=== PATIENT | female | born 1950 | race Caucasian/White ===

== ENCOUNTER 2017-04-19 15:56 | Emergency (ER) | payer MEDICARE, MEDICAID ==
[~2017-04-19] VITALS: Ht 160 cm; Wt 90.7 kg
[~2017-04-19 15:56] MED LIST: ASPIRIN EC325 M1 PO; ATORVASTATIN CA10 M1 PO; BUPROPION HCL75 MG PO; CITRACAL + D 251 TAB PO; CLINDAMYCIN300 MG PO; FUROSEMIDE 20MG20 MG PO; GABAPENTIN300 MG PO; HYDROCODONE-APA1 TA2 PO; HYDROXYZINE HCL25 M1 PO; LEVOFLOXACIN 5500 MG PO; LIPITOR40 MG PO; LISINOPRIL 5MG T5 MG NG; LISINOPRIL/HCTZ1 TA3 PO; LORTAB 7.5/3251 TAB PO; METOPROLOL SUCC25 M2 PO; METOPROLOL25 MG PO; PERCOCET 5/3251 EACH PO; PRILOSEC20 MG PO; TOPIRAMATE 25MG25 MG PO; VITAMIN B121000 MC2 SL; ZANTAC 150150 MG PO; ZOFRAN ODT4 MG PO; ZYRTEC ALLERGY10 MG PO
--- NOTE | 2017-04-19 16:25 | [facility] Report ---
History of Present Issue Date/Time Seen by Provider 04/19/17 9805 Visit Reason Pt arrived:Walked Presenting Problem:PATIENT STATES HER EARS ARE HURTING, SHE HAS HAD A WHEEZY COUGH FOR 2 DAYS AND NOW BODY ACHES. Location if Accident: Onset of symptoms date/time:/ or onset unknown for:MEDICAL HX UNKNOWN Have you (or family members/close friends) recently traveled outside the [place]? N If Yes, where/when: Have you had exposure to infectious disease within the past month? TB? Other? Specify: c/o cough and chest congestion. Started w/ bilateral ear pain x 2 days ago. Cough started yesterday and is worse at night or with deep breaths. Initially reported wheezing but once wheezing demonstrated, thinks more just congestion and not wheezing she is noticing when lays down at night. + tobacco abuse. Won't say how much. "none in the last 2-3 days and I am not a smoker because I can live without it". Denies SOA or difficulty breathing but later reports harder to breath if "really active". Son and his girlfriend have similiar symptoms. Source patient Exam Limitations no limitations ALLERGIES Coded Allergies: No Known Allergies (06/28/16) Home Medications Active Scripts HYDROCODONE/ACETAMINOPHEN (Hydrocodon-Acetaminoph 7.5-325) 1 TAB PO TID PRN pain #90 TAB Prov: 07/04/16 HYDROXYZINE HCL (Hydroxyzine HCl) 25 MG PO Q8HP PRN ITCHING #21 CAP Ref 1 Prov: 11/22/15 Ranitidine Hcl (Zantac) 150 MG PO BID #30 TAB Prov: 11/22/15 Reported Medications Aspirin (Aspirin Ec) 325 MG PO DAILY #15 Metoprolol Succinate 25 MG PO BID #30 Atorvastatin Calcium 10 MG PO QHS #30 Bupropion Hcl (Bupropion 75MG) 75 MG PO DAILY Atorvastatin Calcium (Atorvastatin) 40 MG PO DAILY Gabapentin (Gabapentin 300MG) 300 MG PO TID Lisinopril & Hctz (Lisinopril-Hctz 10-12.5 MG Tab) (Unknown Dose) PO DAILY History Medical History General CAD? No Angina: No [place]: No Hypertension? Yes Hyperlipidemia? Yes CHF? No DVT? No PE? No COPD? No Asthma? No Anemia? No GERD? No Gastric ulcers? No GI Bleed? No Hernia? No Thyroid Problems? No Hypothyroidism? No CVA? No Seizures? No Diabetes? Yes Insulin Dependent: No Insulin Pump: No Home FSBS? No Renal Insuffiency? No UTI? No Stones? No BPH? No GB Disease: Yes Nephritic Syndrome? No Asplenia? No Hepatitis? No Sickle Cell Disease? No Arthritis? No Migraines? No Cataracts? No Glaucoma? No MRSA? No HIV? No TB? No Anxiety? Yes Depression? No Cancer? No More? Yes Additional hx: "LEAKY" HEART VALVE HERNIA Immunization HX DT/Tetanus > 10 YRS Flu NEVER Pneumonia NEVER Surgical Hx Previous Surgery?Y HYSTERECTOMY GALLBLADDER TONSILS TOE X2 Family History Family HX Diabetes Yes CAD Yes Hypertension Yes Hyperlipidemia Yes Cancer Yes TB No Social History Smoking Hx Smoker: Former Smoker Tobacco: No Packs/day < 1 Pack Alcohol Alcohol: No Review of Systems All Other Systems Reviewed and Negative Constitutional denies chills, denies fever Eyes denies drainage ENT throat pain (at night, mild). denies: ear discharge, nose discharge, nose congestion. Respiratory see HPI Cardiovascular denies chest pain Gastrointestinal denies no symptoms reported Musculoskeletal denies other (aches) Skin denies rash Psychiatric/Neurological denies headache Physical Exam Vital Signs Vital Signs Date Time Temp Pulse Resp B/P Pulse O2 O2 Flow FiO2 Ox Delivery Rate 04/19 1713 98.1 70 20 117/81 98 04/19 1607 98.1 70 20 117/81 98 General Appearance normal appearance, no apparent distress Eye Exam - bilateral eye normal exam Ear, Nose, Throat normal ENT inspection Neck non-tender, supple Respiratory Status Yes: trachea midline, chest symmetrical, non tender chest, non productive cough (worse with deep breaths). No: respiratory distress, use of accessory muscles, pain on inspiration, pain on expiration, productive cough. Lung Sounds anterior: lungs clear. posterior: lungs clear. bilateral: lungs clear. Cardiovascular regular rate/rhythm, no peripheral edema, no murmur Neurologic alert, oriented x 3 Mental status normal mood/affect Skin normal color, warm/dry Lymphatic bilateral anterior cervical lymphnodes swollen, nontender, <1cm, mobile Medical Decision Making LABS/Meds/Orders Pt receiving controlled substance in ED? No Results/Orders Laboratory Tests 04/19/17 1624: Influenza Type A Ag NOT DETECTED, Influenza Type B Ag NOT DETECTED Orders Procedure Date/time Status [facility] FLU A,B 04/19 1624 Complete XRAY/CT/US XRAY/CT/US XRAY chest XR interpretation by reviewed by me Xray Results no infiltrates, NAD Departure Departure Time of Disposition 1704 Disposition DC Home or Self Care(routine) Clinical Impression Primary Impression: Acute bronchitis Qualifiers: Bronchitis organism: unspecified organism Qualified Code: J20.9 - Acute bronchitis, unspecified Secondary Impressions: Tobacco abuse Condition STABLE Referrals [facility],Deangelo Ward (Family) Follow up IMMEDIATELY for new or worsening symptoms OR no noticeable improvement over the next 48-72 hours. 911 for difficulty breathing. Patient Instructions DI for Acute Bronchitis, How to Quit Tobacco Products Additional Instructions * start antibiotic today. Be sure to complete entire prescription even if feeling better. * Monitor Temp. Tylenol every 4 hours as needed and/or ibuprofen every 6 hours as needed (as long as your primary care doctor has told you that it is ok to take both) for fever/aches/pain. ER if fever no less than 101 despite tylenol and ibuprofen * humidifier/vaporizer/hot steamy shower * Inhaler every 4-6 hours as needed like we discussed. If unsure how to use it, ask pharmacist to demonstrate how. Should help open airways and improve cough, wheezing, shortness of breath. * Mucinex during the day for your cough and cough suppressant only at night. Be sure to drink lots of water. Insurance may not cover a prescription of mucinex. Might be cheaper to get 400mg tablets and take 2 tablets morning, midday and evening all with lots of water. * Promethazine DM not currently available * Tessalon Perles will not cause drowsiness but use at bedtime to help stop cough so that you can get some rest * Start steroid today. Helps with inflammation therefore, cough and wheezing. Follow directions on package. Rvwd side effects. Pt reports they have taken them before. Follow up IMMEDIATELY for new or worsening symptoms OR no noticeable improvement over the next 48-72 hours. 911 for difficulty breathing. Discharge Counseling Counseled pt/family regarding diagnosis, test results, medications/RX, home care, follow up needs Prescriptions Current Visit Scripts ALBUTEROL (Proventil Hfa Inhaler) 1-2 PUFF IH Q4-6H PRN PRN SOA, wheezing #1 CAN Azithromycin (Zithromycin (Z-SARATH) 250MG Tab) 250 MG PO DAILY #6 TAB TAKE TWO (2) TABLETS ON DAY 1, THEN ONE (1) TABLET DAY #2 THRU #5 Methylprednisolone (Medrol Dose Sarath) 4 MG PO UD #1 SARATH TAKE DIRECTED ON PACKAGING Benzonatate 200 MG PO QHSP PRN cough #10 SGL at 2003
--- OUTSIDE RECORDS SUMMARY | 2017-04-19 16:27 | External Medical Summary Rpt ---
Author Author , Organization [employer] Address Unknown Phone Unavailable Care Team Providers Care Lang Path Therapist Name Role Phone [facility], [facility] Unavailable Unavailable [facility], [facility] Unavailable Unavailable [employer] Unavailable Unavailable INC, [employer] ALF[facility]IS MOH, ALFARIS Unavailable Unavailable MOH ALF[facility]IS MOH, ALFARIS Unavailable Unavailable MOH [facility], Unavailable Unavailable [facility] Pedro DUKE, Unavailable Unavailable Pedro DUKE MD, PSC, Unavailable Unavailable JACKLYN FUENTES MD, PSC ARMS DON, ARMS DON Unavailable Unavailable ARMS DON, ARMS DON Unavailable Unavailable RICH VAUGHAN, Unavailable Unavailable ,PSC, RICH VAUGHAN MD,PSC JORDAN BRO, JORDAN Unavailable Unavailable BRO DELATORRE ALL, DELATORRE ALL Unavailable Unavailable [facility] Unavailable Unavailable DEPARTMENT, [facility] DEPARTMENT [facility] Unavailable Unavailable HOSPITAL, [facility] FONSECA DARRYN, FONSECA DARRYN Unavailable Unavailable [facility], Unavailable Unavailable [facility] PAM HAILE Unavailable Unavailable PAM KUMAR Unavailable Unavailable JACKIE STAPLES, Unavailable Unavailable JACKIE OROZCO YUSEF CHILO, YUSEF Unavailable Unavailable CHILO YUSEF CHILO, YUSEF Unavailable Unavailable CHILO NELSON JAM, NELSON JAM Unavailable Unavailable BUX ANJ, BUX ANJ Unavailable Unavailable [facility] Unavailable Unavailable [facility], [facility] Unavailable Unavailable [facility], [facility]available Unavailable [facility], [facility] CARRICATO, CARRICATO Unavailable Unavailable [facility], Unavailable Unavailable [facility] COSBY TEJ, COSBY TEJ Unavailable Unavailable COSBY, ALON A, Unavailable Unavailable COSBY, ALON A MARIPOSA NIKKI, Unavailable Unavailable MARIPOSA NIKKI ORQUIDEA II THO, ORQUIDEA II Unavailable Unavailable THO DAUKAS GARCIA, DAUKAS Unavailable Unavailable GARCIA DUFF KATIE, DUFF KATIE Unavailable Unavailable VILA, G T, VILA, G Unavailable Unavailable T FALLUJI KALYN, FALLUJI Unavailable Unavailable KALYN FRYMAN EUG, FRYMAN Unavailable Unavailable EUG CARLOS MENG, CARLOS Unavailable Unavailable [facility] Unavailable Unavailable [facility], [facility] MIRA RHO, MIRA Unavailable Unavailable RHO MIRA, NEEL G, Unavailable Unavailable MIRA, NEEL G [facility] Unavailable Unavailable INC, [facility] Unavailable Unavailable [facility], [facility] KIRILL, GALLARDO Unavailable Unavailable KIRILL GALLARDO, CONRAD S, Unavailable Unavailable GALLARDO, CONRAD S [facility], Unavailable Unavailable [facility] PULLIAM BERNY, PULLIAM BERNY Unavailable Unavailable PULLIAM BERNY, PULLIAM BERNY Unavailable Unavailable RAIN, RAIN Unavailable Unavailable KENNEDY-PETEY RACIEL, Unavailable Unavailable KENNEDY-PETEY RACIEL KENNEDY-PETEY RACIEL, Unavailable Unavailable KENNEDY-PETEY RACIEL KENNEDY-PETEY, Unavailable Unavailable VINH, KENNEDY-PETEY, VINH [facility] Unavailable GROUP PS, [facility] Unavailable [facility], [facility], Unavailable Unavailable [facility] Unavailable Unavailable MEDICAL SPEC, [facility] KOSTELIC MAXIMO, Unavailable Unavailable KOSTELIC MAXIMO [facility] Unavailable Unavailable [facility], [facility] Un[facility] Un[facility], [facility] Unavailable Unavailable HOLDINGS, [facility] Unavailable Unavailable HOLDINGS, [facility], Unavailable Unavailable [facility] SHANI CRI, SHANI CRI Unavailable Unavailable [facility], Unavailable Unavailable [facility] CARL[facility], R[facility]O JOSE CARLOS Unavailable Unavailable [facility] Unavailable [facility], Unavailable Unavailable [facility] SALDIVAR KIRILL, SALDIVAR Unavailable Unavailable KIRILL [facility], Unavailable Unavailable [facility], Unavailable Unavailable [facility] Unavailable Unavailable SERVICES, [facility] Unavailable Unavailable ASSOCI, [facility], Unavailable Unavailable [facility] Unavailable Unavailable CO HOS, [facility] MARYBETH MILLIGAN, MARYBETH Unavailable Unavailable SRINI NADBINA VID, NADBINA VID Unavailable Unavailable [facility], Unavailable Unavailable [facility] Unavailable [facility] Unavailable [facility]available [facility] TEJ COSBY MD Unavailable Unavailable CONSULTING SERV, TEJ CSOBY MD CONSULTING SERV TEJ COSBY MD Unavailable Unavailable CONSULTING SRVTEJ MD CONSULTING SRV [facility], Unavailable Unavailable PLL[facility], [facility] Unavailable Unavailable LAB, [facility] Unavailable Unavailable LAB, [facility] LAB JR. KINJAL, DO OSC, Unavailable Unavailable JR. KINJAL, DO OSC [facility] Unavailable Unavailable [facility]OCIATES PS, [facility], Unavailable Unavailable [facility] Unavailable Unavailable [facility], Unavailable Unavailable [facility], Unavailable Unavailable [facility], Unavailable Unavailable [facility] Unavailable Unavailable INCORPORAT, [facility] FLORIAN TOD, FLORIAN TOD Unavailable Unavailable RIBEN[facility], Unavailable Unavailable [id number], Unavailable Unavailable [id number], [facility]available Unavailable [id number] Unavailable Unavailable SCHOOL, [facility] SADEK MOH, SADEK MOH Unavailable Unavailable SCALF KIRILL, SCALF KIRILL Unavailable Unavailable RACHEL MAT, Unavailable Unavailable RACHEL MAT KRZYSZTOF AURORA, KRZYSZTOF [facility]A Unavailable Unavailable SOKAN BAB, SOKAN BAB Unavailable Unavailable [facility], Unavailable Unavailable [facility] Unavailable Unavailable DIAL BRUSHER ST, [facility] DIAL BRUSHER [facility] Unavailable Unavailable PHYSICIANS, [facility] GOINS, DON R, Unavailable Unavailable GOINS, DON R HAMPTON KER, HAMPTON KER Unavailable Unavailable HAMPTON KER, HAMPTON KER Unavailable Unavailable SWINEY PAT, SWINEY Unavailable Unavailable PAT ASHLEY III J, ASHLEY Unavailable Unavailable III J UNICK CHR, UNICK CHR Unavailable Unavailable VORKPOR DAMI, VORKPOR Unavailable Unavailable DAMI VORKPOR DAMI, VORKPOR Unavailable Unavailable DAMI [facility] # Unavailable Unavailable [id number], [facility] # [id number] [facility] # Unavailable Unavailable [id number], [facility] # [id number] TAMELA ARTHUR EDW, Unavailable Unavailable TAMELA ARTHUR EDW TAMELA ARTHUR, DAPHNE Unavailable Unavailable J, TAMELA ARTHUR, DAPHNE J MILDRED GUEVARA, MILDRED GUEVARA Unavailable Unavailable BRODERICK LEVY, Unavailable Unavailable BRODERICK LEVY Purpose Continuity of Care Document - 10-20-2007 through 2016 Problems Code Diagnosis DOS Provider Status [id number] SPONDYLOSIS 11-17-2016 [facility] W/O RADIOLOGY MYELOPATH/R ADICULOPATH Y CERV RGN [id number] SPONDYLOSIS 11-17-2016 [facility] W/O RADIOLOGY MYELOPATH/R ADICULOPATH Y LUMB RGN [id number] SPONDYLOSIS 11-17-2016 [facility] W/O RADIOLOGY MYELOPATH/R ADICULPATHY LS RGN [id number] OTHER 11-17-2016 [facility] CERVICAL RADIOLOGY DISC DEGENERATIO N AT C5-C6 LEVEL M791 MYALGIA 11-17-2016 RICH VAUGHAN MD,PSC M549 DORSALGIA 08-29-2016 [facility] R635 ABNORMAL 08-29-2016 [facility]IN [facility] Z23 ENCOUNTER 08-29-2016 [facility] IMMUNIZATIO GROUP N E785 HYPERLIPIDE 07-05-2016 [facility] UNSPECIFIED GROUP I10 ESSENTIAL 07-05-2016 [facility] PRIMARY [facility] HYPERTENSIO GROUP N I2510 ASHD NANWALEK 07-05-2016 [facility] CORONARY [facility]YS[facility] ARTERY W/O GROUP ANGINA PECTORIS M5030 OTH 07-04-2016 [facility] CERVICAL [facility] DISC INC DEGENERATIO N UNS CERV REGION M5116 INTERVERTEB 07-04-2016 [facility] RAL DISC [facility] D/O INC W/RADICULOP ATHY LUMB RGN M5032 OT CERV 06-28-2016 [place] DISC MEDICAL DEGENERATIO IMAGING ASS N MID-CERVICA L REGION M542 CERVICALGIA 06-28-2016 [facility] R079 CHEST PAIN 06-28-2016 [place] U[facility]PECIFIED [facility]ING ASS R1084 GENERALIZED 06-28-2016 [place] ABDOMINAL MEDICAL PAIN IMAGING ASS F907HBF UNSPECIFIED 06-28-2016 [place] INJURY OF MEDICAL NECK IMAGING ASS INITIAL ENCOUNTER Z0100 ENCOUNTER 2016 [facility] EXAM EYES & GRE VISION W/O ABNORMAL FIND M4802 SPINAL 05-02-2016 JACKLYN FUENTES, STENOSIS , PSC CERVICAL REGION E663 OVERWEIGHT 04-20-2016 [facility] C44340 COMPLEX 04-07-2016 [facility] PAIN GROUP SYNDROME I UNS LOWER LIMB R9431 ABNORMAL 04-07-2016 [facility] ELECTROCARD [facility]ANS IOGRAM GROUP T46373 ENCOUNTER 04-05-2016 TEJ COSBY FOR MD PREPROCEDUR CONSULTING AL SRV CARIOVASCUL AR EXAM G8918 OTHER ACUTE 03-29-2016 PROGRESS[facility] PODIATRY POSTPROCEDU RAL PAIN M2022 HALLUX 03-29-2016 PROGRESS[facility] RIGIDUS PODIATRY LEFT FOOT M2032 HALLUX 03-29-2016 PRO[facility] VARUS PODIATRY ACQUIRED LEFT FOOT Z471 AFTERCARE 03-29-2016 [place] FOLLOWING MEDICAL JOINT IMAGING ASS REPLACEMENT SURGERY Z8739 PERSONAL HX 03-29-2016 [facility] OT DZ [facility]OS[facility] MUSCULOSKEL INC SYS&CONNECT V TISS W15473 PRESENCE OF 03-29-2016 [place] OTHER MEDICAL ORTHOPEDIC IMAGING ASS JOINT IMPLANTS Z9889 OTHER 03-29-2016 [facility] SPECIFIED [facility] POSTPROCEDU INC [facility] STATES J69904 OTHER LONG 02-29-2016 [facility] TERM [facility] CURRENT INC DRUG THERAPY Z1231 ENCOUNTER 02-22-2016 [place] SCREENING MEDICAL MAMMO MALIG IMAGING ASS NEOPLASM BREAST Z4789 ENCOUNTER 02-15-2016 [place] FOR OTHER MEDICAL ORTHOPEDIC IMAGING ASS AFTERCARE M545 LOW BACK 02-14-2016 [facility] PAIN [facility] INC Z0000 ENCOUNTER 02-03-2016 [facility] GEN ADULT [facility] MED EXAM INC W/O ABNORMAL FIND B5764UL ALLERGY 01-19-2016 [facility] UNSPEC[facility]IED PHYSICIANS INITIAL GROUP ENCOUNTER M4696 UNS 01-15-2016 [place] INFLAMMATOR MEDICAL Y IMAGING ASS SPONDYLOPAT HY LUMBAR REGION M5136 OTH 01-15-2016 [place] INTERVERTEB MEDICAL RAL DISC IMAGING ASS DEGEN LUMBAR REGION M479 SPONDYLOSIS 01-04-2016 [facility] UNSPECIFIED INC M5090 CERVICAL 01-04-2016 [facility] DISC [facility] DISORDER INC UNS UNS CERVICAL REGION M5010 CERVICAL 12-11-2015 JACKLYN BUX, DISC D/O , PSC W/RADICULOP ATHY UNS CERV RGN M2012 HALLUX 12-07-2015 [facility] VALGUS [facility] ACQUIRED INC LEFT FOOT T54662 ANKYLOSIS 12-07-2015 [facility] LEFT FOOT [facility] INC I209 ANGINA 11-27-2015 [facility] PECTORIS LAR UNSPECIFIED CONSULTANTS O R9439 ABNORMAL 11-27-2015 [facility] RESULT OTH LAR CARDIOVASCU CONSULTANTS LR FUNCTION O STUDY B000 ECZEMA 11-22-2015 [facility] E119 TYPE 2 11-22-2015 [facility] DIABETES [facility] MELLITUS INC WITHOUT COMPLICATIO NS L259 UNSPECIFIED 11-22-2015 [facility] CONTACT [facility] DERMATITIS INC UNSPECIFIED CAUSE I208 OTHER FORMS 11-11-2015 [facility] OF ANGINA LAR PECTORIS CONSULTANTS O I340 NONRHEUMATI 11-11-2015 [facility] INSUFFICIEN CY I517 CARDIOMEGAL 11-11-2015 [facility] SERV [facility] I739 PERIPHERAL 11-11-2015 [place] VASCULAR MEDICAL DISEASE IMAGING ASS UNSPECIFIED S37866 ENCOUNTER 11-06-2015 [facility] FOR OTHER MEM HOS[facility] PREPROCEDUR INC AL EXAMINATION S16557 PAIN IN 11-03-2015 YUESF CHILO LEFT FOOT K66366 PAIN IN 11-03-2015 YUSEF CHILO LEFT TOES R011 CARDIAC 11-02-2015 [facility] UNSPECIFIED GROUP M7732 CALCANEAL 10-20-2015 [place] SPUR LEFT MEDICAL FOOT IMAGING ASS R102 PELVIC AND 09-07-2015 [facility] PERINEAL [facility]YSICIANS PAIN GROUP R1030 LOWER 09-07-2015 [facility] ABDOMINAL PHYSICIANS PAIN GROUP UNSPECIFIED R1031 RIGHT LOWER 09-07-2015 [facility] QUADRANT PHYSICIANS PAIN GROUP R591 GENERALIZED 09-07-2015 [facility] ENLARGED PHYSICIANS LYMPH NODES GROUP K5730 DIVERTICULO 08-12-2015 [place] SIS LG MEDICAL INTEST W/O IMAGING ASS PERF/ABSC W/O BLEED K5900 CONSTIPATIO 08-12-2015 [place] N MEDICAL UNSPECIFIED IMAGING ASS R197 DIARRHEA 08-12-2015 [place] UNSPECIFIED MEDICAL IMAGING ASS 65861 URINARY 07-09-2015 [facility] FREQUENCY [facility] INC 5990 URINARY 06-30-2015 [facility] TRACT [facility] INFECTION INC SITE NOT SPECIFIED 6259 UNSPEC 06-30-2015 [place] SYMPTOM MEDICAL ASSOC IMAGING ASS W/FEMALE GENITAL ORGANS 7831 ABNORMAL 06-30-2015 [facility] WEIGHT GAIN [facility] INC 38351 UNSPECIFIED 06-30-2015 [place] URINARY MEDICAL INCONTINENC IMAGING ASS E 32341 UNSPECIFIED 06-25-2015 [facility] WOO REFLEX SYMPATHETIC DYSTROPHY 80879 UNSPECIFIED 06-25-2015 [facility] WOO ENTHESOPATH Y OF ANKLE AND TARSUS 96033 EXOSTOSIS 06-25-2015 YUSEFKATHI WOO OF UNSPECIFIED SITE 7351 HALLUX 06-25-2015 [facility] WOO VARUS V571 OTHER 06-16-2015 [facility] THERAPY INC 4739 UNSPECIFIED 06-03-2015 [facility] 4019 UNSPECIFIED 05-20-2015 [facility] ESSENTIAL LAR HYPERTENSIO CONSULTANTS N O 4139 OTHER AND 05-20-2015 [facility] UNSPECIFIED PHYSICIANS ANGINA GROUP PECTORIS 13859 SHORTNESS 05-20-2015 [facility] OF [place] O 82860 CHEST PAIN 05-20-2015 [facility] UNSPECIFIED LAR CONSULTANTS O 7220 DISPLCMT 05-12-2015 [place] CERV MEDICAL INTERVERT IMAGING ASS DISC WITHOUT MYELOPATHY 7224 DEGENERATIO 05-12-2015 [place] N OF MEDICAL CERVICAL IMAGING ASS INTERVERTEB RAL DISC 7231 CERVICALGIA 05-12-2015 [place] 7820 DISTURBANCE 05-12-2015 [place] OF SKIN MEDICAL SENSATION IMAGING ASS 3559 MONONEURITI 05-01-2015 [facility] S OF PHYSICIANS UNSPECIFIED GROUP SITE 7852 UNDIAGNOSED 05-01-2015 [facility] CARDIAC PHYSICIANS MURMURS GROUP 82087 OBESITY, 04-15-2015 [place] [facility]PECIFIED [facility] 4292 UNSPECIFIED 04-15-2015 [facility] [facility] CARDIOVASCU LAR DISEASE 7295 PAIN IN 04-15-2015 [place] SOFT [facility] TISSUES OF LIMB 87329 DISORDER OF 04-15-2015 [place] BONE AND [facility] CARTILAGE UNSPECIFIED 08613 CLOSED 04-15-2015 [place] FRACTURE OF [facility] METATARSAL BONE 74341 CONTUSION 04-15-2015 [place] OF FOOT [facility] 2720 PURE 03-08-2015 [facility] 9597 INJURY 03-08-2015 [facility] [place] OTHER&UNSPE RADIOLOGY CIFIED KNEE LEG ANKLE&FOOT E8888 OTHER FALL 03-08-2015 [facility] V5869 LONG-TERM 03-08-2015 [place] (CURRENT) [facility] USE OF HOSPITAL OTHER MEDICATIONS 2724 OTHER AND 02-16-2015 [facility]PITAL HYPERLIPIDE LUIS 48266 OTHER 02-16-2015 [facility] MALAISE AND [facility] FATIGUE HOSPITAL 7821 RASH AND 02-16-2015 [facility] OTHER [facility] NONSPECIFIC HOSPITAL SKIN ERUPTION V4589 OTHER 02-16-2015 [facility] POSTSURGICA [facility] OTHER 2810 PERNICIOUS 02-13-2015 PAM FUENTES ANEMIA 6929 CONTACT 02-13-2015 PAM FUENTES DERMATITIS& OTHER ECZEMA DUE UNSPEC CAUSE 45265 OSTEOARTHRO 01-21-2015 [facility] [place] SIS UNSPEC RADIOLOGY WHETHER GEN/LOC ANK&FOOT 11195 PAIN IN 01-21-2015 [facility] JOINT, [facility] ANKLE AND HOSPITAL FOOT 4549 ASYMPTOMATI 12-22-2014 PAM Santos VARICOSE VEINS 58865 UNS [facility] 11-28-2014 [facility] ANESTHESIA ORTHOPEDIC GROUP PS DEVC IMPLANT&[place] [address] OTH COMPS 11-28-2014 [place] DUE OT [facility] INTRL ORTHOPED DEVICE IMPL&GFT V1582 PERS HX 11-28-2014 [facility] TO[facility] USE [facility]AC[facility] BY [facility] V454 ARTHRODESIS 11-28-2014 [facility] V5399 FITTING AND 11-28-2014 [facility], ADJUSTMENT Aqua[employer]ling OTHER DEVICE V5401 ENCOUNTER 11-28-2014 [facility] REMOVAL OF [facility] INTERNAL HOSPITAL FIXATION DEVICE V5866 LONG-TERM 11-28-2014 [facility] USE OF [facility] V7283 OTHER 11-25-2014 [facility] [place] SPECIFIED RADIOLOGY PRE-OPERATI VE EXAMINATION 4599 UNSPECIFIED 11-24-2014 PAM FUENTES CIRCULATORY SYSTEM DISORDER V692 PROBLEMS 10-17-2014 [facility] RELATED TO LISSA [facility]-RISK [facility]INGS SEXUAL BEHAVIOR 79392 ACUTE 10-14-2014 [facility] DUE OT ASSOCIATES INFECTIOUS PS ORGANISMS 7905 OTHER 10-06-2014 [facility] NONSPECIFIC [facility] ABNORMAL HOSPITAL SERUM ENZYME LEVELS 7812 ABNORMALITY 08-12-2014 [facility] GAIT 6827 CELLULITIS 07-18-2014 [facility] AND [facility] EXCEPT TOES 89612 NON-HEALING 07-16-2014 [facility] WOUND NEC 8260 CLOSED 07-15-2014 [facility] FRACTURE OF ONE OR MORE PHALANGES OF FOOT 37813 DISRUPTION 07-15-2014 HERACLIO ARRIETA OF EXTERNAL OPERATION SURGICAL WOUND 7352 HALLUX 07-09-2014 [facility] V5409 OTH 07-09-2014 [facility] [place] [facility] RADIOLOGY INVOLVING INTERNAL FIXATION DEVICE V5419 AFTERCARE 06-16-2014 [facility] TRAUMATIC FRACTURE OTHER BONE V6700 FOLLOW-UP 05-28-2014 [facility] [place] EXAMINATION RADIOLOGY FOLLOWING UNSPEC SURGERY 8920 OPEN WOUND 05-26-2014 S[facility] FT NO TOE HEALTHCARE ALONE CENTERS WITHOUT MENTION COMP 92639 NAUSEA 05-02-2014 [facility] 4011 ESSENTIAL 05-01-2014 TEJ COSBY HYPERTАННА CA N, BENIGN CONSULTING SRV 79184 CORONARY 05-01-2014 TEJ CURRIE MD OSIS NANWALEK CONSULTING CORONARY SRV ARTERY 2725 LIPOPROTEIN 04-30-2014 [facility] S V7284 UNSPECIFIED 04-30-2014 [facility] [place] [facility] PRE-OPERATI VE EXAMINATION 06790 SWELLING OF 04-23-2014 [facility] [place] LIMB RADIOLOGY 4439 UNSPECIFIED 04-04-2014 TEJ COSBY PERIPHERAL VASCULAR CONSULTING DISEASE SRV 4479 UNSPECIFIED 04-02-2014 [facility] DISORDERS PRIMARY OF ARTERIES CARE CENTER AND ARTERIOLES 40289 STIFFNESS 04-02-2014 [facility] OF JOINT PRIMARY NEC ANKLE CARE CENTER AND FOOT 46090 UNSPECIFIED 03-07-2014 [facility] CELLULITIS AND ABSCESS OF TOE 8261 OPEN 03-07-2014 [facility] FRACTURE OF COMMUNITY ONE OR HOSPITAL MORE PHALANGES OF FOOT 6821 CELLULITIS 02-21-2014 [place] AND ABSCESS [facility] 98682 DIAB W/O 02-17-2014 [facility] COMP TYPE [facility]OS[facility] II/UNS NOT INC STATED UNCNTRL 7962 ELEVATED BP 02-17-2014 [facility] READING [facility] WITHOUT DX INC HYPERTENSIO N 30337 ESOPHAGEAL 02-16-2014 [facility] REFLUX [facility] [place] E8859 FALL FROM 02-05-2014 VORESTEVAN DAMI OTHER SLIPPING TRIPPING OR STUMBLING 87442 OSTEOARTHRO 01-03-2014 [facility]ITY WHETHER HOSPITAL GEN/LOC LOWER LEG 16122 PAIN IN 01-03-2014 [facility] [place] JOINT, RADIOLOGY LOWER LEG 7919 OTHER 01-03-2014 [facility] NONSPECIFIC COMMUNITY [facility] H[facility]PITAL EXAMINATION OF URINE 8930 OPEN WOUND 12-27-2013 [facility] KER TOE WITHOUT MENTION COMPLICATIO N 76114 UNSPECIFIED 12-23-2013 [facility] S 21939 OSTEOARTHRO 11-28-2013 [facility] [place] S UNSPEC RADIOLOGY WHETHER GEN/LOC SHLDR REGION 76909 PAIN IN 11-28-2013 [facility] REGION V7612 OTHER 11-28-2013 [facility] [place] SCREENING RADIOLOGY MAMMOGRAM V8534 BODY MASS 08-06-2013 [facility] 34.0-34.9 ADULT V016 CONTACT 07-23-2013 [facility] WITH OR DIAGNOSTICS EXPOSURE TO VENEREAL DISEASES 67867 PAINFUL 06-30-2013 [facility] 67553 OTHER 06-30-2013 [facility] INJURY OF EMERGENCY CHEST WALL SERVICES 4610 ACUTE 05-21-2013 [facility] MAXILLARY PRIMARY SINUSITIS CARE CENTER 4619 ACUTE 05-21-2013 [facility] SINUSITIS, DAUGHTERS UNSPECIFIED MEDICAL SPEC 7840 HEADACHE 05-21-2013 [facility] PRIMARY CARE CENTER 9220 CONTUSION 01-18-2013 [facility] OF BREAST EMERGENCY SERVICES 34404 CONTUSION 01-18-2013 [facility] UPPER EMERGENCY ARM SERVICES E8881 FALL 01-18-2013 [facility] RESULTING EMERGENCY IN STRIKING SERVICES AGAINST OTHER OBJECT 4240 MITRAL 09-19-2012 [facility] INC, VALVE DIAL BRUSHER DISORDERS [facility] HOS 19575 PRECORDIAL 09-19-2012 [facility], PAIN DIAL BRUSHER [facility] HOS 7242 LUMBAGO 06-21-2012 [facility] 8404 ROTATOR 06-07-2012 [facility] [place] [address] PAIN IN 04-07-2012 [facility] COMMUNTIY PELVIC HOSPITA REGION AND THIGH 6160 CERVICITIS 04-06-2012 PAM GINA AND ENDOCERVICI TIS 6250 DYSPAREUNIA 03-01-2012 [facility] [place] [address]09 REFLUX 01-10-2012 PATHOLOGY & ESOPHAGITIS CYTOLOGY LAB 39620 ACUTE 01-10-2012 [place] [facility] GASTRITIS SERV WITHOUT FOUNDATIO MENTION OF HEMORRHAGE 70194 OTHER SPEC 01-10-2012 PATHOLOGY & GASTRITIS CYTOLOGY WITHOUT LAB MENTION HEMORRHAGE 5533 DIAPHRAGMAT 01-10-2012 [place] [facility] SRIKANTH W/O SERV MENTION FOUNDATIO OBSTRUCTION /GANGREN 7871 HEARTBURN 01-10-2012 [place] [facility] F[facility] 34377 DYSPHAGIA 01-10-2012 [place] [facility] UNSPECIFIED SERV FOUNDATIO 0340 STREPTOCOCC 12-30-2011 [facility] PS 2777 DYSMETABOLI 11-29-2011 [facility], C SYNDROME DIAL BRUSHER X [facility] HOS 83421 UNSPECIFIED 11-29-2011 [facility], DIAL BRUSHER ARTHROPATHY [facility] SITE HOS UNSPECIFIED 4730 CHRONIC 11-04-2011 [facility] PS 9063 LATE EFFECT 09-23-2011 [facility] OF HOSPITAL CONTUSION 9599 INJURY 09-23-2011 [place] OTHER AND RADIOLOGY UNSPECIFIED ASSOCIAT UNSPECIFIED SITE 4779 ALLERGIC 07-21-2011 [facility] UNSPECIFIED PS 2722 MIXED 07-14-2011 [place] HYPERLIPIDE [facility] 3278 OTHER 07-14-2011 [place] ORGANIC [facility] SLEEP HOSPITAL DISORDERS 16952 COR 07-14-2011 [place] ATHEROSLERO [facility] UNSPEC HOSPITAL TYPE VESSEL NAN[place]/ALYSA T 7851 PALPITATION 06-02-2011 TEJ Ghosh [place]V 66540 OTHER CHEST 05-27-2011 [facility] 28681 05-04-2011 [facility] PS 2662 OTHER 04-22-2011 [facility] DEFICIENCIE [facility] S PS 6822 CELLULITIS 03-24-2011 [facility] AND ABSCESS EMERGENCY OF TRUNK SERVICES 6829 CELLULITIS 03-16-2011 [facility] OF ASSOCIATES UNSPECIFIED PS SITE 02519 OTHER 02-08-2011 [place] CHRONIC [facility] PAIN HOSPITAL 4279 UNSPECIFIED 02-08-2011 [place] CARDIAC [facility] D[facility] 4556 UNSPEC 02-08-2011 [place] HEMORRHOIDS [facility] WITHOUT HOSPITAL [place]AT[place] N [address]88 UNSPECIFIED 02-08-2011 [facility] RAC[facility]EL CONSTIPATIO N 5693 HEMORRHAGE 02-08-2011 [place] OF [facility] ANESTHESIA AND ANUS GROUP PSC V1272 PERSONAL 02-08-2011 [place] HISTORY OF ANESTHESIA COLONIC GROUP PSC POLYPS 7247 DISORDERS 01-21-2011 [place] [address] OTHER 01-21-2011 [facility] [place] DISORDER OF RADIOLOGY COCCYX 7336 TIETZES 11-20-2010 [facility] DISEASE [facility] 1119 UNSPECIFIED 11-07-2010 [facility] DERMATOM[facility]OSPITAL SIS 76898 RESTLESS 11-07-2010 [place] LEGS [facility] SYNDROME [facility]OSPITAL 1105 DERMATOPHYT 10-22-2010 [facility] OS[facility] PS 7265 ENTHESOPATH 09-15-2010 [facility] PS [id number] SCREENING 06-29-2010 [place] EXAM[facility] VENEREAL DISEASE [id number] DYSURIA 05-03-2010 [facility] [id number] CONTACT [place] 05-03-2010 [place] EXPOSURE TO [facility] OTHER HOSPITAL VIRAL DISEASES 8461 SPRAIN AND 01-29-2010 [facility] PS 3829 UNSPECIFIED 09-01-2009 [facility] PSC [id number] UNSPECIFIED 09-01-2009 [facility] PSC [id number] INSOMNIA 07-30-2009 [facility]PECIFIED [facility] PSC [id number] ROUTINE 07-28-2009 PATHOLOGY & GYNECOLOGIC CYTOLOGY AL LAB EXAMINATION 2721 PURE 06-12-2009 [facility]CER [facility] PSC [id number] UNSPECIFIED 11-24-2008 [facility] DISORDER [facility] 8471 THORACIC 11-24-2008 [facility] PSC [phone] PNEUMONIA, 10-13-2008 [facility] ORGANISM [facility] U[facility]PECIFIED [facility] PSC [id number] OTHER 10-12-2008 [place] ACQUIRED RADIOLOGY ABSENCE OF ASSOCIATES ORGAN PSC [id number] IMPACTED 08-19-2008 [facility] PSC [id number] DIARRHEA 07-17-2008 [facility] PSC [id number] INTERNAL 07-08-2008 [place] HEMORRHOIDS [facility] WITHOUT HOSPITAL MENTION COMP V160 FM HX 07-08-2008 [place] MALIGNANT [facility] NEOPLASM HOSPITAL GASTROINTES TINAL TRACT [id number] SPECIAL 07-08-2008 [place] SCREENING AN[facility]IA FOR [facility] PSC MALIGNANT NEOPLASMS COLON 76436 DISPLCMT 03-17-2008 [place] LUMBAR [facility] INTERVERT HOSPITAL DISC W/O MYELOPATHY 25300 OTHER&UNSPE 02-18-2008 [facility] [place] CIFIED DISC RADIOLOGY DISORDER OF LUMBAR REGION 19868 LUMP OR 12-27-2007 [place] MASS IN [facility] V703 OT GENERAL 11-06-2007 [facility] ACCT PURPOSES [id number] HYPERVENTIL 10-23-2007 [facility] GO[facility] Allergies, Adverse Reactions, Alerts Clinical Alert Notifications Alert Diabetes: no A1C in the last 6 months Diabetes: no lipid panel in the last 365 days Diabetes: no urine protein screening in the last 365 days Medications Na ND Rx Da Fi Fi Am Da Di Ph RX Ph St me C No te ll ll ou ys ag ar # ys at rm s nt no ma ic us Or Da si cy ia de te s n re d GA 60 06 01 30 10 00 RI Ac BA 50 -1 -0 .0 00 TE ti PE 50 3- 9- 00 00 ve NT 11 20 20 71 AI IN 40 16 17 14 D 1 68 PH 40 AR 0 M MG #3 91 CA 4 PS UL E LI 68 06 01 30 30 00 RI Ac SI 18 -0 -0 .0 00 TE ti NO 00 9- 9- 00 00 ve ME 51 20 20 71 AI IL 90 16 17 31 D -H [address] AR Z M 20 #3 -1 91 2. 4 5 MG TA B HY 00 06 01 60 [address] 40 -1 -0 .0 00 TE ti OC 60 8- 9- 00 00 ve OD 12 20 20 70 AI ON 40 16 17 92 D -A 1 13 PH CE AR TA M HI #3 NO 91 PH 4 7. 5- 32 5 AT 60 06 01 30 30 00 RI Ac OR 50 -2 -0 .0 00 TE ti VA 52 1- 9- [address] 57 20 20 70 AI AT 80 16 17 76 D IN 9 11 PH AR 10 M #3 MG 91 4 TA BL ET ME 62 06 01 30 30 00 RI Ac TO 03 -2 -0 .0 00 TE ti ME 70 2- 9- 00 00 ve OL 83 20 20 71 AI OL 00 16 17 52 D 1 23 PH SAMUEL AR CC M #3 ER 91 4 25 MG TA B TR 00 10 10 5 30 30 WA 70 BR Ac IL 07 -1 -1 .0 L- 97 OD ti IP 49 7- 7- 00 MA 73 SK ve IX 18 20 20 RT 3 Y [address] 0 PH NN AR ET 13 MA H 5 CY M MG # CA 10 PS 04 UL 93 E MO 60 10 10 0 30 30 WA 22 BR Ac RP 95 -1 -1 .0 L- 19 OD ti HI 10 7- 7- 00 MA 99 SK ve NE 65 20 20 RT 8 Y 37 11 11 KE SAMUEL 0 PH NN LF AR ET MA H ER CY M # 30 10 MG 04 93 TA BL ET AZ 00 10 10 0 3. 3 WA 70 BR Ac IT 78 -0 -0 00 L- 96 OD ti HR 11 6- 6- 0 MA 46 SK ve OM 94 20 20 RT 5 Y YC 13 11 11 KE IN 3 PH NN AR ET 50 MA H 0 CY M MG # TA 10 BL 04 ET 93 ZO 16 10 10 0 1. 1 WA 44 KE Ac LP 71 -0 -0 00 L- 90 RN ti ID 40 4- 4- 0 MA 40 ve EM 62 20 20 RT 4 CA 20 11 11 RO TA 1 PH LI RT AR NE RA MA M TE CY # 10 10 MG 04 93 TA BL ET ME 62 08 09 5 30 30 WA 70 CO Ac TO 03 -1 -2 .0 L- 90 MB ti ME 70 8- 6- 00 MA 14 S ve OL 83 20 20 RT 7 PA OL 00 11 11 ME 1 PH LA SAMUEL AR A CC MA CY ER # 25 10 04 MG 93 TA B LO 54 08 09 2 30 30 WA 70 CO Ac VA 45 -1 -2 .0 L- [address] 80 8- 6- 00 MA 14 S ve AT 93 20 20 RT 6 PA IN 61 11 11 ME 0 PH LA 40 AR A MA MG CY # TA BL 10 ET 04 93 MO 60 09 09 0 30 30 WA 22 BR Ac RP 95 -1 -1 .0 L- 19 OD ti HI 10 6- 6- 00 MA 84 SK ve NE 65 20 20 RT 4 Y 37 11 11 KE SAMUEL 0 PH NN LF AR ET MA H ER CY M # 30 10 MG 04 93 TA BL ET ME 62 08 08 5 30 30 WA 70 CO Ac TO 03 -1 -1 .0 L- 90 MB ti ME 70 8- 8- 00 MA 14 S ve OL 83 20 20 RT 7 PA OL 00 11 11 ME 1 PH LA SAMUEL AR A CC MA CY ER # 25 10 04 MG 93 TA B LO 54 08 08 2 30 30 WA 70 CO Ac VA 45 -1 -1 .0 L- [address] 80 8- 8- 00 MA 14 S ve AT 93 20 20 RT 6 PA IN 61 11 11 ME 0 PH LA 40 AR A MA MG CY # TA BL 10 ET 04 93 CR 00 08 08 5 30 30 WA 70 BR Ac ES 31 -1 -1 .0 L- 89 OD ti TO 00 0- 0- 00 MA 09 SK ve R 75 20 20 RT 2 Y 10 19 11 11 KE 0 PH NN MG AR ET MA H TA CY M BL # ET 10 04 93 MO 60 08 08 0 30 30 WA 22 BR Ac RP 95 -1 -1 .0 L- 19 OD ti HI 10 0- 0- 00 MA 66 SK ve NE 65 20 20 RT 8 Y 27 11 11 KE SAMUEL 0 PH NN LF AR ET MA H ER CY M # 15 10 MG 04 93 TA BL ET 00 07 07 0 21 7 WA 70 BR Ac 59 -2 -2 .0 L- 86 OD ti 13 0- 0- 00 MA 56 SK ve 97 20 20 RT 1 Y 05 11 11 KE 0 PH NN AR ET MA H CY M # 10 04 93 MO 60 07 07 0 30 30 WA 22 BR Ac RP 95 -0 -0 .0 L- 19 OD ti HI 10 8- 8- 00 MA 51 SK ve NE 65 20 20 RT 1 Y 37 11 11 KE SAMUEL 0 PH NN LF AR ET MA H ER CY M # 30 10 MG 04 93 TA BL ET TR 00 08 07 5 30 30 WA 70 BR Ac IL 07 -2 -0 .0 L- 46 OD ti IP 49 6- 3- 00 MA 26 SK ve IX 18 20 20 RT 8 Y [address] 0 PH NN AR ET 13 MA H 5 CY M MG # CA 10 PS 04 UL 93 E SI 54 08 07 5 30 30 WA 70 BR Ac MV 45 -2 -0 .0 L- 46 OD ti 80 6- 3- 00 MA 26 SK ve TA 93 20 20 RT 7 Y TI 21 10 11 KE N 0 PH NN 40 AR ET MA H MG CY M # TA BL 10 ET 04 93 MO 60 06 06 0 30 30 WA 22 BR Ac RP 95 -0 -0 .0 L- 19 OD ti HI 10 9- 9- 00 MA 38 SK ve NE 65 20 20 RT 1 Y 37 11 11 KE SAMUEL 0 PH NN LF AR ET MA H ER CY M # 30 10 MG 04 93 TA BL ET CE 68 06 06 0 30 10 WA 70 BR Ac PH 18 -0 -0 .0 L- 80 OD ti AL 00 1- 1- 00 MA 65 SK ve EX 12 20 20 RT 2 Y IN 20 11 11 KE 1 PH NN 50 AR ET 0 MA H MG CY M # CA PS 10 UL 04 E 93 SAMUEL 53 06 06 0 20 10 WA 70 BR Ac LF 74 -0 -0 .0 L- 80 OD ti AM 60 1- 1- 00 MA 65 SK ve ET 27 20 20 RT 1 Y HO 20 11 11 KE XA 5 PH NN ZO AR ET LE MA H -T CY M MP # DS 10 04 TA 93 BL ET AZ 00 05 05 0 3. 3 WA 70 BR Ac IT 78 -0 -1 00 L- 78 OD ti HR 11 9- 0- 0 MA 10 SK ve OM 94 20 20 RT 3 Y YC 13 11 11 KE IN 3 PH NN AR ET 50 MA H 0 CY M MG # TA 10 BL 04 ET 93 MO 60 05 05 0 30 30 WA 22 BR Ac RP 95 -0 -0 .0 L- 19 OD ti HI 10 9- 9- 00 MA 24 SK ve NE 65 20 20 RT 6 Y 37 11 11 KE SAMUEL 0 PH NN LF AR ET MA H ER CY M # 30 10 MG 04 93 TA BL ET PO 51 04 04 5 52 30 WA 70 JE Ac LY 99 -2 -2 7. L- 76 NN ti ET 10 6- 9- 00 MA 60 IN ve HY 45 20 20 0 RT 8 GS LE 75 11 11 -C NE 7 PH ON AR KL GL MA IN YC CY OL # KA RE 33 10 N 50 04 93 PO WD 52 04 04 0 1. 10 WA 70 JE Ac 26 -1 -1 00 L- 75 NN ti 80 9- 9- 0 MA 35 IN ve 52 20 20 RT 6 GS 30 11 11 -C 2 PH ON AR KL MA IN CY # KA RE 10 N 04 93 MO 60 04 04 0 30 30 WA 22 BR Ac RP 95 -0 -0 .0 L- 19 OD ti HI 10 8- 8- 00 MA 10 SK ve NE 65 20 20 RT 6 Y 37 11 11 KE SAMUEL 0 PH NN LF AR ET MA H ER CY M # 30 10 MG 04 93 TA BL ET TR 00 08 04 5 30 30 WA 70 BR Ac IL 07 -2 -0 .0 L- 46 OD ti IP 49 6- 6- 00 MA 26 SK ve IX 18 20 20 RT 8 Y [address] 0 PH NN AR ET 13 MA H 5 CY M MG # CA 10 PS 04 UL 93 E SI 54 08 04 5 30 30 WA 70 BR Ac MV 45 -2 -0 .0 L- 46 OD ti 80 6- 6- 00 MA 26 SK ve TA 93 20 20 RT 7 Y TI 21 10 11 KE N 0 PH NN 40 AR ET MA H MG CY M # TA BL 10 ET 04 93 MO 60 03 03 0 30 30 WA 22 BR Ac RP 95 -0 -0 .0 L- 18 OD ti HI 10 8- 8- 00 MA 97 SK ve NE 65 20 20 RT 7 Y 37 11 11 KE SAMUEL 0 PH NN LF AR ET MA H ER CY M # 30 10 MG 04 93 TA BL ET MO 60 02 02 0 30 30 WA 22 BR Ac RP 95 -0 -0 .0 L- 18 OD ti HI 10 7- 7- 00 MA 83 SK ve NE 65 20 20 RT 0 Y 37 11 11 KE SAMUEL 0 PH NN LF AR ET MA H ER CY M # 30 10 MG 04 93 TA BL ET MO 60 01 01 0 30 30 WA 22 BR Ac RP 95 -0 -0 .0 L- 18 OD ti HI 10 7- 7- 00 MA 70 SK ve NE 65 20 20 RT 4 Y 37 11 11 KE SAMUEL 0 PH NN LF AR ET MA H ER CY M # 30 10 MG 04 93 TA BL ET TR 00 08 12 5 30 30 WA 70 BR Ac IL 07 -2 -2 .0 L- 46 OD ti IP 49 6- 9- 00 MA 26 SK ve IX 18 20 20 RT 8 Y [address] 0 PH NN AR ET 13 MA H 5 CY M MG # CA 10 PS 04 UL 93 E SI 00 08 12 5 30 30 WA 70 BR Ac MV 09 -2 -2 .0 L- 46 OD ti 37 6- 9- 00 MA 26 SK ve TA 15 20 20 RT 7 Y TI 59 10 10 KE N 8 PH NN 40 AR ET MA H MG CY M # TA BL 10 ET 04 93 MO 60 12 12 0 30 30 WA 22 BR Ac RP 95 -0 -0 .0 L- 18 OD ti HI 10 8- 8- 00 MA 59 SK ve NE 65 20 20 RT 0 Y 37 10 10 KE SAMUEL 0 PH NN LF AR ET MA H ER CY M # 30 10 MG 04 93 TA BL ET IB 68 12 12 0 60 20 WA 70 BR Ac UP 64 -0 -0 .0 L- 57 OD ti RO 50 1- 4- 00 MA 54 SK ve FE 22 20 20 RT 0 Y N 25 10 10 KE 80 4 PH NN 0 AR ET MG MA H CY M TA # BL ET 10 04 93 MO 60 11 11 0 30 30 WA 22 BR Ac RP 95 -0 -1 .0 L- 18 OD ti HI 10 8- 1- 00 MA 47 SK ve NE 65 20 20 RT 9 Y 37 10 10 KE SAMUEL 0 PH NN LF AR ET MA H ER CY M # 30 10 MG 04 93 TA BL ET TR 00 08 10 5 30 30 WA 70 BR Ac IL 07 -2 -2 .0 L- 46 OD ti IP 49 6- 8- 00 MA 26 SK ve IX 18 20 20 RT 8 Y [address] 0 PH NN AR ET 13 MA H 5 CY M MG # CA 10 PS 04 UL 93 E SI 00 08 10 5 30 30 WA 70 BR Ac MV 09 -2 -2 .0 L- 46 OD ti 37 6- 8- 00 MA 26 SK ve TA 15 20 20 RT 7 Y TI 59 10 10 KE N 8 PH NN 40 AR ET MA H MG CY M # TA BL 10 ET 04 93 SAMUEL 53 10 10 0 10 5 WA 70 BR Ac LF 74 -1 -1 .0 L- 50 OD ti AM 60 4- 4- 00 MA 89 SK ve ET 27 20 20 RT 5 Y HO 20 10 10 KE XA 5 PH NN ZO AR ET LE MA H -T CY M MP # DS 10 04 TA 93 BL ET MO 60 10 10 0 30 30 WA 22 BR Ac RP 95 -1 -1 .0 L- 18 OD ti HI 10 0- 0- 00 MA 38 SK ve NE 65 20 20 RT 2 Y 37 10 10 KE SAMUEL 0 PH NN LF AR ET MA H ER CY M # 30 10 MG 04 93 TA BL ET CI 00 09 09 0 10 5 WA 70 BR Ac ME 37 -1 -1 .0 L- 47 OD ti OF 87 3- 8- 00 MA 81 SK ve LO 09 20 20 RT 7 Y XA 80 10 10 KE CI 1 PH NN N AR ET HC MA H L CY M 50 # 0 MG 10 04 TA 93 B MO 60 09 09 0 30 30 WA 22 BR Ac RP 95 -0 -1 .0 L- 18 OD ti HI 10 8- 2- 00 MA 28 SK ve NE 65 20 20 RT 4 Y 37 10 10 KE SAMUEL 0 PH NN LF AR ET MA H ER CY M # 30 10 MG 04 93 TA BL ET TR 00 08 09 5 30 30 WA 70 BR Ac IL 07 -2 -0 .0 L- 46 OD ti IP 49 6- 6- 00 MA 26 SK ve IX 18 20 20 RT 8 Y [address] 0 PH NN AR ET 13 MA H 5 CY M MG # CA 10 PS 04 UL 93 E SI 00 08 09 5 30 30 WA 70 BR Ac MV 09 -2 -0 .0 L- 46 OD ti 37 6- 6- 00 MA 26 SK ve TA 15 20 20 RT 7 Y TI 59 10 10 KE N 8 PH NN 40 AR ET MA H MG CY M # TA BL 10 ET 04 93 MO 60 08 08 0 30 30 WA 22 BR Ac RP 95 -1 -1 .0 L- 18 OD ti HI 10 2- 2- 00 MA 15 SK ve NE 65 20 20 RT 8 Y 37 10 10 KE SAMUEL 0 PH NN LF AR ET MA H ER CY M # 30 10 MG 04 93 TA BL ET ZY 00 08 08 5 30 30 WA 70 BR Ac ME 00 -1 -1 .0 L- 43 OD ti EX 24 2- 2- 00 MA 37 SK ve A 11 20 20 RT 0 Y 5 53 10 10 KE MG 0 PH NN AR ET TA MA H BL CY M ET # 10 04 93 SI 00 03 07 6 30 30 WA 70 BR Ac MV 09 -0 -2 .0 L- 36 OD ti 37 6- 7- 00 MA 94 SK ve TA 15 20 20 RT 5 Y TI 59 10 10 KE N 8 PH NN 40 AR ET MA H MG CY M # TA BL 10 ET 04 93 TR 00 03 07 1 30 30 WA 70 BR Ac IL 07 -0 -2 .0 L- 36 OD ti IP 49 6- 7- 00 MA 94 SK ve IX 18 20 20 RT 4 Y [address] 0 PH NN AR ET 13 MA H 5 CY M MG # CA 10 PS 04 UL 93 E AZ 00 07 07 0 3. 3 WA 70 BR Ac IT 78 -1 -1 00 L- 40 OD ti HR 11 4- 4- 0 MA 31 SK ve OM 94 20 20 RT 0 Y YC 13 10 10 KE IN 3 PH NN AR ET 50 MA H 0 CY M MG # TA 10 BL 04 ET 93 MO 60 07 07 0 30 30 WA 22 BR Ac RP 95 -1 -1 .0 L- 18 OD ti HI 10 4- 4- 00 MA 05 SK ve NE 65 20 20 RT 3 Y 37 10 10 KE SAMUEL 0 PH NN LF AR ET MA H ER CY M # 30 10 MG 04 93 TA BL ET SI 00 03 06 6 30 30 WA 70 BR Ac MV 09 -0 -1 .0 L- 36 OD ti 37 6- 4- 00 MA 94 SK ve TA 15 20 20 RT 5 Y TI 59 10 10 KE N 8 PH NN 40 AR ET MA H MG CY M # TA BL 10 ET 04 93 TR 00 03 06 1 30 30 WA 70 BR Ac IL 07 -0 -1 .0 L- 36 OD ti IP 49 6- 4- 00 MA 94 SK ve IX 18 20 20 RT 4 Y [address] 0 PH NN AR ET 13 MA H 5 CY M MG # CA 10 PS 04 UL 93 E MO 60 06 06 0 30 30 WA 22 BR Ac RP 95 -1 -1 .0 L- 17 OD ti HI 10 4- 4- 00 MA 94 SK ve NE 65 20 20 RT 2 Y 37 10 10 KE SAMUEL 0 PH NN LF AR ET MA H ER CY M # 30 10 MG 04 93 TA BL ET BU 67 05 05 5 30 30 WA 70 BR Ac ME 76 -1 -1 .0 L- 33 OD ti OP 70 4- 4- 00 MA 59 SK ve IO 14 20 20 RT 7 Y N 13 10 10 KE HC 0 PH NN L AR ET XL MA H CY M 15 # 0 MG 10 04 TA 93 BL ET CI 00 05 05 0 10 5 WA 70 BR Ac ME 37 -1 -1 .0 L- 33 OD ti OF 87 4- 4- 00 MA 59 SK ve LO 09 20 20 RT 6 Y XA 80 10 10 KE CI 1 PH NN N AR ET HC MA H L CY M 50 # 0 MG 10 04 TA 93 B MO 60 05 05 0 30 30 WA 22 BR Ac RP 95 -1 -1 .0 L- 17 OD ti HI 10 4- 4- 00 MA 84 SK ve NE 65 20 20 RT 3 Y 37 10 10 KE SAMUEL 0 PH NN LF AR ET MA H ER CY M # 30 10 MG 04 93 TA BL ET MO 60 04 04 0 30 30 WA 22 BR Ac RP 95 -1 -1 .0 L- 17 OD ti HI 10 6- 8- 00 MA 78 SK ve NE 65 20 20 RT 3 Y 37 10 10 KE SAMUEL 0 PH NN LF AR ET MA H ER CY M # 30 10 MG 05 91 TA BL ET MO 60 03 03 0 30 30 WA 22 BR Ac RP 95 -1 -1 .0 L- 17 OD ti HI 10 9- 9- 00 MA 64 SK ve NE 65 20 20 RT 2 Y 37 10 10 KE SAMUEL 0 PH NN LF AR ET MA H ER CY M # 30 10 MG 04 93 TA BL ET SI 68 03 03 7 30 30 SO 33 BR Ac MV 38 -0 -0 .0 PE 71 OD ti 20 6- 6- 00 RS 27 SK ve TA 06 20 20 Y TI 80 10 10 FA KE N 5 HI NN 40 LY ET H MG DR M UG TA BL ET TR 00 03 03 2 30 30 SO 33 BR Ac IL 07 -0 -0 .0 PE 71 OD ti IP 49 6- 6- 00 RS 28 SK ve IX 18 20 20 Y [address] 0 HI NN LY ET [address] M MG UG CA PS UL E 00 01 01 00 30 30 RI 38 BR Ac 59 -2 -2 .0 TE 93 OD ti 13 2- 8- 00 24 SK ve 51 20 20 AI Y 20 10 10 D KE 1 PH NN AR ET M H #3 M 91 4 00 07 01 00 30 30 RI 81 BR Ac 09 -1 -2 .0 TE 66 OD ti 37 5- 8- 00 76 SK ve 15 20 20 AI Y 55 09 10 D KE 6 PH NN AR ET M H #3 M 93 8 FL 00 01 01 00 1. 1 RI 38 BR Ac UC 17 -2 -2 00 TE 93 OD ti ON 25 2- 8- 0 23 SK ve AZ 41 20 20 AI Y OL 21 10 10 D KE E 1 PH NN 15 AR ET 0 M H MG #3 M 91 TA 4 BL ET TR 00 11 01 00 30 30 RI 81 BR Ac IL 07 -1 -2 .0 TE 66 OD ti IP 49 6- 8- 00 78 SK ve IX 18 20 20 AI Y [address] 0 PH NN AR ET 13 M H 5 #3 M MG 93 8 CA PS UL E MO 60 12 12 00 30 30 SO 33 BR Ac RP 95 -1 -3 .0 PE 10 OD ti HI 10 7- 1- 00 RS 38 SK ve NE 65 20 20 Y 37 09 09 FA KE SAMUEL 0 HI NN LF LY ET H ER DR M UG 30 MG TA BL ET TR 00 11 12 00 30 30 SO 32 BR Ac IL 07 -1 -0 .0 PE 83 OD ti IP 49 6- 3- 00 RS 12 SK ve IX 18 20 20 Y [address] 0 HI NN LY ET [address] M MG UG CA PS UL E SI 55 07 12 03 30 30 SO 31 BR Ac MV 11 -1 -0 .0 PE 79 OD ti 10 5- 3- 00 RS 31 SK ve TA 20 20 20 Y TI 00 09 09 FA KE N 5 HI NN 40 LY ET H MG DR M UG TA BL ET AM 00 11 12 00 30 10 SO 32 BR Ac OX 78 -1 -0 .0 PE 84 OD ti IC 12 7- 3- 00 RS 15 SK ve IL 61 20 20 Y LI 30 09 09 FA KE N 5 HI NN 50 LY ET [address] M UG CA PS UL E MO 60 11 12 00 30 30 SO 32 BR Ac RP 95 -1 -0 .0 PE 84 OD ti HI 10 7- 3- 00 RS 14 SK ve NE 65 20 20 Y 37 09 09 FA KE SAMUEL 0 HI NN LF LY ET H ER DR M UG 30 MG TA BL ET TR 50 10 11 00 30 30 SO 32 BR Ac AZ 11 -1 -0 .0 PE 55 OD ti OD 10 9- 5- 00 RS 56 SK ve ON 43 20 20 Y E 30 09 09 FA KE 50 3 HI NN LY ET MG H DR M TA UG BL ET DU 50 10 11 00 10 30 RI 37 BR Ac RA 45 -2 -0 .0 TE 99 OD ti GE 80 7- 5- 00 10 SK ve SI 09 20 20 AI Y C 20 09 09 D KE 50 5 PH NN AR ET MC M H G/ #3 M HR 91 4 PA TC H MO 60 09 10 00 30 30 SO 32 BR Ac RP 95 -2 -0 .0 PE 37 OD ti HI 10 8- 8- 00 RS 62 SK ve NE 65 20 20 Y 37 09 09 FA KE SAMUEL 0 HI NN LF LY ET H ER DR M UG 30 MG TA BL ET SI 55 07 10 02 30 30 SO 31 BR Ac MV 11 -1 -0 .0 PE 79 OD ti 10 5- 8- 00 RS 31 SK ve TA 20 20 20 Y TI 00 09 09 FA KE N 5 HI NN 40 LY ET H MG DR M UG TA BL ET TR 00 08 09 00 30 30 RI 37 BR Ac IL 07 -2 -2 .0 TE 31 OD ti IP 49 8- 4- 00 74 SK ve IX 18 20 20 AI Y [address] 0 PH NN AR ET 13 M H 5 #3 M MG 91 4 CA PS UL E CI 60 09 09 00 15 30 RI 37 BR Ac TA 50 -1 -2 .0 TE 57 OD ti LO 52 8- 4- 00 24 SK ve ME 52 20 20 AI Y AM 00 09 09 D KE 1 PH NN HB AR ET R M H 40 #3 M 91 MG 4 TA BL ET MO 60 08 09 00 30 30 RI 37 BR Ac RP 95 -2 -1 .0 TE 31 OD ti HI 10 8- 0- 00 73 SK ve NE 65 20 20 AI Y 37 09 09 D KE SAMUEL 0 PH NN LF AR ET M H ER #3 M 91 30 4 MG TA BL ET HY 59 12 09 02 30 30 SO [address] 74 -1 -1 .0 PE 09 OD ti OC 60 2- 0- 00 RS 98 SK ve HL 38 20 20 Y OR 20 08 09 FA KE OT 6 HI NN HI LY ET AZ H ID DR Kylah Jordan UG 12 .5 MG CP SI 55 07 09 01 30 30 SO 31 BR Ac MV 11 -1 -1 .0 PE 79 OD ti 10 5- 0- 00 RS 31 SK ve TA 20 20 20 Y TI 00 09 09 FA KE N 5 HI NN 40 LY ET H MG Kylah UG TA BL ET MO 60 07 08 00 30 30 RI 36 BR Ac RP 95 -2 -1 .0 TE 98 OD ti HI 10 3- 3- 00 58 SK ve NE 65 20 20 AI Y 37 09 09 D KE SAMUEL 0 PH NN LF AR ET M H ER #3 M 91 30 4 MG TA BL ET SI 55 07 07 00 30 30 SO 31 BR Ac MV 11 -1 -3 .0 PE 79 OD ti 10 5- 0- 00 RS 31 SK ve TA 20 20 20 Y TI 00 09 09 FA KE N 5 HI NN 40 LY ET H MG DR Kylah UG TA BL ET HY 59 12 07 01 30 30 SO [address] 74 -1 -3 .0 PE 09 OD ti OC 60 2- 0- 00 RS 98 SK ve HL 38 20 20 Y OR 20 08 09 FA KE OT 6 HI NN HI LY ET AZ H ID DR Kylah Jordan UG 12 .5 MG CP MO 60 06 07 00 30 30 RI 36 BR Ac RP 95 -2 -0 .0 TE 72 OD ti HI 10 6- 2- 00 56 SK ve NE 65 20 20 AI Y 37 09 09 D KE SAMUEL 0 PH NN LF AR ET M H ER #3 M 91 30 4 MG TA BL ET MO 60 05 06 00 30 30 RI 36 BR Ac RP 95 -2 -0 .0 TE 43 OD ti HI 10 6- 4- 00 48 SK ve NE 65 20 20 AI Y 37 09 09 D KE SAMUEL 0 PH NN LF AR ET M H ER #3 M 91 30 4 MG TA BL ET SI 55 11 06 04 30 30 SO 30 BR Ac MV 11 -0 -0 .0 PE 00 OD ti 10 4- 4- 00 RS 88 SK ve TA 20 20 20 Y TI 00 08 09 FA KE N 5 HI NN 40 LY ET H MG [address] M UG TA BL ET MO 60 04 05 00 30 30 RI 36 BR Ac RP 95 -2 -0 .0 TE 12 OD ti HI 10 7- 7- 00 45 SK ve NE 65 20 20 AI Y 37 09 09 D KE SAMUEL 0 PH NN LF AR ET M H ER #3 M 91 30 4 MG TA BL ET MO 60 03 04 00 30 30 RI 35 BR Ac RP 95 -2 -0 .0 TE 80 OD ti HI 10 7- 9- 00 85 SK ve NE 65 20 20 AI Y 37 09 09 D KE SAMUEL 0 PH NN LF AR ET M H ER #3 M 91 30 4 MG TA BL ET AM 00 03 04 00 30 30 RI 35 BR Ac LO 37 -2 -0 .0 TE 80 OD ti DI 85 7- 9- 00 78 SK ve PI 20 20 20 AI Y NE 97 09 09 D KE 7 PH NN BE AR ET SY M H LA #3 M TE 91 5 4 MG TA B SI 55 11 04 03 30 30 SO 30 BR Ac MV 11 -0 -0 .0 PE 00 OD ti 10 4- 9- 00 RS 88 SK ve TA 20 20 20 Y TI 00 08 09 FA KE N 5 HI NN 40 LY ET H MG [address] M UG TA BL ET TR 60 03 03 00 30 30 RI 35 BR Ac IA 50 -1 -2 .0 TE 65 OD ti MT 52 3- 6- 00 22 SK ve ER 65 20 20 AI Y EN 60 09 09 D KE E- 1 PH NN HC AR ET TZ M H #3 M 37 91 .5 4 -2 5 MG TB CI 60 03 03 00 15 30 RI 35 BR Ac TA 50 -1 -2 .0 TE 65 OD ti LO 52 3- 6- 00 23 SK ve ME 52 20 20 AI Y AM 00 09 09 D KE 1 PH NN HB AR ET R M H 40 #3 M 91 MG 4 TA BL ET MO 60 02 03 00 30 30 RI 35 BR Ac RP 95 -2 -1 .0 TE 48 OD ti HI 10 2- 2- 00 33 SK ve NE 65 20 20 AI Y 37 09 09 D KE SAMUEL 0 PH NN LF AR ET M H ER #3 M 91 30 4 MG TA BL ET CY 00 02 02 00 20 20 RI 35 BR Ac CL 37 -0 -2 .0 TE 28 OD ti OB 80 9- 6- 00 91 SK ve EN 75 20 20 AI Y ZA 11 09 09 D KE ME 0 PH NN IN AR ET E M H 10 #3 M 91 MG 4 TA BL ET SI 55 11 02 02 30 30 SO 30 BR Ac MV 11 -0 -2 .0 PE 00 OD ti 10 4- 6- 00 RS 88 SK ve TA 20 20 20 Y TI 00 08 09 FA KE N 5 HI NN 40 LY ET H MG [address] M UG TA BL ET AM 68 03 02 01 30 30 SO 30 BR Ac LO 18 -2 -2 .0 PE 00 OD ti DI 00 7- 6- 00 RS 89 SK ve PI 75 20 20 Y NE 10 08 09 FA KE 3 HI NN BE LY ET SY H LA DR M TE UG 5 MG TA B MO 60 02 02 00 30 30 RI 35 BR Ac RP 95 -0 -1 .0 TE 21 OD ti HI 10 2- 2- 00 87 SK ve NE 65 20 20 AI Y 37 09 09 D KE SAMUEL 0 PH NN LF AR ET M H ER #3 M 91 30 4 MG TA BL ET SI 55 11 01 01 30 30 SO 30 BR Ac MV 11 -0 -3 .0 PE 00 OD ti 10 4- 0- 00 RS 88 SK ve TA 20 20 20 Y TI 00 08 09 FA KE N 5 HI NN 40 LY ET H MG [address] M UG TA BL ET MO 00 01 01 00 30 30 RI 34 BR Ac RP 40 -0 -1 .0 TE 93 OD ti HI 68 2- 5- 00 54 SK ve NE 33 20 20 AI Y 06 09 09 D KE SAMUEL 2 PH NN LF AR ET M H ER #3 M 91 30 4 MG TA BL ET AV 00 12 01 00 7. 7 RI 34 BR Ac EL 08 -2 -1 00 TE 87 OD ti OX 51 9- 5- 0 74 SK ve 73 20 20 AI Y 40 30 08 09 D KE 0 1 PH NN MG AR ET M H TA #3 M BL 91 ET 4 59 12 01 00 8. 30 RI 34 BR Ac 31 -2 -1 50 TE 87 OD ti 00 9- 5- 0 75 SK ve 57 20 20 AI Y 92 08 09 D KE 0 PH NN AR ET M H #3 M 91 4 RE 16 12 01 00 30 7 RI 34 BR Ac SP 47 -2 -1 .0 TE 87 OD ti AI 70 9- 5- 00 76 SK ve RE 30 20 20 AI Y -3 60 08 09 D KE 0 1 PH NN CA AR ET PS M H UL #3 M E 91 4 SI 55 12 12 00 30 30 SO 30 BR Ac MV 11 -0 -1 .0 PE 00 OD ti 10 3- 8- 00 RS 88 SK ve TA 20 20 20 Y TI 00 08 08 FA KE N 5 HI NN 40 LY ET H MG [address] M UG TA BL ET AM 68 12 12 00 30 30 SO 30 BR Ac LO 18 -0 -1 .0 PE 00 OD ti DI 00 3- 8- 00 RS 89 SK ve PI 75 20 20 Y NE 10 08 08 FA KE 3 HI NN BE LY ET SY H LA DR M TE UG 5 MG TA B HY 59 12 12 00 30 30 SO [address] 74 -1 -1 .0 PE 09 OD ti OC 60 2- 8- 00 RS 98 SK ve HL 38 20 20 Y OR 20 08 08 FA KE OT 6 HI NN HI LY ET AZ H ID DR M E UG 12 .5 MG CP 58 12 12 00 30 30 RI 76 BR Ac 17 -0 -1 .0 TE 11 OD ti 70 5- 8- 00 42 SK ve 32 20 20 AI Y 00 08 08 D KE 4 PH NN AR ET M H #3 M 93 8 58 11 11 00 30 30 RI 34 BR Ac 17 -0 -2 .0 TE 31 OD ti 70 4- 0- 00 79 SK ve 32 20 20 AI Y 00 08 08 D KE 4 PH NN AR ET M H #3 M 91 4 00 11 11 00 30 30 RI 34 BR Ac 09 -0 -2 .0 TE 31 OD ti 37 4- 0- 00 81 SK ve 15 20 20 AI Y 55 08 08 D KE 6 PH NN AR ET M H #3 M 91 4 AM 00 11 11 00 30 10 RI 34 BR Ac OX 09 -0 -2 .0 TE 31 OD ti IC 33 4- 0- 00 80 SK ve IL 10 20 20 AI Y LI 90 08 08 D KE N 5 PH NN 50 AR ET 0 M H MG #3 M 91 CA 4 PS UL E 58 10 10 00 30 30 RI 34 BR Ac 17 -0 -0 .0 TE 00 OD ti 70 2- 9- 00 29 SK ve 32 20 20 AI Y 00 08 08 D KE 4 PH NN AR ET M H #3 M 91 4 CI 60 09 10 00 15 30 RI 34 BR Ac TA 50 -2 -0 .0 TE 00 OD ti LO 52 2- 9- 00 28 SK ve ME 52 20 20 AI Y AM 00 08 08 D KE 1 PH NN HB AR ET R M H 40 #3 M 91 MG 4 TA BL ET 52 09 09 00 1. 1 SO 29 No Ac 26 -1 -2 00 PE 36 t ti 80 8- 6- 0 RS 93 Av ve 52 20 20 ai 10 08 08 FA la 1 HI bl LY e DR UG 58 09 09 00 30 30 RI 33 BR Ac 17 -0 -1 .0 TE 73 OD ti 70 4- 1- 00 04 SK ve 32 20 20 AI Y 00 08 08 D KE 4 PH NN AR ET M H #3 M 91 4 TR 50 09 09 00 30 30 RI 33 BR Ac AZ 11 -0 -1 .0 TE 73 OD ti OD 10 4- 1- 00 03 SK ve ON 43 20 20 AI Y E 30 08 08 D KE 50 1 PH NN AR ET MG M H #3 M TA 91 BL 4 ET 58 07 08 00 30 30 RI 33 BR Ac 17 -3 -1 .0 TE 41 OD ti 70 1- 4- 00 30 SK ve 32 20 20 AI Y 00 08 08 D KE 4 PH NN AR ET M H #3 M 91 4 AM 00 03 08 03 30 30 RI 32 BR Ac LO 37 -2 -1 .0 TE 22 OD ti DI 85 7- 4- 00 66 SK ve PI 20 20 20 AI Y NE 97 08 08 D KE 7 PH NN BE AR ET SY M H LA #3 M TE 91 5 4 MG TA B CL 00 08 08 00 20 20 RI 33 BR Ac ON 09 -0 -1 .0 TE 41 OD ti AZ 30 1- 4- 00 11 SK ve EP 83 20 20 AI Y AM 20 08 08 D KE 1 PH NN 0. AR ET 5 M H MG #3 M 91 TA 4 BL ET MO 60 06 07 00 30 30 RI 33 BR Ac RP 95 -2 -1 .0 TE 12 OD ti HI 10 8- 7- 00 35 SK ve NE 65 20 20 AI Y 37 08 08 D KE SAMUEL 0 PH NN LF AR ET M H ER #3 M 91 30 4 MG TA BL ET AM 00 03 07 02 30 30 RI 32 BR Ac LO 37 -2 -0 .0 TE 22 OD ti DI 85 7- 3- 00 66 SK ve PI 20 20 20 AI Y NE 97 08 08 D KE 7 PH NN BE AR ET SY M H LA #3 M TE 91 5 4 MG TA B CI 65 06 07 00 15 30 RI 33 BR Ac TA 86 -2 -0 .0 TE 09 OD ti LO 20 5- 3- 00 24 SK ve ME 00 20 20 AI Y AM 70 08 08 D KE 1 PH NN HB AR ET R M H 40 #3 M 91 MG 4 TA BL ET ME 00 06 07 00 21 6 RI 33 BR Ac ED 05 -1 -0 .0 TE 01 OD ti NI 40 7- 3- 00 80 SK ve SO 01 20 20 AI Y NE 72 08 08 D KE 5 PH NN 10 AR ET M H MG #3 M 91 TA 4 BL ET LO 00 06 07 00 30 30 RI 33 BR Ac RA 78 -1 -0 .0 TE 01 OD ti TA 15 7- 3- 00 78 SK ve DI 07 20 20 AI Y NE 70 08 08 D KE 1 PH NN 10 AR ET M H MG #3 M 91 TA 4 BL ET 58 05 06 00 30 30 RI 32 BR Ac 17 -2 -0 .0 TE 84 OD ti 70 8- 5- 00 69 SK ve 32 20 20 AI Y 00 08 08 D KE 4 PH NN AR ET M H #3 M 91 4 CL 00 04 05 00 30 30 RI 32 No Ac ON 09 -3 -0 .0 TE 58 t ti AZ 30 0- 8- 00 09 Av ve EP 83 20 20 AI ai AM 20 08 08 D la 1 PH bl 0. AR e 5 M MG #3 91 TA 4 BL ET TR 00 05 05 00 90 30 RI 32 No Ac AM 09 -0 -0 .0 TE 59 t ti AD 30 2- 8- 00 74 Av ve OL 05 20 20 AI ai 80 08 08 D la HC 1 PH bl L AR e 50 M #3 MG 91 4 TA BL ET AM 00 03 05 01 30 30 RI 32 No Ac LO 37 -2 -0 .0 TE 22 t ti DI 85 7- 8- 00 66 Av ve PI 20 20 20 AI ai NE 97 08 08 D la 7 PH bl BE AR e SY M LA #3 TE 91 5 4 MG TA B FU 00 11 05 02 30 30 RI 31 No Ac RO 37 -2 -0 .0 TE 11 t ti SE 80 6- 8- 00 70 Av ve HI 21 20 20 AI ai DE 61 07 08 D la 0 PH bl 40 AR e M MG #3 91 TA 4 BL ET CL 00 01 04 02 60 15 RI 31 No Ac ON 09 -0 -2 .0 TE 38 t ti AZ 30 8- 4- 00 05 Av ve EP 83 20 20 AI ai AM 20 08 08 D la 1 PH bl 0. AR e 5 M MG #3 91 TA 4 BL ET CL 00 01 04 01 60 15 RI 31 No Ac ON 09 -0 -1 .0 TE 38 t ti AZ 30 8- 7- 00 05 Av ve EP 83 20 20 AI ai AM 20 08 08 D la 1 PH bl 0. AR e 5 M MG #3 91 TA 4 BL ET 00 03 04 00 90 30 RI 32 No Ac 60 -2 -1 .0 TE 23 t ti 35 7- 0- 00 59 Av ve 46 20 20 AI ai 82 08 08 D la 8 PH bl AR e M #3 91 4 TR 00 04 04 00 90 30 RI 32 No Ac AM 09 -0 -1 .0 TE 29 t ti AD 30 2- 0- 00 25 Av ve OL 05 20 20 AI ai 80 08 08 D la HC 1 PH bl L AR e 50 M #3 MG 91 4 TA BL ET AM 00 03 04 00 30 30 RI 32 No Ac LO 37 -2 -1 .0 TE 22 t ti DI 85 7- 0- 00 66 Av ve PI 20 20 20 AI ai NE 97 08 08 D la 7 PH bl BE AR e SY M LA #3 TE 91 5 4 MG TA B ME 60 03 04 00 30 30 RI 32 No Ac LO 50 -0 -0 .0 TE 01 t ti XI 52 6- 7- 00 15 Av ve CA 55 20 20 AI ai M 40 08 08 D la 15 1 PH bl AR e MG M #3 TA 91 BL 4 ET TR 00 11 03 02 30 30 RI 30 No Ac IC 07 -0 -2 .0 TE 77 t ti OR 46 2- 6- 00 84 Av ve 12 20 20 AI ai 14 39 07 08 D la 5 0 PH bl MG AR e M TA #3 BL 91 ET 4 SI 65 11 03 02 30 30 RI 30 No Ac MV 86 -0 -2 .0 TE 77 t ti 20 2- 6- 00 82 Av ve TA 05 20 20 AI ai TI 33 07 08 D la N 0 PH bl 40 AR e M MG #3 91 TA 4 BL ET CL 00 01 03 00 60 15 RI 31 No Ac ON 09 0 -2 .0 TE 38 t ti AZ 30 8- 4- 00 05 Av ve EP 83 20 20 AI ai AM 20 08 08 D la 1 PH bl 0. AR e 5 M MG #3 91 TA 4 BL ET Procedures Procedure DOS Code Location Performer Comment RADEX 83353 [facility] SP[facility] 7 RADIOLOGY LUMBOSACR AL MINIMUM 4 VIEWS RADEX 54917 [facility] SP[facility] 7 RADIOLOGY CERVICAL 4 OR 5 VIEWS ECG 76947 [facility] ROUTINE 6 PHYSICIAN MAT ECG S GROUP W/LEAST 12 LDS I&R ONLY ECG 06796 [facility] ROUTINE 6 [facility] ECG INC INC W/LEAST 12 LDS TRCG ONLY W/O I&R HOSPITAL G0463 [facility] OUTPATIEN 6 [facility] T CLIN INC INC VISIT ASSESS & MGMT PT RADIOLOGI 78746 [place] [facility] C EXAM 6 MEDICAL NIKKI CHEST 2 IMAGING VIEWS ASS FRONTAL&L ATERAL RADEX 43683 [facility] SPINE 6 MEDICAL NIKKI CERVICAL IMAGING [address] [place] [address] [place] [address] [place] [facility] ALL CERVICAL 6 MEDICAL SPINE W/[place] [address] [place] [facility] ALL ABDOMEN & 6 MEDICAL PELVIS IMAGING W/CONTRAS ASS T MATERIAL OPHTH 17999 [facility] 6 GRE GRE XM&EVAL COMPRE NEW PT 1/> VST DRUG TST G0477 [facility] PRESUMP;C 6 [facility] PBL BEING INC INC READ DC OPT OBV ONLY DRUG TEST G0481 [facility] DEFINITV [address] [address] [address] ID INC INC METH P DAY 8-14 DRUG CL ECG 92224 [facility] ROUTINE 6 PHYSICIAN MAT ECG S GROUP W/LEAST 12 LDS I&R ONLY ECG 54888 [facility] ROUTINE 6 [facility] ECG INC INC W/LEAST 12 LDS TRCG ONLY W/O I&R ECG 33746 [place] [facility] ROUTINE 6 [facility] W/LEAST 12 LDS TRCG ONLY W/O I&R BASIC 26593 [place] [facility] METABOLIC 6 [facility] CALCIUM TOTAL LIPID 75260 [place] [facility] [address] [place] [address] COLLECTIO 90336 [place] [facility] N VENOUS 6 [facility] VENIPUNCT URE HEPATIC 10858 [facility] FUNCTION 6 [facility] ECG 03795 [facility] TE[facility] ROUTINE 6 MD ECG CONSULTIN W/LEAST G SRV 12 LDS I&R ONLY RADIOLOGI 18340 [place] DEL[facility] ALL C 6 MEDICAL EXAMINATI IMAGING ON FOOT 2 ASS VIEWS RADEX 32126 [facility] FOOT 6 [facility] COMPLETE INC INC MINIMUM 3 VIEWS ECG 92239 [facility] ROUTINE 6 PHYSICIAN MAT ECG S GROUP W/LEAST 12 LDS I&R ONLY ECG 81852 [facility] ROUTINE 6 [facility] ECG INC INC W/LEAST 12 LDS TRCG ONLY W/O I&R DRUG TEST G0481 [facility] DEFINITV [address] [address] [address] ID INC INC METH P DAY 8-14 DRUG CL DRUG TST G0477 [facility] PRESUMP;C 6 [facility] PBL BEING INC INC READ DC OPT OBV ONLY SCREENING G0202 [place] [facility] 6 MEDICAL NIKKI MAMMOGRAP IMAGING HY RAHPAEL ASS INCL CAD WHEN PERFORMD DRUG TST G0477 [facility] PRESUMP;C 6 [facility] PBL BEING INC INC READ DC OPT OBV ONLY COMPUTER- 73327 [place] AIDED 6 MEDICAL NIKKI DETECTION IMAGING ASS SCREENING MAMMOGRAP HY E-STIM G0283 [facility] LU 1/> AREAS 6 [facility] OTH THAN INC INC WND CARE PART TX PLAN THERAPEUT 83858 [facility] IC PX 1/> 6 [facility] AREAS INC INC EACH 15 MIN EXERCISES APPLICATI 87779 [facility] ON 6 [facility] MODALITY INC INC 1/> AREAS HOT/COLD PACKS RADIOLOGI 38568 [place] DELATORRE ALL C 6 MEDICAL EXAMINATI IMAGING ON FOOT 2 ASS VIEWS RADEX 84687 [facility] FOOT 6 [facility] COMPLETE INC INC MINIMUM 3 VIEWS E-STIM G0283 [facility] TABITHA 1/> AREAS 6 [facility] OTH THAN INC INC WND CARE PART TX PLAN APPLICATI 71667 [facility] ON 6 [facility] MODALITY INC INC 1/> AREAS HOT/COLD PACKS THERAPEUT 86798 [facility] IC PX 1/> 6 [facility] AREAS INC INC EACH 15 MIN EXERCISES APPLICATI 15228 [facility] ON 6 [facility] MODALITY INC INC 1/> AREAS H[place] [address] [facility] THYROXINE 6 [facility] TOTAL INC INC THERAPEUT 79713 [facility] IC PX 1/> 6 [facility] AREAS INC INC EACH 15 MIN EXERCISES COLLECTIO 12697 [facility] N VENOUS 6 [facility] BLOOD INC INC VENIPUNCT URE COMPREHEN 09735 [facility] SIVE 6 [facility] METABOLIC INC INC PANEL E-STIM G0283 [facility] LU 1/> AREAS 6 [facility] OTH THAN [place] [address] [facility] THYROID 6 [facility] STIMULATI INC INC NG HORMONE TSH HEMOGLOBI 11338 [facility] N 6 [facility] GLYCOSYLA INC INC JEREMY A1C BLOOD 20052 [facility] COUNT 6 [facility] COMPLETE INC INC AUTO&AUTO DIFRNTL WBC E-STIM G0283 [facility] LU 1/> AREAS 6 [facility] OTH THAN INC INC WND CARE PART TX PLAN THERAPEUT 63748 [facility] IC PX 1/> 6 [facility] AREAS INC INC EACH 15 MIN EXERCISES APPL 57900 [facility] MODALITY 6 [facility] 1/> AREAS INC INC VASOPNEUM ATIC DEVICES MANUAL 20486 [facility] THERAPY 6 [facility] TQS 1/> INC INC REGIONS EACH 15 MINUTES APPLICATI 27155 [facility] ON 6 [facility] MODALITY INC INC 1/> AREAS HOT/COLD PACKS APPL 65172 [facility] MODALITY 6 [facility] 1/> AREAS INC INC VASOPNEUM ATIC DEVICES MANUAL 81245 [facility] THERAPY 6 [facility] TQS 1/> INC INC REGIONS EACH 15 MINUTES THERAPEUT 83486 [facility] IC PX 1/> 6 [facility] AREAS INC INC EACH 15 MIN EXERCISES PHYSICAL 66333 [facility] THERAPY 6 [facility] EVALUATIO INC INC N THERAPEUT 99539 [facility] IC 6 PHYSICIAN MENG PROPHYLAC S GROUP TIC/DX INJECTION SUBQ/IM MRI 38662 [facility] MONGE SPINAL 6 MEDICAL NIKKI CANAL IMAGING LUMBAR ASS W/O CONTRAST MATERIAL 3D 74745 [facility]OLLAM[facility] RENDERING 6 MEDICAL NIKKI W/INTERP IMAGING & ASS POSTPROCE SS SUPERVISI ON MANUAL 80107 [facility] THERAPY 6 [facility] TQS 1/> INC INC REGIONS EACH 15 MINUTES THERAPEUT 91484 [facility] IC PX 1/> 6 [facility] AREAS INC INC EACH 15 MIN EXERCISES THERAPEUT 31361 [facility] IC PX 1/> 6 [facility] AREAS INC INC EACH 15 MIN EXERCISES MANUAL 69151 [facility] THERAPY 6 [facility] TQS 1/> INC INC REGIONS EACH 15 MINUTES MANUAL 94018 [facility] THERAPY 6 [facility] TQS 1/> INC INC REGIONS EACH 15 MINUTES THERAPEUT 30804 [facility] LU IC PX 1/> 6 [facility] AREAS INC INC EACH 15 MIN EXERCISES PHYSICAL 26867 [facility] THERAPY 6 [facility] EVALUATIO INC INC N RADEX 64057 [facility] FOOT 6 [facility] COMPLETE INC INC MINIMUM 3 VIEWS RADIOLOGI 69622 [place] DEL[place] ALL C 6 MEDICAL EXAMINATI IMAGING ON FOOT 2 ASS VIEWS FLUOROSCO 25051 [facility] PY SPX UP 6 [facility] TO 1 INC INC HOUR PHYS/QHP TIME CONNECTIV C1762 [facility] PACHECOON E TISSUE 6 [facility] HUMAN INC INC RADIOLOGI 13112 [facility] C 6 [facility] EXAMINATI INC INC ON FOOT 2 VIEWS INJECTION J2405 [facility] LU 6 [facility] ONDANSETR INC INC ON HCL PER 1 MG CORRJ 39911 [facility] HALLUX 6 [facility] VALGUS INC INC W/WO SESMDC RESCJ JT W/IMPLT ANES OPEN 15052 [facility] PROC 6 ANESTH BONES OF THE LOWER BLUE LEG/ANKLE /FOOT NOS DRUG TST G0477 [facility]AYUNIOR LU PRESUMP;C 6 [facility] PBL BEING INC INC READ DC [place] DOP 16250 CARDIOVAS RACHEL SELVIN&/OR 6 CULAR MAT PRESS CONSULTAN C/AYLA TS O RSRV MENDEL 1ST VSL CATH PLMT 54956 CARDIOVAS RACHEL L HRT & 6 CULAR MAT ARTS CONSULTAN W/NJX & TS O ANGIO IMG S&I ECG 78246 [facility] ROUTINE 6 [facility] ECG INC INC W/LEAST 12 LDS TRCG ONLY W/O I&R MYOCARDIA 34558 CARDIOVAS RACHEL L SPECT 6 CULAR MAT MULTIPLE CONSULTAN STUDIES TS O NON-INVAS 96446 [place] DEL[place] ALL CHRISTI 6 MEDICAL PHYSIOLOG IMAGING IC STUDY ASS EXTREMITY 3 LEVLS ECHO 74074 [facility]LYNN [facility] 6 MEDICAL 2D SERV W/WOM-MOD FOUNDATIO E COMPL N SPEC&COLR D HEMOGLOBI 71292 [facility] N 6 [facility] GLYCOSYLA INC INC JEREMY A1C BLOOD 11566 [facility] COUNT 6 [facility] COMPLETE INC INC AUTO&AUTO DIFRNTL WBC COMPREHEN 19250 [facility] SIVE 6 [facility] METABOLIC INC INC PANEL COLLECTIO 29446 [facility] N VENOUS 6 [facility] BLOOD INC INC VENIPUNCT URE ECG 01547 [facility] ROUTINE 6 [facility] ECG INC INC W/LEAST 12 LDS TRCG ONLY W/O I&R RADIOLOGI 69551 [place] DEL[place] ALL C 6 MEDICAL EXAMINATI IMAGING ON FOOT 2 ASS VIEWS RADEX 22309 [facility] FOOT 6 [facility] COMPLETE INC [place] [address] [place] [address] [place] DELATORRE ALL ABDOMEN & 5 MEDICAL PELVIS IMAGING W/CONTRAS ASS T MATERIAL E-STIM G0283 [facility] LU 1/> AREAS 5 [facility] OTH THAN INC INC WND CARE PART TX PLAN LOCM Q9967 [facility] 300-399 5 [facility] MG/ML INC INC IODINE CONCENTRA TION PER ML APPLICATI 93087 [facility] ON 5 [facility] MODALITY INC INC 1/> AREAS HOT/COLD PACKS APPL 01307 [facility] MODALITY 5 [facility] 1/> AREAS INC INC ULTRASOUN D EA 15 MIN COLLECTIO 18866 [facility] N VENOUS 5 [facility] BLOOD INC INC VENIPUNCT URE COMPREHEN 94752 [facility] SIVE 5 [facility] METABOLIC INC INC PANEL BLOOD 07424 [facility] COUNT 5 [facility] COMPLETE INC INC AUTO&[place] [address] [facility] AMYLASE 5 [place] [address] [facility] LIPASE 5 [facility] INC INC E-STIM G0283 [facility] LU 1/> AREAS 5 [facility] OTH THAN INC INC WND CARE PART TX PLAN APPL 22682 [facility] MODALITY 5 [facility] 1/> AREAS INC INC ULTRASOUN D EA 15 MIN APPLICATI 50611 [facility] ON 5 [facility] MODALITY INC INC 1/> AREAS HOT/COLD PACKS THERAPEUT 43362 [facility] LU IC PX 1/> 5 [facility] AREAS INC INC EACH 15 MIN EXERCISES PHYSICAL 37044 [facility] THERAPY 5 [facility] EVALUATIO INC INC N CULTURE 55272 [facility] BCT 5 [facility] ISOL&PRSM INC INC PTV ID ISOLATE EA URINE CULTURE 85951 [facility] BACTERIAL 5 [facility] INC INC QUANTTATI VE COLONY COUNT URINE SUSCEPTIB 10186 [facility] LTY STDY 5 [facility] ANTIMICRB INC INC IAL MICRO/[place] [address] [facility] TRANSVAGI 5 [facility] [place] [address] [facility] THYROID 5 [facility] STIMULATI [place] [address] [facility] FREE 5 [facility] THYROXINE INC INC COLLECTIO 22531 TABITHAYUNIOR PACHECOON N VENOUS 5 [facility] BLOOD INC INC VENIPUNCT URE CULTURE 51396 [facility]A BACTERIAL 5 [facility] INC INC QUANTTATI VE COLONY COUNT URINE E-STIM G0283 [facility] TABITHA 1/> AREAS 5 [facility] OTH THAN INC INC WND CARE PART TX PLAN MANUAL 58737 [facility] THERAPY 5 [facility] TQS 1/> INC INC REGIONS EACH 15 MINUTES CULTURE 29479 [facility] BCT 5 [facility] ISOL&PRSM INC INC PTV ID ISOLATE EA URINE CULTURE 82930 [facility] BACTERIAL 5 [facility] INC INC QUANTTATI VE COLONY COUNT URINE SUSCEPTIB 78393 [facility] LTY STDY 5 [facility] ANTIMICRB INC INC IAL MICRO/AGA R DILUTJ MANUAL 69320 [facility] THERAPY 5 [facility] TQS 1/> INC INC REGIONS EACH 15 MINUTES MANUAL 46807 [facility] THERAPY 5 [facility] TQS 1/> INC INC REGIONS EACH 15 MINUTES MANUAL 04402 [facility] THERAPY 5 [facility] TQS 1/> INC INC REGIONS EACH 15 MINUTES INJECTION J2785 [facility] LU 5 [facility] REGADENOS INC INC ON 0.1 MG MYOCARDIA 23821 TAB[facility]AYUNIOR LU L SPECT 5 [facility] MULTIPLE INC INC STUDIES CV STRS 13184 [facility]AYUNIOR LU TST 5 [facility] XERS&/OR INC INC RX CONT ECG TRCG ONLY CV STRS 63753 [facility] TST 5 PHYSICIAN KALYN XERS&/OR S GROUP RX CONT ECG W/O I&R TECHNETIU A9500 [facility] M TC-99M 5 [facility] HOSP SESTAMIBI INC INC DX PER STUDY DOSE PHYSICAL 04502 [facility] THERAPY 5 [facility]OSP EVALUATIO INC INC N RADEX 86621 [place] DEL[place] ALL FOOT 5 MEDICAL COMPLETE IMAGING MINIMUM 3 ASS VIEWS 3D 40619 [place] DEL[place] ALL RENDERING 5 MEDICAL W/INTERP IMAGING & ASS POSTPROCE [place] SUPERVISI [place] MRI 56955 [place] [facility] ALL SPINAL 5 MEDICAL CANAL IMAGING CERVICAL ASS W/O CONTRAST MATRL RADEX 90949 [facility] FOOT [address] [place] [address] MINIMUM 3 VIEWS RADEX 13652 [facility] [place] MILDRED MAT FOOT 5 RADIOLOGY COMPLETE MINIMUM 3 VIEWS RADEX 89238 [facility] FOOT [address] [place] [address] MINIMUM 3 [place] [address] [facility] THYROID [address] [place] [address] NG HORMONE TSH BLOOD 77900 [place] MICHEAL COUNT [address] [place] [address] AUTO&AUTO DIFRNTL WBC BASIC 83821 [facility] MICHEAL METABOLIC [address] [place] [address] CALCIUM TOTAL LIPID 65070 [facility] PANEL [address] [place] [address] HEPATIC 79572 [place] [facility] FUNCTION 5 [facility] ANTINUCLE 31910 [facility] AR 5 [facility] ANTIBODIE [facility] S RACHEL COLLECTIO 82923 [facility] N VENOUS 5 [facility] VENIPUNCT URE INJECTION J3420 PAM OROZCO VIT B-12 5 GINA GINA CYANOCOBA KACEY TO 1000 MCG THERAPEUT 44974 PAM OROZCO IC 5 GINA GINA PROPHYLAC TIC/DX INJECTION SUBQ/IM RADEX 10124 [place] [facility] FOOT 5 [facility] MINIMUM 3 VIEWS RADEX 76956 [facility] [place] SCALF KIRILL FOOT 5 RADIOLOGY COMPLETE MINIMUM 3 VIEWS THERAPEUT 88778 PAM SCHRADER IC 5 GINA E MAR PROPHYLAC TIC/DX INJECTION SUBQ/IM INJECTION J3420 PAM SALTERKY VIT B-12 5 GINA GINA CYANOCOBA KACEY TO 1000 MCG REMOVAL/B 34512 [place] ARMS DON IVALVING 5 [facility] FULL ARM/FULL LEG CAST INJECTION J2405 [facility] [address]AL[address] [facility] ON HCL PER 1 MG INJECTION J2250 [place] [address]ERRY[address] HCL PER 1 MG RINGERS J7120 [facility] LACTATE [address] [place] [address] HOSPITAL UP TO 1000 CC RADIOLOGI [address] [facility] CS ON FOOT 2 VIEWS REMOVAL 81122 [place] ARMS DON IMPLANT 5 [facility] DEEP INJECTION J1100 [facility] MICHEAL[address] DEXAMETHO [facility] HOSPITAL SONE SODIUM PHOSPHATE 1 [place] [address] [facility]G 5 [facility] PATHOLOGY GROSS EXAMINATI ON ONLY INJECTION J2001 [place] MARYIM [address] [place] [address] LIDOCAINE [facility] HCL INTRAVENO US INFUS 10 MG INJECTION J2704 [facility] PROPOFOL [address] [place] [address] 10 MG HOSPITAL HOSPITAL INJECTION J3010 [place] RIBENBOIM FENTANYL 5 [facility] 0.1 MG ANES OPEN 89836 [place] DAUKAAugie PROC 5 ANESTHESI GARCIA BONES A GROUP LOWER PS LEG/ANKLE /FOOT NOS ARTHRT 19183 [place] W/EXPL 5 [facility] DRG/RMVL HOSPITAL HOSPITAL LOOSE/FB IPHAL JT PARTICAL 32291 [place] ARMS DON EXCISION 5 [facility], [employer] BONE PHALANX TOE RADIOLOGI 62186 [facility] [place] MIRA C EXAM 5 RADIOLOGY RHO CHEST 2 VIEWS FRONTAL&L ATERAL THERAPEUT 88617 PAM OROZCO IC 5 GINA GINA PROPHYLAC TIC/DX INJECTION SUBQ/IM INJECTION J3420 PAM SALTREKY VIT B-12 5 GINA GINA CYANOCOBA KACEY TO 1000 MCG RADEX 95273 [facility] [place] FOOT 5 RADIOLOGY RHO COMPLETE MINIMUM 3 VIEWS INJECTION J3420 PAM SALTERKY VIT B-12 5 GINA GINA CYANOCOBA KACEY TO 1000 MCG THERAPEUT 09066 PAM OROZCO IC 5 GINA GINA PROPHYLAC TIC/DX INJECTION SUBQ/IM IADNA 06062 [facility] CHLAMYDIA 5 [facility] [employer] TRACHOMAT IS AMPLIFIED PROBE TQ IADNA 41000 [facility] NEISSERIA 5 LISSA [facility] [employer] GONORRHOE AE AMPLIFIED PROBE TQ HEPATITIS [address] HAAB HEPATITIS 86630 [facility] SURF 4 [facility] HBSAB HEPATITIS 07128 [facility] 4 [facility] HBCAB TOTAL INJECTION J3420 PRIMARY PRIMARY VIT B-12 4 HEALTH HEALTH ASSOCIATE ASSOCIATE CYANOCOBA S PS S PS KACEY TO 1000 MCG LIPID [address] HEPATIC [address]31 [facility] 4 [facility] COLLECTIO 23639 [place] [facility] N VENOUS 4 [facility] VENIPUNCT URE THERAPEUT 02247 PRIMARY PAM IC 4 HEALTH GINA PROPHYLAC ASSOCIATE TIC/DX S PS INJECTION SUBQ/IM ACUTE 46997 [place] [facility] HEPATITIS 4 [facility] COMPREHEN 84753 [place] [facility] SIVE 4 [employer] [facility] PANEL COLLECTIO 97240 [place] [facility] N VENOUS 4 [facility] [place] [address] [place] [facility] MAGNESIUM [address] [place] [address] CYANOCOBA 07760 [place] [facility] KACEY [address] [place] [address] B-12 CANE INCL E0100 [facility] CANES 4 ALL MATERIAL ADJUSTBLE /FIX W/TIP RADEX 58494 [facility] [place] FOOT 4 RADIOLOGY RHO COMPLETE MINIMUM 3 VIEWS BLOOD 60362 [place] [facility] COUNT [address] [place] [address] AUTO&AUTO DIFRNTL WBC C-REACTIV 47371 [place] [facility] E PROTEIN [address] [place] [address] PHYS G0179 ARMS DON ARMS DON RE-CERT 4 MCR-COVR [facility] SRVC RE-CERT PRD SEDIMENTA 57883 [place] [facility] TION RATE 4 [facility] NON-AUTOM ATED COLLECTIO 78736 [place] [facility] N VENOUS 4 [facility] VENIPUNCT URE THERAPEUT 63545 [facility] AM[facility] IC PX 1/> 4 [facility] EACH 15 MIN EXERCISES THERAPEUT 09709 [place] [facility] IC 4 [facility] PROPHYLAC [facility] TIC/DX INJECTION SUBQ/IM INJECTION J1885 [place] [facility] [address] [place] [address] KETOROLAC [facility] TROMETHAM INE PER 15 MG CUL BACT 85721 [place] [facility] XCPT 4 [facility] BLOOD/STO OL AEROBIC ISOL CUL BACT 72061 [facility] AEROBIC 4 [facility] METHS DEFINITIV E EA ISOL STANDARD K0001 [facility] WHEELCHAI 4 R ELEVATING K0195 [facility] LEGREST 4 PAIR RADEX 42480 [facility] [place] FOOT 4 RADIOLOGY RHO COMPLETE MINIMUM 3 VIEWS SUSCEPTIB 44921 [facility] LTY STDY 4 [facility] IAL MICRO/AGA R DILUTJ RADEX 79990 [facility] [place] FOOT 4 RADIOLOGY RHO COMPLETE MINIMUM 3 VIEWS THERAPEUT 93267 [facility] AMEDISYS IC PX 1/> 4 [facility] EACH 15 MIN EXERCISES THERAPEUT 17283 [facility] AMEDISYS IC PX 1/> 4 [facility] EACH 15 MIN EXERCISES THERAPEUT 23638 [facility] AMEDISYS IC PX 1/> 4 [facility] EACH 15 MIN EXERCISES THERAPEUT 66910 [facility] AMEDISYS IC PX 1/> 4 [facility] EACH 15 MIN EXERCISES THERAPEUT 97768 [facility] AMEDISYS IC PX 1/> 4 [facility] EACH 15 MIN EXERCISES THERAPEUT 73351 [facility] AMEDISYS IC PX 1/> 4 [facility] EACH 15 MIN EXERCISES THERAPEUT 36700 [facility] AMEDISYS IC PX 1/> 4 [facility] EACH 15 MIN EXERCISES THERAPEUT 54891 [facility] AMEDISYS IC PX 1/> 4 [facility] EACH 15 MIN EXERCISES ELEVATING K0195 [facility] LEGREST 4 PAIR STANDARD K0001 [facility] WHEELCHAI 4 R THERAPEUT 53812 [facility] UNICK CHR IC PX 1/> 4 HOME AREAS HEALTH EACH 15 MIN EXERCISES THERAPEUT 01620 [facility] AMEDISYS IC PX 1/> 4 [facility] EACH 15 MIN EXERCISES THERAPEUT 53832 [facility] AMEDISYS IC PX 1/> 4 [facility] EACH 15 MIN EXERCISES COLLECTIO 97669 [facility] N VENOUS 4 [facility] VENIPUNCT URE BLOOD 93306 [facility] COUNT 4 [facility] AUTO&AUTO DIFRNTL WBC SEDIMENTA 73463 [facility] TION [facility]ATE 4 [facility] NON-AUTOM ATED C-REACTIV 47032 [facility] E PROTEIN 4 [facility] RADEX 72628 [facility] [place] J[place] FOOT 4 RADIOLOGY COMPLETE MINIMUM 3 VIEWS THERAPEUT 65817 [facility] AMEDISYS IC PX 1/> 4 [facility] EACH 15 MIN EXERCISES THERAPEUT 34143 [facility] AM[facility]ISYS IC PX 1/> [facility] 15 MIN EXERCISES THERAPEUT 93645 [facility] AMEDISYS IC PX 1/> 4 [facility] 15 MIN EXERCISES RADEX 13005 [facility] [place] SCALF K[place] FOOT 4 RADIOLOGY COMPLETE MINIMUM 3 VIEWS STERILE A4217 SANDI SANDI WATER/SVETA 4 [facility] INE 500 E CENTERS E CENTERS ML GAUZE A6222 SANDI SANDI IMPREG 4 [facility] NOT H2O E CENTERS E CENTERS NL SALINE/HY DROGEL 16 SQ/< SELF-ADHE A6454 SANDI SANDI RENT 4 [facility] BANDGE E CENTERS E CENTERS WDTH >/= 3 & < 5 IN PER YD GAUZE A6402 SANDI SANDI NON-IMPRE 4 [facility] G STERL E CENTERS E CENTERS 16 SQ/< W/O ADHES BORDR CONFORMIN A6446 SANDI SANDI G BANDGE 4 [facility] NON-ELAST E CENTERS E CENTERS KNITTED/W OVEN STERL REMOVAL/B 51575 ARMS DON ARMS DON IVALVING 4 FULL ARM/FULL LEG CAST ARTHRODES 46327 ARMS DON ARMS DON IS GREAT 4 TOE METATARSO PHALANGEA L JOINT ANES OPEN 18433 CHINO SIMON PROC 4 ANESTHESI BONES A GROUP LOWER PS LEG/ANKLE /FOOT NOS COMPREHEN [address] SIVE 4 [facility] METABOLIC MED [facility] MED CTR PANEL DIAL BRUSHER ST DIAL [facility]USHER ST URNLS DIP [address] 4 [facility] STICK/TAB MED CTR MED CTR LET RGNT DIAL BRUSHER ST DIAL BRUSHER ST AUTO W/O MICROSCOP Y COLLECTIO [address] N VENOUS 4 [facility] BLOOD MED CTR MED CTR VENIPUNCT DIAL [place] [address] BLOOD/URI 4 [facility] C ACID MED CTR MED CTR DIAL BRUSHER ST DIAL [facility]USHER ST C-REACTIV [address] E PROTEIN 4 [facility] MED CTR MED CTR DIAL BRUSHER ST DIAL [facility]HER ST BLOOD [address] COUNT 4 [facility] COMPLETE MED CTR MED CTR AUTOMATED DIAL BRUSHER ST DIAL BRUSHER ST RADEX [address]757 ST LAMOT-WAS FOOT 4 DANUTA IK LID COMPLETE MINIMUM 3 PHYSICIAN VIEWS S ECG 91522 TEJ COSBY COSBY TEJ ROUTINE 4 MD ECG CONSULTIN W/LEAST G SRV 12 LDS I&R ONLY PROTHROMB 30029 MICHEALYUNIOR MARION IN TIME 4 [facility] RADIOLOGI 42241 [facility] [place] SCALF [place] C EXAM 4 RADIOLOGY CHEST 2 VIEWS FRONTAL&L ATERAL THROMBOPL 81320 [facility] MICHE[place]ON ASTIN 4 [facility] PARTIAL [facility]ASMA/WH OLE BLOOD COLLECTIO 90715 MICHE[facility]ON MICHEALON N VENOUS 4 [facility] VENIPUNCT URE WALKER E0135 [facility] F[facility] 4 ADJUSTABL E OR FIXED HEIGHT COMPREHEN 42505 [facility] SCHULTZ SIVE 4 [facility] PANEL ECG 04555 [facility] ROUTINE 4 [facility] W/LEAST 12 LDS TRCG ONLY W/O I&R MRI ANY 74704 [facility] JT LOWER 4 [facility] W/O CONTRAST MATRL MRI LOWER 74802 [facility] [place] JACINTOTELIC EXTREM 4 RADIOLOGY MAXIMO OTH/SHAYNEN JT W/O CONTR MATRL BLOOD 35960 [facility] COUNT 4 [facility] AUTOMATED SEDIMENTA 94652 [facility] [place] TION RATE 4 [facility] NON-AUTOM ATED C-REACTIV 55315 [facility] [place] E PROTEIN 4 [facility] COLLECTIO 11188 [facility] N VENOUS 4 [facility] VENIPUNCT URE BLOOD 17837 [facility] COUNT 4 [facility] MCRSCP W/MNL DIFRNTL WBC COUNT NON-INVAS 67975 [facility] [place] [address] [facility] IC STD EXTREMITY ART 2 LEVEL DUP-SCAN 12642 [facility] LXTR 4 [facility] BPGS COMPL BI STUDY RADEX 45409 [facility] FOOT 4 [facility] MINIMUM 3 VIEWS HGB 33881 RAYO RUEDA GLYCOSYLA 4 [facility] CLEARED FDA HOME USE RADEX TOE 94922 [facility] [facility] [address] [facility] COLLECTIO [address] [facility] N VENOUS 4 [facility] VENIPUNCT URE SURGICAL L3260 [facility] BOOT/SHOE 4 EACH BLOOD 23272 [facility] COUNT 4 [facility] AUTO&AUTO DIFRNTL WBC C-REACTIV 56689 [facility] [place] E PROTEIN 4 [facility] SEDIMENTA 00146 MARION MCALLISTERURBON TION RATE 4 [facility] NON-AUTOM ATED SEDIMENTA 77973 [facility] [place] TION RATE 4 [facility] NON-AUTOM ATED C-REACTIV 44087 [facility] E PROTEIN 4 [facility] BLOOD 02693 MAR[facility] BREATHITT COUNT 4 [facility] AMBULANCE AUTO&AUTO DIFRNTL WBC WALKING L4360 ADVANCED ADVANCED BOOT 4 TECHNOLOG TECHNOLOG PNEUMATC IES INC IES INC &/ VACUUM PREFAB CUSTM FIT ORTHOTIC 01987 [place] [facility] DON MGMT&EZE 4 250ok [place] UXTR LXTR&/TRN K EA 15 COLLECTIO 54863 [facility] N VENOUS [address] [place] [address] VENIPUNCT URE THER 23210 TABITHA LU PROPH/DX 4 [facility] NJX IV INC INC PUSH SINGLE/1S T SBST/DRUG COMPREHEN 38742 [facility] [address] [place] [address] [facility] BLOOD/URI [address] [place] [address] BLOOD 84012 [facility] COUNT [address] [place] [address] HOSPITAL AUTO&AUTO DIFRNTL WBC RADEX 19882 [facility] FOOT [address] [place] [address] MINIMUM 3 VIEWS RADEX 06986 [facility] FOOT [address] [place] [address] COMPLETE MINIMUM 3 VIEWS ECG 41021 [facility] ROUTINE 4 [facility] III J ECG MEDICAL W/LEAST G 12 LDS I&R ONLY URNLS DIP 18220 [facility] [address] [place] [address]/[facility] HOSPITAL LET REAGENT AUTO MICROSCOP Y CULTURE 85819 [facility] BACTERIAL [address] [place] [address] QUANTTATI VE COLONY COUNT URINE THROMBOPL 31563 [facility] ASTIN [address] [place] [address] PARTIAL PLASMA/WH OLE BLOOD COLLECTIO 45760 [facility] N VENOUS [address] [place] [address] VENIPUNCT URE RADIOLOGI 07899 [facility] C [address] [place] [address] ON KNEE 3 VIEWS COMPREHEN 93229 [facility] SIVE 4 [employer] PANEL ECG 56688 [facility] ROUTINE 4 [facility] W/LEAST 12 LDS TRCG ONLY W/O I&R BLOOD 40608 [facility] [place] COUNT 4 [facility] AUTOMATED PROTHROMB 57695 [facility] IN TIME 4 [facility] RADEX 76893 [facility] FOOT 4 [facility] COMPLETE RADIOLOGY MINIMUM 3 ASSOCIAT VIEWS SIMPLE 18390 [facility] K[facility] KER REPAIR 4 SCALP/NEC K/AX/TAVARES T/TRUNK 2.5CM/< DXA BONE 68140 [facility] [place] SCALF [place] DENSITY 4 RADIOLOGY STUDY 1/> SITES AXIAL SKEL COMPUTER- 73621 [facility] [place] AIDED 4 [facility] SCREENING MAMMOGRAP HY SCREENING G[address] HY RAPHAEL INCL CAD WHEN PERFORMD RADEX 34694 [facility] SHOULDER 4 [facility] MINIMUM 2 VIEWS RADIOLOGI 44233 [facility] C 4 [facility] ON KNEE 3 [place] [address] LAB TERESA LAB TERESA THYROXINE 4 [facility]OTAL [facility]INGS COMPREHEN 08805 LAB TERESA LAB TERESA SIVE 4 [facility] METABOLIC [facility] HOLDINGS PANEL LIPID 29116 LAB TERESA LAB TERESA PANEL 4 [facility]INGS HOLDINGS BLOOD 21091 LAB TERESA LAB TERESA COUNT 4 L[facility]SA [place]ISSA [place] [address] LAB TERESA LAB TERESA THYROID 4 [facility]SA LISSA STIMULATI [place] [address] LAB TERESA LAB TERESA INSULIN 4 LISSA [place] [address] LAB TERESA LAB TERESA INSULIN 4 LISSA LISSA FREE [facility]INGS HOLDINGS THYROID 63036 LAB TERESA LAB TERESA HORM 4 LISSA LISSA UPTK/THYR HOLDINGS HOLDINGS OID HORMONE BINDING RATIO HEMOGLOBI 77237 LAB TERESA LAB TERESA N 4 LISSA LISSA GLYCOSYLA HOLDINGS HOLDINGS JEREMY A1C CULTURE 06509 LAB TERESA LAB TERESA BACTERIAL 4 [place]SA [place] [facility]INGS HOLDINGS QUANTTATI VE COLONY COUNT URINE BASIC 24820 [facility] METABOLIC 3 DIAGNOSTI DIAGNOSTI [place] [address] [facility] THYROID 3 DIAGNOSTI DIAGNOSTI STIMULATI CS CS NG HORMONE TSH BLOOD 72907 [facility] COUNT 3 DIAGNOSTI DIAGNOSTI COMPLETE CS CS AUTO&AUTO DIFRNTL WBC BLOOD 94635 [facility] [place] COUNT 3 [place]STI [place] COMPLETE CS MIDDLE AUTO&AUTO SCHOOL DIFRNTL WBC SYPHILIS 00443 [facility] TEST 3 DIAGNOSTI DIAGNOSTI NON-TREPO CS CS NEMAL ANTIBODY QUAL ANTIBODY 20848 [facility] CHLAMYDIA 3 DIAGNOSTI DIAGNOSTI CS CS ANTIBODY 69607 [facility] HERPES 3 DIAGNOSTI DIAGNOSTI SMPLX CS CS TYPE 1 INCORPORA T SUSCEPTIB 87456 [facility] LTY STDY 3 DIAGNOSTI DIAGNOSTI ANTIMICRB CS CS IAL MICRO/AGA R DILUTJ CULTURE 85706 [facility] BACTERIAL 3 DIAGNOSTI DIAGNOSTI CS CS QUANTTATI VE COLONY COUNT URINE CULTURE 30334 [facility] BCT 3 DIAGNOSTI DIAGNOSTI ISOL&PRSM CS CS PTV ID ISOLATE EA URINE CUL BACT 14135 [facility] AEROBIC 3 DIAGNOSTI DIAGNOSTI ADDL CS CS METHS DEFINITIV E EA ISOL ANTIBODY 72246 [facility] HERPES 3 DIAGNOSTI DIAGNOSTI SMPLX CS CS TYPE 2 INCORPORA T ANTIBODY 69007 [facility] CHLAMYDIA 3 DIAGNOSTI DIAGNOSTI IGM CS CS RADEX 24421 [facility] [place] MIRA RIBS 3 RADIOLOGY RHO BILATERAL 3 VIEWS RADIOLOGI 48113 [facility] [place] MIR[place] C EXAM 3 RADIOLOGY RHO CHEST 2 VIEWS FRONTAL&L ATERAL RADEX 79285 RASHARD CADE JOSE CARLOS SINUSES 3 [facility] SPEC MINIMUM 3 VIEWS BLOOD 28620 [facility] COUNT 3 DIAGNOSTI DIAGNOSTI COMPLETE CS CS AUTO&[place] [address] [facility] THYROID 3 DIAGNOSTI DIAGNOSTI STIMULATI CS CS NG HORMONE TSH LIPID 11551 [facility] PANEL 3 DIAGNOSTI DIAGNOSTI CS CS COMPREHEN 20714 [facility] SIVE 3 DIAGNOSTI DIAGNOSTI METABOLIC CS CS PANEL COMPREHEN 02162 [employer], [facility], SIVE 2 DIAL BRUSHER DIAL BRUSHER METABOLIC RAE RAE PANEL CO HOS CO HOS LIPID 44189 [employer], [facility], PANEL 2 DIAL BRUSHER DIAL BRUSHER RAE RAE CO HOS CO HOS BLOOD 12431 [employer], [employer], COUNT 2 DIAL BRUSHER DIAL BRUSHER COMPLETE RAE RAE AUTO&AUTO CO HOS CO HOS DIFRNTL WBC RADEX 38324 [facility] SHOULDER [address] [place] [address] MINIMUM 2 VIEWS SCREENING G0202 [address] HY RAPHAEL INCL CAD WHEN PERFORMD COMPUTER- [address] SCREENING MAMMOGRAP HY RADEX TOE 73142 [facility] MINIMUM 2 N N 2 VIEWS COMM[facility]TIY COMM[facility]Y HOSPITA HOSPITA ECG 18007 TEJ COSBY TEJ COSBY ROUTINE 2 MD CA ECG CONSULTIN CONSULTIN W/LEAST G SERV G SERV 12 LDS I&R ONLY SPECIAL 12739 PATHOLOGY SALDIVAR STAIN 2 & KIRILL GROUP 1 CYTOLOGY MICROORGA LAB NISMS I&R SPCL STN 52978 PATHOLOGY SALDIVAR 2 I&R 2 & KIRILL EXCPT CYTOLOGY MICROORG/ LAB ENZYME/[place] [address] PATHOLOGY SALDIVAR SURG 2 & KIRILL PATHOLOGY CYTOLOGY LAB GROSS&M[place] ROSCOP[place] EX[place] EGD 75245 [place] KENN[place]Y- TRANSORAL 2 MEDICAL PETEY BIOPSY SERV RACIEL SINGLE/MU FOUNDATIO LTIPLE SEDIMENTA 14785 [employer], [employer], TION RATE 2 DIAL BRUSHER DIAL BRUSHER RBC RAE RAE NON-AUTOM CO HOS CO HOS ATED CYANOCOBA 91293 [employer], [employer], KACEY 2 DIAL BRUSHER DIAL BRUSHER VITAMIN RAE RAE B-12 CO HOS CO HOS HEPATIC 29624 [employer], [employer], FUNCTION 2 DIAL BRUSHER DIAL BRUSHER PANEL RAE MCBRIDE CO HOS CO HOS ANTINUCLE 92080 [employer], [employer], AR 2 DIAL BRUSHER DIAL BRUSHER ANTIBODIE RAE Ghosh RACHEL CO HOS CO HOS LIPID 11136 [employer], [employer], PANEL 2 DIAL BRUSHER DIAL BRUSHER RAE MCBRIDE CO HOS CO HOS BASIC 16383 [employer], [employer], METABOLIC 2 DIAL BRUSHER DIAL BRUSHER PANEL RAE MCBRIDE CALCIUM CO HOS CO HOS TOTAL RADEX 31753 RAE MCBRDIE FOOT 1 CO CO [facility] MINIMUM 3 VIEWS BLOOD 07560 [facility] COUNT 1 [facility] AUTO&[place] [address] [facility] THYROID 1 [facility] NG HORMONE TSH COLLECTIO 22801 [facility] N VENOUS 1 [facility] VENIPUNCT URE THERAPEUT 22558 PRIMARY PAM IC 1 [facility] PROPHYLAC ASSOCIATE TIC/DX S PS INJECTION SUBQ/IM INJECTION J3420 PRIMARY PAM VIT B-12 1 HEALTH [facility]INA ASSOCIATE CYANOCOBA S PS KACEY TO 1000 MCG COLLECTIO 55305 [facility] N VENOUS 1 [facility] VENIPUNCT URE LIPID 90623 [facility] PANEL 1 [facility] COMPREHEN 56096 [facility] SIVE 1 [facility]OSPITAL PANEL ECG 63719 TEJ COSBY COSBY TEJ ROUTINE 1 MD ECG CONSULTIN W/LEAST G SRV 12 LDS W/I&R THERAPEUT 13814 PRIMARY PAM IC 1 [facility] PROPHYLAC ASSOCIATE TIC/DX S PS INJECTION SUBQ/IM INJECTION J3420 PRIMARY PAM VIT B-12 1 [facility] ASSOCIATE CYANOCOBA S PS KACEY TO [address] [facility] L HRT & 1 [facility] CHAVE[facility] CARDIOLOG W/NJX & Y CLINIC ANGIO IMG S&I ECG 19504 TEJ COSBY COSBY TEJ ROUTINE 1 MD ECG CONSULTIN W/LEAST G SRV 12 LDS W/I&R TECHNETIU A9500 [facility] M TC-99M [address] [facility]PITAL DX PER STUDY DOSE CV STRS 04464 [facility] TST 1 [facility] XERS&/OR HOSPITAL HOSPITAL RX CONT ECG TRCG ONLY CV STRS 98635 TEJ COSBY COSBY TEJ TST 1 MD XERS&/OR CONSULTIN RX CONT G SRV ECG W/O I&R MYOCARDIA 39856 MIC[facility]ALON MICHEALON L SPECT 1 [facility] STUDIES CV STRS 85161 TEJ COSBY COSBY TEJ TST 1 XERS&/OR CONSULTIN RX CONT G SRV ECG I&R ONLY RADIOLOGI 86768 [facility] C 1 [facility] HOSP[facility] ON CHEST SINGLE VIEW FRONTAL URNLS DIP 38303 [facility] [place] 1 [facility] STICK/TAB HOSPITAL HOSPITAL LET REAGENT AUTO MICROSCOP Y ECG 52387 [facility]O [facility]AB ROUTINE 1 EMERGENCY ECG SERVICES W/LEAST 12 LDS I&R ONLY CULTURE 94504 [facility] BACTERIAL 1 [facility] QUANTTATI VE COLONY COUNT URINE COMPREHEN 70126 MICHEALYUNIOR MARION SIVE 1 [facility] PANEL COLLECTIO 78156 [facility] N VENOUS 1 [facility]OSPITAL VENIPUNCT URE ECG 03734 [facility] [place] ROUTINE 1 [facility]OSPITAL W/LEAST 12 LDS TRCG ONLY W/O I&R CREATINE 40876 [facility] [place] KINASE MB 1 [facility] ONLY BLOOD 77887 [facility] [place] COUNT 1 [facility] AUTO&[place] [address] [facility] TROPONIN 1 [facility] CHRISTI CREATINE 53068 [facility] [place] KINASE 1 [facility] XTRNL ECG 35313 TEJ COSBY COSBY TEJ 1 CONTINUOU CONSULTIN S RHYTHM G SRV W/I&R UP TO 48 HRS INJECTION J3420 PRIMARY PAM VIT B-12 1 [facility] ASSOCIATE CYANOCOBA S PS KACEY TO 1000 MCG THERAPEUT 75499 PRIMARY PAM IC 1 [facility] PROPHYLAC ASSOCIATE TIC/DX S PS INJECTION SUBQ/IM XTRNL ECG 51946 TEJ COSBY COSBY TEJ & 48 HR 1 MD RECORDING CONSULTIN G SRV ECHO 40467 TEJ COSBY COSBY TEJ TTHRC R-T 1 2D CONSULTIN W/WOM-MOD G SRV E COMPL SPEC&COLR D ECG 55090 TEJ COSBY COSBY TEJ ROUTINE 1 MD ECG CONSULTIN W/LEAST G SRV 12 LDS W/I&R THERAPEUT 55425 PRIMARY PAM IC 1 [facility] PROPHYLAC ASSOCIATE TIC/DX S PS INJECTION SUBQ/IM INJECTION J3420 PRIMARY PAM VIT B-12 1 [facility]ALTH [facility]INA ASSOCIATE CYANOCOBA S PS KACEY TO 1000 MCG INJECTION J3420 PRIMARY PAM VIT B-12 1 [facility]INA ASSOCIATE CYANOCOBA S PS KACEY TO 1000 MCG THERAPEUT 44037 PRIMARY PAM IC 1 [facility] PROPHYLAC ASSOCIATE TIC/DX S PS INJECTION SUBQ/[place] [address] PRIMARY PAM RETROPERI 1 [facility] TONEAL ASSOCIATE REAL TIME S PS W/IMAGE LIMITED INJECTION J3420 PRIMARY PAM VIT B-12 1 [facility] ASSOCIATE CYANOCOBA S PS KACEY TO 1000 MCG THERAPEUT 06338 PRIMARY PAM IC 1 HEALTH GIAN PROPHYLAC ASSOCIATE TIC/DX S PS INJECTION SUBQ/IM DXA BONE 66321 [facility] DENSITY 1 [facility] STUDY 1/> HOSPITAL HOSPITAL SITES AXIAL SKEL INJECTION J3420 PRIMARY PAM VIT B-12 1 [facility]ALTH [facility]INA ASSOCIATE CYANOCOBA S PS KACEY TO 1000 MCG THERAPEUT 26987 PRIMARY PAM IC 1 [facility] PROPHYLAC ASSOCIATE TIC/DX S PS INJECTION SUBQ/IM ECG 77743 TEJ COSBY COSBY TEJ ROUTINE 1 MD ECG CONSULTIN W/LEAST G SRV 12 LDS I&R ONLY ANES 11479 [place] ZIEMBROSK LOWER 1 ANESTHESI I JR EDW INTESTINE A GROUP PSC ENDOSCOPY DISTAL DUODENUM ECG 89136 [facility] ROUTINE 1 [facility]OSP[facility] W/LEAST 12 LDS TRCG ONLY W/O I&R COLONOSCO 46020 MARCIA- MARCIA- PY FLX DX 1 PETEY PETEY W/COLLJ RACIEL RACIEL SPEC WHEN PFRMD RADEX 94443 [facility] & 1 [facility] MINIMUM 2 VIEWS INJECTION J3420 PRIMARY PAM VIT B-12 1 [facility]ALTH [facility]INA ASSOCIATE CYANOCOBA S PS KACEY TO 1000 MCG THERAPEUT 50271 PRIMARY PAM IC 1 [facility] PROPHYLAC ASSOCIATE TIC/DX S PS INJECTION SUBQ/IM THERAPEUT 14101 PRIMARY PAM IC 1 [facility] PROPHYLAC ASSOCIATE TIC/DX S PS INJECTION SUBQ/IM INJECTION J3420 PRIMARY PAM VIT B-12 1 HEALTH GINA ASSOCIATE CYANOCOBA S PS KACEY TO 1000 MCG ECG 24696 ST[facility], ROUTINE 1 EMERGENCY JR., DO ECG SERVICES OSC W/LEAST 12 LDS I&R ONLY RADIOLOGI 02993 [facility] C 1 [facility] ON CHEST SINGLE VIEW FRONTAL ECG 59039 [facility] ROUTINE 1 [facility] HOSPITAL W/LEAST 12 LDS TRCG ONLY W/O I&R BASIC 20348 [facility] MICHEALYUNIOR METABOLIC 1 [facility] CALCIUM TOTAL COLLECTIO 84361 [facility] N VENOUS 1 [facility] VENIPUNCT URE CREATINE 22004 [facility] KINASE 1 [facility] [place] [address] [facility] TROPONIN [address] [facility] CHRISTI BLOOD 30368 [facility] COUNT 1 [facility] AUTO&AUTO DIFRNTL WBC MYOGLOBIN 75142 [facility] SCHULTZ 1 [facility] CREATINE 10120 [facility] KINASE MB 1 [facility] ONLY THERAPEUT 58674 PRIMARY PAM IC 1 [facility] PROPHYLAC ASSOCIATE TIC/DX S PS INJECTION SUBQ/IM INJECTION J3420 PRIMARY PAM VIT B-12 1 [facility]ALTH GINA ASSOCIATE CYANOCOBA S PS KACEY TO 1000 MCG INJECTION J3420 PRIMARY PAM VIT B-12 0 [facility]ALTH GINA ASSOCIATE CYANOCOBA S PS KACEY TO 1000 MCG THERAPEUT 60924 PRIMARY PAM IC 0 [facility] PROPHYLAC ASSOCIATE TIC/DX S PS INJECTION SUBQ/IM COLLECTIO 73650 [facility] N VENOUS 0 [facility] VENIPUNCT URE POTASSIUM 19161 [facility] SERUM 0 [facility] OLE BLOOD FIBRIN 00711 [facility] DGRADJ 0 [facility] D-DIMER QUAL/SEMI CHERELLE THERAPEUT 66667 PRIMARY PRIMARY IC 0 HEALTH HEALTH PROPHYLAC ASSOCIATE ASSOCIATE TIC/DX S PS S PS INJECTION SUBQ/IM THERAPEUT 60410 PRIMARY PAM IC 0 [facility] PROPHYLAC ASSOCIATE TIC/DX S PS INJECTION SUBQ/IM INJECTION J3420 PRIMARY PAM VIT B-12 0 [facility]INA ASSOCIATE CYANOCOBA S PS KACEY TO 1000 MCG SCREENING G0202 [facility] 0 [facility] HY RAPHAEL INCL CAD WHEN PERFORMD COMPUTER- 75839 [facility] AIDED 0 [facility] HOSPITAL SCREENING MAMMOGRAP HY INJECTION J3420 PRIMARY PRIMARY VIT B-12 0 HEALTH HEALTH ASSOCIATE ASSOCIATE CYANOCOBA S PS S PS KACEY TO 1000 MCG THERAPEUT 86485 PRIMARY PAM IC 0 [facility] PROPHYLAC ASSOCIATE TIC/DX S PS INJECTION SUBQ/IM IADNA 40585 [facility] CHLAMYDIA 0 [facility] TRACHOMAT IS AMPLIFIED PROBE TQ IADNA 40359 [facility] NEISSERIA 0 [facility] GONORRHOE AE AMPLIFIED PROBE TQ CULTURE 41552 [facility] BACTERIAL 0 [facility] QUANTTATI VE COLONY COUNT URINE URNLS DIP 07699 [facility] STICK/TAB HOSPITAL HOSPITAL LET REAGENT AUTO MICROSCOP Y URNLS DIP 59987 PRIMARY PAM 0 [facility] STICK/TAB ASSOCIATE LET RGNT S PS NON-AUTO W/O MICRSCP THERAPEUT 88066 PRIMARY PAM IC 0 [facility] PROPHYLAC ASSOCIATE TIC/DX S PS INJECTION SUBQ/IM INJECTION J3420 PRIMARY PAM VIT B-12 0 [facility]INA ASSOCIATE CYANOCOBA S PS KACEY TO 1000 MCG INJECTION J3420 PRIMARY PAM VIT B-12 0 [facility]ALTH GINA ASSOCIATE CYANOCOBA S PS KACEY TO 1000 MCG THERAPEUT 56643 PRIMARY PAM IC 0 [facility] PROPHYLAC ASSOCIATE TIC/DX S PS INJECTION SUBQ/IM IADNA 72576 [facility] CHLAMYDIA 0 [facility] TRACHOMAT IS AMPLIFIED PROBE TQ COLLECTIO 47487 [facility] N VENOUS 0 [facility] VENIPUNCT URE IADNA 25543 [facility] NEISSERIA 0 [facility] GONORRHOE AE AMPLIFIED PROBE TQ INJECTION J3420 PRIMARY PAM, VIT B-12 0 HEALTH JACKIE Montero ASSOCIATE CYANOCOBA S PSC KACEY TO 1000 MCG THERAPEUT 25970 PRIMARY PAM, IC 0 HEALTH JACKIE Montero PROPHYLAC ASSOCIATE TIC/DX S PSC INJECTION SUBQ/IM THERAPEUT 60496 PRIMARY PAM, IC 0 HEALTH JACKIE Montero PROPHYLAC ASSOCIATE TIC/DX S PSC INJECTION SUBQ/IM URNLS DIP 35677 PRIMARY PAM, 0 HEALTH JACKIE Montero STICK/TAB ASSOCIATE LET RGNT S PSC NON-AUTO W/O MICRSCP INJECTION J3420 PRIMARY PAM, VIT B-12 0 HEALTH JACKIE Montero ASSOCIATE CYANOCOBA S PSC KACEY TO 1000 MCG INJECTION J3420 PRIMARY PRIMARY VIT B-12 0 HEALTH HEALTH ASSOCIATE ASSOCIATE CYANOCOBA S PS S PS KACEY TO 1000 MCG THERAPEUT 95416 PRIMARY PRIMARY IC 0 [facility] PROPHYLAC ASSOCIATE ASSOCIATE TIC/DX S PS S PS INJECTION SUBQ/IM ARTHROCEN 95347 PRIMARY PAM TESIS 0 [facility] GINA ASPIR&/IN ASSOCIATE J MAJOR S PS JT/BURSA W/O US BASIC 13064 [facility] METABOLIC 0 CO CO [facility] CALCIUM TOTAL LIPID 43418 [facility] PANEL 0 CO CO [facility] HEPATIC 98579 [facility] FUNCTION 0 CO CO [facility] COLLECTIO 94137 [facility] N VENOUS 0 CO MD BLOOD [facility] VENIPUNCT URE INJECTION J3420 PRIMARY PAM, VIT B-12 0 [facility] JACKIE Montero ASSOCIATE CYANOCOBA S PSC KACEY TO 1000 MCG THERAPEUT 74657 PRIMARY PAM, IC 0 [facility] JACKIE Montero PROPHYLAC ASSOCIATE TIC/DX S PSC INJECTION SUBQ/IM THERAPEUT 35657 PRIMARY PAM, IC 0 [facility] JACKIE Montero PROPHYLAC ASSOCIATE TIC/DX S PSC INJECTION SUBQ/IM URNLS DIP 88655 PRIMARY PAM, 0 [facility] JACKIE Montero STICK/TAB ASSOCIATE LET RGNT S PSC NON-AUTO W/O MICRSCP INJECTION J3420 PRIMARY PAM, VIT B-12 0 [facility] JACKIE Montero ASSOCIATE CYANOCOBA S PSC KACEY TO 1000 MCG RADEX HIP 54978 [facility] 0 [facility] L COMPLETE MINIMUM 2 VIEWS INJECTION J3420 PRIMARY PAM, VIT B-12 9 [facility] JACKIE Montero ASSOCIATE CYANOCOBA S PSC KACEY TO 1000 MCG THERAPEUT 39966 PRIMARY PAM, IC 9 [facility] JACKIE Montero PROPHYLAC ASSOCIATE TIC/DX S PSC INJECTION SUBQ/IM THERAPEUT 00364 PRIMARY PAM, IC 9 [facility] JACKIE Montero PROPHYLAC ASSOCIATE TIC/DX S PSC INJECTION SUBQ/IM INJECTION J3420 PRIMARY PAM, VIT B-12 9 [facility] JACKIE Montero ASSOCIATE CYANOCOBA S PSC KACEY TO 1000 MCG INJECTION J3420 PRIMARY PAM, VIT B-12 9 [facility] JACKIE Montero ASSOCIATE CYANOCOBA S PSC KACEY TO 1000 MCG THERAPEUT 18522 PRIMARY PAM IC 9 [facility] JACKIE Montero PROPHYLAC ASSOCIATE TIC/DX S PSC INJECTION SUBQ/IM CYTP C/V 69026 PATHOLOGY PATHOLOGY AUTO THIN 9 & & LYR CYTOLOGY CYTOLOGY PREPJ SCR [place] [address] [facility] FOLIC 9 [facility] [place] [address] [facility] THYROID 9 [facility] [place] [address] [facility] FERRITIN 9 [facility] BLOOD 59496 [facility] COUNT [address] [place] [address] AUTO&AUTO DIFRNTL WBC CYANOCOBA 40680 [facility] KACEY 9 [facility] B-12 COLLECTIO 04769 [facility] N VENOUS 9 [facility] VENIPUNCT URE RADIOLOGI 32592 [facility] C [address] [place] [address] ON KNEE 3 VIEWS URNLS DIP 71188 PRIMARY PAM 9 [facility] JACKIE Montero STICK/TAB ASSOCIATE LET RGNT S PSC NON-AUTO W/O MICRSCP RADIOLOGI 84239 [facility] Danielle WETZEL EXAM 9 RADIOLOGY BRODERICK Marixa KNEE COMPLETE 4/MORE VIEWS LIPID 37621 [facility] PANEL [address] [place] [address] BASIC 91603 [facility] METABOLIC [address] [place] [address] CALCIUM TOTAL COLLECTIO 90688 [facility] N VENOUS 9 [facility] VENIPUNCT URE HEPATIC 17038 [facility] FUNCTION 9 [facility] BASIC 44951 [facility] METABOLIC 9 [facility] CALCIUM TOTAL COLLECTIO 79878 [facility] N VENOUS 9 [facility] VENIPUNCT URE SCREENING 89041 [facility] KAYLYNN MEYERS, 9 RADIOLOGY NEEL G MAMMOGRAP HY BILATERAL COMPUTER- 62769 [place] [facility] AIDED 9 [facility] SCREENING MAMMOGRAP HY BASIC 67270 [facility] METABOLIC 9 [facility] CALCIUM TOTAL LIPID 48874 [facility] HEPATIC 11013 [facility] FUNCTION 9 [facility] COLLECTIO 76238 [facility] N VENOUS 9 [facility] VENIPUNCT URE RADEX ABD 08207 DEEPMARTY GALLARDO, COMPL 8 [facility]RAD S AQT ABD RADIOLOGY W/S/E/D VIEWS 1 ASSOCIATE VIEW S PSC REMOVAL 11065 PRIMARY PAM, [address] JACKIE Kylah SHAYE ASSOCIATE INSTRUMEN S PSC TATION UNILAT BLOOD 61234 [facility] 8 [facility] AUTO&[place] [address] [facility] THYROID 8 [facility] NG [place] TSH RADEX 28647 [facility] ABDOMEN 1 8 [facility] ANTEROPOS TERIOR VIEW RADEX 04622 CN[facility] KAYLYNN SRIKANTH, ABDOMEN 8 RADIOLOGY J COMPL W/DCBTS&/ ERC VIEWS COLLECTIO 98882 [facility] V[facility] 8 [facility] VENIPUNCT URE HEPATIC 40671 [facility] FUNCTION 8 [facility] LIPID 87718 [facility] BASIC 94441 [facility] METABOLIC 8 [facility] CALCIUM TOTAL COLONOSCO 01391 ZHANG HERNANDEZ FLX DX 8 PETEY ANGELO, W/COLLPedro JUSTICE SPEC WHEN PFRMD ECG 16605 [facility] ROUTINE 8 [facility] W/LEAST 12 LDS TRCG ONLY W/O I&R ANES 51047 [place] KELIN LOWER 8 ANESTHESI I JR, INTESTINE A GROUP EDWARD J PSC ENDOSCOPY DISTAL DUODENUM ECG 67332 CARDIOLOG COSBY, ROUTINE 8 Y ALON A ECG ASSOCIATE W/LEAST S OF 12 LDS [place] I&R ONLY THERAPEUT 50117 [facility] IC PX 1/> [address] [facility] EACH 15 MIN EXERCISES PHYSICAL 95148 [facility] THERAPY 8 [facility] N [place] LUMBAR 50876 [facility] SPINE [address] [place] [address] W/O [facility] CONTRAST MATERIAL COMPUTER- 20831 [facility] AIDED 8 [facility] SCREENING MAMMOGRAP HY SCREENING [address] MAMMOGRAP [facility] HY BILATERAL HEMOGLOBI 16453 [facility] CB N 8 RAE [id number] [facility] BILIRUBIN 52443 [facility] 8 [facility] 84258 [facility] 8 [facility] PANEL LIPID 32816 [facility] PANEL 8 [facility] ECG 71566 GOINS GOINS, ROUTINE 8 DON R DON R ECG W/LEAST 12 LDS W/I&R ECG 44370 CARDIOLOG COSBY, ROUTINE 8 Y ALON A ECG ASSOCIATE W/LEAST S OF 12 LDS [place] I&R ONLY RADIOLOGI 95544 CNTRL Bradley MARCOS 8 RADIOLOGY T EXAMINATI ON CHEST SINGLE VIEW FRONTAL Encounters Encounter Start End Date Code Location Performer Type Date OFFICE 70711 RICH RODRIGEZ OUTPATIEN 7 7 Servando VAUGHAN MD,[facility] MINUTES OFFICE 02987 [facility] 6 PHYSICIAN T VISIT S GROUP 15 MINUTES OFFICE 79841 [facility] 6 6 PHYSICIAN MAT T VISIT S GROUP 25 MINUTES [facility] T OFFICE 18539 JACKLYN LAN OUTPATIEN 6 6 MD GINA, T VISIT PSC 25 MINUTES OFFICE 55188 [facility] 6 6 [facility] T VISIT INC 10 MINUTES OFFICE 81610 [facility] 6 6 PHYSICIAN MENG T VISIT 5 S GROUP MINUTES OFFICE 27048 [facility] 6 6 PHYSICIAN MAT T VISIT S GROUP 25 MINUTES [facility] [place] [facility] 6 6 [facility] T OFFICE 16404 PROGRESSI PROGRESSI OUTPATIEN 6 6 VE VE T VISIT PODIATRY PODIATRY 15 MINUTES [facility] T OFFICE 81120 [facility] 6 6 PHYSICIAN MAT T VISIT S GROUP 25 MINUTES OFFICE 53063 [facility] 6 6 [facility] T [facility] 10 MINUTES [facility] T OFFICE 16914 JACKLYN LAN OUTPATIEN 6 6 MD GINA, T VISIT PSC 15 MINUTES [facility] T OFFICE 68349 [facility] 6 6 PHYSICIAN MENG T VISIT S GROUP 10 MINUTES [facility] - [facility] T OFFICE 12028 [facility] OUTPATIEN 6 6 PHYSICIAN MENG T VISIT S GROUP 10 MINUTES [facility] 6 [facility] T OFFICE 84560 [facility] OUTPATIEN 6 6 PHYSICIAN MENG T VISIT S GROUP 15 MINUTES [facility] 6 6 [facility] 6 6 [facility] INC T OFFICE 35100 JACKLYN LAN OUTPATIEN 6 6 MD GINA, T VISIT [facility] 25 MINUTES [facility] 6 6 [facility] T OFFICE 89227 [facility] 6 6 [facility] T VISIT [facility] 10 MINUTES [facility] 6 6 [facility] 6 6 [facility] 6 6 [facility] T OFFICE 57606 JACKLYN BROOKS OUTPATIEN 6 6 MD GINA, T VISIT [facility] 10 MINUTES [facility] 6 [facility] T OFFICE 90017 [facility]IN OUTPATIEN 6 6 [facility] T VISIT HOSPITAL 15 MINUTES [facility] 6 6 [facility] T EMERGENCY 18781 [facility] 6 6 [facility] DEPARTMEN INC T VISIT LIMITED/M INOR PROB EMERGENCY 86928 MIKE CELIS [facility] 6 6 PHYSICIAN DEPARTMEN S, [facility] T VISIT MODERATE SEVERITY [facility] - [facility] T OFFICE 25079 YUSEF YUSEF OUTPATIEN 6 6 CHIL[facility] CHILO T VISIT 15 MINUTES OFFICE 28495 [facility] 6 6 PHYSICIAN MENG T VISIT S GROUP 15 MINUTES [facility]IEN INC T OFFICE 05867 YUSEF YUSEF OUTPATIEN 6 6 CHIL[facility] CHILO T VISIT 15 MINUTES OFFICE 18634 [facility] 5 5 [facility] T VISIT INC 10 MINUTES OFFICE 26814 JACKLYN WILSON OUTPATIEN 5 5 MD GINA, T VISIT PSC 15 MINUTES [facility] 5 [facility]IEN INC T OFFICE 78899 YUSEF HOLBROOK OUTPATIEN 5 5 CHILO CHILO T VISIT 15 MINUTES OFFICE 09155 [facility] 5 5 PHYSICIAN T VISIT S GROUP 10 MINUTES [facility] 5 [facility] - 5 5 [facility] T OFFICE 07072 [facility] TOD OUTPATI[facility] 5 5 PHYSICIAN T NEW 45 S GROUP MINUTES [facility] - 5 5 [facility] OUTPATIEN INC T OFFICE 43750 JACKLYN LAN OUTPATIEN 5 5 MD GINA, T NEW 45 PSC MINUTES [facility] 5 5 [facility] OUT[facility]EN [facility] - 5 5 [facility] OUTPATIEN [facility] T OFFICE 06018 YUSEF YUSEF OUTPAT[facility]EN 5 5 [facility] T VISIT 15 MINUTES [facility] 5 5 [facility] OUTPATIEN [facility] - 5 5 [facility] OUTPATIEN [facility] T OFFICE 53824 [facility] 5 5 [facility] 15 MINUTES [facility] 5 5 [facility] OUTPATIEN [facility] T OFFICE 63902 YUSEF YUSEF OUTPATIEN 5 5 [facility]IL[facility]IL[facility] T VISIT 15 MINUTES [facility] - 5 5 [facility] OUTPATIEN [facility] - 5 5 [facility] OUTPATIEN [facility] T OFFICE 83298 YUSEF YUSEF OUTPATIEN 5 5 [facility]ILO CHILO T [facility] 30 OFFICE 73018 [facility] OUTPATIEN 5 5 PHYSICIAN MENG T VISIT S GROUP 15 MINUTES OFFICE 66885 [place] [facility] OUTPATIEN 5 5 [facility] T VISIT 25 MINUTES [facility] [place] [facility] 5 5 [facility] T OFFICE 32735 [place] [facility] DON OUTPATIEN 5 5 [facility] T VISIT 25 MINUTES EMERGENCY 35976 [place] 5 5 [facility] T VISIT MODERATE SEVERITY EMERGENCY 77068 ALFARIS ALFARIS 5 5 [facility] T VISIT HIGH/URGE NT SEVERITY [facility] [place] - 5 5 [facility] T OFFICE 30208 PAM PAM OUTPATIEN 5 5 GINA GINA T VISIT 15 MINUTES OFFICE 38326 CHINO HARRELL OUTPATIEN 5 5 [facility] ROLNADA T VISIT 15 MINUTES [facility] [place] [facility] 5 5 [facility] T OFFICE 24685 PAM PAM OUTPATIEN 5 5 GINA GINA T VISIT 25 MINUTES [facility] [place] [facility] 5 5 [facility] [place] - 5 5 [facility] T OFFICE 48309 PAM PAM OUTPATIEN 5 5 GINA GINA T VISIT 15 MINUTES EMERGENCY 12616 SOKAN BAB SOKAN BAB 5 5 DEPARTMEN T VISIT MODERATE SEVERITY [facility] [place] - 5 5 [facility] T OFFICE 11967 PAM PAM OUTPATIEN 5 5 GINA GINA T VISIT 15 MINUTES [facility] [place] - 5 5 [facility] T OFFICE 60546 PAM PAM OUTPATIEN 5 5 GINA GINA T VISIT 15 MINUTES OFFICE 58072 PR[facility]AM OUTPATIEN 4 4 [facility] T VISIT ASSOCIATE 15 S PS MINUTES OFFICE 32737 PR[facility] PAM OUTPATIEN 4 4 [facility] T VISIT ASSOCIATE 25 S PS MINUTES [facility] [place] - 4 4 [facility] [place] - 4 4 [facility] [place] [facility] 4 4 [facility] [place] [facility] 4 4 [facility], 4 4 HOME INPATIENT HEALTH [facility] [place] - 4 4 [facility] T EMERGENCY 02221 [place] 4 4 [facility] T VISIT MODERATE SEVERITY EMERGENCY 23452 HERACLIO ARRIETA 4 4 [facility] VISIT HIGH/URGE NT SEVERITY [facility] [place] - 4 4 [facility] T HOME 97687 [facility] VISIT EST 4 4 HOME PT HEALTH MOD-HI SEVERITY 40 MINUTES HOME 47379 [facility] VISIT EST 4 4 HOME PT HEALTH MOD-HI SEVERITY 40 MINUTES HOME 37414 [facility] VISIT EST 4 4 HOME PT HEALTH MOD-HI SEVERITY 40 MINUTES HOME [facility], 4 4 HOME INPATIENT HEALTH HOME 49198 [facility] VISIT EST 4 4 HOME PT HEALTH MOD-HI SEVERITY 40 MINUTES [facility] [place] - 4 4 [facility] [place] - 4 4 [facility] HOME 69367 [facility] VISIT EST 4 4 HOME PT HEALTH MOD-HI SEVERITY 40 MINUTES HOME [facility], 4 4 HOME INPATIENT HEALTH OFFICE 34920 [facility] 4 4 DANUTA IK LID T [facility] 30 MINUTES [facility] 4 4 [facility] [place] [facility] 4 4 [facility] [place] [facility] 4 4 [facility] [place] - 4 4 [facility] [place] - 4 4 [facility] T OFFICE 02717 ARMS DON ARMS DON OUTPATIEN 4 4 T VISIT 25 MINUTES OFFICE 79116 RAYO RUEDA OUTPATIEN 4 4 PRIMARY JAM T VISIT CARE 15 CENTER MINUTES [facility] [place] - 4 4 [facility] T OFFICE 40844 ARMS DON ARMS DON OUTPATIEN 4 4 T VISIT 25 MINUTES OFFICE 42618 [place] AR[place] DON CONSULTAT 4 4 250ok ION NEW/ESTAB PATIENT 60 MIN [facility] [place] - 4 4 [facility] H[facility] [address] [facility] T EMERGENCY 41125 NIKKI JORDAN 4 4 [facility] T VISIT HIGH/URGE NT SEVERITY EMERGENCY 48907 [place] 4 4 [facility] T VISIT HIGH/URGE NT SEVERITY [facility] [place] - 4 4 [facility] T EMERGENCY 26641 VORHILARYOR VORHILARYOR 4 4 [facility] T VISIT HIGH/URGE NT SEVERITY [facility] [place] - 4 4 [facility] T EMERGENCY 33583 [place] KER [place] KER 4 4 [facility] T VISIT HIGH/URGE NT SEVERITY [facility] [place] - 4 4 [facility] [place] - 4 4 [facility] T EMERGENCY 55201 [facility] II DEPT 3 3 EMERGENCY THO VISIT SERVICES HIGH SEVERITY& THREAT FUNCJ OFFICE 48006 RAYO RUEDA OUTPATIEN 3 3 PRIMARY JAM T VISIT CARE 25 CENTER MINUTES OFFICE 17750 RAYO RUEDA OUTPATIEN 3 3 PRIMARY JAM T NEW 30 CARE MINUTES CENTER EMERGENCY 51490 STARR WEAVER 3 3 EMERGENCY PAT DEPARTMEN SERVICES T VISIT HIGH/URGE NT SEVERITY HOSPITAL [facility], - 2 2 DIAL BRUSHER OUTPATIEN RAE T CO HOS OFFICE 44757 PRIMARY PAM OUTPATIEN 2 2 HEALTH [facility] T VISIT ASSOCIATE 15 S PS MINUTES [facility] [place] [facility] 2 2 [facility] T OFFICE 49000 PRIMARY PAM OUTPATIEN 2 2 [facility] T VISIT ASSOCIATE 25 S PS MINUTES HOSPITAL [facility] T OFFICE 42449 PRIMARY PAM OUTPATIEN 2 2 HEALTH [facility] T VISIT ASSOCIATE 15 S PS MINUTES [facility] - 2 2 N OUTPATIEN COMMUNTIY T HOSPITA EMERGENCY 86121 [facility] 2 2 N DEPARTMEN COMMUNTIY T VISIT HOSPITA MODERATE SEVERITY OFFICE 89323 PAM PAM OUTPATIEN 2 2 GINA GINA T VISIT 25 MINUTES OFFICE 01413 PR[facility]AM OUTPATIEN 2 2 [facility] T VISIT ASSOCIATE 25 S PS MINUTES OFFICE 74433 PRIMARY PAM OUTPATIEN 2 2 [facility] T VISIT ASSOCIATE 15 S PS MINUTES OFFICE 27074 PRIMARY PAM OUTPATIEN 2 2 [facility] T VISIT ASSOCIATE 15 S PS MINUTES OFFICE 89433 [place] [facility]- OUTPATIEN 2 2 MEDICAL PETEY T NEW 30 SERV RACIEL MINUTES [facility] MHC INC, - 2 2 DIAL BRUSHER OUTPATIEN RAE T CO HOS OFFICE 61186 PRIMARY PAM OUTPATIEN 2 2 HEALTH [facility] T VISIT ASSOCIATE 15 S PS MINUTES OFFICE 76143 PRIMARY PAM OUTPATIEN 2 2 [facility] T VISIT ASSOCIATE 15 S PS MINUTES EMERGENCY [address] [facility] T VISIT LOW/MODER [facility] RAE - [address] [facility] [place] - 1 1 [facility] T OFFICE 46610 PRIMARY PAM OUTPATIEN 1 1 [facility] T VISIT ASSOCIATE 15 S PS MINUTES OFFICE 08204 PR[facility]AM OUTPATIEN 1 1 [facility] T VISIT ASSOCIATE 15 S PS MINUTES [facility] T OFFICE 35020 TEJ COSBY COSBY TEJ OUTPATIEN 1 1 MD T VISIT CONSULTIN 15 G SRV MINUTES OFFICE 54797 [facility] OUTPATIEN 1 1 [facility] T VISIT ASSOCIATE 15 S PS MINUTES OFFICE 39988 TEJ COSBY COSBY TEJ OUTPATIEN 1 1 MD T VISIT CONSULTIN 15 G SRV MINUTES [facility] T EMERGENCY 33871 [facility] 1 [facility] HIGH SEVERITY& THREAT [facility] T OFFICE 30291 PRIMARY PAM OUTPATIEN 1 1 [facility] T VISIT ASSOCIATE 25 S PS MINUTES OFFICE 49872 TEJ COSBY COSBY TEJ OUTPATIEN 1 1 T NEW 45 CONSULTIN MINUTES G SRV OFFICE 09333 [facility] OUTPATIEN 1 1 [facility] T VISIT ASSOCIATE 15 S PS MINUTES OFFICE 73341 [facility] OUTPATIEN 1 1 [facility] T VISIT ASSOCIATE 15 S PS MINUTES OFFICE 77396 PR[facility]AM OUTPATIEN 1 1 [facility] T VISIT 5 ASSOCIATE MINUTES S PS OFFICE 93305 PRIMARY PAM OUTPATIEN 1 1 [facility] T VISIT ASSOCIATE 15 S PS MINUTES [facility] [place] - 1 1 [facility] T EMERGENCY 76209 [place], 1 1 EMERGENCY JR., DO [facility] SERVICES OSC T VISIT MODERATE SEVERITY EMERGENCY 21850 [place] 1 1 [facility] T VISIT LOW/MODER SEVERITY OFFICE 88761 PR[facility] PAM OUTPATIEN 1 1 [facility] T VISIT ASSOCIATE 15 S PS MINUTES [facility] 1 [facility] T OFFICE 54078 PRIMARY PAM OUTPATIEN 1 1 [facility] T VISIT ASSOCIATE 25 S PS MINUTES [facility] 1 1 [facility] T OFFICE 39087 PRIMARY PAM OUTPATIEN 1 1 [facility] T VISIT ASSOCIATE 15 S PS MINUTES OFFICE 72221 PRIMARY PAM OUTPATIEN 1 1 [facility] T VISIT ASSOCIATE 15 S PS MINUTES OFFICE 43395 PRIMARY PAM OUTPATIEN 1 1 [facility] T VISIT ASSOCIATE 15 S PS MINUTES EMERGENCY 81719 [facility] [place], DEPT 1 1 EMERGENCY JR., DO VISIT SERVICES OSC HIGH SEVERITY& THREAT FUNCJ EMERGENCY 52413 [place] 1 1 [facility] T VISIT HIGH/URGE NT SEVERITY [facility] [place] - 1 1 [facility] [place] - 1 1 [facility] T EMERGENCY 47647 [place] 1 1 [facility] T VISIT MODERATE SEVERITY OFFICE 97951 PRIMARY PAM OUTPATIEN 1 1 [facility] T VISIT ASSOCIATE 15 S PS MINUTES OFFICE 69557 PRIMARY PAM OUTPATIEN 0 0 [facility] T VISIT ASSOCIATE 15 S PS MINUTES [facility] [place] - 0 0 [facility] T OFFICE 49363 PRIMARY PAM OUTPATIEN 0 0 [facility] T VISIT ASSOCIATE 15 S PS MINUTES OFFICE 66226 PRIMARY PAM OUTPATIEN 0 0 [facility] T VISIT ASSOCIATE 15 S PS MINUTES [facility] [place] - 0 0 [facility] T OFFICE 54364 PRIMARY PAM OUTPATI[facility] 0 0 [facility] T VISIT ASSOCIATE 15 S PS MINUTES [facility] [place] [facility] 0 0 [facility] [place] - 0 0 [facility] T OFFICE 57236 PRIMARY PAM OUTPATIEN 0 0 [facility] T VISIT ASSOCIATE 15 S PS MINUTES OFFICE 43484 PRIMARY PAM OUTPATIEN 0 0 [facility] T VISIT ASSOCIATE 15 S PS MINUTES OFFICE 62556 PRIMARY PAM OUTPATIEN 0 0 [facility] T VISIT ASSOCIATE 15 S PS MINUTES [facility] [place] [facility] 0 0 [facility] T OFFICE 98267 PRIMARY PAM, OUTPATIEN 0 0 HEALTH JACKIE M T VISIT ASSOCIATE 25 S PSC MINUTES OFFICE 72981 PRIMARY PAM, OUTPATIEN 0 0 HEALTH JACKIE M T VISIT ASSOCIATE 25 S PSC MINUTES OFFICE 18493 PR[facility] PAM, OUTPATIEN 0 0 HEALTH JACKIE M T VISIT ASSOCIATE 25 S PSC MINUTES OFFICE 89036 PR[facility]AM OUTPATIEN 0 0 [facility] T VISIT ASSOCIATE 25 S PS MINUTES HOSPITAL RAE - 0 0 [facility] T OFFICE 15675 PRIMARY PAM, OUTPATIEN 0 0 [facility] JACKIE M T VISIT ASSOCIATE 15 S PSC MINUTES [facility] [place] - 0 0 [facility] T OFFICE 30547 PRIMARY PAM, OUTPATIEN 0 0 [facility] JACKIE M T VISIT ASSOCIATE 25 S PSC MINUTES OFFICE 65122 PR[facility] PAM, OUTPATIEN 9 9 [facility] JACKIE M T VISIT ASSOCIATE 15 S PSC MINUTES OFFICE 45839 PR[facility] PAM, OUTPATIEN 9 9 [facility] JACKIE M T VISIT ASSOCIATE 25 S PSC MINUTES OFFICE 15427 PRIMARY PAM, OUTPATIEN 9 9 [facility] JACKIE M T VISIT ASSOCIATE 25 S PSC MINUTES OFFICE 86044 PRIMARY PAM, OUTPATIEN 9 9 [facility] JACKIE M T VISIT ASSOCIATE 15 S PSC MINUTES HOS[facility]ITAL [facility] 9 [facility] T OFFICE 83205 PRIMARY PAM, OUTPATIEN 9 9 [facility] JACKIE M T VISIT ASSOCIATE 15 S PSC MINUTES [facility] 9 [facility] T OFFICE 26262 PRIMARY PAM, OUTPATIEN 9 9 [facility] JACKIE M T VISIT ASSOCIATE 25 S PSC MINUTES [facility] 9 9 [facility] T OFFICE 98367 PRIMARY PAM, OUTPATIEN 9 9 [facility] JACKIE M T VISIT ASSOCIATE 15 S PSC MINUTES OFFICE 43089 PRIMARY PAM, OUTPATIEN 9 9 [facility] T VISIT ASSOCIATE 15 S PSC MINUTES [facility] T OFFICE 88958 PRIMARY PAM, OUTPATIEN 8 8 [facility] JACKIE M T VISIT ASSOCIATE 25 S PSC MINUTES OFFICE 79870 PRIMARY PAM OUTPATIEN 8 8 [facility] JACKIE M T VISIT ASSOCIATE 15 S PSC MINUTES [facility] 8 [facility] T OFFICE 40605 PRIMARY PAM OUTPATIEN 8 8 [facility] T VISIT ASSOCIATE 25 S PSC MINUTES [facility] T OFFICE 68316 PRIMARY PAM [facility]PATIEN 8 8 [facility] T [facility]ISIT ASSOCIATE 15 S PSC MINUTES [facility] 8 [facility] 8 [facility] T OFFICE 04920 PAM PAM OUTPATIEN [address] [facility] JACKIE M T VISIT 15 MINUTES [facility] T OFFICE 66375 [facility] [address] [facility] T VISIT CENTRAL 15 BANK ACCT DEPARTMEN MINUTES T OFFICE 78517 [facility] DON R DON R T VISIT 15 MINUTES
--- OUTSIDE RECORDS SUMMARY | 2017-04-19 16:27 | External Medical Summary Rpt ---
Author Author , Organization [employer] Address Unknown Phone Unavailable Care Team Providers Care Nut Packer Name Role Phone [facility], [facility] Unavailable Unavailable [facility], [facility] Unavailable Unavailable [employer] Unavailable Unavailable INC, [employer] ALFARIS MOH, ALFARIS Unavailable Unavailable MOH ALFARIS MOH, ALFARIS Unavailable Unavailable MOH [facility], Unavailable Unavailable [facility] Pedro DUKE, Unavailable Unavailable Pedro DUKE MD, PSC, Unavailable Unavailable JACKLYN FUENTES MD, PSC ARMS DON, ARMS DON Unavailable Unavailable ARMS DON, ARMS DON Unavailable Unavailable RICH VAUGHAN, Unavailable Unavailable ,PSC, RICH VAUGHAN MD,PSC JORDAN BRO, JORDAN Unavailable Unavailable BRO DELATORRE ALL, DELATORRE ALL Unavailable Unavailable [facility] Unavailable Unavailable DEPARTMENT, [facility] DEPARTMENT [facility] Unavailable Unavailable HOSPITAL, [facility]ITAL FONSECA DARRYN, FONSECA DARRYN Unavailable Unavailable [facility], Unavailable Unavailable [facility] PAM HAILE Unavailable Unavailable PAM KUMAR Unavailable Unavailable JACKIE STAPLES, Unavailable Unavailable JACKIE OROZCO YUSEF CHILO, YUSEF Unavailable Unavailable CHILO YUSEF CHILO, YUSEF Unavailable Unavailable CHILO NELSON JAM, NELSON JAM Unavailable Unavailable BUX ANJ, BUX ANJ Unavailable Unavailable [facility] Unavailable Unavailable [facility], [facility] Unavailable Unavailable [facility], [facility] Unavailable Unavailable [facility], [facility] CARRICATO, CARRICATO Unavailable Unavailable [facility], Unavailable Unavailable [facility] COSBY TEJ, COSBY TEJ Unavailable Unavailable COSBY, ALON A, Unavailable Unavailable COSBY, ALON A MARIPOSA NIKKI, Unavailable Unavailable MARIPOSA NIKKI ORQUIDEA II THO, ORQUIDEA II Unavailable Unavailable THO DAUKAS GRACIA, DAUKAS Unavailable Unavailable GARCIA DUFF KATIE, DUFF KATIE Unavailable Unavailable VILA, G T, VILA, G Unavailable Unavailable T FALLUJI KALYN, FALLUJI Unavailable Unavailable KALYN FRYMAN EUG, FRYMAN Unavailable Unavailable EUG CARLOS MENG, CARLOS Unavailable Unavailable MENG [facility] Unavailable Unavailable [facility], [facility] MIRA RHO, MIRA Unavailable Unavailable RHO MIRA, NEEL G, Unavailable Unavailable MIRA, NEEL G [facility] Unavailable Unavailable INC, [facility] Unavailable Unavailable [facility], [facility] GALLARDO KIRILL, GALLARDO Unavailable Unavailable KIRILL GALLARDO, CONRAD S, Unavailable Unavailable GALLARDO, CONRAD S [facility], Unavailable Unavailable [facility] PULLIAM BERNY, PULLIAM BERNY Unavailable Unavailable PULLIAM BERNY, PULLIAM BERNY Unavailable Unavailable RAIN, RAIN Unavailable Unavailable KENNEDY-PETEY RACIEL, Unavailable Unavailable KENNED[facility]PETE[facility] RACIEL KENNED[facility] RACIEL, Unavailable Unavailable [facility] RACIEL [facility]ENN[facility], Unavailable Unavailable VINH, KENNEDY-PETEY, VINH [facility] Unavailable Unavailable GROUP PS, [facility] Unavailable Unavailable [facility], [facility], Unavailable Unavailable [facility] Unavailable Unavailable MED[facility] [...] [facility] [place] [facility], Unavailable Unavailable [facility] SHANI CRI, SHANI CRI Unavailable Unavailable [facility], Unavailable Unavailable [facility] CARL[facility], RAYO JOSE CARLOS Unavailable Unavailable [facility] Un[facility] Unavailable [facility], [facility], Unavailable Unavailable [facility] SALDIVAR KIRILL, SALDIVAR Unavailable Unavailable KIRILL [facility], Unavailable Unavailable [facility], Unavailable Unavailable [facility] Unavailable Unavailable SERVICES, [facility] Unavailable Unavailable [facility]OCI, [facility], Unavailable Unavailable [facility], FASTENER SEWING 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 [facility]AE Unavailable Unavailable [facility], [facility], FASTENER SEWING 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 [facility] MARYBETH MILLIGAN, MARYBETH Unavailable Unavailable SRINI NADBINA VID, NADBINA VID Unavailable Unavailable [facility], Unavailable Unavailable [facility] Unavailable [facility] Unavailable [facility] TEJ COSBY MD Unavailable Unavailable CONSULTING SERV, TEJ COSBY MD CONSULTING SERV TEJ COSBY MD Unavailable [...] #[id number], Unavailable Unavailable [id number] Unavailable Unavailable [facility], [facility] SADEK MOH, SADEK MOH Unavailable Unavailable SCALF KIRILL, SCALF KIRILL Unavailable Unavailable RACHEL MAT, Unavailable Unavailable RACHEL MAT [facility], [facility] Unavailable Unavailable SOKAN BAB, SOKAN BAB Unavailable Unavailable [facility], [facility]available Unavailable [facility] Unavailable Unavailable FASTENER SEWING 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 ST, [facility] FASTENER SEWING 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 [facility] Unavailable Unavailable [facility]YSICIANS, [facility] GOINS, DON R, Unavailable Unavailable GOINS, DON R HAMPTON KER, HAMPTON KER Unavailable Unavailable HAMPTON KER, HAMPTON KER Unavailable Unavailable SWINEY PAT, SWINEY Unavailable Unavailable PAT ASHLEY III J, ASHLEY Unavailable Unavailable III J UNICK CHR, UNICK CHR Unavailable Unavailable VORKPOR DAMI, VORKPOR Unavailable Unavailable DAMI VORKPOR DAMI, VORKPOR Unavailable Unavailable DAMI [facility] # Unavailable Unavailable [id number], [facility] # [id number] [facility] # Unavailable Unavailable [id number], [facility] # [id number] TAMELA ARTHUR EDW, Unavailable Unavailable TAMELA ARTHUR EDW TAMELA ARTHUR, DAPHNE Unavailable Unavailable J, TAMELA ARTHUR, DAPHNE J MILDRED GUEVARA, MILDRED GUEVARA Unavailable Unavailable BRODERICK LEVY, Unavailable Unavailable BRODERICK LEVY Purpose Continuity of Care Document - 10-20-2007 through 2016 Problems Code Diagnosis DOS Provider Status [id number] SPONDYLOSIS 11-17-2016 [facility] W/O RADIOLOGY MYELOPATH/R ADICULOPATH Y CERV RGN [id number] SPONDYLOSIS 11-17-2016 [facility] W/O RADIOLOGY MYELOPATH/R ADICULOPATH Y LUMB RGN R16515 SPONDYLOSIS 11-17-2016 [facility] W/O RADIOLOGY MYELOPATH/R ADICULPATHY LS RGN [id number] OTHER 11-17-2016 [facility] CERVICAL RADIOLOGY DISC DEGENERATIO N AT C5-C6 LEVEL M791 MYALGIA 11-17-2016 RICH VAUGHAN MD,PSC M549 DORSALGIA 08-29-2016 [facility] UNSPECIFIED PHYSICIANS GROUP R635 ABNORMAL 08-29-2016 [facility] WEIGHT GAIN PHYSICIANS GROUP Z23 ENCOUNTER 08-29-2016 [facility] FOR PHYSICIANS IMMUNIZATIO GROUP N E785 HYPERLIPIDE 07-05-2016 [facility] LUIS PHYSICIANS UNSPECIFIED GROUP I10 ESSENTIAL 07-05-2016 [facility] PRIMARY PHYSICIANS HYPERTENSIO GROUP N I2510 ASHD NUIQSUT 07-05-2016 [facility] CORONARY PHYSICIANS ARTERY W/O GROUP ANGINA PECTORIS M5030 OTH 07-04-2016 [facility] CERVICAL [facility] DISC INC DEGENERATIO N UNS CERV REGION M5116 INTERVERTEB 07-04-2016 [facility] RAL DISC [facility] D/O INC W/RADICULOP ATHY LUMB RGN M5032 OT CERV 06-28-2016 [facility] DISC MEDICAL DEGENERATIO IMAGING ASS N MID-CERVICA L REGION M542 CERVICALGIA 06-28-2016 [facility] R079 CHEST PAIN 06-28-2016 [place] UNSPECIFIED [facility]ICAL IM[facility]ING ASS R1084 GENERALIZED 06-28-2016 [place] ABDOMINAL MEDICAL PAIN IMAGING ASS Q962IUL UNSPECIFIED 06-28-2016 [place] INJURY OF MEDICAL NECK IMAGING ASS INITIAL ENCOUNTER Z0100 ENCOUNTER 2016 [facility] EXAM EYES & GRE VISION W/O ABNORMAL FIND M4802 SPINAL 05-02-2016 JACKLYN FUENTES, STENOSIS , PSC CERVICAL REGION E663 OVERWEIGHT 04-20-2016 [facility] PH[facility]IC[facility]ANS GROUP Z24440 COMPLEX 04-07-2016 [facility] REGIONAL PHYSICIANS PAIN GROUP SYNDROME I UNS LOWER LIMB R9431 ABNORMAL 04-07-2016 [facility] ELECTROCARD PHYSICIANS IOGRAM GROUP P44242 ENCOUNTER 04-05-2016 TEJ COSBY FOR MD PREPROCEDUR CONSULTING AL SRV CARIOVASCUL AR EXAM G8918 OTHER ACUTE 03-29-2016 PROGRESSIVE PODIATRY POSTPROCEDU RAL PAIN M2022 HALLUX 03-29-2016 PROGRESSIVE RIGIDUS PODIATRY LEFT FOOT M2032 HALLUX 03-29-2016 PROGRESS[facility] VARUS PODIATRY ACQUIRED LEFT FOOT Z471 AFTERCARE 03-29-2016 [place] FOLLOWING MEDICAL JOINT IMAGING ASS REPLACEMENT SURGERY Z8739 PERSONAL HX 03-29-2016 [facility] OT DZ [facility] MUSCULOSKEL INC SYS&CONNECT V TISS X85548 PRESENCE OF 03-29-2016 [place] OTHER MEDICAL ORTHOPEDIC IMAGING ASS JOINT IMPLANTS Z9889 OTHER 03-29-2016 [facility] SPECIFIED [facility] POSTPROCEDU INC [facility] STATES Z21481 OTHER LONG 02-29-2016 [facility] TERM [facility] CURRENT INC DRUG THERAPY Z1231 ENCOUNTER 02-22-2016 [place] SCREENING MEDICAL MAMMO MALIG IMAGING ASS NEOPLASM BREAST Z4789 ENCOUNTER 02-15-2016 [place] FOR OTHER MEDICAL ORTHOPEDIC IMAGING ASS AFTERCARE M545 LOW BACK 02-14-2016 [facility] PAIN [facility] INC Z0000 ENCOUNTER 02-03-2016 [facility] GEN ADULT [facility] MED EXAM INC W/O ABNORMAL FIND U5939DP ALLERGY 01-19-2016 [facility] UNSPECIFIED PHYSICIANS INITIAL GROUP ENCOUNTER M4696 UNS 01-15-2016 [place] INFLAMMATOR MEDICAL Y IMAGING ASS SPONDYLOPAT HY LUMBAR REGION M5136 OTH 01-15-2016 [place] INTERVERTEB MEDICAL RAL DISC IMAGING ASS DEGEN LUMBAR REGION M479 SPONDYLOSIS 01-04-2016 [facility] UNSPECIFIED INC M5090 CERVICAL 01-04-2016 [facility] DISC [facility] DISORDER INC UNS UNS CERVICAL REGION M5010 CERVICAL 12-11-2015 JACKLYN BUX, DISC D/O , PSC W/RADICULOP ATHY UNS CERV RGN M2012 HALLUX 12-07-2015 [facility] VALGUS [facility] ACQUIRED INC LEFT FOOT Y13685 ANKYLOSIS 12-07-2015 [facility] LEFT FOOT [facility] INC I209 ANGINA 11-27-2015 [facility] PECTORIS LAR UNSPECIFIED CONSULTANTS O R9439 ABNORMAL 11-27-2015 [facility] RESULT OTH LAR CARDIOVASCU CONSULTANTS LR FUNCTION O STUDY B000 ECZEMA 11-22-2015 [facility], [facility] E119 TYPE 2 11-22-2015 [facility] DIABETES [facility] MELLITUS INC WITHOUT COMPLICATIO NS L259 UNSPECIFIED 11-22-2015 [facility] CONTACT [facility] DERMATITIS INC UNSPECIFIED CAUSE I208 OTHER FORMS 11-11-2015 [facility] OF ANGINA LAR PECTORIS CONSULTANTS O I340 NONRHEUMATI 11-11-2015 [facility]AL SERV [facility] INSUFFICIEN CY I517 CARDIOMEGAL 11-11-2015 [facility] Y SERV [facility] I739 PERIPHERAL 11-11-2015 [place] VASCULAR MEDICAL DISEASE IMAGING ASS UNSPECIFIED W60274 ENCOUNTER 11-06-2015 [facility] FOR OTHER MEM [facility]OS[facility] PREPROCEDUR INC AL EXAMINATION V89839 PAIN IN 11-03-2015 YUSEF CHILO LEFT FOOT M43840 PAIN IN 11-03-2015 YUSEF CHILO LEFT TOES R011 CARDIAC 11-02-2015 [facility] MURMUR PHYSICIANS UNSPECIFIED GROUP M7732 CALCANEAL 10-20-2015 [place] SPUR LEFT MEDICAL FOOT IMAGING ASS R102 PELVIC AND 09-07-2015 [facility] PERINEAL PHYSICIANS PAIN GROUP R1030 LOWER 09-07-2015 [facility] ABDOMINAL PHYSICIANS PAIN GROUP UNSPECIFIED R1031 RIGHT LOWER 09-07-2015 [facility] QUADRANT PHYSICIANS PAIN GROUP R591 GENERALIZED 09-07-2015 [facility] ENLARGED PHYSICIANS LYMPH NODES GROUP K5730 DIVERTICULO 08-12-2015 [place] SIS LG MEDICAL INTEST W/O IMAGING ASS PERF/ABSC W/O BLEED K5900 CONSTIPATIO 08-12-2015 [place] N MEDICAL UNSPECIFIED IMAGING ASS R197 DIARRHEA 08-12-2015 [place] UNSPECIFIED MEDICAL IMAGING ASS 74298 URINARY 07-09-2015 [facility] FREQUENCY [facility] INC 5990 URINARY 06-30-2015 [facility] TRACT [facility] INFECTION INC SITE NOT SPECIFIED 6259 UNSPEC 06-30-2015 [place] SYMPTOM [facility] ASSOC IMAGING ASS W/FEMALE GENITAL ORGANS 7831 ABNORMAL 06-30-2015 [facility] WEIGHT GAIN [facility] INC 50089 UNSPECIFIED 06-30-2015 [place] URINARY MEDICAL INCONTINENC IMAGING ASS E 79348 UNSPECIFIED 06-25-2015 YUSEF WOO REFLEX SYMPATHETIC DYSTROPHY 29017 UNSPECIFIED 06-25-2015 Y[facility]F WOO ENTHESOPATH Y OF ANKLE AND TARSUS 18301 EXOSTOSIS 06-25-2015 YUSEFKATHI WOO OF UNSPECIFIED SITE 7351 HALLUX 06-25-2015 YUSEF WOO VARUS V571 OTHER 06-16-2015 [facility] THER[facility] INC 4739 UNSPECIFIED 06-03-2015 [facility] UNSPECIFIED 05-20-2015 [facility] ESSENTIAL LAR HYPERTENSIO CONSULTANTS N O 4139 OTHER AND 05-20-2015 [facility] UNSPECIFIED PHYSICIANS ANGINA GROUP PECTORIS 85275 SHORTNESS 05-20-2015 [facility] [place] 61159 CHEST PAIN 05-20-2015 [facility] UNSPECIFIED LAR CONSULTANTS O 7220 DISPLCMT 05-12-2015 [place] CERV MEDICAL INTERVERT IMAGING ASS DISC WITHOUT MYELOPATHY 7224 DEGENERATIO 05-12-2015 [place] N OF MEDICAL CERVICAL IMAGING ASS INTERVERTEB RAL DISC 7231 CERVICALGIA 05-12-2015 [facility] 7820 DISTURBANCE 05-12-2015 [place] OF SKIN MEDICAL SENSATION IMAGING ASS 3559 MONONEURITI 05-01-2015 [facility] S OF PHYSICIANS UNSPECIFIED GROUP SITE 7852 UNDIAGNOSED 05-01-2015 [facility] CARDIAC PHYSICIANS MURMURS GROUP 39021 OBESITY, 04-15-2015 [place] [facility]NSPECIFIED [facility] 4292 UNSPECIFIED 04-15-2015 [facility] CARDIOVASCU LAR DISEASE 7295 PAIN IN 04-15-2015 [facility] SOFT [facility] TISSUES OF LIMB 31939 DISORDER OF 04-15-2015 [facility] BONE AND [facility] CARTILAGE UNSPECIFIED 23637 CLOSED 04-15-2015 [place] FRACTURE OF [facility] METATARSAL BONE 83464 CONTUSION 04-15-2015 [place] OF FOOT [facility] 2720 PURE 03-08-2015 [facility] 9597 INJURY 03-08-2015 [facility] [place] OTHER&UNSPE RADIOLOGY CIFIED KNEE LEG ANKLE&FOOT E8888 OTHER FALL 03-08-2015 [facility] V5869 LONG-TERM 03-08-2015 [facility] (CURRENT[facility] USE OF HOSPITAL OTHER MEDICATIONS 2724 OTHER AND 02-16-2015 [facility] HOSPITAL HYPERLIPIDE LUIS 54999 OTHER 02-16-2015 [facility] MALAISE AND [facility] FATIGUE HOSPITAL 7821 RASH AND 02-16-2015 [facility] OTHER [facility] NONSPECIFIC HOSPITAL SKIN ERUPTION V4589 OTHER 02-16-2015 [facility] POST[facility]URGICA [facility] OTHER 2810 PERNICIOUS 02-13-2015 PAM FUENTES ANEMIA 6929 CONTACT 02-13-2015 PAM FUENTES DERMATITIS& OTHER ECZEMA DUE UNSPEC CAUSE 27918 OSTEOARTHRO 01-21-2015 [facility] [place] SIS UNSPEC RADIOLOGY WHETHER GEN/LOC ANK&FOOT 80194 PAIN IN 01-21-2015 [facility] JOINT, [facility] ANKLE AND HOSPITAL FOOT 4549 ASYMPTOMATI 12-22-2014 PAM Santos VARICOSE VEINS 93707 UNS [facility] 11-28-2014 [facility] COM[facility] INT ANESTHESIA ORTHOPEDIC GROUP PS DEVC IMPLANT&[place] [address] OTH COMPS 11-28-2014 [place] DUE OT [facility] INTRL ORTHOPED DEVICE IMPL&GFT V1582 PERS HX 11-28-2014 [facility] TO[facility] USE [facility] HEALTH V454 ARTHRODESIS 11-28-2014 [facility] V5399 FITTING AND 11-28-2014 [facility], ADJUSTMENT Three Ring OTHER DEVICE V5401 ENCOUNTER 11-28-2014 [facility] REMOVAL OF [facility] INTERNAL HOSPITAL FIXATION DEVICE V5866 LONG-TERM 11-28-2014 [facility] USE OF [facility] V7283 OTHER 11-25-2014 [facility] [place] SPECIFIED RADIOLOGY PRE-OPERATI VE EXAMINATION 4599 UNSPECIFIED 11-24-2014 PAM FUENTES CIRCULATORY SYSTEM DISORDER V692 PROBLEMS 10-17-2014 LAB [facility] RELATED TO LISSA [facility] SEXUAL BEHAVIOR 08418 ACUTE 10-14-2014 [facility] DUE OT ASSOCIATES INFECTIOUS PS ORGANISMS 7905 OTHER 10-06-2014 [facility] NONSPECIFIC [facility] ABNORMAL HOSPITAL SERUM ENZYME LEVELS 7812 ABNORMALITY 08-12-2014 [facility] OF GAIT 6827 CELLULITIS 07-18-2014 [facility] AND [facility] EXCEPT TOES 16691 NON-HEALING 07-16-2014 [facility] WOUND NEC 8260 CLOSED 07-15-2014 [facility] FRACTURE OF ONE OR MORE PHALANGES OF FOOT 35496 DISRUPTION 07-15-2014 HERACLIO ARRIETA OF EXTERNAL OPERATION SURGICAL WOUND 7352 HALLUX 07-09-2014 [facility] V5409 OTH 07-09-2014 [facility] [place] [facility]ARE RADIOLOGY INVOLVING INTERNAL FIXATION DEVICE V5419 AFTERCARE 06-16-2014 [facility] TRAUMATIC FRACTURE OTHER BONE V6700 FOLLOW-UP 05-28-2014 [facility] [place] EXAMINATION RADIOLOGY FOLLOWING UNSPEC SURGERY 8920 OPEN WOUND 05-26-2014 S[facility] FT NO TOE HEALTHCARE ALONE CENTERS WITHOUT MENTION COMP 58669 NAUSEA 05-02-2014 [facility] 4011 ESSENTIAL 05-01-2014 TEJ COSBY HYPERTАННА CA N, BENIGN CONSULTING SRV 26564 CORONARY 05-01-2014 TEJ CURRIE MD OSIS NUIQSUT CONSULTING CORONARY SRV ARTERY 2725 LIPOPROTEIN 04-30-2014 [facility] S V7284 UNSPECIFIED 04-30-2014 [facility] [place] [facility] PRE-OPERATI VE EXAMINATION 39806 SWELLING OF 04-23-2014 [facility] [place] LIMB RADIOLOGY 4439 UNSPECIFIED 04-04-2014 TEJ COBSY PERIPHERAL VASCULAR CONSULTING DISEASE SRV 4479 UNSPECIFIED 04-02-2014 [facility] DISORDERS PRIMARY OF ARTERIES CARE CENTER AND ARTERIOLES 11688 STIFFNESS 04-02-2014 [facility] OF JOINT PRIMARY NEC ANKLE CARE CENTER AND FOOT 81322 UNSPECIFIED 03-07-2014 AR[facility] DON CELLULITIS AND ABSCESS OF TOE 8261 OPEN 03-07-2014 [facility] FRACTURE OF COMMUNITY ONE OR HOSPITAL MORE PHALANGES OF FOOT 6821 CELLULITIS 02-21-2014 [facility] AND ABSCESS [facility] 23969 DIAB W/O 02-17-2014 [facility] COMP TYPE MEM [facility] II/UNS NOT INC STATED UNCNTRL 7962 ELEVATED BP 02-17-2014 [facility] READING [facility] WITHOUT DX INC HYPERTENSIO N 07991 ESOPHAGEAL 02-16-2014 [facility] REFLUX [facility] E8859 FALL FROM 02-05-2014 VORESTEVAN DAMI OTHER SLIPPING TRIPPING OR STUMBLING 58230 OSTEOARTHRO 01-03-2014 [facility] SIS UNSPEC COMMUNITY WHETHER HOSPITAL GEN/LOC LOWER LEG 21987 PAIN IN 01-03-2014 [facility] [place] JOINT, RADIOLOGY LOWER LEG 7919 OTHER 01-03-2014 [facility] NONSPECIFIC [facility] EXAMINATION OF URINE 8930 OPEN WOUND 12-27-2013 [facility] KER TOE WITHOUT MENTION COMPLICATIO N 72255 UNSPECIFIED 12-23-2013 [facility] S 62998 OSTEOARTHRO 11-28-2013 [facility] [place] S UNSPEC RADIOLOGY WHETHER GEN/LOC SHLDR REGION 34082 PAIN IN 11-28-2013 [facility] REGION V7612 OTHER 11-28-2013 [facility] [place] SCREENING RADIOLOGY MAMMOGRAM V8534 BODY MASS 08-06-2013 [facility] 34.0-34.9 ADULT V016 CONTACT 07-23-2013 [facility] WITH OR DIAGNOSTICS EXPOSURE TO VENEREAL DISEASES 60149 PAINFUL 06-30-2013 [facility] RESPIRATION [facility]ERGENCY SERVICES 01307 OTHER 06-30-2013 [facility] INJURY OF EMERGENCY CHEST WALL SERVICES 4610 ACUTE 05-21-2013 [facility] 4619 ACUTE 05-21-2013 [facility] SINUSITIS, DAUGHTERS UNSPECIFIED MEDICAL SPEC 7840 HEADACHE 05-21-2013 [facility] PRIMARY CARE CENTER 9220 CONTUSION 01-18-2013 [facility] OF BREAST EMERGENCY SERVICES 62231 CONTUSION 01-18-2013 [facility] UPPER EMERGENCY ARM SERVICES E8881 FALL 01-18-2013 [facility] RESULTING EMERGENCY IN STRIKING SERVICES AGAINST OTHER OBJECT 4240 MITRAL 09-19-2012 [facility], VALVE 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 DISORDERS [facility] 17284 PRECORDIAL 09-19-2012 [facility], PAIN FASTENER SEWING 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 [facility] 7242 LUMBAGO 06-21-2012 [facility] 8404 ROTATOR 06-07-2012 [facility] [place] [address] PAIN IN 04-07-2012 [facility] COMMUNTIY PELVIC HOSPITA REGION AND THIGH 6160 CERVICITIS 04-06-2012 PAM GINA AND ENDOCERVICI TIS 6250 DYSPAREUNIA 03-01-2012 [place] [address] REFLUX 01-10-2012 PATHOLOGY & ESOPHAGITIS CYTOLOGY LAB 73541 ACUTE 01-10-2012 [place] [facility] GASTRITIS SERV WITHOUT FOUNDATIO MENTION OF HEMORRHAGE 48428 OTHER SPEC 01-10-2012 PATHOLOGY & GASTRITIS CYTOLOGY WITHOUT LAB MENTION HEMORRHAGE 5533 DIAPHRAGMAT 01-10-2012 [place] [facility] SRIKANTH W/O SERV MENTION FOUNDATIO OBSTRUCTION /GANGREN 7871 HEARTBURN 01-10-2012 [facility] SERV FOUNDAT[facility] 17653 DYSPHAGIA 01-10-2012 [place] [facility]ICAL UNSPECIFIED SERV FOUNDATIO 0340 STREPTOCOCC 12-30-2011 [facility] PS 2777 DYSMETABOLI 11-29-2011 [facility], C SYNDROME FASTENER SEWING 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 X [facility] 10447 UNSPECIFIED 11-29-2011 [facility], FASTENER SEWING 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 ARTHROPATHY [facility] SITE HOS UNSPECIFIED 4730 CHRONIC 11-04-2011 [facility] MAXILLARY [facility] SINUSITIS [facility] PS 9063 LATE EFFECT 09-23-2011 [facility] OF HOSPITAL CONTUSION 9599 INJURY 09-23-2011 [facility] OTHER AND RADIOLOGY UNSPECIFIED ASSOCIAT UNSPECIFIED SITE 4779 ALLERGIC 07-21-2011 [facility] RHINITIS HEALTH CAUSE ASSOCIATES UNSPECIFIED PS 2722 MIXED 07-14-2011 [facility] HYPERLIPIDE [facility] 3278 OTHER 07-14-2011 [facility] ORGANIC [facility] SLEEP HOSPITAL DISORDERS 75482 COR 07-14-2011 [facility] ATHEROSLERO [facility] UNSPEC HOSPITAL TYPE VESSEL NUIQSUT/ALYSA T 7851 PALPITATION 06-02-2011 TEJ Ghosh [place]V 07229 OTHER CHEST 05-27-2011 [facility] PAIN EMERGENCY SERVICES 49257 05-04-2011 [facility] PS 2662 OTHER 04-22-2011 [facility] B-COMPLEX HEALTH DEFICIENCIE ASSOCIATES S PS 6822 CELLULITIS 03-24-2011 [facility] AND ABSCESS EMERG[facility]Y OF TRUNK SERVICES 6829 CELLULITIS 03-16-2011 [facility] ASS[facility]IATES UNSPECIFIED PS SITE 46311 OTHER 02-08-2011 [facility] CHRONIC [facility]IN [facility] 4279 UNSPECIFIED 02-08-2011 [facility] CARDIAC [facility] 4556 UNSPEC 02-08-2011 [facility] HEMORRHOIDS [facility] WITHOUT HOSPITAL MENTION COMPLICATIO N 64192 UNSPECIFIED 02-08-2011 [facility] CONSTIPATIO N 5693 HEMORRHAGE 02-08-2011 [place] OF [facility]CT[facility] ANESTHESIA AND ANUS GROUP PSC V1272 PERSONAL 02-08-2011 [place] HISTORY OF ANESTHESIA COLONIC GROUP PSC POLYPS 7247 DISORDERS 01-21-2011 [facility] [place] [place] [place] [address] OTHER 01-21-2011 [facility] [place] DISORDER OF RADIOLOGY COCCYX 7336 TIETZES 11-20-2010 [facility] DISEASE [facility] 1119 UNSPECIFIED 11-07-2010 [facility] D[facility]OSP[facility] SIS 32251 RESTLESS 11-07-2010 [facility] LEGS [facility] 1105 DERMATOPHYT 10-22-2010 [facility] OSIS OF THE [facility] BODY [facility] PS 7265 ENTHESOPATH 09-15-2010 [facility] Y OF [facility]IP [facility]ION ASSOCI[facility] PS V745 SCREENING 06-29-2010 [facility] EXAMINATION [facility] VENEREAL DISEASE 7881 DYSURIA 05-03-2010 [facility] V0179 CONTACT OR 05-03-2010 [facility] EXPOSURE TO COMMUNITY OTHER HOSPITAL VIRAL DISEASES 8461 SPRAIN AND 01-29-2010 [facility] STRAIN OF HEALTH SACROILIAC ASSOCIATES PS 3829 UNSPECIFIED 09-01-2009 [facility] OTITIS HEALTH MEDIA ASSOC[facility]ATES PSC 7908 UNSPECIFIED 09-01-2009 [facility] PSC 99462 INSOMNIA 07-30-2009 PRIMARY UNSPECIFIED HEALTH ASSOCIATES PSC V7231 ROUTINE 07-28-2009 PATHOLOGY & GYNECOLOGIC CYTOLOGY AL LAB EXAMINATION 2721 PURE 06-12-2009 [facility] HYPERGLYCER HEALTH IDEMIA ASSOCIATES PSC 5939 UNSPECIFIED 11-24-2008 [facility]ORDER [facility] 8471 THORACIC 11-24-2008 [facility] SPRAIN AND HEALTH STRAIN [facility] PSC 486 PNEUMONIA, 10-13-2008 PRIMARY ORGANISM HEALTH UNSPECIFIED ASSOCIATES PSC V4579 OTHER 10-12-2008 [facility] ACQUIRED RADIOLOGY ABSENCE OF ASSOCIATES ORGAN PSC 3804 IMPACTED 08-19-2008 [facility] CERUMEN [facility] PSC 99190 DIARRHEA 07-17-2008 [facility] 4550 INTERNAL 07-08-2008 [facility] HEMORRHOIDS [facility] WITHOUT HOSPITAL MENTION COMP V160 FM HX 07-08-2008 [facility] MALIGNANT [facility] NEOPLASM HOSPITAL GASTROINTES TINAL TRACT [id number] SPECIAL 07-08-2008 [place] SCREENING ANESTHESIA FOR GROUP PSC MALIGNANT NEOPLASMS COLON 27733 DISPLCMT 03-17-2008 [facility] LUMBAR [facility] INTERVERT HOSPITAL DISC W/O MYELOPATHY 91516 OTHER&UNSPE 02-18-2008 [facility] [place] CIFIED DISC RADIOLOGY DISORDER OF LUMBAR REGION 19514 [place] 12-27-2007 [facility] MASS IN [facility] V703 OT GENERAL 11-06-2007 [facility] ACCT PURPOSES 17253 HYPERVENTIL 10-23-2007 MARIA EUGENIA GOINS Allergies, Adverse [...] NO 00 9- 9- 00 00 ve SC 51 20 20 71 AI IL 90 [...] 1 13 PH CE AR TA M MS #3 NO 91 PH 4 7. 5- [...] 03 -2 -0 .0 00 TE ti SC 70 2- 9- 00 00 ve OL [...] -1 -2 .0 L- 90 MB ti SC 70 8- 6- 00 MA 14 S [...] -1 -1 .0 L- 90 MB ti SC 70 8- 8- 00 MA 14 S [...] 0 10 5 WA 70 BR Ac SC 37 -1 -1 .0 L- 47 OD [...] 5 30 30 WA 70 BR Ac SC 00 -1 -1 .0 L- 43 OD [...] 5 30 30 WA 70 BR Ac SC 76 -1 -1 .0 L- 33 OD ti OP 70 4- 4- 00 MA 59 SK ve IO 14 20 20 RT 7 Y N 13 10 10 KE HC 0 PH NN L AR ET XL MA H CY M 15 # 0 MG 10 04 TA 93 BL ET CI 00 05 05 0 10 5 WA 70 BR Ac SC 37 -1 -1 .0 L- 33 OD [...] 80 10 10 FA KE N 5 MS NN 40 LY ET H MG DR M UG TA BL ET TR 00 03 03 2 30 30 SO 33 BR Ac IL 07 -0 -0 .0 PE 71 OD ti IP 49 6- 6- 00 RS 28 SK ve IX 18 20 20 Y 99 [address] 0 MS NN LY ET [address] [...] 37 09 09 FA KE SAMUEL 0 MS NN LF LY ET H ER DR M UG 30 MG TA BL ET TR 00 11 12 00 30 30 SO 32 BR Ac IL 07 -1 -0 .0 PE 83 OD ti IP 49 6- 3- 00 RS 12 SK ve IX 18 20 20 Y 99 [address] 0 MS NN LY ET [address] M MG UG CA PS UL E SI 55 07 12 03 30 30 SO 31 BR Ac MV 11 -1 -0 .0 PE 79 OD ti 10 5- 3- 00 RS 31 SK ve TA 20 20 20 Y TI 00 09 09 FA KE N 5 MS NN 40 LY ET H MG DR M UG TA BL ET AM 00 11 12 00 30 10 SO 32 BR Ac OX 78 -1 -0 .0 PE 84 OD ti IC 12 7- 3- 00 RS 15 SK ve IL 61 20 20 Y LI 30 09 09 FA KE N 5 MS NN 50 LY ET [address] M UG CA PS UL E MO 60 11 12 00 30 30 SO 32 BR Ac RP 95 -1 -0 .0 PE 84 OD ti HI 10 7- 3- 00 RS 14 SK ve NE 65 20 20 Y 37 09 09 FA KE SAMUEL 0 MS NN LF LY ET H ER DR M UG 30 MG TA BL ET TR 50 10 11 00 30 30 SO 32 BR Ac AZ 11 -1 -0 .0 PE 55 OD ti OD 10 9- 5- 00 RS 56 SK ve ON 43 20 20 Y E 30 09 09 FA KE 50 3 MS NN LY ET MG H DR M [...] 37 09 09 FA KE SAMUEL 0 MS NN LF LY ET H ER DR M UG 30 MG TA BL ET SI 55 07 10 02 30 30 SO 31 BR Ac MV 11 -1 -0 .0 PE 79 OD ti 10 5- 8- 00 RS 31 SK ve TA 20 20 20 Y TI 00 09 09 FA KE N 5 MS NN 40 LY ET H MG DR [...] 52 8- 4- 00 24 SK ve SC 52 20 20 AI Y AM 00 [...] 20 08 09 FA KE OT 6 MS NN HI LY ET AZ H ID DR Kylah Jordan UG 12 .5 MG CP SI 55 07 09 01 30 30 SO 31 BR Ac MV 11 -1 -1 .0 PE 79 OD ti 10 5- 0- 00 RS 31 SK ve TA 20 20 20 Y TI 00 09 09 FA KE N 5 MS NN 40 LY ET H MG Kylah [...] 00 09 09 FA KE N 5 MS NN 40 LY ET H MG DR Kylah UG TA BL ET HY 59 12 07 01 30 30 SO [address] 74 -1 -3 .0 PE 09 OD ti OC 60 2- 0- 00 RS 98 SK ve HL 38 20 20 Y OR 20 08 09 FA KE OT 6 MS NN HI LY ET AZ H ID [...] 00 08 09 FA KE N 5 MS NN 40 LY ET H MG [address] [...] 00 08 09 FA KE N 5 MS NN 40 LY ET H MG DR [...] 52 3- 6- 00 23 SK ve SC 52 20 20 AI Y AM 00 [...] Y ZA 11 09 09 D KE SC 0 PH NN IN AR ET E M H 10 #3 M 91 MG 4 TA BL ET SI 55 11 02 02 30 30 SO 30 BR Ac MV 11 -0 -2 .0 PE 00 OD ti 10 4- 6- 00 RS 88 SK ve TA 20 20 20 Y TI 00 08 09 FA KE N 5 MS NN 40 LY ET H MG DR M UG TA BL ET AM 68 03 02 01 30 30 SO 30 BR Ac LO 18 -2 -2 .0 PE 00 OD ti DI 00 7- 6- 00 RS 89 SK ve PI 75 20 20 Y NE 10 08 09 FA KE 3 MS NN BE LY ET SY H LA [...] 00 08 09 FA KE N 5 MS NN 40 LY ET H MG DR [...] 00 08 08 FA KE N 5 MS NN 40 LY ET H MG DR M UG TA BL ET AM 68 12 12 00 30 30 SO 30 BR Ac LO 18 -0 -1 .0 PE 00 OD ti DI 00 3- 8- 00 RS 89 SK ve PI 75 20 20 Y NE 10 08 08 FA KE 3 MS NN BE LY ET SY H LA DR M TE UG 5 MG TA B HY 59 12 12 00 30 30 SO [address] 74 -1 -1 .0 PE 09 OD ti OC 60 2- 8- 00 RS 98 SK ve HL 38 20 20 Y OR 20 08 08 FA KE OT 6 MS NN HI LY ET AZ H ID [...] 52 2- 9- 00 28 SK ve SC 52 20 20 AI Y AM 00 [...] ai 10 08 08 FA la 1 MS bl LY e DR UG 58 09 [...] 20 5- 3- 00 24 SK ve SC 00 20 20 AI Y AM 70 08 08 D KE 1 PH NN HB AR ET R M H 40 #3 M 91 MG 4 TA BL ET SC 00 06 07 00 21 6 RI [...] 80 6- 8- 00 70 Av ve MS 21 20 20 AI ai DE 61 [...] Procedure DOS Code Location Performer Comment RADEX 38428 [facility] SP[facility] 7 RADIOLOGY LUMBOSACR AL MINIMUM 4 VIEWS RADEX 92032 [facility] 7 RADIOLOGY CERVICAL 4 OR 5 VIEWS ECG 04837 [facility] ROUTINE 6 PHYSICIAN MAT ECG S GROUP W/LEAST 12 LDS I&R ONLY ECG 00658 [facility] ROUTINE 6 [facility] ECG INC INC W/LEAST 12 LDS TRCG ONLY W/O I&R HOSPITAL G0463 [facility] OUTPATIEN 6 [facility] T CLIN INC INC VISIT ASSESS & MGMT PT RADIOLOGI 78563 [place] [facility] C EXAM 6 MEDICAL NIKKI CHEST 2 IMAGING VIEWS ASS FRONTAL&L ATERAL RADEX 70774 [facility] SPINE 6 MEDICAL NIKKI CERVICAL IMAGING [address] [place] [address] [place] [address] [place] DEL[place] ALL CERVICAL 6 MEDICAL SPINE W/[place] [address] [place] [facility] ALL ABDOMEN & 6 MEDICAL PELVIS IMAGING W/CONTRAS ASS T MATERIAL OPHTH 11579 [facility] 6 GRE GRE XM&EVAL COMPRE NEW PT 1/> VST DRUG TST G0477 [facility] PRESUMP;C 6 [facility] PBL BEING INC INC READ DC OPT OBV ONLY DRUG TEST G0481 [facility] DEFINITV [address] [address] [address] ID INC INC METH P DAY 8-14 DRUG CL ECG 55454 [facility] ROUTINE 6 PHYSICIAN MAT ECG S GROUP W/LEAST 12 LDS I&R ONLY ECG 30051 [facility] ROUTINE 6 [facility] ECG INC INC W/LEAST 12 LDS TRCG ONLY W/O I&R ECG 39523 [facility] SCHULTZ ROUTINE 6 [facility] W/LEAST 12 LDS TRCG ONLY W/O I&R BASIC 01639 [facility] SCHULTZ METABOLIC 6 [facility] CALCIUM TOTAL LIPID 32115 [facility] MCALLISTERALVIN J. [facility] CAN[facility] CENTERYUNIOR PANEL [address] [place] [address] COLLECTIO 12081 MARION SCHULTZ N VENOUS 6 [facility] VENIPUNCT URE HEPATIC 49937 [facility] MCALLISTERALVIN J. S[facility] CAN[facility] CENTERYUNIOR FUNCTION 6 [facility] ECG 50222 [facility]J ROUTINE 6 MD ECG CONSULTIN W/LEAST G SRV 12 LDS I&R ONLY RADIOLOGI 94416 [place] [facility] ALL C 6 MEDICAL EXAMINATI IMAGING ON FOOT 2 ASS VIEWS RADEX 32441 [facility] FOOT 6 [facility] COMPLETE INC INC MINIMUM 3 VIEWS ECG 96677 [facility] ROUTINE 6 PHYSICIAN MAT ECG S GROUP W/LEAST 12 LDS I&R ONLY ECG 67984 [facility] ROUTINE 6 [facility] ECG INC INC W/LEAST 12 LDS TRCG ONLY W/O I&R DRUG TEST G0481 [facility] DEFINITV [address] ID INC INC METH P DAY 8-14 DRUG CL DRUG TST G0477 [facility] PRESUMP;C 6 [facility] PBL BEING INC INC READ DC OPT OBV ONLY SCREENING G0202 [place] 6 MEDICAL NIKKI MAMMOGRAP IMAGING HY RAPHAEL ASS INCL CAD WHEN PERFORMD DRUG TST G0477 [facility] PRESUMP;C 6 [facility] PBL BEING INC INC READ DC OPT OBV ONLY COMPUTER- 48403 [place] AIDED 6 MEDICAL NIKKI DETECTION IMAGING ASS SCREENING MAMMOGRAP HY E-STIM G0283 [facility] LU 1/> AREAS 6 [facility] OTH THAN INC INC WND CARE PART TX PLAN THERAPEUT 66488 [facility] IC PX 1/> 6 [facility] AREAS INC INC EACH 15 MIN EXERCISES APPLICATI 04696 [facility] ON 6 [facility] MODALITY INC INC 1/> AREAS HOT/COLD PACKS RADIOLOGI 68115 [place] DEL[place] ALL C 6 MEDICAL EXAMINATI IMAGING ON FOOT 2 ASS VIEWS RADEX 34381 [facility] TABITHA FOOT 6 [facility] COMPLETE INC INC MINIMUM 3 VIEWS E-STIM G0283 TABITHA TABITHA 1/> AREAS 6 [facility] OTH THAN INC INC WND CARE PART TX PLAN APPLICATI 03924 [facility] LU ON 6 [facility] MODALITY INC INC 1/> AREAS HOT/COLD PACKS THERAPEUT 40585 [facility] LU IC PX 1/> 6 [facility] AREAS INC INC EACH 15 MIN EXERCISES APPLICATI 61544 [facility] ON 6 [facility] MODALITY INC INC 1/> AREAS HOT/[place] [address] [facility] THYROXINE 6 [facility] TOTAL INC INC THERAPEUT 18856 [facility] LU IC PX 1/> 6 [facility] AREAS INC INC EACH 15 MIN EXERCISES COLLECTIO 31999 [facility] N VENOUS 6 [facility] BLOOD INC INC VENIPUNCT URE COMPREHEN 21004 [facility] SIVE 6 [facility] METABOLIC INC INC PANEL E-STIM G0283 [facility] LU 1/> AREAS 6 [facility] OTH THAN [place] [address] [facility] THYROID 6 [facility] STIMULATI INC INC NG HORMONE TSH HEMOGLOBI 73902 [facility] N 6 [facility] GLYCOSYLA INC INC JEREMY A1C BLOOD 35540 [facility] COUNT 6 [facility] COMPLETE INC INC AUTO&AUTO DIFRNTL WBC E-STIM G0283 TAB[facility] LU 1/> AREAS 6 [facility] OTH THAN INC INC WND CARE PART TX PLAN THERAPEUT 91468 [facility] LU IC PX 1/> 6 [facility] AREAS INC INC EACH 15 MIN EXERCISES APPL 47615 [facility] LU MODALITY 6 [facility] 1/> AREAS INC INC VASOPNEUM ATIC DEVICES MANUAL 80822 [facility] THERAPY 6 [facility] TQS 1/> INC INC REGIONS EACH 15 MINUTES APPLICATI 69130 [facility] ON 6 [facility] MODALITY INC INC 1/> AREAS HOT/COLD PACKS APPL 06307 [facility] LU MODALITY 6 [facility] 1/> AREAS INC INC VASOPNEUM ATIC DEVICES MANUAL 20210 [facility] THERAPY 6 [facility] TQS 1/> INC INC REGIONS EACH 15 MINUTES THERAPEUT 53525 [facility] LU IC PX 1/> 6 [facility] AREAS INC INC EACH 15 MIN EXERCISES PHYSICAL 02838 [facility] THERAPY 6 [facility] EVALUATIO INC INC N THERAPEUT 35705 [facility] CARLOS IC 6 PHYSICIAN MENG PROPHYLAC S GROUP TIC/DX INJECTION SUBQ/IM MRI 58559 [facility] MONGE SPINAL 6 MEDICAL NIKKI CANAL IMAGING LUMBAR ASS W/O CONTRAST MATERIAL 3D 80935 [facility] BEDOLLAM[facility] RENDERING 6 MEDICAL NIKKI W/INTERP IMAGING & ASS POSTPROCE SS SUPERVISI ON MANUAL 74318 [facility] THERAPY 6 [facility] TQS 1/> INC INC REGIONS EACH 15 MINUTES THERAPEUT 06485 [facility] LU IC PX 1/> 6 [facility] AREAS INC INC EACH 15 MIN EXERCISES THERAPEUT 77325 [facility] LU IC PX 1/> 6 [facility] AREAS INC INC EACH 15 MIN EXERCISES MANUAL 67509 [facility] THERAPY 6 [facility] TQS 1/> INC INC REGIONS EACH 15 MINUTES MANUAL 24024 [facility] THERAPY 6 [facility] TQS 1/> INC INC REGIONS EACH 15 MINUTES THERAPEUT 99092 [facility] LU IC PX 1/> 6 [facility] AREAS INC INC EACH 15 MIN EXERCISES PHYSICAL 17205 [facility] THERAPY 6 [facility] EVALUATIO INC INC N RADEX 84519 [facility] FOOT 6 [facility] COMPLETE INC INC MINIMUM 3 VIEWS RADIOLOGI 55055 [place] ALL C 6 MEDICAL EXAMINATI IMAGING ON FOOT 2 ASS VIEWS FLUOROSCO 08663 [facility] LU PY SPX UP 6 [facility] TO 1 INC INC HOUR PHYS/QHP TIME CONNECTIV C1762 [facility] PACHECOON E TISSUE 6 [facility] HUMAN INC INC RADIOLOGI 98829 [facility] C 6 [facility] EXAMINATI INC INC ON FOOT 2 VIEWS INJECTION J2405 [facility] LU 6 [facility] ONDANSETR INC INC ON HCL PER 1 MG CORRJ 80297 [facility] HALLUX 6 [facility] VALGUS INC INC W/WO SESMDC RESCJ JT W/IMPLT ANES OPEN 08712 [facility] PROC 6 ANESTH BONES OF THE LOWER BLUE LEG/ANKLE /FOOT NOS DRUG TST G0477 TABITHAYUNIOR LU PRESUMP;C 6 [facility] PBL BEING INC INC READ DC [place] DOP 16967 CARDIOVAS RACHEL SELVIN&/OR 6 CULAR MAT PRESS CONSULTAN C/AYLA TS O RSRV MENDEL 1ST VSL CATH PLMT 83876 CARDIOVAS RACHEL L HRT & 6 CULAR MAT ARTS CONSULTAN W/NJX & TS O ANGIO IMG S&I ECG 66573 [facility] ROUTINE 6 [facility] ECG INC INC W/LEAST 12 LDS TRCG ONLY W/O I&R MYOCARDIA 16060 CARDIOVAS RACHEL L SPECT 6 CULAR MAT MULTIPLE CONSULTAN STUDIES TS O NON-INVAS 50847 [place] DELATORRE ALL CHRISTI 6 MEDICAL PHYSIOLOG IMAGING IC STUDY ASS EXTREMITY 3 LEVLS ECHO 56156 [facility] R[facility]T 6 MEDICAL 2D SERV W/WOM-MOD FOUNDATIO E COMPL N SPEC&COLR D HEMOGLOBI 35917 [facility] N 6 [facility] GLYCOSYLA INC INC JEREMY A1C BLOOD 37014 [facility] COUNT 6 [facility] COMPLETE INC INC AUTO&AUTO DIFRNTL WBC COMPREHEN 19791 [facility] SIVE 6 [facility] METABOLIC INC INC PANEL COLLECTIO 57226 [facility] LU N VENOUS 6 [facility] BLOOD INC INC VENIPUNCT URE ECG 87366 [facility] ROUTINE 6 [facility] ECG INC INC W/LEAST 12 LDS TRCG ONLY W/O I&R RADIOLOGI 89866 [place] DEL[place] ALL C 6 MEDICAL EXAMINATI IMAGING ON FOOT 2 ASS VIEWS RADEX 09372 [facility] FOOT 6 [facility] COMPLETE INC [place] [address] [place] [address] CH[place] DELATORRE ALL ABDOMEN & 5 MEDICAL PELVIS IMAGING W/CONTRAS ASS T MATERIAL E-STIM G0283 [facility] LU 1/> AREAS 5 [facility] OTH THAN INC INC WND CARE PART TX PLAN LOCM Q9967 [facility] LU 300-399 5 [facility] MG/ML INC INC IODINE CONCENTRA TION PER ML APPLICATI 71819 [facility] LU ON 5 [facility] MODALITY INC INC 1/> AREAS HOT/COLD PACKS APPL 97952 [facility] LU MODALITY 5 [facility] 1/> AREAS INC INC ULTRASOUN D EA 15 MIN COLLECTIO 97916 [facility] LU N VENOUS 5 [facility] BLOOD INC INC VENIPUNCT URE COMPREHEN 26230 [facility] LU SIVE 5 [facility] METABOLIC INC INC PANEL BLOOD 63933 [facility] COUNT 5 [facility] COMPLETE INC INC AUTO&[place] [address] [facility] LU AMYLASE 5 [place] [address] [facility] LIPASE 5 [facility] INC INC E-STIM G0283 TAB[facility] LU 1/> AREAS 5 [facility] OTH THAN INC INC WND CARE PART TX PLAN APPL 20058 [facility] LU MODALITY 5 [facility] 1/> AREAS INC INC ULTRASOUN D EA 15 MIN APPLICATI 56373 [facility] LU ON 5 [facility] MODALITY INC INC 1/> AREAS HOT/COLD PACKS THERAPEUT 80698 [facility] LU IC PX 1/> 5 [facility] AREAS INC INC EACH 15 MIN EXERCISES PHYSICAL 27319 [facility] THERAPY 5 [facility] EVALUATIO INC INC N CULTURE 22274 [facility]A BCT 5 [facility] ISOL&PRSM INC INC PTV ID ISOLATE EA URINE CULTURE 14071 [facility] LU BACTERIAL 5 [facility] INC INC QUANTTATI VE COLONY COUNT URINE SUSCEPTIB 68831 [facility] LTY STDY 5 [facility] ANTIMICRB INC INC IAL MICRO/[place] [address] [facility] TRANSVAGI 5 [facility] [place] [address] [facility] THYROID 5 [facility] STIMULATI [place] [address] [facility] LU FREE 5 [facility] THYROXINE INC INC COLLECTIO 80002 TABITHAYUNIOR PACHECOON N VENOUS 5 [facility] BLOOD INC INC VENIPUNCT URE CULTURE 99502 TAB[facility] TABITHA BACTERIAL 5 [facility] INC INC QUANTTATI VE COLONY COUNT URINE E-STIM G0283 TABITHA TABITHA 1/> AREAS 5 [facility] OTH THAN INC INC WND CARE PART TX PLAN MANUAL 86243 [facility] THERAPY 5 [facility] TQS 1/> INC INC REGIONS EACH 15 MINUTES CULTURE 07298 [facility] TABITHA BCT 5 [facility] ISOL&PRSM INC INC PTV ID ISOLATE EA URINE CULTURE 48865 [facility] LU BACTERIAL 5 [facility] INC INC QUANTTATI VE COLONY COUNT URINE SUSCEPTIB 80253 [facility] LU LTY STDY 5 [facility] ANTIMICRB INC INC IAL MICRO/AGA R DILUTJ MANUAL 54262 [facility] THERAPY 5 [facility] TQS 1/> INC INC REGIONS EACH 15 MINUTES MANUAL 02354 [facility] THERAPY 5 [facility] TQS 1/> INC INC REGIONS EACH 15 MINUTES MANUAL 20968 [facility] THERAPY 5 [facility] TQS 1/> INC INC REGIONS EACH 15 MINUTES INJECTION J2785 [facility] LU 5 [facility] REGADENOS INC INC ON 0.1 MG MYOCARDIA 75326 TABITHAYUNIOR LU L SPECT 5 [facility] MULTIPLE INC INC STUDIES CV STRS 09774 TABITHAYUNIOR LU TST 5 [facility] XERS&/OR INC INC RX CONT ECG TRCG ONLY CV STRS 50829 [facility] FALLUJI TST 5 PHYSICIAN KALYN XERS&/OR S GROUP RX CONT ECG W/O I&R TECHNETIU A9500 [facility] LU M TC-99M 5 [facility] HOSP SESTAMIBI INC INC DX PER STUDY DOSE PHYSICAL 90120 [facility] LU THERAPY 5 [facility] HOSP EVALUATIO INC INC N RADEX 75817 [place] ALL FOOT 5 MEDICAL COMPLETE IMAGING MINIMUM 3 ASS VIEWS 3D 37994 [place] ALL RENDERING 5 MEDICAL W/INTERP IMAGING & ASS POSTPROCE SS SUPERVISI ON MRI 78684 [place] [facility] ALL SPINAL 5 MEDICAL CANAL IMAGING CERVICAL ASS W/O CONTRAST MATRL RADEX 53778 [facility] FOOT [address] [place] [address] MINIMUM 3 VIEWS RADEX 73285 [facility] [place] MILDRED MAT FOOT 5 RADIOLOGY COMPLETE MINIMUM 3 VIEWS RADEX 21699 [facility] FOOT [address] [place] [address] MINIMUM 3 [place] [address] [facility] THYROID [address] [place] [address] NG HORMONE TSH BLOOD 42886 RU[facility] MICHEAL COUNT [address] [place] [address] AUTO&AUTO DIFRNTL WBC BASIC 36628 [facility] MICHEAL METABOLIC [address] [place] [address] CALCIUM TOTAL LIPID 64733 [facility] PANEL [address] [place] [address] HEPATIC 67139 MARION SCHULTZ FUNCTION 5 [facility] ANTINUCLE 35483 [facility] SCHULTZ AR 5 [facility] S RACHEL COLLECTIO 28220 [facility] CENTERYUNIOR N VENOUS 5 [facility] VENIPUNCT URE INJECTION J3420 PAM OROZCO VIT B-12 5 GINA GINA CYANOCOBA KACEY TO 1000 MCG THERAPEUT 48479 PAM OROZCO IC 5 GINA GINA PROPHYLAC TIC/DX INJECTION SUBQ/IM RADEX 88514 MARION SCHULTZ FOOT [facility] MINIMUM 3 VIEWS RADEX 82349 [facility] [place] SCALF KIRILL FOOT 5 RADIOLOGY COMPLETE MINIMUM 3 VIEWS THERAPEUT 26271 PAM SCHRADER IC 5 GINA E MAR PROPHYLAC TIC/DX INJECTION SUBQ/IM INJECTION J3420 PAM SALTERKY VIT B-12 5 GINA GINA CYANOCOBA KACEY TO 1000 MCG REMOVAL/B 02311 [place] ARMS DON IVALVING 5 [facility] FULL ARM/FULL LEG CAST INJECTION J2405 [facility] [address]HEAL[address] [facility] ON HCL PER 1 MG INJECTION J2250 [address] HCL PER 1 MG RINGERS J7120 [facility] LACTATE [address] [place] [address] HOSPITAL UP TO 1000 CC RADIOLOGI [address] [facility] CS ON FOOT 2 VIEWS REMOVAL 84296 [place] ARMS DON IMPLANT 5 [facility] DEEP INJECTION J1100 [facility] MICHEAL[address] [facility] SONE SODIUM PHOSPHATE 1 [place] [address] [facility] 5 [facility] PATHOLOGY GROSS EXAMINATI ON ONLY INJECTION J2001 MARION MARYIM [address] [place] [address] [facility] HCL INTRAVENO US INFUS 10 MG INJECTION J2704 [facility] PROPOFOL [address] [place] [address] 10 MG HOSPITAL HOSPITAL INJECTION J3010 RUFFIN RIBENBOIM FENTANYL 5 [facility] ANUM [facility] 0.1 MG ANES OPEN 70635 [place] DAUKAAugie PROC 5 ANESTHESI GARCIA BONES A GROUP LOWER PS LEG/ANKLE /FOOT NOS ARTHRT 01833 RUFFIN MARION W/EXPL 5 [facility] DRG/RMVL HOSPITAL HOSPITAL LOOSE/FB IPHAL JT PARTICAL 41684 [place] ARMS DON EXCISION 5 [facility], [facility] BONE PHALANX TOE RADIOLOGI 05389 [facility] [place] MIRA C EXAM 5 RADIOLOGY RHO CHEST 2 VIEWS FRONTAL&L ATERAL THERAPEUT 55094 PAM OROZCO IC 5 GINA GINA PROPHYLAC TIC/DX INJECTION SUBQ/IM INJECTION J3420 PAM SALTERKY VIT B-12 5 GINA GINA CYANOCOBA KACEY TO 1000 MCG RADEX 52212 [facility] [place] MIRA FOOT 5 RADIOLOGY RHO COMPLETE MINIMUM 3 VIEWS INJECTION J3420 PAM SALTERKY VIT B-12 5 GINA GINA CYANOCOBA KACEY TO 1000 MCG THERAPEUT 41703 PAM OROZCO IC 5 GINA GINA PROPHYLAC TIC/DX INJECTION SUBQ/IM IADNA 22180 [facility] CHLAMYDIA 5 [facility] [employer] TRACHOMAT IS AMPLIFIED PROBE TQ IADNA 21869 [facility] NEISSERIA 5 LISSA [facility] [employer] GONORRHOE AE AMPLIFIED PROBE TQ HEPATITIS [address] HAAB HEPATITIS 32140 [facility] SURF 4 [facility] HBSAB HEPATITIS 46561 [facility] 4 [facility] HBCAB TOTAL INJECTION J3420 PRIMARY PRIMARY VIT B-12 4 HEALTH HEALTH ASSOCIATE ASSOCIATE CYANOCOBA S PS S PS KACEY TO 1000 MCG LIPID [address] HEPATIC [address] [facility] 4 [facility] COLLECTIO 65160 MARION SCHULTZ N VENOUS 4 [facility] VENIPUNCT URE THERAPEUT 06060 PRIMARY PAM IC 4 HEALTH GINA PROPHYLAC ASSOCIATE TIC/DX S PS INJECTION SUBQ/IM ACUTE 92333 [facility] SCH[facility] HEPATITIS 4 [facility] COMPREHEN 69964 MAR[facility] SCH[facility] SIVE 4 [facility] PANEL COLLECTIO 44839 MAR[facility] SCH[facility] N VENOUS 4 [facility] [place] [address] MARION SCHULTZ MAGNESIUM [address] [place] [address] CYAN[place]OBA [address] MARION SCHULTZ KACEY [address] [place] [address] B-12 CANE INCL E0100 [facility] CANES 4 ALL MATERIAL ADJUSTBLE /FIX W/TIP RADEX 98127 [facility] [place] FOOT 4 RADIOLOGY RHO COMPLETE MINIMUM 3 VIEWS BLOOD 84442 MARION SCHULTZ COUNT [address] [place] [address] AUTO&AUTO DIFRNTL WBC C-REACTIV 43990 MARION SCHULTZ E PROTEIN [address] [place] [address] PHYS G0179 ARMS DON ARMS DON RE-CERT 4 MCR-COVR [facility] SRVC RE-CERT PRD SEDIMENTA 15857 MARION SCHULTZ TION RATE 4 [facility] NON-AUTOM ATED COLLECTIO 31711 MAR[facility] SCHULT[facility] N VENOUS 4 [facility] VENIPUNCT URE THERAPEUT 92615 [facility] IC PX 1/> 4 [facility] EACH 15 MIN EXERCISES THERAPEUT 26178 MARION SCHULTZ IC 4 [facility] PROPHYLAC [facility] TIC/DX INJECTION SUBQ/IM INJECTION [id number] MARION SCHULTZ [address] [place] [address] [facility] INE PER 15 MG CUL BACT 07141 MARION SCHULTZ XCPT 4 [facility] BLOOD/STO OL AEROBIC ISOL CUL BACT 22873 [facility] AEROBIC 4 [facility] METHS DEFINITIV E EA ISOL STANDARD K0001 [facility] WHEELCHAI 4 R ELEVATING K0195 [facility] LEGREST 4 PAIR RADEX 91713 [facility] [place] FOOT 4 RADIOLOGY RHO COMPLETE MINIMUM 3 VIEWS SUSCEPTIB 00842 [facility] LTY STDY 4 [facility] IAL MICRO/AGA R DILUTJ RADEX 30832 [facility] [place] FOOT 4 RADIOLOGY RHO COMPLETE MINIMUM 3 VIEWS THERAPEUT 34437 [facility] AM[facility] IC PX 1/> 4 [facility] EACH 15 MIN EXERCISES THERAPEUT 23780 [facility] AM[facility]ISYS IC PX 1/> 4 [facility] E[facility] 15 MIN EXERCISES THERAPEUT 33241 [facility] AM[facility]ISYS IC PX 1/> 4 [facility] 15 MIN EXERCISES THERAPEUT 57099 [facility] AM[facility]ISYS IC PX 1/> 4 [facility] 15 MIN EXERCISES THERAPEUT 22454 [facility] AM[facility]ISYS IC PX 1/> 4 [facility] E[facility] 15 MIN EXERCISES THERAPEUT 78996 [facility] AMEDISYS IC PX 1/> 4 [facility] EACH 15 MIN EXERCISES THERAPEUT 99467 [facility] AM[facility]ISYS IC PX 1/> 4 [facility] E[facility] 15 MIN EXERCISES THERAPEUT 97797 [facility] AM[facility]ISYS IC PX 1/> 4 [facility] EACH 15 MIN EXERCISES ELEVATING K0195 [facility] LEGREST 4 PAIR STANDARD K0001 [facility] WHEELCHAI 4 R THERAPEUT 90743 [facility] UNICK CHR IC PX 1/> 4 [facility] E[facility] 15 MIN EXERCISES THERAPEUT 53859 [facility] AMEDISYS IC PX 1/> 4 [facility] EACH 15 MIN EXERCISES THERAPEUT 89866 [facility] AMEDISYS IC PX 1/> 4 [facility] EACH 15 MIN EXERCISES COLLECTIO 16318 [facility] VENOUS 4 [facility] VENIPUNCT URE BLOOD 28570 [facility] COUNT [facility] AUTO&AUTO DIFRNTL WBC SEDIMENTA 31196 [facility] 4 [facility] NON-AUTOM ATED C-REACTIV 14752 [facility] E PROTEIN 4 [facility] RADEX 79908 [facility] [place] NELSON JAM FOOT 4 RADIOLOGY COMPLETE MINIMUM 3 VIEWS THERAPEUT 72709 [facility] AMEDISYS IC PX 1/> 4 [facility] 15 MIN EXERCISES THERAPEUT 52671 [facility] AMEDISYS IC PX 1/> 4 [facility] 15 MIN EXERCISES THERAPEUT 71513 [facility] AMEDISYS IC PX 1/> 4 [facility] 15 MIN EXERCISES RADEX 38889 [facility] [place] SCALF KIRILL FOOT 4 RADIOLOGY [...] CENTERS E CENTERS KNITTED/W OVEN STERL REMOVAL/B 41364 ARMS DON ARMS DON IVALVING 4 FULL ARM/FULL LEG CAST ARTHRODES 36577 ARMS DON ARMS DON IS GREAT 4 TOE METATARSO PHALANGEA L JOINT ANES OPEN 47224 CHINO SIMON PROC 4 ANESTHESI BONES A GROUP LOWER PS LEG/ANKLE /FOOT NOS COMPREHEN [address] SIVE 4 [facility] METABOLIC MED CTR MED CTR PANEL FASTENER 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 ST FASTENER SEWING 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 ST URNLS DIP [address] 4 [facility] STICK/TAB MED CTR MED CTR LET RGNT FASTENER SEWING 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 ST FASTENER SEWING 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 ST AUTO W/O MICROSCOP Y COLLECTIO [address] N VENOUS 4 [facility] BLOOD MED CTR MED CTR VENIPUNCT FASTENER SEWING 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 ST FASTENER SEW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 [address] BLOOD/URI 4 [facility] C ACID MED CTR MED CTR FASTENER SEWING 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 ST FASTENER SEWING 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 ST C-REACTIV [address] E PROTEIN 4 [facility] MED CTR MED CTR FASTENER SEWING 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 ST FASTENER SEWING 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 ST BLOOD [address] COUNT 4 [facility] COMPLETE MED CTR MED CTR AUTOMATED FASTENER SEWING 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 ST FASTENER SEWING 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 ST RADEX [address]72 ST LAMOT-WAS FOOT 4 DANUTA IK LID COMPLETE MINIMUM 3 PHYSICIAN VIEWS S ECG 37196 TEJ COSBY COSBY TEJ ROUTINE 4 MD ECG CONSULTIN W/LEAST G SRV 12 LDS I&R ONLY PROTHROMB 60839 MICHEALYUNIOR MARION IN TIME 4 [facility] RADIOLOGI 65095 [facility] [place] SCAL[place] C EXAM 4 RADIOLOGY CHEST 2 VIEWS FRONTAL&L ATERAL THROMBOPL 47383 MIC[facility]ON MICHEALON ASTIN 4 [facility] PARTIAL PLASMA/WH OLE BLOOD COLLECTIO 38459 MICHEALON MICHEALON N VENOUS 4 [facility] VENIPUNCT URE WALKER E0135 [facility] FOLDING 4 ADJUSTABL E OR FIXED HEIGHT COMPREHEN 44537 [facility] SIVE 4 [facility] PANEL ECG 41391 [facility] SCH[facility] ROUTINE 4 [facility] W/LEAST 12 LDS TRCG ONLY W/O I&R MRI ANY 65256 [facility] JT LOWER 4 [facility] W/O CONTRAST MATRL MRI LOWER 57076 [facility] [place] JACINTOTELIC EXTREM 4 RADIOLOGY MAXIMO OTH/SHAYNEN JT W/O CONTR MATRL BLOOD 65960 [facility] SCHULTZ COUNT 4 [facility] AUTOMATED SEDIMENTA 42903 [facility] [place] TION RATE 4 [facility] NON-AUTOM ATED C-REACTIV 11856 [facility] [place] E PROTEIN 4 [facility] COLLECTIO 86830 [facility] N VENOUS 4 [facility] VENIPUNCT URE BLOOD 56281 [facility] COUNT 4 [facility] MCRSCP W/MNL DIFRNTL WBC COUNT NON-INVAS 65630 [facility] SCHULTZ 4 [facility] IC STD EXTREMITY ART 2 LEVEL DUP-SCAN 89449 [facility] LXTR 4 [facility] BPGS COMPL BI STUDY RADEX 44643 [facility] FOOT 4 [facility] MINIMUM 3 VIEWS HGB 30283 RAYO RUEDA GLYCOSYLA 4 PRIMARY [facility] CLEARED FDA HOME USE RADEX TOE [address] [facility] [address] H[facility] COLLECTIO 77939 [facility] N VENOUS 4 [facility] VENIPUNCT URE SURGICAL L3260 [facility] BOOT/SHOE 4 EACH BLOOD 00906 [facility] COUNT [address] [facility] AUTO&AUTO DIFRNTL WBC C-REACTIV 08755 [facility] [place] E PROTEIN 4 [facility] SEDIMENTA 09451 MARION MCALLISTERURBON TION RATE 4 [facility] NON-AUTOM ATED SEDIMENTA 11727 [facility] [place] TION RATE 4 [facility] NON-AUTOM ATED C-REACTIV 98323 [facility] SCH[facility] E PROTEIN 4 [facility] BLOOD 29063 [facility] [place] COUNT 4 [facility]ANCE AUTO&AUTO DIFRNTL WBC WALKING L4360 ADVANCED ADVANCED BOOT 4 TECHNOLOG TECHNOLOG PNEUMATC IES INC IES INC &/ VACUUM PREFAB CUSTM FIT ORTHOTIC 57735 [place] ARMS DON MGMT&EZE 4 Piece [place] Cake [place] UXTR LXTR&/TRN K EA 15 COLLECTIO 60139 [facility] SCHULT[facility] N VENOUS [address] [place] [address] VENIPUNCT URE THER 61129 TABITHA LU PROPH/DX 4 [facility] NJX IV INC INC PUSH SINGLE/1S T SBST/DRUG COMPREHEN 00286 [facility] SCHULT[facility] [address] [place] [address] [facility] BLOOD/URI [address] [place] [address] BLOOD 17804 [facility] COUNT [address] [place] [address] HOSPITAL AUTO&AUTO DIFRNTL WBC RADEX 55042 [facility] FOOT [address] [place] [address] MINIMUM 3 VIEWS RADEX 03238 VORKPOR VORKPOR FOOT [address] [place] [address] COMPLETE MINIMUM 3 VIEWS ECG 92988 [facility] ROUTINE 4 [facility] III J ECG MEDICAL W/LEAST G 12 LDS I&R ONLY URNLS DIP 47190 MAR[facility] SCHULTZ [address] [place] [address] HOSPITAL LET REAGENT AUTO MICROSCOP Y CULTURE 19738 [facility] BACTERIAL [address] [place] [address] QUANTTATI VE COLONY COUNT URINE THROMBOPL 36464 [facility] ASTIN [address] [place] [address] PARTIAL PLASMA/WH OLE BLOOD COLLECTIO 83888 [facility] SCH[facility] N VENOUS [address] [place] [address] VENIPUNCT URE RADIOLOGI 28292 MAR[facility] SCHULTZ C [address] [place] [address] ON KNEE 3 VIEWS COMPREHEN 04357 [facility] SIVE 4 [facility] PANEL ECG 24429 [facility] ROUTINE 4 [facility] W/LEAST 12 LDS TRCG ONLY W/O I&R BLOOD 33721 [facility] [place] COUNT [address] [facility] AUTOMATED PROTHROMB 27177 [facility] SCH[facility] IN TIME 4 [facility] RADEX 18947 [facility] FOOT 4 KIRILL COMPLETE RADIOLOGY MINIMUM 3 ASSOCIAT VIEWS SIMPLE 82064 [place] [facility] [place] [facility] REPAIR 4 SCALP/NEC K/AX/TAVARES T/TRUNK 2.5CM/< DXA BONE 06014 [facility] [place] SCALF [place] DENSITY 4 RADIOLOGY STUDY 1/> SITES AXIAL SKEL COMPUTER- 66677 [facility] [place] AIDED 4 [facility] SCREENING MAMMOGRAP HY SCREENING G[address] HY RAPHAEL INCL CAD WHEN PERFORMD RADEX 10164 [facility] SCHULT[facility] SHOULDER [address] [facility] MINIMUM 2 VIEWS RADIOLOGI 36737 [facility] C 4 [facility] ON KNEE [address] [place] [address] LAB TERESA LAB TERESA THYROXINE 4 LISSA LISSA TOTAL [facility] HOLDINGS COMPREHEN 50296 LAB [facility] LAB TERESA SIVE 4 [facility] METABOLIC HOLDINGS HOLDINGS PANEL LIPID 79870 LAB TERES[facility] LAB TERESA PANEL 4 L[facility]SA [facility]ISSA HOLDINGS HOLDINGS BLOOD 20330 LAB [facility] LAB TERESA COUNT 4 L[facility]SA LISSA COMPLE[place] [address] LAB TERESA LAB TERESA THYROID 4 LISSA LISSA STIMULATI [place] [address] LAB TERESA LAB TERESA INSULIN 4 LISSA [place] [address] LAB TERESA LAB TERESA INSULIN 4 LISSA LISSA FREE [facility]INGS HOLDINGS THYROID 35594 LAB [facility] LAB TERESA HORM 4 LISSA LISSA UPTK/THYR HOLDINGS HOLDINGS OID HORMONE BINDING RATIO HEMOGLOBI 68640 LAB TERESA LAB TERESA N 4 LISSA LISSA GLYCOSYLA HOLDINGS HOLDINGS JEREMY A1C CULTURE 55521 LAB TERESA LAB TERESA BACTERIAL 4 LISSA LISSA HOLDINGS HOLDINGS QUANTTATI VE COLONY COUNT URINE BASIC 86489 [facility] METABOLIC 3 DIAGNOSTI DIAGNOSTI [place] [address] [facility] THYROID 3 DIAGNOSTI DIAGNOSTI STIMULATI CS CS NG HORMONE TSH BLOOD 61152 [facility] COUNT 3 DIAGNOSTI DIAGNOSTI COMPLETE CS CS AUTO&AUTO DIFRNTL WBC BLOOD 45157 [facility] [place] COUNT 3 [place] COMPLETE CS MIDDLE AUTO&AUTO SCHOOL DIFRNTL WBC SYPHILIS 07146 [facility] TEST 3 DIAGNOSTI DIAGNOSTI NON-TREPO CS CS NEMAL ANTIBODY QUAL ANTIBODY 09935 [facility] CHLAMYDIA 3 DIAGNOSTI DIAGNOSTI CS CS ANTIBODY 34733 [facility] HERPES 3 DIAGNOSTI DIAGNOSTI SMPLX CS CS TYPE 1 INCORPORA T SUSCEPTIB 41357 [facility] LTY STDY 3 DIAGNOSTI DIAGNOSTI ANTIMICRB CS CS IAL MICRO/AGA R DILUTJ CULTURE 67856 [facility] BACTERIAL 3 DIAGNOSTI DIAGNOSTI CS CS QUANTTATI VE COLONY COUNT URINE CULTURE 53336 [facility] BCT 3 DIAGNOSTI DIAGNOSTI ISOL&PRSM CS CS PTV ID ISOLATE EA URINE CUL BACT 29537 [facility] AEROBIC 3 DIAGNOSTI DIAGNOSTI ADDL CS CS METHS DEFINITIV E EA ISOL ANTIBODY 36182 [facility] HERPES 3 DIAGNOSTI DIAGNOSTI SMPLX CS CS TYPE 2 INCORPORA T ANTIBODY 77795 [facility] CHLAMYDIA 3 DIAGNOSTI DIAGNOSTI IGM CS CS RADEX 29190 [facility] [place] RIBS 3 RADIOLOGY RHO BILATERAL 3 VIEWS RADIOLOGI 32985 [facility] [place] MIR[place] C EXAM 3 RADIOLOGY RHO CHEST 2 VIEWS FRONTAL&L ATERAL RADEX 70759 RASHARD CADE JOSE CARLOS SINUSES 3 [facility] SPEC MINIMUM 3 VIEWS BLOOD 98386 [facility] COUNT 3 DIAGNOSTI DIAGNOSTI COMPLETE CS CS AUTO&[place] [address] [facility] THYROID 3 DIAGNOSTI DIAGNOSTI STIMULATI CS CS NG HORMONE TSH LIPID 55827 [facility] PANEL 3 DIAGNOSTI DIAGNOSTI CS CS COMPREHEN 03472 [facility] SIVE 3 DIAGNOSTI DIAGNOSTI METABOLIC CS CS PANEL COMPREHEN 82387 [employer], [facility], SIVE 2 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 METABOLIC RAE RAE PANEL CO HOS CO HOS LIPID 91952 [employer], [facility], PANEL 2 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 RAE RAE CO HOS CO HOS BLOOD 56295 [employer], [employer], COUNT 2 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 COMPLETE RAE RAE AUTO&AUTO CO HOS CO HOS DIFRNTL WBC RADEX 66087 [facility] SHOULDER [address] [place] [address] MINIMUM 2 VIEWS SCREENING G0202 [address] HY RAPHAEL INCL CAD WHEN PERFORMD COMPUTER- [address] SCREENING MAMMOGRAP HY RADEX TOE 67702 [facility] MINIMUM 2 N N 2 VIEWS COMMUNTIY COMMUNTIY HOSPITA HOSPITA ECG 53501 TEJ COSBY TEJ COSBY ROUTINE 2 MD CA ECG CONSULTIN CONSULTIN W/LEAST G SERV G SERV 12 LDS I&R ONLY SPECIAL 83775 PATHOLOGY SALDIVAR STAIN 2 & KIRILL GROUP 1 CYTOLOGY MICROORGA LAB NISMS I&R SPCL STN 27436 PATHOLOGY SALDIVAR 2 I&R 2 & KIRILL EXCPT CYTOLOGY MICROORG/ LAB ENZYME/[place] [address] PATHOLOGY SALDIVAR SURG 2 & KIRILL PATHOLOGY CYTOLOGY LAB GROSS&MENG ROSCOPIC EXAM EGD 33078 [place] [facility]- TRANSORAL 2 MEDICAL PETEY BIOPSY SERV RACIEL SINGLE/MU FOUNDATIO LTIPLE SEDIMENTA 25801 [employer], [employer], TION RATE 2 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 RBC RAE RAE NON-AUTOM CO HOS CO HOS ATED CYANOCOBA 72154 [employer], [employer], KACEY 2 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 VITAMIN RAE RAE B-12 CO HOS CO HOS HEPATIC 87172 [employer], [employer], FUNCTION 2 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 PANEL RAE MCBRIDE CO HOS CO HOS ANTINUCLE 49797 [employer], [employer], AR 2 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 AUTO&[place] [address] [facility] THYROID 1 [facility] NG HORMONE TSH COLLECTIO 17192 [facility] N VENOUS 1 [facility] VENIPUNCT URE THERAPEUT 50665 PRIMARY PAM IC 1 [facility] PROPHYLAC ASSOCIATE TIC/DX S PS INJECTION SUBQ/IM INJECTION J3420 PRIMARY PAM VIT B-12 1 [facility] ASSOCIATE CYANOCOBA S PS KACEY TO 1000 MCG COLLECTIO 01281 [facility] N VENOUS 1 [facility] VENIPUNCT URE LIPID 78649 [facility] PANEL 1 [facility] COMPREHEN 51872 [facility] SIVE 1 [facility] PANEL ECG 55136 TEJ COSBY COSBY TEJ ROUTINE 1 MD ECG CONSULTIN W/LEAST G SRV 12 LDS W/I&R THERAPEUT 89399 PRIMARY PAM IC 1 [facility] PROPHYLAC ASSOCIATE TIC/DX S PS INJECTION SUBQ/IM INJECTION J3420 PRIMARY PAM VIT B-12 1 [facility] ASSOCIATE CYANOCOBA S PS KACEY TO [address] [facility] L HRT & 1 [facility] CH[facility] CARDIOLOG W/NJX & Y CLINIC ANGIO IMG S&I ECG 87607 TEJ COSBY COSBY TEJ ROUTINE 1 MD ECG CONSULTIN W/LEAST G SRV 12 LDS W/I&R TECHNETIU A9500 [facility] M TC-99M 1 [facility] DX PER STUDY DOSE CV STRS 13467 [place] TST 1 [facility] XERS&/OR HOSPITAL HOSPITAL RX CONT ECG TRCG ONLY CV STRS 83919 TEJ COSBY COSBY TEJ TST 1 MD XERS&/OR CONSULTIN RX CONT G SRV ECG W/O I&R MYOCARDIA 79881 MIC[facility] MICHEALON L SPECT 1 [facility] STUDIES CV STRS 17070 TEJ COSBY COSBY TEJ TST 1 XERS&/OR CONSULTIN RX CONT G SRV ECG I&R ONLY RADIOLOGI 58052 [facility] [place] C 1 [facility] ON CHEST SINGLE VIEW FRONTAL URNLS DIP 47492 [facility] [place] 1 [facility] STICK/TAB HOSPITAL HOSPITAL LET REAGENT AUTO MICROSCOP Y ECG 09443 [facility] ALVARADO BAB ROUTINE 1 EMERGENCY ECG SERVICES W/LEAST 12 LDS I&R ONLY CULTURE 00446 [facility] BACTERIAL 1 [facility] QUANTTATI VE COLONY COUNT URINE COMPREHEN 74883 MICHEALYUNIOR MARION SIVE 1 [facility] PANEL COLLECTIO 46125 [facility] N VENOUS 1 [facility] VENIPUNCT URE ECG 28575 [facility] [place] ROUTINE 1 [facility] W/LEAST 12 LDS TRCG ONLY W/O I&R CREATINE 74781 [facility] [place] KINASE MB 1 [facility]OSP[facility] ONLY BLOOD 91633 [facility] [place] COUNT [address] [facility] AUTO&[place] [address] [facility] TROPONIN 1 [facility] CHRISTI CREATINE 01917 [facility] [place] KINASE 1 [facility] XTRNL ECG 84921 TEJ COSBY COSBY TEJ 1 CONTINUOU CONSULTIN S RHYTHM G SRV W/I&R UP TO 48 HRS INJECTION J3420 PRIMARY PAM VIT B-12 1 [facility] ASSOCIATE CYANOCOBA S PS KACEY TO 1000 MCG THERAPEUT 41226 PRIMARY PAM IC 1 [facility] PROPHYLAC ASSOCIATE TIC/DX S PS INJECTION SUBQ/IM XTRNL ECG 41329 TEJ COSBY COSBY TEJ & 48 HR 1 MD RECORDING CONSULTIN G SRV ECHO 83009 TEJ COSBY COSBY TEJ TTHRC R-T 1 2D CONSULTIN W/WOM-MOD G SRV E COMPL SPEC&COLR D ECG 74034 TEJ COSBY COSBY TEJ ROUTINE 1 MD ECG CONSULTIN W/LEAST G SRV 12 LDS W/I&R THERAPEUT 40505 PRIMARY PAM IC 1 [facility] PROPHYLAC ASSOCIATE TIC/DX S PS INJECTION SUBQ/IM INJECTION J3420 PRIMARY PAM VIT B-12 1 [facility] ASSOCIATE CYANOCOBA S PS KACEY TO 1000 MCG INJECTION J3420 PRIMARY PAM VIT B-12 1 [facility] ASSOCIATE CYANOCOBA S PS KACEY TO 1000 MCG THERAPEUT 21665 PRIMARY PAM IC 1 [facility] PROPHYLAC ASSOCIATE TIC/DX S PS INJECTION SUBQ/[place] [address] PRIMARY PAM RETROPERI 1 [facility] TONEAL ASSOCIATE REAL TIME S PS W/IMAGE LIMITED INJECTION J3420 PRIMARY PAM VIT B-12 1 [facility] ASSOCIATE CYANOCOBA S PS KACEY TO 1000 MCG THERAPEUT 11064 PRIMARY PAM IC 1 [facility] PROPHYLAC ASSOCIATE TIC/DX S PS INJECTION SUBQ/IM DXA BONE 96083 [facility] DENSITY 1 [facility] STUDY 1/> HOSPITAL HOSPITAL SITES AXIAL SKEL INJECTION J3420 PRIMARY APM VIT B-12 1 [facility] ASSOCIATE CYANOCOBA S PS KACEY TO 1000 MCG THERAPEUT 01059 PRIMARY PAM IC 1 [facility] PROPHYLAC ASSOCIATE TIC/DX S PS INJECTION SUBQ/IM ECG 61490 TEJ COSBY COSBY TEJ ROUTINE 1 MD ECG CONSULTIN W/LEAST G SRV 12 LDS I&R ONLY ANES 33665 [place] ZIEMBROSK LOWER 1 ANESTHESI I JR EDW INTESTINE A GROUP PSC ENDOSCOPY DISTAL DUODENUM ECG 07188 [facility] ROUTINE 1 [facility] W/LEAST 12 LDS TRCG ONLY W/O I&R COLONOSCO 96080 MARCIA- MARCIA- PY FLX DX 1 PETEY PETEY W/COLLJ RACIEL RACIEL SPEC WHEN PFRMD RADEX 03487 [facility] & 1 [facility] MINIMUM 2 VIEWS INJECTION J3420 PRIMARY PAM VIT B-12 1 [facility] ASSOCIATE CYANOCOBA S PS KACEY TO 1000 MCG THERAPEUT 65695 PRIMARY PAM IC 1 [facility] PROPHYLAC ASSOCIATE TIC/DX S PS INJECTION SUBQ/IM THERAPEUT 03003 PRIMARY PAM IC 1 [facility] PROPHYLAC ASSOCIATE TIC/DX S PS INJECTION SUBQ/IM INJECTION J3420 PRIMARY PAM VIT B-12 1 [facility] ASSOCIATE CYANOCOBA S PS KACEY TO 1000 MCG ECG 17460 STARR LAYTON, ROUTINE 1 EMERGENCY JR., DO ECG SERVICES OSC W/LEAST 12 LDS I&R ONLY RADIOLOGI 71812 [facility] C 1 [facility] ON CHEST SINGLE VIEW FRONTAL ECG 91194 [facility] ROUTINE 1 [facility] W/LEAST 12 LDS TRCG ONLY W/O I&R BASIC 25904 [facility] MICHEALYUNIOR METABOLIC 1 [facility] CALCIUM TOTAL COLLECTIO 83570 [facility] MARION N VENOUS 1 [facility] VENIPUNCT URE CREATINE 54973 [facility] KINASE 1 [facility] [place] [address] [facility] TROPONIN 1 [facility] CHRISTI BLOOD 07018 [facility]UN[facility] COUNT [address] [facility] AUTO&AUTO DIFRNTL WBC MYOGLOBIN 60617 [facility] SCHULTZ 1 [facility] CREATINE 10988 [facility] KINASE MB 1 [facility]OSP[facility] ONLY THERAPEUT 33797 PRIMARY PAM IC 1 [facility] PROPHYLAC ASSOCIATE TIC/DX S PS INJECTION SUBQ/IM INJECTION J3420 PRIMARY PAM VIT B-12 1 [facility]INA ASSOCIATE CYANOCOBA S PS KACEY TO 1000 MCG INJECTION J3420 PRIMARY PAM VIT B-12 0 [facility] ASSOCIATE CYANOCOBA S PS KACEY TO 1000 MCG THERAPEUT 68116 PRIMARY PAM IC 0 [facility] PROPHYLAC ASSOCIATE TIC/DX S PS INJECTION SUBQ/IM COLLECTIO 07627 [facility] N VENOUS 0 [facility] VENIPUNCT URE POTASSIUM 88762 [facility] SERUM 0 [facility] OLE BLOOD FIBRIN 83229 [facility] DGRADJ 0 [facility] D-DIMER QUAL/SEMI CHERELLE THERAPEUT 33114 PRIMARY PRIMARY IC 0 HEALTH HEALTH PROPHYLAC ASSOCIATE ASSOCIATE TIC/DX S PS S PS INJECTION SUBQ/IM THERAPEUT 19216 PRIMARY PAM IC 0 [facility] PROPHYLAC ASSOCIATE TIC/DX S PS INJECTION SUBQ/IM INJECTION J3420 PRIMARY PAM VIT B-12 0 [facility] ASSOCIATE CYANOCOBA S PS KACEY TO 1000 MCG SCREENING G0202 [facility] 0 [facility] HY RAPHAEL INCL CAD WHEN PERFORMD COMPUTER- 63570 [facility] AIDED 0 [facility] SCREENING MAMMOGRAP HY INJECTION J3420 PRIMARY PRIMARY VIT B-12 0 HEALTH HEALTH ASSOCIATE ASSOCIATE CYANOCOBA S PS S PS KACEY TO 1000 MCG THERAPEUT 58323 PRIMARY PAM IC 0 [facility] PROPHYLAC ASSOCIATE TIC/DX S PS INJECTION SUBQ/IM IADNA 11869 [facility] CHLAMYDIA 0 [facility] TRACHOMAT IS AMPLIFIED PROBE TQ IADNA 54740 [facility] NEISSERIA 0 [facility] GONORRHOE AE AMPLIFIED PROBE TQ CULTURE 73148 [facility] BACTERIAL 0 [facility] QUANTTATI VE COLONY COUNT URINE URNLS DIP 09064 [facility] 0 [facility] STICK/TAB HOSPITAL HOSPITAL LET REAGENT AUTO MICROSCOP Y URNLS DIP 80200 PRIMARY PAM 0 [facility] STICK/TAB ASSOCIATE LET RGNT S PS NON-AUTO W/O MICRSCP THERAPEUT 86011 PRIMARY PAM IC 0 [facility] PROPHYLAC ASSOCIATE TIC/DX S PS INJECTION SUBQ/IM INJECTION J3420 PRIMARY PAM VIT B-12 0 [facility]INA ASSOCIATE CYANOCOBA S PS KACEY TO 1000 MCG INJECTION J3420 PRIMARY PAM VIT B-12 0 HEALTH GINA ASSOCIATE CYANOCOBA S PS KACEY TO 1000 MCG THERAPEUT 75884 PRIMARY PAM IC 0 [facility] PROPHYLAC ASSOCIATE TIC/DX S PS INJECTION SUBQ/IM IADNA 83479 [facility] CHLAMYDIA 0 [facility] TRACHOMAT IS AMPLIFIED PROBE TQ COLLECTIO 24399 [facility] N VENOUS 0 [facility] VENIPUNCT URE IADNA 95589 [facility] NEISSERIA 0 [facility] GONORRHOE AE AMPLIFIED PROBE TQ INJECTION [id number] PRIMARY PAM, VIT B-12 0 [facility]ACK[facility]tero ASSOCIATE CYANOCOBA S PSC KACEY TO 1000 MCG THERAPEUT 07796 PRIMARY PAM, IC 0 [facility] PROPHYLAC ASSOCIATE TIC/DX S PSC INJECTION SUBQ/IM THERAPEUT 12803 PRIMARY PAM, IC 0 [facility]o PROPHYLAC ASSOCIATE TIC/DX S PSC INJECTION SUBQ/IM URNLS DIP 72802 PRIMARY PMA, 0 [facility] STICK/TAB ASSOCIATE LET RGNT S PSC NON-AUTO W/O MICRSCP INJECTION [id number] PRIMARY PAM, VIT B-12 0 [facility] JACK[facility]tero ASSOCIATE CYANOCOBA S PSC KACEY TO 1000 MCG INJECTION [id number] PRIMARY PRIMARY VIT B-12 0 HEALTH HEALTH ASSOCIATE ASSOCIATE CYANOCOBA S PS S PS KACEY TO 1000 MCG THERAPEUT 35143 PRIMARY PRIMARY IC 0 [facility] PROPHYLAC ASSOCIATE ASSOCIATE TIC/DX S PS S PS INJECTION SUBQ/IM ARTHROCEN 24056 PRIMARY PAM TESIS 0 [facility]&/IN ASSOCIATE J MAJOR S PS JT/BURSA W/O US BASIC 52338 [facility] METABOLIC 0 [facility] CALCIUM TOTAL LIPID 21885 [facility] PANEL 0 [facility] CO [facility] HEPATIC 79406 R[facility] FUNCTION 0 CO CO [facility] COLLECTIO 57939 [facility] N VENOUS 0 [facility] BLOOD [facility] VENIPUNCT URE INJECTION [id number] PRIMARY PAM, VIT B-12 0 [facility] ASSOCIATE CYANOCOBA S PSC KACEY TO 1000 MCG THERAPEUT 99775 PRIMARY PAM, IC 0 [facility] PROPHYLAC ASSOCIATE TIC/DX S PSC INJECTION SUBQ/IM THERAPEUT 18779 PRIMARY PAM, IC 0 [facility] PROPHYLAC ASSOCIATE TIC/DX S PSC INJECTION SUBQ/IM URNLS DIP 33941 PRIMARY PAM, 0 [facility] STICK/TAB ASSOCIATE LET RGNT S PSC NON-AUTO W/O MICRSCP INJECTION [id number] PRIMARY PAM, VIT B-12 0 [facility] ASSOCIATE CYANOCOBA S PSC KACEY TO 1000 MCG RADEX HIP 50102 [facility] 0 [facility] L COMPLETE MINIMUM 2 VIEWS INJECTION [id number] PRIMARY PAM, VIT B-12 9 [facility] ASSOCIATE CYANOCOBA S PSC KACEY TO 1000 MCG THERAPEUT 97738 PRIMARY PAM, IC 9 [facility] PROPHYLAC ASSOCIATE TIC/DX S PSC INJECTION SUBQ/IM THERAPEUT 95724 PRIMARY PAM, IC 9 [facility] PROPHYLAC ASSOCIATE TIC/DX S PSC INJECTION SUBQ/IM INJECTION [id number] PRIMARY PAM, VIT B-12 9 [facility] ASSOCIATE CYANOCOBA S PSC KACEY TO 1000 MCG INJECTION [id number] PRIMARY PAM, VIT B-12 9 [facility] ASSOCIATE CYANOCOBA S PSC KACEY TO 1000 MCG THERAPEUT 00550 PRIMARY PAM IC 9 [facility] PROPHYLAC ASSOCIATE TIC/DX S PSC INJECTION SUBQ/IM CYTP C/V 39745 PATHOLOGY PATHOLOGY AUTO THIN 9 & & LYR CYTOLOGY CYTOLOGY PREPJ SCR [place] [address] RUFFIN MICHEAL FOLIC [address] [place] [address] [facility] THYROID 9 [facility] [place] [address] [facility] FERRITIN 9 [facility] BLOOD 30483 [facility] COUNT [address] [place] [address] AUTO&AUTO DIFRNTL WBC CYANOCOBA 81965 [facility] KACEY 9 [facility] B-12 COLLECTIO 95243 [facility] N VENOUS 9 [facility] VENIPUNCT URE RADIOLOGI 43117 [facility] C [address] [place] [address] ON KNEE 3 VIEWS URNLS DIP 26280 PRIMARY PAM 9 [facility] STICK/TAB ASSOCIATE LET RGNT S PSC NON-AUTO W/O MICRSCP RADIOLOGI 59672 [facility] Danielle WETZEL EXAM 9 RADIOLOGY BRODERICK Marixa KNEE COMPLETE 4/MORE VIEWS LIPID 86374 [facility] PANEL [address] [place] [address] BASIC 44975 [facility] [facility] [address] [place] [address] CALCIUM TOTAL COLLECTIO 37772 [facility] N VENOUS 9 [facility] VENIPUNCT URE HEPATIC 88401 [facility] FUNCTION 9 [facility] BASIC 82051 [place] METABOLIC 9 [facility] CALCIUM TOTAL COLLECTIO 82495 [facility] N VENOUS 9 [facility] VENIPUNCT URE SCREENING 04440 CNTRL KAYLYNN MEYERS, 9 RADIOLOGY NEEL G MAMMOGRAP HY BILATERAL COMPUTER- 67455 RUFFIN [place] AIDED 9 [facility] SCREENING MAMMOGRAP HY BASIC 70316 [facility] METABOLIC 9 [facility] TOTAL LIPID 19227 [facility] PAN[facility] HEPATIC 14735 [facility] FUNCTION 9 [facility] COLLECTIO 49255 [facility] N VENOUS 9 [facility] VENIPUNCT URE RADEX ABD 62811 DEEPMARTY GALLARDO, COMPL 8 CONRAD S AQT ABD RADIOLOGY W/S/E/D VIEWS 1 ASSOCIATE VIEW S PSC REMOVAL 68135 PRIMARY PAM, [address] JACKIE Kylah SHAYE ASSOCIATE INSTRUMEN S PSC TATION UNILAT BLOOD 74432 [facility] COUNT [address] [facility] AUTO&[place] [address] [facility] THYROID 8 [facility] NG HORMONE TSH RADEX 06364 [facility] ABDOMEN 1 8 [facility] ANTEROPOS TERIOR VIEW RADEX 49511 CNTRL KAYLYNN SRIKANTH, ABDOMEN 8 RADIOLOGY J COMPL W/DCBTS&/ ERC VIEWS COLLECTIO 87807 [facility] 8 [facility] VENIPUNCT URE HEPATIC 44201 [facility] FUNCTION 8 [facility] LIPID 54206 [facility] PANEL 8 [facility] BASIC 48590 [facility] METABOLIC 8 [facility]UM TOTAL COLONOSCO 37780 ZHANG HERNANDEZ FLX DX 8 PETEY ANGELO, W/COLLPedro JUSTICE SPEC WHEN PFRMD ECG 83172 [facility] ROUTINE 8 [facility] W/LEAST 12 LDS TRCG ONLY W/O I&R ANES 26317 [place] KELIN LOWER 8 ANESTHESI I JR, INTESTINE A GROUP EDWARD J PSC ENDOSCOPY DISTAL DUODENUM ECG 09855 CARDIOLOG COSBY, ROUTINE 8 Y ALON A ECG ASSOCIATE W/LEAST S OF 12 LDS [place] I&R ONLY THERAPEUT 62239 [facility] IC PX 1/> 8 [facility] EACH 15 MIN EXERCISES PHYSICAL 75595 [facility] THERAPY 8 [facility] N CT LUMBAR 87497 [facility] SPINE [address] [place] [address] W/O [facility] HOSPITAL CONTRAST MATERIAL COMPUTER- 36694 [facility] AIDED 8 [facility] SCREENING MAMMOGRAP HY SCREENING [address] MAMMOGRAP [facility] HOSPITAL HY BILATERAL HEMOGLOBI [address] [facility] N [address] [facility] BILIRUBIN 97603 [facility] DIRECT 8 [facility] GENERAL 93336 [facility] 8 [facility] PANEL LIPID 29894 [facility] PANEL 8 [facility] ECG 03875 GOINS GOINS, ROUTINE 8 DON R DON R ECG W/LEAST 12 LDS W/I&R ECG 53190 CARDIOLOG COSBY, ROUTINE 8 Y ALON A ECG ASSOCIATE W/LEAST S OF 12 LDS [place] I&R ONLY RADIOLOGI 95807 CNTRL Bradley MARCOS 8 RADIOLOGY T EXAMINATI ON CHEST SINGLE VIEW FRONTAL Encounters Encounter Start End Date Code Location Performer Type Date OFFICE 97562 RICH RODRIGEZ OUTPATIEN 7 7 Servando VAUGHAN MD,[facility] MINUTES OFFICE 40946 [facility] OUTPATIEN 6 6 PHYSICIAN T VISIT S GROUP 15 MINUTES OFFICE 77283 [facility] RACHEL OUTPATIEN 6 6 PHYSICIAN MAT T VISIT S GROUP 25 MINUTES [facility] - 6 6 [facility] T [facility] 6 6 [facility] T OFFICE 52532 JACKLYN LAN OUTPATIEN 6 6 MD GINA, T VISIT PSC 25 MINUTES OFFICE 05049 [facility]IEN 6 6 [facility] T VISIT INC 10 MINUTES OFFICE 75321 [facility] CARLOS OUTPATIEN 6 6 PHYSICIAN MENG T VISIT 5 S GROUP MINUTES OFFICE 37774 [facility] RACHEL OUTPATIEN 6 6 PHYSICIAN MAT T VISIT S GROUP 25 MINUTES [facility]OS[facility] - 6 6 [facility] T [facility] [place] [facility] [address] [facility] T OFFICE 45774 PROGRESSI PROGRESSI OUTPATIEN 6 6 VE VE T VISIT PODIATRY PODIATRY 15 MINUTES [facility] - 6 6 [facility] T [facility] - 6 6 [facility] INC T OFFICE 48570 [facility] RACHEL OUTPATIEN 6 6 PHYSICIAN MAT T VISIT S GROUP 25 MINUTES OFFICE 57475 [facility]EN 6 6 [facility] T VISIT INC 10 MINUTES [facility] - 6 6 [facility]PATIEN INC T OFFICE 11991 JACKLYN LAN OUTPATIEN 6 6 MD GINA, T VISIT PSC 15 MINUTES [facility] - 6 6 [facility]PATIEN INC T OFFICE 81325 [facility] CARLOS OUTPATIEN 6 6 PHYSICIAN MENG T VISIT S GROUP 10 MINUTES [facility] - 6 6 [facility]PATIEN INC [facility] - 6 6 [facility] INC T OFFICE 39660 [facility] OUTPATIEN 6 6 PHYSICIAN MENG T VISIT S GROUP 10 MINUTES [facility] - 6 6 [facility]PATIEN INC T OFFICE 11830 [facility] OUTPATIEN 6 6 PHYSICIAN MENG T VISIT S GROUP 15 MINUTES [facility] - 6 6 [facility] OUTPATIEN [facility] - 6 6 [facility] OUTPATIEN INC T OFFICE 98664 JACKLYN LAN OUTPATIEN 6 6 MD GINA, T VISIT [facility] 25 MINUTES [facility] - 6 6 [facility] OUTPATIEN INC T OFFICE 11141 [facility] OUT[facility]IEN 6 6 [facility] T VISIT [facility] 10 MINUTES [facility] 6 6 [facility] OUTPATIEN [facility] - 6 6 [facility]EN [facility] - 6 6 [facility] OUTPATIEN INC T OFFICE 73734 JACKLYN BROOKS OUTPATIEN 6 6 MD GINA, T VISIT [facility] 10 MINUTES [facility] - 6 6 [facility]PAT[facility]EN INC [facility] - 6 6 [facility] OUTPATIEN INC T OFFICE 27293 [facility] CAIN OUTPATIEN 6 6 [facility] T VISIT HOSPITAL 15 MINUTES [facility] - 6 6 [facility] OUTPATIEN INC T EMERGENCY 08564 [facility] 6 6 [facility] DEPARTMEN INC T VISIT LIMITED/M INOR PROB EMERGENCY 99764 MIKE CELIS [facility] 6 6 PHYSICIAN DEPARTMEN S, [facility] T VISIT MODERATE SEVERITY [facility] - 6 6 [facility] T [facility] - 6 6 [facility] - 6 6 [facility] INC T OFFICE 29851 YUSEF YUSEF OUTPATIEN 6 6 CHILO CHILO T VISIT 15 MINUTES OFFICE 28927 [facility] CARLOS OUTPATIEN 6 6 PHYSICIAN MENG T VISIT S GROUP 15 MINUTES [facility] - 6 6 [facility] OUTPATIEN INC T OFFICE 75190 YUSEF YUSEF OUTPATIEN 6 6 [facility]IL[facility] CHILO T VISIT 15 MINUTES OFFICE 21075 [facility] OUT[facility]IEN 5 5 [facility] T VISIT INC 10 MINUTES OFFICE 23469 JACKLYN WILSON OUTPATIEN 5 5 MD GINA, T VISIT PSC 15 MINUTES [facility] - 5 5 [facility] OUTPATIEN INC T OFFICE 47329 YUSEF HOLBROOK OUTPATIEN 5 5 CHILO CHILO T VISIT 15 MINUTES OFFICE 57061 [facility] FLORIAN TOMarixa OUTPATIEN 5 5 PHYSICIAN T VISIT S GROUP 10 MINUTES [facility] - 5 5 [facility]PAT[facility]EN [facility] T [facility] - 5 5 [facility] OUTPATIEN INC T OFFICE 95119 [facility] FLORIAN TOD OUTPATIEN 5 5 PHYSICIAN T NEW 45 S GROUP MINUTES [facility] - 5 5 [facility] OUTPATIEN INC T OFFICE 89677 JACKLYN LAN OUTPATIEN 5 5 MD GINA, T NEW 45 PSC MINUTES [facility]OSP[facility] - 5 5 [facility] - 5 5 [facility] OUT[facility]EN [facility] T OFFICE 15793 YUSEF YUSEF OUTPATIEN 5 5 [facility] T VISIT 15 MINUTES [facility] - 5 5 [facility]PATIEN [facility] 5 5 [facility] OUTPATIEN [facility] T OFFICE 75041 [facility] OUT[facility] 5 5 [facility] T VISIT HOSPITAL 15 MINUTES [facility] - 5 5 [facility] OUTPATIEN [facility] T OFFICE 47634 YUSEF YUSEF OUTPATIEN 5 5 [facility] T VISIT 15 MINUTES [facility] - 5 5 [facility]PATIEN [facility] 5 5 [facility] OUTPATIEN [facility] T OFFICE 09806 YUSEF YUSEF OUTPATIEN 5 5 [facility]ILO T [facility] 30 OFFICE 47773 [facility] OUTPATIEN 5 5 PHYSICIAN MENG T VISIT S GROUP 15 MINUTES OFFICE 30070 [place] [facility] OUTPATIEN 5 5 [facility] T VISIT 25 MINUTES [facility] [place] [facility] [address] [facility] T OFFICE 60199 [place] [facility] OUTPATIEN 5 5 [facility] T VISIT 25 MINUTES EMERGENCY 81976 [place] 5 5 [facility] T VISIT MODERATE SEVERITY EMERGENCY 60353 ALFARIS ALFARIS 5 5 [facility] T VISIT HIGH/URGE NT SEVERITY [facility] [place] [facility] [address] [facility] T OFFICE 36823 PAM PAM OUTPATIEN 5 5 GINA GINA T VISIT 15 MINUTES OFFICE 44032 CHINO HARRELL OUTPATIEN 5 5 [facility], ROLANDA T VISIT 15 MINUTES [facility] [place] [facility] [address] [facility] T OFFICE 11805 PAM PAM OUTPATIEN 5 5 GINA GINA T VISIT 25 MINUTES [facility] [place] - 5 5 [facility] [place] - [address] [facility] T OFFICE 08877 PAM PMA OUTPATIEN 5 5 GINA GINA T VISIT 15 MINUTES EMERGENCY 94340 SOKAN BAB SOKAN BAB 5 5 DEPARTMEN T VISIT MODERATE SEVERITY [facility] [place] [facility] [address] [facility] T OFFICE 25257 PAM PAM OUTPATIEN 5 5 GINA GINA T VISIT 15 MINUTES [facility] [place] [facility] [address] [facility] T OFFICE 28891 PAM PAM OUTPATIEN 5 5 GINA GINA T VISIT 15 MINUTES OFFICE 18851 PRIMARY PAM OUTPATIEN 4 4 [facility] T VISIT ASSOCIATE 15 S PS MINUTES OFFICE 20877 PRIMARY PAM OUTPATIEN 4 4 [facility] T VISIT ASSOCIATE 25 S PS MINUTES [facility]OSP[facility] [place] [facility] [address] [facility] [place] - 4 4 [facility] [place] [facility] [address] [facility] [place] [facility] [address] [facility] HOME [facility], 4 4 HOME INPATIENT HEALTH [facility] [place] [facility] [address] [facility] T EMERGENCY 18433 [place] 4 4 [facility] T VISIT MODERATE SEVERITY EMERGENCY 92107 HERACLIO ARRIETA 4 4 [facility] VISIT HIGH/URGE NT SEVERITY [facility] [place] - [address] [facility] T HOME 78982 [facility] VISIT EST 4 4 HOME PT HEALTH MOD-HI SEVERITY 40 MINUTES HOME 16156 [facility] VISIT EST 4 4 HOME PT HEALTH MOD-HI SEVERITY 40 MINUTES HOME 71157 [facility] VISIT EST 4 4 HOME PT HEALTH MOD-HI SEVERITY 40 MINUTES HOME [facility], 4 4 HOME INPATIENT HEALTH HOME 37794 [facility] VISIT EST 4 4 HOME PT HEALTH MOD-HI SEVERITY 40 MINUTES [facility] [place] - 4 4 [facility] [place] - [address] [facility] HOME 18517 [facility] VISIT EST 4 4 HOME PT HEALTH MOD-HI SEVERITY 40 MINUTES HOME [facility], 4 4 HOME INPATIENT HEALTH OFFICE 28740 [facility] 4 4 DANUTA IK LID T [facility] [address] [facility] - 4 4 [facility] [place] [facility] 4 4 [facility] [place] - 4 4 [facility] [place] - 4 4 [facility] [place] - [address] [facility] T OFFICE 81877 ARMS DON ARMS DON OUTPATIEN 4 4 T VISIT 25 MINUTES OFFICE 39414 RAYO RUEDA OUTPATIEN 4 4 PRIMARY JAM T VISIT CARE 15 CENTER MINUTES [facility] [place] [facility] [address] [facility] T OFFICE 46579 ARMS DON ARMS DON OUTPATIEN 4 4 T VISIT 25 MINUTES OFFICE 31879 [place] [facility] CONSULTAT 4 4 Piece of Cake ION NEW/ESTAB PATIENT 60 MIN [facility] [place] [facility] [address] [facility] - 4 4 [facility] T EMERGENCY 54739 NIKKI JORDAN 4 4 [facility] T VISIT HIGH/URGE NT SEVERITY EMERGENCY 17279 [place] 4 4 [facility] T VISIT HIGH/URGE NT SEVERITY [facility] [place] [facility] [address] [facility] T EMERGENCY 92871 VORHILARYOR VORHILARYOR 4 4 [facility] T VISIT HIGH/URGE NT SEVERITY [facility] [place] [facility] [address] [facility] T EMERGENCY 58244 [place] KER H[place] KER 4 4 [facility] T VISIT HIGH/URGE NT SEVERITY [facility] [place] [facility] [address] [facility] [place] - [address] 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 T OFFICE 45091 PRIMARY PAM OUTPATIEN 2 2 HEALTH [facility] T VISIT ASSOCIATE 25 S PS MINUTES [facility]OS[facility] [address] [facility] T OFFICE 11479 PRIMARY PAM OUTPATIEN 2 2 HE[facility] T VISIT ASSOCIATE 15 S PS MINUTES [facility] N OUTPATIEN COMMUNTIY T HOSPITA EMERGENCY 88827 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 T OFFICE 65640 PRIMARY PAM OUTPATIEN 1 1 [facility] T VISIT ASSOCIATE 15 S PS MINUTES OFFICE 26754 PRIMARY PAM OUTPATIEN 1 1 [facility] T VISIT ASSOCIATE 15 S PS MINUTES [facility] [address] [facility] T OFFICE 45155 TEJ COSBY COSBY TEJ OUTPATIEN 1 1 MD T VISIT CONSULTIN 15 G SRV MINUTES OFFICE 88137 PR[facility] PAM OUTPATIEN 1 1 [facility] T VISIT ASSOCIATE 15 S PS MINUTES OFFICE 78435 TEJ COSBY COSBY TEJ OUTPATIEN 1 1 MD T VISIT CONSULTIN 15 G SRV MINUTES [facility] [address] [facility] T EMERGENCY 31982 [facility]& THREAT [facility] [address] [facility] T OFFICE 13333 PRIMARY PAM OUTPATIEN 1 1 [facility] T VISIT ASSOCIATE 25 S PS MINUTES OFFICE 08858 TEJ COSBY COSBY TEJ OUTPATIEN 1 1 T NEW 45 CONSULTIN MINUTES G SRV OFFICE 49557 PRIMARY PAM OUTPATIEN 1 1 [facility] T VISIT ASSOCIATE 15 S PS MINUTES OFFICE 61016 PRIMARY PAM OUTPATIEN 1 1 [facility] T VISIT ASSOCIATE 15 S PS MINUTES OFFICE 86303 PRIMARY PAM OUTPATIEN 1 1 [facility] T VISIT 5 ASSOCIATE MINUTES S PS OFFICE 88313 PRIMARY PAM OUTPATIEN 1 1 [facility] T VISIT ASSOCIATE 15 S PS MINUTES [facility] [place] [facility] [address] [facility] T EMERGENCY 34922 STARR LAYTON, 1 1 EMERGENCY JR., DO [facility] SERVICES OSC T VISIT MODERATE SEVERITY EMERGENCY 63549 [place] 1 1 [facility] T VISIT LOW/MODER SEVERITY OFFICE 39851 PRIMARY PAM OUTPATIEN 1 1 [facility] T VISIT ASSOCIATE 15 S PS MINUTES [facility] [address] [facility] T OFFICE 93005 PRIMARY [facility]AM OUTPATIEN 1 1 [facility] T VISIT ASSOCIATE 25 S PS MINUTES [facility] [address] [facility] [address] [facility] T OFFICE 61635 PRIMARY PAM OUTPATIEN 1 1 [facility] T VISIT ASSOCIATE 15 S PS MINUTES OFFICE 82063 PRIMARY PAM OUTPATIEN 1 1 [facility] T VISIT ASSOCIATE 15 S PS MINUTES OFFICE 45379 PRIMARY PAM OUTPATIEN 1 1 [facility] T VISIT ASSOCIATE 15 S PS MINUTES EMERGENCY 65987 STARR LAYTON, DEPT 1 1 EMERGENCY JR., DO VISIT SERVICES OSC HIGH SEVERITY& THREAT FUNCJ EMERGENCY 97358 [place] 1 1 [facility] T VISIT HIGH/URGE NT SEVERITY [facility]OSP[facility] [place] - [address] [facility]PITAL [place] - [address] [facility] T EMERGENCY 41664 [place] 1 1 [facility] T VISIT MODERATE SEVERITY OFFICE 97956 PRIMARY PAM OUTPATIEN 1 1 [facility] T VISIT ASSOCIATE 15 S PS MINUTES OFFICE 48785 PRIMARY PAM OUTPATIEN 0 0 [facility] T VISIT ASSOCIATE 15 S PS MINUTES [facility] [place] [facility] [address] [facility] T OFFICE 00215 PRIMARY PAM OUTPATIEN 0 0 [facility] T VISIT ASSOCIATE 15 S PS MINUTES OFFICE 18628 PRIMARY PAM OUTPATIEN 0 0 [facility] T VISIT ASSOCIATE 15 S PS MINUTES [facility] [place] [facility] [address] [facility] T OFFICE 28970 PRIMARY PAM OUTPATIEN 0 0 [facility] T VISIT ASSOCIATE 15 S PS MINUTES [facility] [place] [facility] [address] [facility] [place] - [address] [facility] T OFFICE 76889 PRIMARY PAM OUTPATIEN 0 0 [facility] T VISIT ASSOCIATE 15 S PS MINUTES OFFICE 21956 PRIMARY PAM OUTPATIEN 0 0 [facility] T VISIT ASSOCIATE 15 S PS MINUTES OFFICE 76899 PRIMARY PAM OUTPATIEN 0 0 [facility] T VISIT ASSOCIATE 15 S PS MINUTES [facility] [place] [facility] [address] [facility] T OFFICE 56968 PRIMARY PAM, OUTPATIEN 0 0 HEALTH JACKIE M T VISIT ASSOCIATE 25 S PSC MINUTES OFFICE 91348 PR[facility] PAM, OUTPATIEN 0 0 HEALTH JACKIE M T VISIT ASSOCIATE 25 S PSC MINUTES OFFICE 00342 PR[facility] PAM, OUTPATIEN 0 0 HEALTH JACKIE M T VISIT ASSOCIATE 25 S PSC MINUTES OFFICE 90546 PRIMARY PAM OUTPATIEN 0 0 [facility] T VISIT ASSOCIATE 25 S PS MINUTES HOSPITAL RAE - 0 0 [facility] T OFFICE 53465 PRIMARY PAM, OUTPATIEN 0 0 [facility] T VISIT ASSOCIATE 15 S PSC MINUTES [facility] [place] - [address] [facility] T OFFICE 72829 PRIMARY PAM, OUTPATIEN 0 0 [facility] T VISIT ASSOCIATE 25 S PSC MINUTES OFFICE 16896 [facility], OUTPATIEN 9 9 [facility] T VISIT ASSOCIATE 15 S PSC MINUTES OFFICE 07326 PR[facility] PAM, OUTPATIEN 9 9 [facility] T VISIT ASSOCIATE 25 S PSC MINUTES OFFICE 84950 PR[facility] PAM, OUTPATIEN 9 9 [facility] T VISIT ASSOCIATE 25 S PSC MINUTES OFFICE 57569 PR[facility] PAM, OUTPATIEN 9 9 [facility] J[facility] T VISIT ASSOCIATE 15 S PSC MINUTES [facility] [address] [facility] T OFFICE 04895 PRIMARY PAM, OUTPATIEN 9 9 [facility] T VISIT ASSOCIATE 15 S PSC MINUTES [facility] 9 [facility] [address] [facility] T OFFICE 46790 PRIMARY PAM, OUTPATIEN 9 9 [facility] T VISIT ASSOCIATE 25 S PSC MINUTES [facility] 9 [facility] [address] [facility] T OFFICE 63711 PRIMARY PAM, OUTPATIEN 9 9 [facility] T VISIT ASSOCIATE 15 S PSC MINUTES OFFICE 31440 PRIMARY PAM, OUTPATIEN 9 9 [facility] T VISIT ASSOCIATE 15 S PSC MINUTES [facility] [address] [facility] T OFFICE 57980 PRIMARY PAM, OUTPATIEN 8 8 [facility] T VISIT ASSOCIATE 25 S PSC MINUTES OFFICE 85096 PRIMARY PAM OUTPATIEN 8 8 [facility] T VISIT ASSOCIATE 15 S PSC MINUTES [facility] [address] [facility] T OFFICE [id number] PRIMARY PAM [facility]PATIEN 8 8 [facility] T [facility]ISIT ASSOCIATE 25 S PSC MINUTES [facility] [address] [facility] T OFFICE [id number] PRIMARY PAM OUTPATIEN 8 8 [facility] T [facility]ISIT ASSOCIATE 15 S PSC MINUTES [facility] [address] [facility] [address] [facility] T OFFICE [id number] PAM PAM OUTPATIEN 8 8 [facility] JACKIE M T [facility]ISIT 15 MINUTES [facility] [address] [facility] T OFF[facility] 09257 [facility] 8 8 [facility] T VISIT CENTRAL 15 BANK ACCT DEPARTMEN MINUTES T OFFICE [id number] [facility] DON R DON R T VISIT 15 MINUTES
--- OUTSIDE RECORDS SUMMARY | 2017-04-19 16:40 | External Medical Summary Rpt ---
Author Author , Organization [employer] Address Unknown Phone Unavailable Care Team Providers Care Blanket Washer Name Role Phone [facility], [facility] Unavailable Unavailable [facility], [facility] Unavailable Unavailable [employer] Unavailable Unavailable INC, [employer] ALFARIS MOH, ALFARIS Unavailable Unavailable MOH ALFARIS MOH, ALFARIS Unavailable Unavailable MOH [facility], Unavailable Unavailable [facility] Pedro DUKE, Unavailable Unavailable Pedro DUKE MD, PSC, Unavailable Unavailable JACKLYN FUENTES MD, PSC ARMS DON, ARMS DON Unavailable Unavailable ARMS DON, ARMS DON Unavailable Unavailable RICH VAUGHAN, Unavailable Unavailable ,PSC, RICH VAUGHAN MD,PSC JORDAN BRO, JORDAN Unavailable Unavailable BRO DELATORRE ALL, DELATORRE ALL Unavailable Unavailable [facility] Unavailable Unavailable DEPARTMENT, [facility] DEPART[facility] Unavailable Unavailable HOSPITAL, [facility] FONSECA DARRYN, FONSECA DARRYN Unavailable Unavailable [facility], Unavailable Unavailable [facility] PAM HAILE Unavailable Unavailable PAM KUMAR Unavailable Unavailable JACKIE STAPLES, Unavailable Unavailable JACKIE OROZCO YUSEF CHILO, YUSEF Unavailable Unavailable CHILO YUSEF CHILO, YUSEF Unavailable Unavailable CHILO NELSON JAM, NELSON JAM Unavailable Unavailable BUX ANJ, BUX ANJ Unavailable Unavailable [facility] Unavailable Unavailable [facility], [facility] Unavailable Unavailable [facility], [facility] Unavailable Unavailable [facility], [facility] CARRICATO, CARRICATO Unavailable Unavailable MARIAMA HERMES, MARIAMA Unavailable Unavailable SUDHAKAR PERSAUD, Unavailable Unavailable MARIAMASUDHAKAR COOPER HERMES, COOPER Unavailable Unavailable HERMES [facility], Unavailable Unavailable [facility] COSBY TEJ, COSBY TEJ Unavailable Unavailable COSBY, ALON A, Unavailable Unavailable COSBY, ALON A MARIPOSA NIKKI, Unavailable Unavailable MARIPOSA NIKKI ORQUIDEA II THO, ORQUIDEA II Unavailable Unavailable THO DAUKAS GARCIA, DAUKAS Unavailable Unavailable GARCIA DUFF KATIE, DUFF KATIE Unavailable Unavailable Bradley VILA T, VILA, G Unavailable Unavailable T FALLUJI KALYN, FALLUJI Unavailable Unavailable KALYN FRYMAN EUG, FRYMAN Unavailable Unavailable EUG CARLOS MENG, CARLOS Unavailable Unavailable MENG [facility] MIRA RHO, MIRA Unavailable Unavailable RHO MIRA, NEEL G, Unavailable Unavailable MIRA, NEEL G [facility] Unavailable Unavailable INC, [facility] Unavailable [facility]available HOSPITAL, [facility] GALLARDO KIRILL, GALLARDO Unavailable Unavailable KIRILL GALLARDO, CONRAD S, Unavailable Unavailable GALLARDO, CONRAD S [facility], Unavailable Unavailable [facility] PULLIAM BERNY, PULLIAM BERNY Unavailable Unavailable PULLIAM BERNY, PULLIAM BERNY Unavailable Unavailable RAIN, RAIN Unavailable Unavailable KENNEDY-PETEY RACIEL, Unavailable Unavailable KENNEDY-PETEY RACIEL KENNEDY-PETE[facility] RACIEL, Unavailable Unavailable KENNEDY-PETEY RACIEL [facility] Un[facility] Unavailable GROUP PS, [facility] Unavailable Unavailable [facility], [facility], Unavailable Unavailable [facility] Unavailable Unavailable [facility] [...] [facility] [facility], Unavailable Unavailable [facility] SHANI CRI, SHANI CRI Unavailable Unavailable [facility], Unavailable Unavailable [facility] CARL[facility], RAYO JOSE CARLOS Unavailable Unavailable [facility] Un[facility] Unavailable [facility], [facility], Unavailable Unavailable [facility] SALDIVAR KIRILL, SALDIVAR Unavailable Unavailable KIRILL [facility], Unavailable Unavailable [facility], Unavailable Unavailable [facility] Unavailable Unavailable SERVICES, [facility] Unavailable Unavailable ASSOCI, [facility], Unavailable Unavailable [facility] Unavailable Unavailable CO [facility], [facility] MARYBETH MILLIGNA, MARYBETH Unavailable Unavailable JAM NADBINA VID, NADIG VID Unavailable Unavailable [facility], Unavailable Unavailable [facility] Unavailable [...] #[id number], Unavailable Unavailable [id number] Unavailable Unavailable [facility], [facility] SADEK MOH, SADEK MOH Unavailable Unavailable SCALF KIRILL, SCALF KIRILL Unavailable Unavailable LUNSFORD GAR, LUNSFORD Unavailable Unavailable GAR RACHEL MAT, Unavailable Unavailable RACHEL MAT KRZYSZTOF AURORA, KRZYSZTOF AUR[facility]A Unavailable Unavailable SOKAN BAB, SOKAN BAB Unavailable Unavailable [facility], Unavailable Unavailable [facility] Unavailable Unavailable INSECTICIDE EXPERT ST, [facility] INSECTICIDE EXPERT [facility] DANUTA Unavailable Unavailable [facility]IC[facility], [facility] GOINS, DON R, Unavailable Unavailable GOINS, DON R HAMPTON KER, HAMPTON KER Unavailable Unavailable HAMPTON KER, HAMPTON KER Unavailable Unavailable ARVIZU HERMES, Unavailable Unavailable [facility]EM[facility] SWINEY PAT, SWINEY Unavailable Unavailable PAT ASHLEY III J, ASHLEY Unavailable Unavailable III J UNICK CHR, UNICK CHR Unavailable Unavailable VORKPOR DAMI, VORKPOR Unavailable Unavailable DAMI VORKPOR DAMI, VORKPOR Unavailable Unavailable DAMI [facility] # Unavailable Unavailable [id number], [facility] # [id number] [facility] # Unavailable Unavailable [id number], [facility] # [id number] TAMELA ARTHUR EDW, Unavailable Unavailable TAMELA ARTHUR EDW TAMELA ARTHUR, EDWARD Unavailable Unavailable J, TAMELA ARTHUR, DAPHNE J MILDRED GUEVARA, MILDRED MAT Unavailable Unavailable BRODERICK LEVY, Unavailable Unavailable BRODERICK LEVY Purpose Continuity of Care Document - 10-20-2007 through 2016 Problems Code Diagnosis DOS Provider Status [id number] SPONDYLOSIS 11-17-2016 [facility] W/O RADIOLOGY MYELOPATH/R ADICULOPATH Y CERV RGN [id number] SPONDYLOSIS 11-17-2016 [facility] W/O RADIOLOGY MYELOPATH/R ADICULOPATH Y LUMB RGN [id number] SPONDYLOSIS 11-17-2016 [facility] W/O RADIOLOGY MYELOPATH/R ADICULPATHY LS RGN F71652 OTHER 11-17-2016 [facility] CERVICAL RADIOLOGY DISC DEGENERATIO N AT C5-C6 LEVEL M791 MYALGIA 11-17-2016 RICH VAUGHAN MD,PSC M549 DORSALGIA 08-29-2016 [facility] UNSPEC[facility]ICIANS GROUP R635 ABNORMAL 08-29-2016 [facility] WEIGHT GAIN PHYSICIANS GROUP Z23 ENCOUNTER 08-29-2016 [facility] FOR [facility] IMMUNIZATIO GROUP N E785 HYPERLIPIDE 07-05-2016 [facility] LUIS PHYSICIANS UNSPECIFIED GROUP I10 ESSENTIAL 07-05-2016 [facility] PRIMARY PHYSICIANS HYPERTENSIO GROUP N I2510 ASHD KANATAK 07-05-2016 [facility] CORONARY PHYSICIANS ARTERY W/O GROUP ANGINA PECTORIS M5030 OTH 07-04-2016 [facility] CERVICAL [facility] DISC INC DEGENERATIO N UNS CERV REGION M5116 INTERVERTEB 07-04-2016 [facility] RAL DISC [facility] D/O INC W/RADICULOP ATHY LUMB RGN M5032 OT CERV 06-28-2016 [facility] DISC MEDICAL DEGENERATIO IMAGING ASS N MID-CERVICA L REGION M542 CERVICALGIA 06-28-2016 [facility] R079 CHEST PAIN 06-28-2016 [facility] UNSPECIFIED [facility]ICAL IMAGING ASS R1084 GENERALIZED 06-28-2016 [facility] ABDOMINAL MEDICAL PAIN IMAGING ASS [id number] UNSPECIFIED 06-28-2016 [place] INJURY OF MEDICAL NECK IMAGING ASS INITIAL ENCOUNTER Z0100 ENCOUNTER 2016 [facility] EXAM EYES & GRE VISION W/O ABNORMAL FIND M4802 SPINAL 05-02-2016 JACKLYN FUENTES, STENOSIS , PSC CERVICAL REGION E663 OVERWEIGHT 04-20-2016 [facility] Z60016 COMPLEX 04-07-2016 [facility] REGIONAL PHYSICIANS PAIN GROUP SYNDROME I UNS LOWER LIMB R9431 ABNORMAL 04-07-2016 [facility] ELECTROCARD PHYSICIANS IOGRAM GROUP O00130 ENCOUNTER 04-05-2016 TEJ COSBY FOR PREPROCEDUR CONSULTING AL SRV CARIOVASCUL AR EXAM G8918 OTHER ACUTE 03-29-2016 PROGRESS[facility] PODIATRY POSTPROCEDU RAL PAIN M2022 HALLUX 03-29-2016 [facility] RIGIDUS PODIATRY LEFT FOOT M2032 HALLUX 03-29-2016 [facility] VARUS PODIATRY ACQUIRED LEFT FOOT Z471 AFTERCARE 03-29-2016 [place] FOLLOWING MEDICAL JOINT IMAGING ASS REPLACEMENT SURGERY Z8739 PERSONAL HX 03-29-2016 [facility] OT DZ [facility] MUSCULOSKEL INC SYS&CONNECT V TISS P59684 PRESENCE OF 03-29-2016 [place] OTHER MEDICAL ORTHOPEDIC IMAGING ASS JOINT IMPLANTS Z9889 OTHER 03-29-2016 [facility] SPECIFIED [facility] POSTPROCEDU INC [facility] STATES I64940 OTHER LONG 02-29-2016 [facility] TERM [facility] CURRENT INC DRUG THERAPY Z1231 ENCOUNTER 02-22-2016 [place] SCREENING MEDICAL MAMMO MALIG IMAGING ASS NEOPLASM BREAST Z4789 ENCOUNTER 02-15-2016 [place] FOR OTHER MEDICAL ORTHOPEDIC IMAGING ASS AFTERCARE M545 LOW BACK 02-14-2016 [facility] PAIN [facility] INC Z0000 ENCOUNTER 02-03-2016 [facility] GEN ADULT [facility] MED EXAM INC W/O ABNORMAL FIND [id number] ALLERGY 01-19-2016 [facility] UNSPECIFIED PHYSICIANS INITIAL GROUP ENCOUNTER M4696 UNS 01-15-2016 [place] INFLAMMATOR MEDICAL Y IMAGING ASS SPONDYLOPAT HY LUMBAR REGION M5136 OTH 01-15-2016 [place] INTERVERTEB MEDICAL RAL DISC IMAGING ASS DEGEN LUMBAR REGION M479 SPONDYLOSIS 01-04-2016 [facility] UNSPECIFIED INC M5090 CERVICAL 01-04-2016 [facility] DISC [facility] DISORDER INC UNS UNS CERVICAL REGION M5010 CERVICAL 12-11-2015 JACKLYN FUENTES, DISC D/O , PSC W/RADICULOP ATHY UNS CERV RGN M2012 HALLUX 12-07-2015 [facility] VALGUS [facility] ACQUIRED INC LEFT FOOT G62261 ANKYLOSIS 12-07-2015 [facility] LEFT FOOT [facility] INC I209 ANGINA 11-27-2015 [facility] PECTORIS LAR UNSPECIFIED CONSULTANTS O R9439 ABNORMAL 11-27-2015 [facility] RESULT OTH LAR CARDIOVASCU CONSULTANTS LR FUNCTION O STUDY B000 ECZEMA 11-22-2015 [facility] HERPETICUM PHYSICIANS, [facility] E119 TYPE 2 11-22-2015 [facility] DIABETES [facility] MELLITUS INC WITHOUT COMPLICATIO NS L259 UNSPECIFIED 11-22-2015 [facility] CONTACT [facility] DERMATITIS INC UNSPECIFIED CAUSE I208 OTHER FORMS 11-11-2015 [facility] OF ANGINA LAR PECTORIS CONSULTANTS O I340 NONRHEUMATI 11-11-2015 [facility] INSUFFICIEN CY I517 CARDIOMEGAL 11-11-2015 [facility] I739 PERIPHERAL 11-11-2015 [place] VASCULAR MEDICAL DISEASE IMAGING ASS UNSPECIFIED I81699 ENCOUNTER 11-06-2015 [facility] FOR OTHER MEM [facility]OS[facility] PREPROCEDUR INC AL EXAMINATION N93834 PAIN IN 11-03-2015 YUSEF CHILO LEFT FOOT E38913 PAIN IN 11-03-2015 [facility] CHILO LEFT TOES R011 CARDIAC 11-02-2015 [facility] MURMUR PHYSICIANS UNSPECIFIED GROUP M7732 CALCANEAL 10-20-2015 [place] SPUR LEFT MEDICAL FOOT IMAGING ASS R102 PELVIC AND 09-07-2015 [facility] PERINEAL PHYSICIANS PAIN GROUP R1030 LOWER 09-07-2015 [facility] ABDOMINAL PHYSICIANS PAIN GROUP UNSPECIFIED R1031 RIGHT LOWER 09-07-2015 [facility] QUADRANT PHYSICIANS PAIN GROUP R591 GENERALIZED 09-07-2015 [facility] ENLARGED PHYSICIANS LYMPH NODES GROUP K5730 DIVERTICULO 08-12-2015 [place] SIS LG MEDICAL INTEST W/O IMAGING ASS PERF/ABSC W/O BLEED K5900 CONSTIPATIO 08-12-2015 [place] N MEDICAL UNSPECIFIED IMAGING ASS R197 DIARRHEA 08-12-2015 [facility] UNSPECIFIED MEDICAL IMAGING ASS 93153 URINARY 07-09-2015 [facility] FREQUENCY [facility] INC 5990 URINARY 06-30-2015 [facility] TRACT [facility] INFECTION INC SITE NOT SPECIFIED 6259 UNSPEC 06-30-2015 [place] SYMPTOM MEDICAL ASSOC IMAGING ASS W/FEMALE GENITAL ORGANS 7831 ABNORMAL 06-30-2015 [facility] 69588 UNSPECIFIED 06-30-2015 [place] URINARY MEDICAL INCONTINENC IMAGING ASS E 90557 UNSPECIFIED 06-25-2015 YUSEFKATHI WOO REFLEX SYMPATHETIC DYSTROPHY 34001 UNSPECIFIED 06-25-2015 [facility] CHILO ENTHESOPATH Y OF ANKLE AND TARSUS 30009 EXOSTOSIS 06-25-2015 [facility] CHILO OF UNSPECIFIED SITE 7351 HALLUX 06-25-2015 [facility] CHILO VARUS V571 OTHER 06-16-2015 [facility] 4739 UNSPECIFIED 06-03-2015 [facility] 4019 UNSPECIFIED 05-20-2015 [facility] ESSENTIAL LAR HYPERTENSIO CONSULTANTS N O 4139 OTHER AND 05-20-2015 [facility] UNSPECIFIED PHYSICIANS ANGINA GROUP PECTORIS 76397 SHORTNESS 05-20-2015 [facility] OF [place] O 35152 CHEST PAIN 05-20-2015 [facility] UNSPECIFIED LAR CONSULTANTS O 7220 DISPLCMT 05-12-2015 [place] CERV MEDICAL INTERVERT IMAGING ASS DISC WITHOUT MYELOPATHY 7224 DEGENERATIO 05-12-2015 [place] N OF MEDICAL CERVICAL IMAGING ASS INTERVERTEB RAL DISC 7231 CERVICALGIA 05-12-2015 [facility] 7820 DISTURBANCE 05-12-2015 [place] OF SKIN MEDICAL SENSATION IMAGING ASS 3559 MONONEURITI 05-01-2015 [facility] S OF PHYSICIANS UNSPECIFIED GROUP SITE 7852 UNDIAGNOSED 05-01-2015 [facility] CARDIAC PHYSICIANS MURMURS GROUP 58269 OBESITY, 04-15-2015 [facility] UNSPECIFIED [facility] 4292 UNSPECIFIED 04-15-2015 [facility] CARDIOVASCU LAR DISEASE 7295 PAIN IN 04-15-2015 [facility] SOFT [facility] TISSUES OF LIMB 35323 DISORDER OF 04-15-2015 [place] BONE AND [facility] CARTILAGE UNSPECIFIED 17647 CLOSED 04-15-2015 [facility] FRACTURE OF [facility] METATARSAL BONE 32333 CONTUSION 04-15-2015 [place] OF FOOT [facility] 2720 PURE 03-08-2015 [facility] 9597 INJURY 03-08-2015 [facility] [place] OTHER&UNSPE RADIOLOGY CIFIED KNEE LEG ANKLE&FOOT E8888 OTHER FALL 03-08-2015 [facility] V5869 LONG-TERM 03-08-2015 [facility] (CURRENT[facility] USE OF HOSPITAL OTHER MEDICATIONS 2724 OTHER AND 02-16-2015 [facility] UNSPECIFIED [facility] HYPERLIPIDE LUIS 43464 OTHER 02-16-2015 [facility] 7821 RASH AND 02-16-2015 [facility] NONSPECIFIC HOSPITAL SKIN ERUPTION V4589 OTHER 02-16-2015 [facility] POSTSURGICA [facility] OTHER 2810 PERNICIOUS 02-13-2015 P[facility] FUENT[facility] ANEMIA 6929 CONTACT 02-13-2015 P[facility] FUENT[facility] DERMATITIS& OTHER ECZEMA DUE UNSPEC CAUSE 63254 OSTEOARTHRO 01-21-2015 [facility] [place] S[facility] UNSPEC RADIOLOGY WHETHER GEN/LOC ANK&FOOT 45732 PAIN IN 01-21-2015 [place] JOINT, [facility] ANKLE AND HOSPITAL FOOT 4549 ASYMPTOMATI 12-22-2014 PAM FUENTES C VARICOSE VEINS 27061 UNS [facility] 11-28-2014 [place] COMPL INT ANESTHESIA ORTHOPEDIC GROUP PS DEVC IMPLANT&[place] [address] OTH COMPS 11-28-2014 [place] DUE OT [facility] INTRL ORTHOPED DEVICE IMPL&GFT V1582 PERS HX 11-28-2014 [facility] TOBACCO USE [facility] V454 ARTHRODESIS 11-28-2014 [facility] V5399 FITTING AND 11-28-2014 [facility] OTHER DEVICE V5401 ENCOUNTER 11-28-2014 [facility] REMOVAL OF [facility] INTERNAL [facility] FIXATION DEVICE V5866 LONG-TERM 11-28-2014 [facility] USE OF [facility] V7283 OTHER 11-25-2014 [facility] [place] SPECIFIED RADIOLOGY PRE-OPERATI VE EXAMINATION 4599 UNSPECIFIED 11-24-2014 PAM FUENTES CIRCULATORY SYSTEM DISORDER V692 PROBLEMS 10-17-2014 [facility] RELATED TO LISSA [facility]UAL [facility] 29204 ACUTE 10-14-2014 [facility] IS DUE OT ASSOCIATES INFECTIOUS PS ORGANISMS 7905 OTHER 10-06-2014 [facility] NONSPECIFIC [facility] ABNORMAL HOSPITAL SERUM ENZYME LEVELS 7812 ABNORMALITY 08-12-2014 [facility] GAIT 6827 CELLULITIS 07-18-2014 [facility] AND [facility] EXCEPT TOES 31347 NON-HEALING 07-16-2014 [facility] WOUND NEC 8260 CLOSED 07-15-2014 [facility] FRACTURE OF ONE OR MORE PHALANGES OF FOOT 35313 DISRUPTION 07-15-2014 HERACLIO ARRIETA OF EXTERNAL OPERATION SURGICAL WOUND 7352 HALLUX 07-09-2014 [facility] V5409 OTH 07-09-2014 [facility] [place] [facility]ARE RADIOLOGY INVOLVING INTERNAL FIXATION DEVICE V5419 AFTERCARE 06-16-2014 [facility] TRAUMATIC FRACTURE OTHER BONE V6700 FOLLOW-UP 05-28-2014 [facility] [place] EXAMINATION RADIOLOGY FOLLOWING UNSPEC SURGERY 8920 OPEN WOUND 05-26-2014 [facility] FT NO TOE HEALTHCARE ALONE CENTERS WITHOUT MENTION COMP 84545 NAUSEA 05-02-2014 ST [facility] 4011 ESSENTIAL 05-01-2014 TEJ SESAY MD N, [place] SRV 60289 CORONARY 05-01-2014 TEJ CURRIE MD OSIS KANATAK CONSULTING CORONARY SRV ARTERY 2725 LIPOPROTEIN 04-30-2014 [facility] S V7284 UNSPECIFIED 04-30-2014 [facility] [place] RADI[facility] PRE-OPERATI VE EXAMINATION 69457 SWELLING OF 04-23-2014 [facility] [place] LIMB RADIOLOGY 4439 UNSPECIFIED 04-04-2014 TEJ COSBY PERIPHERAL VASCULAR CONSULTING DISEASE SRV 4479 UNSPECIFIED 04-02-2014 [facility] DISORDERS PRIMARY OF ARTERIES CARE CENTER AND ARTERIOLES 26806 STIFFNESS 04-02-2014 [facility] OF JOINT PRIMARY NEC ANKLE CARE CENTER AND FOOT 28027 UNSPECIFIED 03-07-2014 [facility] CELLULITIS AND ABSCESS OF TOE 8261 OPEN 03-07-2014 [facility] FRACTURE OF COMMUNITY ONE OR HOSPITAL MORE PHALANGES OF FOOT 6821 CELLULITIS 02-21-2014 [facility] AND ABSCESS [facility] OF [facility] 25772 DIAB W/O 02-17-2014 [facility] COMP TYPE [facility] II/UNS NOT INC STATED UNCNTRL 7962 ELEVATED BP 02-17-2014 [facility] READING [facility] WITHOUT DX INC HYPERTENSIO N 67202 ESOPHAGEAL 02-16-2014 [place] REFLUX [facility] E8859 FALL FROM 02-05-2014 VORESTEVAN DAMI OTHER SLIPPING TRIPPING OR STUMBLING 66096 OSTEOARTHRO 01-03-2014 [facility] SIS UNSPEC COMMUNITY WHETHER HOSPITAL GEN/LOC LOWER LEG 14265 PAIN IN 01-03-2014 [facility] [place] JOINT, RADIOLOGY LOWER LEG 7919 OTHER 01-03-2014 [facility] NONSPECIFIC COMMUNITY FINDING HOSPITAL EXAMINATION OF URINE 8930 OPEN WOUND 12-27-2013 [facility] TOE WITHOUT MENTION COMPLICATIO N 59991 UNSPECIFIED 12-23-2013 [facility] S 56340 OSTEOARTHRO 11-28-2013 [facility] [place] S UNSPEC RADIOLOGY WHETHER GEN/LOC SHLDR REGION 43041 PAIN IN 11-28-2013 [facility] REGION V7612 OTHER 11-28-2013 [facility] [place] SCREENING RADIOLOGY MAMMOGRAM V8534 BODY MASS 08-06-2013 [facility] 34.0-34.9 ADULT V016 CONTACT 07-23-2013 [facility] WITH OR DIAGNOSTICS EXPOSURE TO VENEREAL DISEASES 93083 PAINFUL 06-30-2013 [facility] RESPIRATION [facility]ERGENCY SERVICES 70186 OTHER 06-30-2013 [facility] INJURY OF EMERGENCY CHEST WALL SERVICES 4610 ACUTE 05-21-2013 [facility] MAXILLARY PRIMARY SINUSITIS CARE CENTER 4619 ACUTE 05-21-2013 [facility] S[facility]USITIS, DAUGHTERS UNSPECIFIED MEDICAL SPEC 7840 HEADACHE 05-21-2013 [facility] PRIMARY CARE CENTER 9220 CONTUSION 01-18-2013 [facility] BREAST EMERGENCY SERVICES 83879 CONTUSION 01-18-2013 [facility] UPPER EMERGENCY ARM SERVICES E8881 FALL 01-18-2013 [facility] RESULTING EMERGENCY IN STRIKING SERVICES AGAINST OTHER OBJECT 4240 MITRAL 09-19-2012 [facility], VALVE INSECTICIDE EXPERT DISORDERS [facility] 45108 PRECORDIAL 09-19-2012 [facility], PAIN INSECTICIDE EXPERT [facility]OS 7242 LUMBAGO 06-21-2012 [facility] 8404 ROTATOR 06-07-2012 [facility] [place] [address] PAIN IN 04-07-2012 [facility] JOINT COMMUNTIY PELVIC HOSPITA REGION AND THIGH 6160 CERVICITIS 04-06-2012 PAM GINA AND ENDOCERVICI TIS 6250 DYSPAREUNIA 03-01-2012 [facility] [address] REFLUX 01-10-2012 PATHOLOGY & ESOPHAGITIS CYTOLOGY LAB 63361 ACUTE 01-10-2012 [place] [facility] GASTRITIS SERV WITHOUT FOUNDATIO MENTION OF HEMORRHAGE 59746 OTHER SPEC 01-10-2012 PATHOLOGY & GASTRITIS CYTOLOGY WITHOUT LAB MENTION HEMORRHAGE 5533 DIAPHRAGMAT 01-10-2012 [place] [facility] SRIKANTH W/O SERV MENTION FOUNDATIO OBSTRUCTION /GANGREN 7871 HEARTBURN 01-10-2012 [facility] SERV F[facility]AT[facility] 98346 DYSPHAGIA 01-10-2012 [place] [facility] UNSPECIFIED SERV FOUNDATIO 0340 STREPTOCOCC 12-30-2011 [facility]ORE [facility] THROAT [facility] PS 2777 DYSMETABOLI 11-29-2011 [facility], C SYNDROME INSECTICIDE EXPERT X [facility] HOS 67885 UNSPECIFIED 11-29-2011 [facility], INSECTICIDE EXPERT ARTHROPATHY [facility] SITE HOS UNSPECIFIED 4730 CHRONIC 11-04-2011 [facility] MAXILLARY [facility]ALTH SINUSITIS ASSOCIATES PS 9063 LATE EFFECT 09-23-2011 [facility] OF HOSPITAL CONTUSION 9599 INJURY 09-23-2011 [facility] OTHER AND RADIOLOGY UNSPECIFIED ASSOCIAT UNSPECIFIED SITE 4779 ALLERGIC 07-21-2011 [facility] RHINITIS HEALTH CAUSE ASSOCIATES UNSPECIFIED PS 2722 MIXED 07-14-2011 [place] HYPERLIPIDE [facility] 3278 OTHER 07-14-2011 [place] ORGANIC [facility] SLEEP HOSPITAL DISORDERS 25224 COR 07-14-2011 [place] ATHEROSLERO [facility] UNSPEC HOSPITAL TYPE VESSEL [place]AN[place]/ALYSA T 7851 PALPITATION 06-02-2011 TEJ Ghosh [place] CONSULTING SRV 54226 OTHER CHEST 05-27-2011 [facility] 30231 05-04-2011 [facility] PS 2662 OTHER 04-22-2011 [facility] B-COMPLEX [facility] DEFICIENCIE [facility] S PS 6822 CELLULITIS 03-24-2011 [facility] AND ABSCESS EMERGENCY OF TRUNK SERVICES 6829 CELLULITIS 03-16-2011 [facility] OF ASSOCIATES UNSPECIFIED PS SITE 81899 OTHER 02-08-2011 [place] CHRONIC [facility] 4279 UNSPECIFIED 02-08-2011 [place] CARDIAC [facility] 4556 UNSPEC 02-08-2011 [place] HEMORRHOIDS [facility] WITHOUT HOSPITAL MENTION COMPLICATIO N 71092 UNSPECIFIED 02-08-2011 [facility] CONSTIPATIO N 5693 HEMORRHAGE 02-08-2011 [place] OF RECTUM ANESTHESIA AND ANUS GROUP PSC V1272 PERSONAL 02-08-2011 [place] HISTORY OF ANESTHESIA COLONIC GROUP PSC POLYPS 7247 DISORDERS 01-21-2011 [facility] [place] [address] OTHER 01-21-2011 [facility] [place] DISORDER OF RADIOLOGY COCCYX 7336 TIETZES 11-20-2010 [facility] DISEASE [facility] 1119 UNSPECIFIED 11-07-2010 [facility] SIS 35576 RESTLESS 11-07-2010 [place] LEGS [facility] 1105 DERMATOPHYT 10-22-2010 [facility] OSIS OF THE HEALTH BODY [facility] PS 7265 ENTHESOPATH 09-15-2010 [facility] Y OF HIP HEALTH REGION ASSOC[facility] PS V745 SCREENING 06-29-2010 [place] EXAMINATION [facility] VENEREAL DISEASE 7881 DYSURIA 05-03-2010 [facility] V0179 CONTACT OR 05-03-2010 [place] EXPOSURE TO [facility]ITY OTHER HOSPITAL VIRAL DISEASES 8461 SPRAIN AND 01-29-2010 [facility] STRAIN OF HEALTH SACROILIAC ASSOCIATES PS 3829 UNSPECIFIED 09-01-2009 [facility] OTITIS HEALTH MEDIA [facility] PSC 7908 UNSPECIFIED 09-01-2009 [facility] PSC 95398 INSOMNIA 07-30-2009 [facility] UNSPECIFIED HEALTH ASSOCIATES PSC V7231 ROUTINE 07-28-2009 PATHOLOGY & GYNECOLOGIC CYTOLOGY AL LAB EXAMINATION 2721 PURE 06-12-2009 [facility] HYPERGLYCER HEALTH IDEMIA ASSOCIATES PSC 5939 UNSPECIFIED 11-24-2008 [place] [facility] 8471 THORACIC 11-24-2008 [facility] SPRAIN AND HEALTH STRAIN [facility] PSC 486 PNEUMONIA, 10-13-2008 [facility] ORGANISM HEALTH UNSPECIFIED ASSOCIATES PSC V4579 OTHER 10-12-2008 [facility] ACQUIRED RADIOLOGY ABSENCE OF ASSOCIATES ORGAN PSC 3804 IMPACTED 08-19-2008 PR[facility] CERUMEN [facility] [id number] DIARRHEA 07-17-2008 [facility] [id number] INTERNAL 07-08-2008 [place] [facility] WITHOUT HOSPITAL MENTION COMP V160 FM HX 07-08-2008 [place] MALIGNA[place] [facility] NEOPLASM HOSPITAL GASTROINTES TINAL TRACT [id number] SPECIAL 07-08-2008 [place] SCREENING ANESTHESIA FOR GROUP [facility] MALIGNANT NEOPLASMS COLON 19709 DISPLCMT 03-17-2008 [place] LUMBAR [facility] INTERVERT HOSPITAL DISC W/O MYELOPATHY 73302 OTHER&UNSPE 02-18-2008 [facility] [place] CIFIED DISC RADIOLOGY DISORDER OF LUMBAR REGION 86692 LUMP OR 12-27-2007 [place] [facility] V703 OTH GENERAL 11-06-2007 [facility] ACCT PURPOSES 02955 HYPERVENTIL 10-23-2007 [facility] EUGENIA GOINS DON R Medications Na ND Rx Da Fi Fi [...] NO 00 9- 9- 00 00 ve PA 51 20 20 71 AI IL 90 [...] 03 -2 -0 .0 00 TE ti PA 70 2- 9- 00 00 ve OL 83 20 20 71 AI OL 00 16 17 52 D 1 23 PH SAMUEL AR CC M #3 ER 91 4 25 MG TA B MO 60 10 10 0 30 30 WA 22 BR Ac RP 95 -1 -1 .0 L- 19 OD ti HI 10 7- 7- 00 MA 99 SK ve NE 65 20 20 RT 8 Y 37 11 11 KE SAMUEL 0 PH NN LF AR ET MA H ER CY M # 30 10 MG 04 93 TA BL ET TR 00 10 10 5 30 30 WA 70 BR Ac IL 07 -1 -1 .0 L- 97 OD ti IP 49 7- 7- 00 MA 73 SK ve IX 18 20 20 RT 3 Y [address] 0 PH NN AR ET 13 MA H 5 CY M MG # CA 10 PS 04 UL 93 E AZ 00 10 10 0 3. 3 [...] 10 MG 04 93 TA BL ET LO 54 08 09 2 30 30 WA 70 CO Ac VA 45 -1 -2 .0 L- [address] 80 8- 6- 00 MA 14 S ve AT 93 20 20 RT 6 PA IN 61 11 11 ME 0 PH LA 40 AR A MA MG CY # TA BL 10 ET 04 93 ME 62 08 09 5 30 30 WA 70 CO Ac TO 03 -1 -2 .0 L- 90 MB ti PA 70 8- 6- 00 MA 14 S ve OL 83 20 20 RT 7 PA OL 00 11 11 ME 1 PH LA SAMUEL AR A CC MA CY ER # 25 10 04 MG 93 TA B MO 60 09 09 0 30 30 WA 22 BR Ac RP 95 -1 -1 .0 L- 19 OD ti HI 10 6- 6- 00 MA 84 SK ve NE 65 20 20 RT 5 Y 27 11 11 KE SAMUEL 0 PH NN LF AR ET MA H ER CY M # 15 10 MG 04 93 TA BL ET LO 54 08 08 2 30 30 WA 70 CO Ac VA 45 -1 -1 .0 L- [address] 80 8- 8- 00 MA 14 S ve AT 93 20 20 RT 6 PA IN 61 11 11 ME 0 PH LA 40 AR A MA MG CY # TA BL 10 ET 04 93 ME 62 08 08 5 30 30 WA 70 CO Ac TO 03 -1 -1 .0 L- 90 MB ti PA 70 8- 8- 00 MA 14 S ve OL 83 20 20 RT 7 PA OL 00 11 11 ME 1 PH LA SAMUEL AR A CC MA CY ER # 25 10 04 MG 93 TA B MO 60 08 08 0 30 30 WA 22 BR Ac RP 95 -1 -1 .0 L- 19 OD ti HI 10 0- 0- 00 MA 66 SK ve NE 65 20 20 RT 8 Y 27 11 11 KE SAMUEL 0 PH NN LF AR ET MA H ER CY M # 15 10 MG 04 93 TA BL ET CR 00 08 08 5 30 30 WA 70 BR Ac ES 31 -1 -1 .0 L- 89 OD ti TO 00 0- 0- 00 MA 09 SK ve R 75 20 20 RT 2 Y 10 19 11 11 KE 0 PH NN MG AR ET MA H TA CY M BL # ET 10 04 93 00 07 07 0 21 7 WA [...] MG 04 93 TA BL ET SI 54 08 07 5 30 30 WA 70 BR Ac MV 45 -2 -0 .0 L- 46 OD ti 80 6- 3- 00 MA 26 SK ve TA 93 20 20 RT 7 Y TI 21 10 11 KE N 0 PH NN 40 AR ET MA H MG CY M # TA BL 10 ET 04 93 TR 00 08 07 5 30 30 [...] 10 MG 04 93 TA BL ET SAMUEL 53 06 06 0 20 10 MO 70 BR Ac LF 74 -0 -0 .0 L- 80 OD ti AM 60 1- 1- 00 MA 65 SK ve ET 27 20 20 RT 1 Y HO 20 11 11 KE XA 5 PH NN ZO AR ET LE MA H -T CY M MP # DS 10 04 TA 93 BL ET CE 68 06 06 0 30 10 WA 70 BR Ac PH 18 -0 -0 .0 L- 80 OD ti AL 00 1- 1- 00 MA 65 SK ve EX 12 20 20 RT 2 Y IN 20 11 11 KE 1 PH NN 50 AR ET 0 MA H MG CY M # CA PS 10 UL 04 E 93 AZ 00 05 05 0 3. 3 [...] MG 04 93 TA BL ET SI 54 08 04 5 30 30 WA 70 BR Ac MV 45 -2 -0 .0 L- 46 OD ti 80 6- 6- 00 MA 26 SK ve TA 93 20 20 RT 7 Y TI 21 10 11 KE N 0 PH NN 40 AR ET MA H MG CY M # TA BL 10 ET 04 93 TR 00 08 04 5 30 30 WA 70 BR Ac IL 07 -2 -0 .0 L- 46 OD ti IP 49 6- 6- 00 MA 26 SK ve IX 18 20 20 RT 8 Y [address] 0 PH NN AR ET 13 MA H 5 CY M MG # CA 10 PS 04 UL 93 E MO 60 03 03 0 30 30 [...] 04 93 TA BL ET SI 00 08 12 5 30 30 WA 70 BR Ac MV 09 -2 -2 .0 L- 46 OD ti 37 6- 9- 00 MA 26 SK ve TA 15 20 20 RT 7 Y TI 59 10 10 KE N 8 PH NN 40 AR ET MA H MG CY M # TA BL 10 ET 04 93 TR 00 08 12 5 30 30 WA 70 BR Ac IL 07 -2 -2 .0 L- 46 OD ti IP 49 6- 9- 00 MA 26 SK ve IX 18 20 20 RT 8 Y [address] 0 PH NN AR ET 13 MA H 5 CY M MG # CA 10 PS 04 UL 93 E MO 60 12 12 0 30 30 [...] 04 93 TA BL ET SI 00 08 10 5 30 30 WA 70 BR Ac MV 09 -2 -2 .0 L- 46 OD ti 37 6- 8- 00 MA 26 SK ve TA 15 20 20 RT 7 Y TI 59 10 10 KE N 8 PH NN 40 AR ET MA H MG CY M # TA BL 10 ET 04 93 TR 00 08 10 5 30 30 WA 70 BR Ac IL 07 -2 -2 .0 L- 46 OD ti IP 49 6- 8- 00 MA 26 SK ve IX 18 20 20 RT 8 Y [address] 0 PH NN AR ET 13 MA H 5 CY M MG # CA 10 PS 04 UL 93 E SAMUEL 53 10 10 0 10 5 [...] 0 10 5 WA 70 BR Ac PA 37 -1 -1 .0 L- 47 OD [...] 04 93 TA BL ET SI 00 08 09 5 30 30 WA 70 BR Ac MV 09 -2 -0 .0 L- 46 OD ti 37 6- 6- 00 MA 26 SK ve TA 15 20 20 RT 7 Y TI 59 10 10 KE N 8 PH NN 40 AR ET MA H MG CY M # TA BL 10 ET 04 93 TR 00 08 09 5 30 30 WA 70 BR Ac IL 07 -2 -0 .0 L- 46 OD ti IP 49 6- 6- 00 MA 26 SK ve IX 18 20 20 RT 8 Y [address] 0 PH NN AR ET 13 MA H 5 CY M MG # CA 10 PS 04 UL 93 E MO 60 08 08 0 30 30 [...] 5 30 30 WA 70 BR Ac PA 00 -1 -1 .0 L- 43 OD ti EX 24 2- 2- 00 MA 37 SK ve A 11 20 20 RT 0 Y 5 53 10 10 KE MG 0 PH NN AR ET TA MA H BL CY M ET # 10 04 93 TR 00 03 07 1 [...] PS 04 UL 93 E SI 00 03 07 6 30 30 WA 70 BR Ac MV 09 -0 -2 .0 L- 36 OD ti 37 6- 7- 00 MA 94 SK ve TA 15 20 20 RT 5 Y TI 59 10 10 KE N 8 PH NN 40 AR ET MA H MG CY M # TA BL 10 ET 04 93 MO 60 07 07 0 [...] 04 93 TA BL ET AZ 00 07 07 0 3. 3 WA 70 BR Ac IT 78 -1 -1 00 L- 40 OD ti HR 11 4- 4- 0 MA 31 SK ve OM 94 20 20 RT 0 Y YC 13 10 10 KE IN 3 PH NN AR ET 50 MA H 0 CY M MG # TA 10 BL 04 ET 93 MO 60 06 06 0 30 [...] 04 93 TA BL ET TR 00 03 06 1 30 30 WA 70 BR Ac IL 07 -0 -1 .0 L- 36 OD ti IP 49 6- 4- 00 MA 94 SK ve IX 18 20 20 RT 4 Y [address] 0 PH NN AR ET 13 MA H 5 CY M MG # CA 10 PS 04 UL 93 E SI 00 03 06 6 30 30 WA 70 BR Ac MV 09 -0 -1 .0 L- 36 OD ti 37 6- 4- 00 MA 94 SK ve TA 15 20 20 RT 5 Y TI 59 10 10 KE N 8 PH NN 40 AR ET MA H MG CY M # TA BL 10 ET 04 93 BU 67 05 05 5 30 30 WA 70 BR Ac PA 76 -1 -1 .0 L- 33 OD ti OP 70 4- 4- 00 MA 59 SK ve IO 14 20 20 RT 7 Y N 13 10 10 KE HC 0 PH NN L AR ET XL MA H CY M 15 # 0 MG 10 04 TA 93 BL ET MO 60 05 05 0 30 30 WA 22 BR Ac RP 95 -1 -1 .0 L- 17 OD ti HI 10 4- 4- 00 MA 84 SK ve NE 65 20 20 RT 3 Y 37 10 10 KE SAMUEL 0 PH NN LF AR ET MA H ER CY M # 30 10 MG 04 93 TA BL ET CI 00 05 05 0 10 5 WA 70 BR Ac PA 37 -1 -1 .0 L- 33 OD ti OF 87 4- 4- 00 MA 59 SK ve LO 09 20 20 RT 6 Y XA 80 10 10 KE CI 1 PH NN N AR ET HC MA H L CY M 50 # 0 MG 10 04 TA 93 B MO 60 04 04 0 30 30 [...] MG UG CA PS UL E 00 07 01 00 30 30 RI [...] TA 4 BL ET TR 00 11 00 30 30 RI 81 BR Ac IL 07 -1 -2 .0 TE 66 OD ti IP 49 6- 8- 00 78 SK ve IX 18 20 20 AI Y [address] 0 PH NN AR ET 13 M H 5 #3 M MG 93 8 CA PS UL E 00 10 16 00 30 30 RI 38 BR Ac 59 -2 -2 .0 TE 93 OD ti 13 2- 8- 00 24 SK ve 51 20 20 AI Y 20 10 10 D KE 1 PH NN AR ET M H #3 M 91 4 MO 60 12 12 00 30 30 SO 33 BR Ac RP 95 -1 -3 .0 PE 10 OD ti HI 10 7- 1- 00 RS 38 SK ve NE 65 20 20 Y 37 09 09 FA KE SAMUEL 0 MS NN LF LY ET H ER DR M UG 30 MG TA BL ET SI 55 07 12 03 30 30 [...] M MG UG CA PS UL E TR 50 10 11 00 30 30 [...] MG DR M UG TA BL ET CI 60 09 09 00 15 30 RI 37 BR Ac TA 50 -1 -2 .0 TE 57 OD ti LO 52 8- 4- 00 24 SK ve PA 52 20 20 AI Y AM 00 09 09 D KE 1 PH NN HB AR ET R M H 40 #3 M 91 MG 4 TA BL ET TR 00 08 09 00 30 30 RI 37 BR Ac IL 07 -2 -2 .0 TE 31 OD ti IP 49 8- 4- 00 74 SK ve IX 18 20 20 AI Y [address] 0 PH NN AR ET 13 M H 5 #3 M MG 91 4 CA PS UL E MO 60 08 09 00 30 30 RI 37 BR Ac RP 95 -2 -1 .0 TE 31 OD ti HI 10 8- 0- 00 73 SK ve NE 65 20 20 AI Y 37 09 09 D KE SAMUEL 0 PH NN LF AR ET M H ER #3 M 91 30 4 MG TA BL ET SI 55 07 09 01 30 30 SO 31 BR Ac MV 11 -1 -1 .0 PE 79 OD ti 10 5- 0- 00 RS 31 SK ve TA 20 20 20 Y TI 00 09 09 FA KE N 5 MS NN 40 LY ET H MG DR M UG TA BL ET HY 59 12 09 02 30 30 SO [address] 74 -1 -1 .0 PE 09 OD ti OC 60 2- 0- 00 RS 98 SK ve HL 38 20 20 Y OR 20 08 09 FA KE OT 6 MS NN HI LY ET AZ H ID DR M E UG 12 .5 MG CP MO 60 07 08 00 30 30 [...] MG DR M UG TA BL ET HY 59 12 07 01 30 30 SO [address] 74 -1 -3 .0 PE 09 OD ti OC 60 2- 0- 00 RS 98 SK ve HL 38 20 20 Y OR 20 08 09 FA KE OT 6 MS NN HI LY ET AZ H ID DR M E UG 12 .5 MG CP MO 60 [...] M UG TA BL ET MO 60 05 06 00 30 30 RI 36 BR Ac RP 95 -2 -0 .0 TE 43 OD ti HI 10 6- 4- 00 48 SK ve NE 65 20 20 AI Y 37 09 09 D KE SAMUEL 0 PH NN LF AR ET M H ER #3 M 91 30 4 MG TA BL ET MO 60 04 05 [...] MG TA BL ET SI 55 11 04 03 30 30 SO 30 BR Ac MV 11 -0 -0 .0 PE 00 OD ti 10 4- 9- 00 RS 88 SK ve TA 20 20 20 Y TI 00 08 09 FA KE N 5 MS NN 40 LY ET H MG [address] M UG TA BL ET AM 00 03 04 00 30 30 RI 35 BR Ac LO 37 -2 -0 .0 TE 80 OD ti DI 85 7- 9- 00 78 SK ve PI 20 20 20 AI Y NE 97 09 09 D KE 7 PH NN BE AR ET SY M H LA #3 M TE 91 5 4 MG TA B TR 60 03 03 00 30 30 [...] 52 3- 6- 00 23 SK ve PA 52 20 20 AI Y AM 00 [...] 30 4 MG TA BL ET AM 68 03 02 01 30 30 SO 30 BR Ac LO 18 -2 -2 .0 PE 00 OD ti DI 00 7- 6- 00 RS 89 SK ve PI 75 20 20 Y NE 10 08 09 FA KE 3 MS NN BE LY ET SY H LA DR M TE UG 5 MG TA B CY 00 02 02 00 20 20 RI 35 BR Ac CL 37 -0 -2 .0 TE 28 OD ti OB 80 9- 6- 00 91 SK ve EN 75 20 20 AI Y ZA 11 09 09 D KE PA 0 PH NN IN AR ET E [...] M UG TA BL ET MO 60 02 02 00 30 30 [...] 91 30 4 MG TA BL ET RE 16 12 01 00 30 7 RI 34 BR Ac SP 47 -2 -1 .0 TE 87 OD ti AI 70 9- 5- 00 76 SK ve RE 30 20 20 AI Y -3 60 08 09 D KE 0 1 PH NN CA AR ET PS M H UL #3 M E 91 4 AV 00 12 01 00 7. 7 [...] M H #3 M 91 4 AM 68 12 12 00 30 30 [...] ET M H #3 M 93 8 SI 55 12 12 00 30 30 SO 30 BR Ac MV 11 -0 -1 .0 PE 00 OD ti 10 3- 8- 00 RS 88 SK ve TA 20 20 20 Y TI 00 08 08 FA KE N 5 MS NN 40 LY ET H MG [address] M UG TA BL ET 00 11 11 00 30 30 RI [...] 91 CA 4 PS UL E 58 11 11 00 30 30 RI 34 BR Ac 17 -0 -2 .0 TE 31 OD ti 70 4- 0- 00 79 SK ve 32 20 20 AI Y 00 08 08 D KE 4 PH NN AR ET M H #3 M 91 4 58 10 10 00 30 30 RI [...] 52 2- 9- 00 28 SK ve PA 52 20 20 AI Y AM 00 [...] #3 M TA 91 BL 4 ET AM 00 03 08 03 30 30 [...] M 91 TA 4 BL ET 58 07 08 00 30 30 RI 33 BR Ac 17 -3 -1 .0 TE 41 OD ti 70 1- 4- 00 30 SK ve 32 20 20 AI Y 00 08 08 D KE 4 PH NN AR ET M H #3 M 91 4 MO 60 06 07 00 30 30 RI 33 BR Ac RP 95 -2 -1 .0 TE 12 OD ti HI 10 8- 7- 00 35 SK ve NE 65 20 20 AI Y 37 08 08 D KE SAMUEL 0 PH NN LF AR ET M H ER #3 M 91 30 4 MG TA BL ET CI 65 06 07 00 15 30 RI 33 BR Ac TA 86 -2 -0 .0 TE 09 OD ti LO 20 5- 3- 00 24 SK ve PA 00 20 20 AI Y AM 70 08 08 D KE 1 PH NN HB AR ET R M H 40 #3 M 91 MG 4 TA BL ET LO 00 06 07 00 30 30 RI 33 BR Ac RA 78 -1 -0 .0 TE 01 OD ti TA 15 7- 3- 00 78 SK ve DI 07 20 20 AI Y NE 70 08 08 D KE 1 PH NN 10 AR ET M H MG #3 M 91 TA 4 BL ET AM 00 03 07 02 30 30 RI 32 BR Ac LO 37 -2 -0 .0 TE 22 OD ti DI 85 7- 3- 00 66 SK ve PI 20 20 20 AI Y NE 97 08 08 D KE 7 PH NN BE AR ET SY M H LA #3 M TE 91 5 4 MG TA B PA 00 06 07 00 21 6 RI [...] #3 M 91 4 AM 00 03 05 01 30 30 RI 32 No Ac LO 37 -2 -0 .0 TE 22 t ti DI 85 7- 8- 00 66 Av ve PI 20 20 20 AI ai NE 97 08 08 D la 7 PH bl BE AR e SY M LA #3 TE 91 5 4 MG TA B TR 00 05 05 00 90 30 RI 32 No Ac AM 09 -0 -0 .0 TE 59 t ti AD 30 2- 8- 00 74 Av ve OL 05 20 20 AI ai 80 08 08 D la HC 1 PH bl L AR e 50 M #3 MG 91 4 TA BL ET FU 00 11 05 02 30 30 RI 31 No Ac RO 37 -2 -0 .0 TE 11 t ti SE 80 6- 8- 00 70 Av ve MS 21 20 20 AI ai DE 61 07 08 D la 0 PH bl 40 AR e M MG #3 91 TA 4 BL ET CL 00 04 05 00 30 30 [...] bl AR e M #3 91 4 AM 00 03 04 00 30 30 RI 32 No Ac LO 37 -2 -1 .0 TE 22 t ti DI 85 7- 0- 00 66 Av ve PI 20 20 20 AI ai NE 97 08 08 D la 7 PH bl BE AR e SY M LA #3 TE 91 5 4 MG TA B TR 00 04 04 00 90 30 RI 32 No Ac AM 09 -0 -1 .0 TE 29 t ti AD 30 2- 0- 00 25 Av ve OL 05 20 20 AI ai 80 08 08 D la HC 1 PH bl L AR e 50 M #3 MG 91 4 TA BL ET ME 60 03 04 00 30 30 [...] Procedure DOS Code Location Performer Comment RADEX 02504 [facility] SP[facility] 7 RADIOLOGY LUMBOSACR AL MINIMUM 4 VIEWS RADEX 57991 [facility] 7 RADIOLOGY CERVICAL 4 OR 5 VIEWS ECG 39323 [facility] ROUTINE 6 PHYSICIAN MAT ECG S GROUP W/LEAST 12 LDS I&R ONLY ECG 04449 [facility]OUTINE 6 [facility] ECG INC INC W/LEAST 12 LDS TRCG ONLY W/O I&R HOSPITAL G0463 [facility] OUTPATIEN 6 [facility] T CLIN INC [place] VISIT ASSESS & [place] [address] [facility] CERVICAL 6 MEDICAL SPINE W/O IMAGING CONTRAST ASS MATERIAL RADIOLOGI 40630 [facility] C EXAM 6 MEDICAL NI[facility] CHEST 2 IMAGING VIEWS ASS FRONTAL&L ATERAL RADEX 63286 [facility] SPINE 6 MEDICAL [facility] CERVICAL IMAGING [address] [place] [address] [place] [address] [facility] ABDOMEN & 6 MEDICAL PELVIS IMAGING W/CONTRAS ASS T MATERIAL OPHTH 50961 [facility] 6 GRE GRE XM&EVAL COMPRE NEW PT 1/> VST DRUG TST G0477 [facility] PRESUMP;C 6 [facility] PBL BEING INC INC READ DC OPT OBV ONLY DRUG TEST G0481 [facility] DEFINITV 6 [facility] ID INC INC METH P DAY 8-14 DRUG CL ECG 83106 [facility] ROUTINE 6 PHYSICIAN MAT ECG S GROUP W/LEAST 12 LDS I&R ONLY ECG 32283 [facility] ROUTINE 6 [facility] ECG INC INC W/LEAST 12 LDS TRCG ONLY W/O I&R ECG 14218 [facility] ROUTINE 6 [facility] W/LEAST 12 LDS TRCG ONLY W/O I&R ECG 20995 [facility] ROUTINE 6 MD ECG CONSULTIN W/LEAST G SRV 12 LDS I&R ONLY HEPATIC 43898 [facility] FUNCTION 6 [facility] COLLECTIO 29754 [facility] N VENOUS 6 [facility] VENIPUNCT URE BASIC 99022 [facility] METABOLIC [address] [place] [address] CALCIUM TOTAL LIPID 41892 [facility] PANEL [address] [place] [address] RADIOLOGI 70048 [facility] C 6 MEDICAL EXAMINATI IMAGING ON FOOT 2 ASS VIEWS RADEX 97024 [facility] FOOT 6 [facility] COMPLETE INC INC MINIMUM 3 VIEWS ECG 68870 [facility] ROUTINE 6 PHYSICIAN MAT ECG S GROUP W/LEAST 12 LDS I&R ONLY ECG 55981 [facility] ROUTINE 6 [facility] ECG INC INC W/LEAST 12 LDS TRCG ONLY W/O I&R DRUG TST G0477 [facility] PRESUMP;C 6 [facility] PBL BEING INC INC READ DC OPT OBV ONLY DRUG TEST G0481 [facility] DEFINITV [address] [facility] [address] [facility] [address] ID INC INC METH P DAY 8-14 DRUG CL SCREENING G0202 [facility] 6 MEDICAL NIKKI MAMMOGRAP IMAGING HY RAPHAEL ASS INCL CAD WHEN PERFORMD DRUG TST G0477 [facility] PRESUMP;C 6 [facility] PBL BEING INC INC READ DC OPT OBV ONLY COMPUTER- 13388 [facility] AIDED 6 MEDICAL NIKKI DETECTION IMAGING ASS SCREENING MAMMOGRAP HY THERAPEUT 71206 [facility] IC PX 1/> 6 [facility] AREAS INC INC EACH 15 MIN EXERCISES E-STIM G0283 [facility] 1/> AREAS 6 [facility] OTH THAN INC INC WND CARE PART TX PLAN APPLICATI 17083 [facility] ON 6 [facility] MODALITY INC INC 1/> AREAS HOT/COLD PACKS RADEX 37322 [facility] FOOT 6 [facility] COMPLETE INC INC MINIMUM 3 VIEWS RADIOLOGI 12305 [facility] C 6 MEDICAL EXAMINATI IMAGING ON FOOT 2 ASS VIEWS THERAPEUT 51603 [facility] IC PX 1/> 6 [facility] AREAS INC INC EACH 15 MIN EXERCISES APPLICATI 60888 [facility] ON 6 [facility] MODALITY INC INC 1/> AREAS HOT/COLD PACKS E-STIM G0283 [facility] 1/> AREAS 6 [facility] OTH THAN INC INC WND CARE PART TX PLAN E-STIM G0283 [facility] 1/> AREAS 6 [facility] OTH THAN INC INC WND CARE PART TX PLAN APPLICATI 38935 [facility] ON 6 [facility] MODALITY INC INC 1/> AREAS [place] [address] [facility] THYROID 6 [facility] STIMULATI INC INC NG HORMONE TSH HEMOGLOBI 95802 [facility] N 6 [facility] GLYCOSYLA INC INC JEREMY A1C BLOOD 18875 [facility] COUNT 6 [facility] COMPLETE INC INC AUTO&AUTO DIFRNTL WBC COMPREHEN 34539 [facility] SIVE 6 [facility] METABOLIC INC INC PANEL COLLECTIO 83654 [facility] N VENOUS 6 [facility] [place] [address] [facility] THYROXINE 6 [facility] TOTAL INC INC THERAPEUT 41359 [facility] IC PX 1/> 6 [facility] AREAS INC INC EACH 15 MIN EXERCISES THERAPEUT 36062 [facility] IC PX 1/> 6 [facility] AREAS INC INC EACH 15 MIN EXERCISES E-STIM G0283 [facility] 1/> AREAS 6 [facility] OTH THAN INC INC WND CARE PART TX PLAN APPLICATI 82394 [facility] ON 6 [facility] MODALITY INC INC 1/> AREAS HOT/COLD PACKS APPL 66750 [facility] MODALITY 6 [facility] 1/> AREAS INC INC VASOPNEUM ATIC DEVICES MANUAL 44025 [facility] THERAPY 6 [facility] TQS 1/> INC INC REGIONS EACH 15 MINUTES MANUAL 92061 [facility] THERAPY 6 [facility] TQS 1/> INC INC REGIONS EACH 15 MINUTES APPL 86104 [facility] MODALITY 6 [facility] 1/> AREAS INC INC VASOPNEUM ATIC DEVICES THERAPEUT 61622 [facility] IC PX 1/> 6 [facility] AREAS INC INC EACH [address] [facility] IC 6 PHYSICIAN MENG PROPHYLAC S GROUP TIC/DX INJECTION SUBQ/IM PHYSICAL 51893 [facility] THERAPY 6 [facility] EVALUATIO INC INC N 3D 29677 [facility] RENDERING 6 MEDICAL NIKKI W/INTERP IMAGING & ASS POSTPROCE SS SUPERVISI ON MRI 75310 [facility] SPINAL 6 [facility] CANAL INC INC LUMBAR W/O CONTRAST MATERIAL MANUAL 97184 [facility] THERAPY 6 [facility] TQS 1/> INC INC REGIONS EACH 15 MINUTES THERAPEUT 63064 [facility] IC PX 1/> 6 [facility] AREAS INC INC EACH 15 MIN EXERCISES THERAPEUT 73049 [facility] IC PX 1/> 6 [facility] AREAS INC INC EACH 15 MIN EXERCISES MANUAL 79258 [facility] THERAPY 6 [facility] TQS 1/> INC INC REGIONS EACH 15 MINUTES MANUAL 41651 [facility] THERAPY 6 [facility] TQS 1/> INC INC REGIONS EACH 15 MINUTES THERAPEUT 27276 [facility] IC PX 1/> 6 [facility] AREAS INC INC EACH 15 MIN EXERCISES PHYSICAL 57128 [facility] THERAPY 6 [facility] EVALUATIO INC INC N RADIOLOGI 32343 [facility] C 6 MEDICAL EXAMINATI IMAGING ON FOOT 2 ASS VIEWS RADEX 72606 [facility] FOOT 6 [facility] COMPLETE INC INC MINIMUM 3 VIEWS RADIOLOGI 32536 [facility] C 6 [facility] EXAMINATI INC INC ON FOOT 2 VIEWS CONNECTIV C1762 [facility] E TISSUE 6 [facility] HUMAN INC INC FLUOROSCO 61830 [facility] PY SPX UP 6 [facility] TO 1 INC INC HOUR PHYS/QHP TIME ANES OPEN 36568 [facility] DARRYN PROC 6 ANESTH BONES OF THE LOWER BLUE LEG/ANKLE /FOOT NOS CORRJ 96599 [facility] HALLUX 6 [facility] VALGUS INC INC W/WO SESMDC RESCJ JT W/IMPLT INJECTION J2405 [facility] 6 [facility] ONDANSETR INC INC ON HCL PER 1 MG DRUG TST G0477 [facility] PRESUMP;C 6 [facility] PBL BEING INC INC READ DC OPT OBV ONLY IV DOP 45560 CARDIOVAS RACHEL SELVIN&/OR 6 CULAR MAT PRESS CONSULTAN C/AYLA TS O RSRV MENDEL 1ST VSL CATH PLMT 19010 CARDIOVAS RACHEL L HRT & 6 CULAR MAT ARTS CONSULTAN W/NJX & TS O ANGIO IMG S&I ECG 16139 [facility] ROUTINE 6 [facility] ECG INC INC W/LEAST 12 LDS TRCG ONLY W/O I&R ECHO 80600 KAYLYNN AFSHAN GIANG [facility] R-T 6 MEDICAL 2D SERV W/WOM-MOD FOUNDATIO E COMPL N SPEC&COLR D NON-INVAS 68918 [facility] ALL CHRISTI 6 MEDICAL PHYSIOLOG IMAGING IC STUDY ASS EXTREMITY 3 LEVLS MYOCARDIA 47022 CARDIOVAS RACHEL L SPECT 6 CULAR MAT MULTIPLE CONSULTAN STUDIES TS O COLLECTIO 32598 [facility] N VENOUS 6 [facility] BLOOD INC INC VENIPUNCT URE COMPREHEN 56364 [facility] PACHECOON SIVE 6 [facility] METABOLIC INC INC PANEL BLOOD 08718 [facility] COUNT 6 [facility] COMPLETE INC INC AUTO&AUTO DIFRNTL WBC HEMOGLOBI 97144 [facility] N 6 [facility] GLYCOSYLA INC INC JEREMY A1C ECG 75184 [facility] ROUTINE 6 [facility] ECG INC INC W/LEAST 12 LDS TRCG ONLY W/O I&R RADIOLOGI 46386 [facility] ALL C 6 MEDICAL EXAMINATI IMAGING ON FOOT 2 ASS VIEWS RADEX 69331 [facility] FOOT 6 [facility] COMPLETE INC [place] MIN[address] [place] [address] [facility] ALL ABDOMEN & 5 MEDICAL PELVIS IMAGING W/CONTRAS ASS T MATERIAL LOCM Q9967 [facility] 300-399 5 [facility] MG/ML INC INC IODINE CONCENTRA TION PER ML E-STIM G0283 [facility] 1/> AREAS 5 [facility] OTH THAN INC INC WND CARE PART TX PLAN APPLICATI 45114 [facility] ON 5 [facility] MODALITY INC INC 1/> AREAS HOT/COLD PACKS APPL 87252 [facility] MODALITY 5 [facility] 1/> AREAS INC INC ULTRASOUN D EA 15 MIN BLOOD 71117 [facility] COUNT 5 [facility] COMPLETE INC INC AUTO&AUTO DIFRNTL WBC COMPREHEN 31661 [facility] SIVE 5 [facility] METABOLIC INC INC PANEL COLLECTIO 57036 [facility] N VENOUS 5 [facility] [place] [address] [facility] AMYLASE 5 [place] [address] [facility] LIPASE 5 [facility] INC INC THERAPEUT 83921 [facility] IC PX 1/> 5 [facility] AREAS INC INC EACH 15 MIN EXERCISES E-STIM G0283 [facility] 1/> AREAS 5 [facility] OTH THAN INC INC WND CARE PART TX PLAN APPL 15663 [facility] MODALITY 5 [facility] 1/> AREAS INC INC ULTRASOUN D EA 15 MIN APPLICATI 76632 [facility] ON 5 [facility] MODALITY INC INC 1/> AREAS HOT/COLD PACKS PHYSICAL 34845 [facility] THERAPY 5 [facility] EVALUATIO INC INC N CULTURE 29988 [facility] BCT [facility] ISOL&PRSM INC INC PTV ID ISOLATE EA URINE SUSCEPTIB 64333 [facility] LTY STDY 5 [facility] ANTIMICRB INC INC IAL MICRO/AGA R DILUTJ CULTURE 17288 [facility] BACTERIAL [facility] INC INC [place] [address] [facility] THYROID 5 [facility] STIMUL[facility] [place] [address] [facility] FREE [facility] THYROXINE INC INC COLLECTIO 67216 [facility] N VENOUS 5 [facility] [place] [address] [facility] TRANSVAGI 5 [facility] NAL INC INC CULTURE 71997 [facility] BACTERIAL 5 [facility] INC INC QUANTTATI VE COLONY COUNT URINE E-STIM G0283 [facility] LU 1/> [facility] OTH THAN INC INC WND CARE PART TX PLAN MANUAL 46336 [facility] THERAPY 5 [facility] TQS 1/> INC INC REGIONS EACH 15 MINUTES CULTURE 29333 [facility] BACTERIAL 5 [facility] INC INC QUANTTATI VE COLONY COUNT URINE SUSCEPTIB 47354 [facility] LTY STDY 5 [facility] ANTIMICRB INC INC IAL MICRO/AGA R DILUTJ CULTURE 85611 [facility] BCT 5 [facility] ISOL&PRSM INC INC PTV ID ISOLATE EA URINE MANUAL 36981 [facility] THERAPY 5 [facility] TQS 1/> INC INC REGIONS EACH 15 MINUTES MANUAL 95093 [facility] THERAPY 5 [facility] TQS 1/> INC INC REGIONS EACH 15 MINUTES MANUAL 83781 [facility] THERAPY 5 [facility] TQS 1/> INC INC REGIONS EACH 15 MINUTES MYOCARDIA 22803 [facility] [place] SPECT 5 [facility] MULTIPLE INC INC STUDIES TECHNETIU A9500 [facility] Montero TC-99M 5 [facility] SESTAMIBI INC INC DX PER STUDY DOSE INJECTION J2785 [facility] LU 5 [facility] REGADENOS INC INC ON 0.1 MG [place] [address] [facility] TST 5 PHYSICIAN KALYN XERS&/OR S GROUP RX CONT ECG W/O I&R CV STRS 47592 [facility] LU TST 5 [facility] XERS&/OR INC INC RX CONT ECG TRCG ONLY PHYSICAL 49592 [facility] LU THERAPY 5 [facility] EVALUATIO INC INC N 3D 55918 [place] [facility] RENDERING 5 MEDICAL W/INTERP IMAGING & ASS POSTPROCE SS SUPERVISI ON MRI 28409 [place] [facility] SPINAL 5 MEDICAL CANAL IMAGING CERVICAL ASS W/O CONTRAST MATRL RADEX 81290 [place] [facility] FOOT 5 MEDICAL COMPLETE IMAGING MINIMUM 3 ASS VIEWS RADEX 48021 [facility] FOOT [address] [place] [address] MINIMUM 3 VIEWS RADEX 98361 [facility] [place] MILDRED MAT FOOT 5 RADIOLOGY COMPLETE MINIMUM 3 VIEWS RADEX 25606 [facility] [place] MIRA FOOT 5 RADIOLOGY RHO COMPLETE MINIMUM 3 VIEWS BASIC 50498 [facility] METABOLIC [address] [place] [address] CALCIUM TOTAL HEPATIC 87442 [facility] FUNCTION [address] [place] [address] ANTINUCLE 51255 [facility] AR 5 [facility] S RACHEL COLLECTIO 78846 [facility] N VENOUS 5 [facility] VENIPUNCT URE LIPID 01335 [facility] PANEL 10 [place] [address] [place] [address] [facility] THYROID 5 [facility]ORMONE TSH BLOOD 93154 MAR[facility] SCHULTZ COUNT 5 [facility] AUTO&AUTO DIFRNTL WBC INJECTION J3420 PAM OROZCO VIT B-12 5 GINA GINA CYANOCOBA KACEY TO 1000 MCG THERAPEUT 70085 PAM OROZCO IC 5 GINA GINA PROPHYLAC TIC/DX INJECTION SUBQ/IM RADEX 60960 [facility] [place] FOOT 5 RADI[facility] RHO COMPLETE MINIMUM 3 VIEWS RADEX 41910 [facility] [place] SCALF KIRILL FOOT 5 RADI[facility]Y COMPLETE MINIMUM 3 VIEWS INJECTION J3420 PAM OROZCO VIT B-12 5 GINA GINA CYANOCOBA KACEY TO 1000 MCG THERAPEUT 62324 PAM SCHRADER IC 5 GINA E MAR PROPHYLAC TIC/DX INJECTION SUBQ/IM REMOVAL/B 53893 [place] [facility] IVALVING 5 [facility] FULL [place] [address] [facility], SURG 5 [facility] PATHOLOGY GROSS EXAMINATI ON ONLY REMOVAL 31839 [place] [facility] IMPLANT 5 [facility] DEEP INJECTION J2250 [facility] RIBENBOIM [address] [place] [address] HCL PER 1 MG PARTICAL 14081 [place] [facility] EXCISION 5 [facility] BONE PHALANX TOE ANES OPEN 40054 [place] [facility] PROC 5 ANESTHESI GARCIA BONES A GROUP LOWER PS LEG/ANKLE /FOOT NOS ARTHRT 73366 ESVINLIVAN MARION W/EXPL 5 [facility] DR[facility] H[facility]PITAL HOSPITAL LOOSE/FB IPHAL JT INJECTION J2704 ESVINLIVAN MICHEALYUNIOR PROPOFOL 5 [facility] 10 [facility]PITAL INJECTION J3010 ESVIN[facility] ANETA FENTANYL 5 [facility] 0.1 MG INJECTION J2405 [facility] MARION 5 [facility] ON HCL PER 1 MG RADIOLOGI 59040 MARION QUEST C [address] [place] [address] DIAGNOSTI EXAMINATI HOSPITAL CS ON FOOT 2 VIEWS INJECTION J2001 [facility] RIBENBOIM 5 [facility] HCL INTRAVENO US INFUS 10 MG RINGERS J7120 [facility] LACTATE 5 [facility] UP TO 1000 CC INJECTION J1100 [facility] 5 [facility] SONE SODIUM PHOSPHATE 1 MG RADIOLOGI 90530 [facility] [place] C EXAM 5 RADIOLOGY RHO CHEST 2 VIEWS FRONTAL&L ATERAL INJECTION J3420 PAM SALTERKY VIT B-12 5 GINA GINA CYANOCOBA KACEY TO 1000 MCG THERAPEUT 11570 PAM OROZCO IC 5 GINA GINA PROPHYLAC TIC/DX INJECTION SUBQ/IM RADEX 42740 [facility] [place] FOOT 5 RADIOLOGY RHO COMPLETE MINIMUM 3 VIEWS INJECTION J3420 PAM SALTERKY VIT B-12 5 GINA GINA CYANOCOBA KACEY TO 1000 MCG THERAPEUT 55271 PAM OROZCO IC 5 GINA GINA PROPHYLAC TIC/DX INJECTION SUBQ/IM IADNA 32059 LAB TER[facility] LAB TERESA CHLAMYDIA 5 LISSA LISSA [facility] HOLDINGS TRACHOMAT IS AMPLIFIED PROBE TQ IADNA 24490 [facility] TER[facility] NEISSERIA 5 LISSA LISSA [facility]INGS HOLDINGS GONORRHOE AE AMPLIFIED PROBE TQ HEPATITIS 63037 [facility] A [address] [place] [address] HAAB ACUTE 45856 [facility] HEPATITIS 4 [facility] LIPID 18235 [facility] PANEL [address] [place] [address] COLLECTIO 16171 [facility] N VENOUS 4 [facility] VENIPUNCT URE HEPATIC 27618 [facility] FUNCTION 4 [facility] THERAPEUT 49452 PRIMARY PAM IC 4 HEALTH GINA PROPHYLAC ASSOCIATE TIC/DX S PS INJECTION SUBQ/IM INJECTION J3420 PRIMARY PRIMARY VIT B-12 4 HEALTH HEALTH ASSOCIATE ASSOCIATE CYANOCOBA S PS S PS KACEY TO 1000 MCG HEPATITIS 30189 [facility] SCH[facility]Z B CORE 4 [facility] HBCAB TOTAL HEPATITIS 90611 [facility] SCH[facility] B SURF 4 [facility] [place] [address] MAR[facility] SCHULTZ MAGNESIUM [address] [facility] CYANOCOBA 45202 [facility] SCHULTZ KACEY [address] [facility] B-12 COLLECTIO 06228 [facility] SCHULTZ N VENOUS 4 [facility] VENIPUNCT URE COMPREHEN 51715 MARION SCHULTZ SIVE [address] [facility]OSPITAL PANEL CANE INCL E0100 [facility]CARE CANES 4 ALL MATERIAL ADJUSTBLE /FIX W/TIP RADEX 95809 MAR[facility] SCHULTZ FOOT 4 [facility] MINIMUM 3 VIEWS SEDIMENTA 90305 AMRION SCHULTZ TION RATE 4 [facility] NON-AUTOM ATED COLLECTIO 70799 MAR[facility] SCHULTZ N VENOUS 4 [facility] VENIPUNCT URE C-REACTIV 14907 [facility] SCHULT[facility] E PROTEIN [facility] PHYS G0179 ARMS DON ARMS DON RE-CERT 4 MCR-COVR MIC[facility] SRVC RE-CERT PRD BLOOD 10336 [facility] SCHULTZ COUNT 4 [facility] AUTO&AUTO DIFRNTL WBC THERAPEUT 21613 [facility] AM[facility]ISYS IC PX 1/> 4 [facility] 15 MIN EXERCISES THERAPEUT 24700 MAR[facility] SCHULTZ IC 4 [facility] TIC/DX INJECTION SUBQ/IM ELEVATING K0195 [facility]LECARE LEGREST 4 PAIR RADEX 46161 [facility] [place] FOOT 4 RADIOLOGY RHO COMPLETE MINIMUM 3 VIEWS SUSCEPTIB 40048 [facility] SCHULTZ LTY STDY 4 [facility] IAL MICRO/AGA R DILUTJ CUL BACT 83209 MAR[facility] SCHULTZ XCPT 4 [facility] BLOOD/STO OL AEROBIC ISOL CUL BACT 40256 [facility] AEROBIC 4 [facility] METHS DEFINITIV E EA ISOL STANDARD K0001 [facility]CARE WHEELCHAI 4 R INJECTION J1885 [facility] 4 [facility] KETOROLAC [facility] TROMETHAM INE PER 15 MG RADEX 75291 [facility] [place] FOOT 4 RADIOLOGY RHO COMPLETE MINIMUM 3 VIEWS THERAPEUT 71612 [facility] AMEDISYS IC PX 1/> 4 [facility] 15 MIN EXERCISES THERAPEUT 97005 AM[facility] AMEDISYS IC PX 1/> 4 [facility] 15 MIN EXERCISES THERAPEUT 16023 AMEDISYS AMEDISYS IC PX 1/> 4 [facility] EACH 15 MIN EXERCISES THERAPEUT 63016 AMEDISYS AMEDISYS IC PX 1/> 4 [facility] EACH 15 MIN EXERCISES THERAPEUT 96774 AM[facility] AMEDISYS IC PX 1/> 4 [facility] EACH 15 MIN EXERCISES THERAPEUT 68875 AM[facility] AMEDISYS IC PX 1/> 4 [facility] EACH 15 MIN EXERCISES THERAPEUT 93613 AM[facility]YS AMEDISYS IC PX 1/> 4 [facility] EACH 15 MIN EXERCISES THERAPEUT 04379 AM[facility]YS AMEDISYS IC PX 1/> 4 [facility] EACH 15 MIN EXERCISES ELEVATING K0195 [facility] LEGREST 4 PAIR STANDARD K0001 [facility] ABLECARE WHEELCHAI 4 R THERAPEUT 44448 [facility] UNICK CHR IC PX 1/> 4 [facility] EACH 15 MIN EXERCISES THERAPEUT 17777 AM[facility]YS AMEDISYS IC PX 1/> 4 [facility] EACH 15 MIN EXERCISES THERAPEUT 97375 AMEDISYS AMEDISYS IC PX 1/> 4 [facility] EACH 15 MIN EXERCISES RADEX 69981 [facility] SCHULTZ FOOT 4 [facility] MINIMUM 3 VIEWS SEDIMENTA 26559 [facility] SCHULTZ TION RATE 4 [facility] NON-AUTOM ATED COLLECTIO 66420 [facility] SCHULTZ N VENOUS 4 [facility] VENIPUNCT URE C-REACTIV 48409 [facility] SCHULTZ E PROTEIN [facility] BLOOD 23369 [place] [facility] COUNT 4 [facility] AUTO&AUTO DIFRNTL WBC THERAPEUT 81101 AMEDISYS AMEDISYS IC PX 1/> 4 [facility] EACH 15 MIN EXERCISES THERAPEUT 64951 AM[facility]ISYS AMEDISYS IC PX 1/> 4 [facility] EACH 15 MIN EXERCISES THERAPEUT 50877 AMEDISYS AMEDISYS IC PX 1/> 4 [facility] EACH 15 MIN EXERCISES RADEX 54889 [facility] [place] SCALF KIRILL FOOT 4 RADIOLOGY [...] CENTERS E CENTERS KNITTED/W OVEN STERL REMOVAL/B 37662 ARMS DON ARMS DON IVALVING 4 FULL ARM/FULL LEG CAST ARTHRODES 98286 ARMS DON ARMS DON IS GREAT 4 TOE METATARSO PHALANGEA L JOINT ANES OPEN 03387 [facility] PROC 4 ANESTHESI BONES A GROUP LOWER PS LEG/ANKLE /FOOT NOS C-REACTIV [address] PROTEIN 4 [facility] MED CTR MED CTR INSECTICIDE EXPERT ST INSECTICIDE EXPERT ST BLOOD [address] COUNT 4 [facility] COMPLETE MED CTR MED CTR AUTOMATED INSECTICIDE EXPERT ST INSECTICIDE EXPERT ST URNLS DIP [address] [facility] STICK/TAB MED CTR MED CTR LET RGNT INSECTICIDE EXPERT ST INSECTICIDE EXPERT ST AUTO W/O MICROSCOP Y COMPREHEN [address] SIVE 4 [facility] METABOLIC MED CTR MED CTR PANEL INSECTICIDE EXPERT [place] [address] [address] BLOOD/URI 4 [facility] C ACID MED CTR MED CTR INSECTICIDE EXPERT ST INSECTICIDE EXPERT ST COLLECTIO [address] N VENOUS 4 [facility] BLOOD MED CTR MED CTR VENIPUNCT INSECTICIDE EXPERT ST INSECTICIDE EXPERT ST URE RADEX 12737 RADIOLOGY LUN[place]ORD FOOT 4 GAR COMPLETE ASSOCIATE MINIMUM 3 S OF NOTH VIEWS ECG 33243 TEJ COSBY COSBY TEJ ROUTINE 4 MD ECG CONSULTIN W/LEAST G SRV 12 LDS I&R ONLY PROTHROMB 71070 ESVINDALYYUNIOR MARION IN TIME [address] [place] [address] ECG 40609 MARION SCHULTZ ROUTINE 4 [facility] W/LEAST 12 LDS TRCG ONLY W/O I&R COLLECTIO 88774 MARION MCALLISTERDALYYUNIOR N VENOUS 4 [facility] VENIPUNCT URE THROMBOPL 16279 MARION MCALLISTERDALYYUNIOR ASTIN 4 [facility] PARTIAL PLASMA/WH OLE BLOOD COMPREHEN 04827 MARION SCHULTZ SIVE 4 [facility] PANEL WALKER E0135 [facility] ABLECARE FOLDING 4 ADJUSTABL E OR FIXED HEIGHT RADIOLOGI 07052 [facility] [place] SCALF KIRILL C EXAM 4 RADIOLOGY CHEST 2 VIEWS FRONTAL&L ATERAL MRI ANY 66270 MARION MARION JT LOWER 4 [facility] W/O CONTRAST MATRL MRI LOWER 04588 [facility] [place] JACINTOTELIC EXTREM 4 RADIOLOGY MAXIMO OTH/THN JT W/O CONTR MATRL SEDIMENTA 94018 MARION [place] TION RATE 4 [facility] NON-AUTOM ATED BLOOD 10192 MARION SCHULTZ COUNT [address] [place] [address] AUTOMATED C-REACTIV 80573 MARION SCHULTZ E PROTEIN [facility] BLOOD 02936 [facility] SCHULTZ COUNT [address] [place] [address] MCRSCP W/MNL DIFRNTL WBC COUNT COLLECTIO 48846 MARION SCHULTZ N VENOUS 4 [facility] VENIPUNCT URE DUP-SCAN 39686 MARION MCALLISTERHARRY S. [facility]' HOSPITALYUNIOR LXTR [address] [place] [address]/ARTL [facility] BPGS COMPL BI STUDY NON-INVAS 01258 [facility]IOR SCHULTZ [address] [place] [address] IC STD EXTREMITY ART 2 LEVEL RADEX 17825 [facility] SCHULTZ FOOT [address] [place] [address] MINIMUM 3 VIEWS HGB 81558 RAYO RUEDA GLYCOSYLA 4 [facility] CLEARED FDA HOME USE COLLECTIO 50620 MARION SCHULTZ N VENOUS [address] [place] [address] VENIPUNCT URE C-REACTIV 12892 MARION SCHULTZ E PROTEIN [address] [place] [address] BLOOD 40394 [facility] SCHULTZ COUNT [address] [place] [address] AUTO&AUTO DIFRNTL WBC RADEX TOE 02657 [facility] [place] NELSON JAM MINIMUM 4 RADIOLOGY 2 VIEWS SURGICAL L3260 [facility] ABLECARE BOOT/SHOE 4 EACH SEDIMENTA 99291 MAR[facility] [place] TION RATE 4 [facility] NON-AUTOM ATED SEDIMENTA 13828 [facility] [place] TION RATE 4 [facility] NON-AUTOM ATED WALKING L4360 ADVANCED ADVANCED BOOT 4 TECHNOLOG TECHNOLOG PNEUMATC IES INC IES INC &/ VACUUM PREFAB CUSTM FIT ORTHOTIC 56481 CHINO URBINA DON MGMT&EZE 4 [facility] [employer] [place] UXTR LXTR&/TRN K EA 15 BLOOD 31751 MARION HENRY COUNT 4 [facility] AUTO&AUTO DIFRNTL WBC C-REACTIV 54367 MARION SCHULTZ E PROTEIN [facility] COLLECTIO 75330 MARION SCHULTZ N VENOUS 4 [facility] VENIPUNCT URE THER 27526 TABITHA LU PROPH/DX 4 [facility] NJX IV INC INC PUSH SINGLE/1S T SBST/DRUG RADEX 16679 ORQUIDEA II ORQUIDEA II FOOT 4 THO THO COMPLETE MINIMUM 3 [place] [address] MARION SCHULTZ BLOOD/URI 4 [facility] COMPREHEN 12032 MARION SCHULTZ SIVE [address] [facility]OSPITAL PANEL BLOOD 04470 MARION SCHULTZ COUNT 4 [facility] AUTO&AUTO DIFRNTL WBC RADEX 97539 VORKPOR VORKPOR FOOT 4 DAMI DAMI COMPLETE MINIMUM 3 VIEWS ECG 97340 YOHANA RAMIREZ ROUTINE 4 [facility] III J ECG MEDICAL W/LEAST G 12 LDS I&R ONLY PROTHROMB 99989 MARION SCHULTZ IN TIME [address] [place] [address] ECG 01843 MARION SCHULTZ ROUTINE 4 [facility] W/LEAST 12 LDS TRCG ONLY W/O I&R BLOOD 49366 MARION SCHULTZ COUNT 4 [facility] AUTOMATED RADIOLOGI 45624 [facility] MILDRED MAT C 4 RADIOLOGY EXAMINATI ON KNEE 3 VIEWS CULTURE 80748 MAR[facility] SCHULTZ BACTERIAL [facility] QUANTTATI VE COLONY COUNT URINE COMPREHEN 73501 MARION SCHULTZ SIVE [address] [facility] HOSPITAL PANEL THROMBOPL 80078 MARION MCALLISTERDALYYUNIOR ASTIN 4 [facility] PARTIAL PLASMA/WH OLE BLOOD COLLECTIO 29269 MARION SCHULTZ N VENOUS 4 [facility] BLOOD [facility] VENIPUNCT URE URNLS DIP 62048 MARION [place] 4 [facility] STICK/TAB HOSPITAL HOSPITAL LET REAGENT AUTO MICROSCOP Y SIMPLE 73832 [facility] REPAIR 4 SCALP/NEC K/AX/TAVARES T/TRUNK 2.5CM/< RADEX 55419 [facility] COMPLETE RADIOLOGY MINIMUM 3 ASSOCIAT VIEWS DXA BONE 17523 [facility] [place] DENSITY 4 [facility] STUDY 1/> HOSPITAL HOSPITAL SITES AXIAL SKEL RADEX 68259 [facility] [place] SHOULDER 4 [facility] MINIMUM 2 VIEWS COMPUTER- 72918 [facility] [place] AIDED 4 [facility] SCREENING MAMMOGRAP HY RADIOLOGI 39782 [facility] SCHULTZ C 4 [facility] ON KNEE 3 VIEWS SCREENING G0202 [facility]ITALYUNIOR MCALLISTERHARRY S. [facility] HOSPITALON [address] [place] [address] MAMMOGRAP [facility] HY RAPHAEL INCL CAD WHEN PERFORMD BLOOD 82919 LAB TERESA LAB TERESA COUNT 4 LISSA LISSA COMPLETE [place] [address] LAB TERESA LAB TEERSA THYROID 4 LISSA LISSA STIMULATI HOLDINGS HOLDINGS NG HORMONE TSH HEMOGLOBI 24295 LAB TERESA LAB TERESA N 4 LISSA LISSA GLYCOSYLA HOLDINGS HOLDINGS JEREMY A1C THYROID 62698 LAB TERESA LAB TERESA HORM 4 LISSA LISSA UPTK/THYR HOLDINGS HOLDINGS OID HORMONE BINDING RATIO COMPREHEN 03178 LAB TERESA LAB TERESA SIVE 4 LISSA LISSA METABOLIC [place] [address] LAB TERESA LAB TERESA INSULIN 4 LISSA L[place] [address] LAB TERESA LAB TERESA INSULIN 4 LISSA LISSA FREE HOLDINGS HOLDINGS LIPID 02965 LAB TERESA LAB TERESA PANEL 4 L[place] [address] LAB TERESA LAB TERESA THYROXINE 4 LISSA LISSA TOTAL HOLDINGS HOLDINGS CULTURE 27090 LAB TERESA LAB TERESA BACTERIAL 4 LISSA LISSA HOLDINGS HOLDINGS QUANTTATI VE COLONY COUNT URINE BASIC 98887 [facility] METABOLIC 3 DIAGNOSTI DIAGNOSTI [place] [address] [facility] QUE[facility] THYROID 3 DIAGNOSTI DIAGNOSTI STIMULATI CS CS NG HORMONE TSH BLOOD 96517 QUEST QUEST COUNT 3 DIAGNOSTI DIAGNOSTI COMPLETE CS CS AUTO&AUTO DIFRNTL WBC BLOOD 15184 [facility] [place] COUNT 3 [facility] [place] COMPLETE CS MIDDLE AUTO&AUTO SCHOOL DIFRNTL WBC SYPHILIS 31513 QUEST QUEST TEST 3 DIAGNOSTI DIAGNOSTI NON-TREPO CS CS NEMAL ANTIBODY QUAL CULTURE 80438 QUEST QUEST BCT 3 DIAGNOSTI DIAGNOSTI ISOL&PRSM CS CS PTV ID ISOLATE EA URINE ANTIBODY 61695 [facility] HERPES 3 DIAGNOSTI DIAGNOSTI SMPLX CS CS TYPE 1 INCORPORA T SUSCEPTIB 99562 QUE[facility] QUEST LTY STDY 3 DIAGNOSTI DIAGNOSTI ANTIMICRB CS CS IAL MICRO/AGA R DILUTJ CULTURE 42541 [facility] QUEST BACTERIAL 3 DIAGNOSTI DIAGNOSTI CS CS QUANTTATI VE COLONY COUNT URINE CUL BACT 94788 QUEST QUEST AEROBIC 3 DIAGNOSTI DIAGNOSTI ADDL CS CS METHS DEFINITIV E EA ISOL ANTIBODY 52745 QUE[facility] QUEST CHLAMYDIA 3 DIAGNOSTI DIAGNOSTI IGM CS CS ANTIBODY 79704 QUEST QUEST HERPES 3 DIAGNOSTI DIAGNOSTI SMPLX CS CS TYPE 2 INCORPORA T ANTIBODY 35632 QUEST QUEST CHLAMYDIA 3 DIAGNOSTI DIAGNOSTI CS CS RADEX 12107 [facility] [place] MIR[place] RIBS 3 RADIOLOGY RHO BILATERAL 3 VIEWS RADIOLOGI 35291 [facility] [place] MIR[place] C EXAM 3 RADIOLOGY RHO CHEST 2 VIEWS FRONTAL&L ATERAL RADEX 26302 RASHARD CADE JOSE CARLOS SINUSES 3 [facility] SPEC MINIMUM 3 VIEWS BLOOD 87166 QUEST QUEST COUNT 3 DIAGNOSTI DIAGNOSTI COMPLETE CS CS AUTO&[place] [address] QUE[facility] QUEST THYROID 3 DIAGNOSTI DIAGNOSTI STIMULATI CS CS NG HORMONE TSH LIPID 13403 [facility] QUEST PANEL 3 DIAGNOSTI DIAGNOSTI CS CS COMPREHEN 91132 [facility] QUEST SIVE 3 DIAGNOSTI DIAGNOSTI METABOLIC CS CS PANEL COMPREHEN 44741 [employer] INC, MHC INC, SIVE 2 INSECTICIDE EXPERT INSECTICIDE EXPERT METABOLIC RAE RAE PANEL CO HOS CO HOS LIPID 92302 [facility] INC, MHC INC, PANEL 2 INSECTICIDE EXPERT INSECTICIDE EXPERT RAE RAE CO HOS CO HOS BLOOD 87673 [facility] INC, MHC INC, COUNT 2 INSECTICIDE EXPERT INSECTICIDE EXPERT COMPLETE RAE RAE AUTO&AUTO CO HOS CO HOS DIFRNTL WBC RADEX 42287 [facility] [place] SCALF KIRILL SHOULDER 2 RADIOLOGY COMPLETE MINIMUM 2 VIEWS COMPUTER- 86086 [facility] [place] ARVIZU AIDED 2 RADIOLOGY HERMES DETECTION SCREENING MAMMOGRAP HY SCREENING G0202 [facility] [place] ARVIZU 2 RADIOLOGY HERMES MAMMOGRAP HY RAPHAEL INCL CAD WHEN PERFORMD RADEX TOE 25617 [facility] MINIMUM 2 N N 2 VIEWS COMMUNTIY [place] [address] PATHOLOGY SALDIVAR SURG 2 & KIRILL PATHOLOGY CYTOLOGY LAB GROSS&MENG ROSCOPIC EXAM EGD 53524 [place] KENNEDY- TRANSORAL 2 MEDICAL PETEY BIOPSY SERV RACIEL SINGLE/MU FOUNDATIO LTIPLE ECG 11741 TEJ COSBY TEJ COSBY ROUTINE 2 MD CA ECG CONSULTIN CONSULTIN W/LEAST G SERV G SERV 12 LDS I&R ONLY SPECIAL 13814 PATHOLOGY SALDIVAR STAIN 2 & KIRILL GROUP 1 CYTOLOGY MICROORGA LAB NISMS I&R SPCL STN 99388 PATHOLOGY SALDIVAR 2 I&R 2 & KIRILL EXCPT CYTOLOGY MICROORG/ LAB ENZYME/IM CYT CYANOCOBA 34864 [employer], [employer] INC, KACEY 2 INSECTICIDE EXPERT INSECTICIDE EXPERT VITAMIN RAE RAE B-12 CO HOS CO HOS SEDIMENTA 97129 [employer], [employer] INC, TION RATE 2 INSECTICIDE EXPERT INSECTICIDE EXPERT RBC RAE RAE NON-AUTOM CO HOS CO HOS ATED LIPID 66019 [employer], MHC INC, PANEL 2 INSECTICIDE EXPERT INSECTICIDE EXPERT RAE RAE CO HOS CO HOS BASIC 89005 [employer], [employer] INC, METABOLIC 2 INSECTICIDE EXPERT INSECTICIDE EXPERT PANEL RAE MCBRIDE CALCIUM CO HOS CO HOS TOTAL ANTINUCLE 84316 [facility] INC, [employer] INC, AR 2 INSECTICIDE EXPERT INSECTICIDE EXPERT ANTIBODIE RAE MCBRIDE S RACHEL CO HOS CO HOS HEPATIC 41733 [employer] INC, MHC INC, FUNCTION 2 INSECTICIDE EXPERT INSECTICIDE EXPERT PANEL RAE AUGUSTINEOLAS CO HOS CO HOS RADEX 87026 [facility] COOPER FOOT 1 [facility] RADIOLOGY MINIMUM 3 ASSOCIAT VIEWS INJECTION J3420 PRIMARY PAM VIT B-12 1 [facility] ASSOCIATE CYANOCOBA S PS KACEY TO 1000 MCG THERAPEUT 82304 PRIMARY PAM IC 1 [facility] PROPHYLAC ASSOCIATE TIC/DX S PS INJECTION SUBQ/[place] [address] [facility] THYROID 1 [facility] NG HORMONE TSH COLLECTIO 76231 [facility] N VENOUS 1 [facility] VENIPUNCT URE BLOOD 01207 [facility] COUNT 1 [facility] AUTO&AUTO DIFRNTL WBC COLLECTIO 73129 [facility] N VENOUS 1 [facility] VENIPUNCT URE COMPREHEN 55523 [facility] SIVE 1 [facility] PANEL LIPID 70492 [facility] PANEL [address] [facility] ECG 83184 TEJ COSBY COSBY TEJ ROUTINE 1 MD ECG CONSULTIN W/LEAST G SRV 12 LDS W/I&R THERAPEUT 04953 PRIMARY PAM IC 1 [facility] PROPHYLAC ASSOCIATE TIC/DX S PS INJECTION SUBQ/IM INJECTION J3420 PRIMARY PAM VIT B-12 1 [facility] ASSOCIATE CYANOCOBA S PS KACEY TO 1000 MCG CATH PLMT 03507 [facility] HRT & 1 [facility] CARDIOLOG W/NJX & Y CLINIC ANGIO IMG S&I ECG 44700 TEJ COSBY COSBY TEJ ROUTINE 1 MD ECG CONSULTIN W/LEAST G SRV 12 LDS W/I&R CV STRS 56680 MARION SCHULTZ TST 1 [facility] XERS&/OR HOSPITAL HOSPITAL RX CONT ECG TRCG ONLY CV STRS 27263 TEJ COSBY COSBY TEJ TST 1 XERS&/OR CONSULTIN RX CONT G SRV ECG W/O I&R TECHNETIU A9500 [facility] M TC-99M 1 [facility] DX PER STUDY DOSE CV STRS 34065 TEJ COSBY COSBY TEJ TST 1 XERS&/OR CONSULTIN RX CONT G SRV ECG I&R ONLY MYOCARDIA 90018 TEJ COSBY COSBY TEJ L SPECT 1 MULTIPLE CONSULTIN STUDIES G SRV COMPREHEN 37583 [facility] SIVE 1 [facility] PANEL COLLECTIO 28567 [facility] N VENOUS 1 [facility] VENIPUNCT URE CREATINE 32636 [facility] KINASE MB 1 [facility] ONLY URNLS DIP 52305 [facility] 1 [facility] STICK/TAB HOSPITAL HOSPITAL LET REAGENT AUTO MICROSCOP Y CULTURE 37866 [facility] BACTERIAL [address] [facility] QUANTTATI VE COLONY COUNT URINE RADIOLOGI 16824 [facility] [place] ARVIZU C 1 RADIOLOGY HERMES EXAMINATI ON CHEST SINGLE VIEW FRONTAL BLOOD 37050 [facility] 1 [facility] AUTO&[place] [address] [facility] TROPONIN 1 [facility] CHRISTI CREATINE 99698 [facility] KINASE 1 [facility] 39012 STARR BARNETT ROUTINE 1 EMERGENCY ECG SERVICES W/LEAST 12 LDS I&R ONLY ECG 96749 [facility] ROUTINE [address] [facility] HOSPITAL W/LEAST 12 LDS TRCG ONLY W/O I&R XTRNL ECG 53582 TEJ COSBY COSBY TEJ 1 CONTINUOU CONSULTIN S RHYTHM G SRV W/I&R UP TO 48 HRS XTRNL ECG 35307 TEJ COSBY COSBY TEJ & 48 HR 1 MD RECORDING CONSULTIN G SRV INJECTION J3420 PRIMARY PAM VIT B-12 1 [facility] CYANOCOBA S PS KACEY TO 1000 MCG THERAPEUT 01913 PRIMARY PAM IC 1 [facility] [employer] TIC/DX S PS INJECTION SUBQ/IM ECG 35065 TEJ COSBY COSBY TEJ ROUTINE 1 MD ECG CONSULTIN W/LEAST G SRV 12 LDS W/I&R ECHO 48849 TEJ COSBY COSBY TEJ TTHRC R-T 1 2D CONSULTIN W/WOM-MOD G SRV E COMPL SPEC&COLR D INJECTION J3420 PRIMARY PAM VIT B-12 1 [facility] [employer] CYANOCOBA S PS KACEY TO 1000 MCG THERAPEUT 15014 PRIMARY PAM IC 1 [facility] [employer] TIC/DX S PS INJECTION SUBQ/IM THERAPEUT 64835 PRIMARY PAM IC 1 [facility] [employer] TIC/DX S PS INJECTION SUBQ/IM INJECTION J3420 PRIMARY PAM VIT B-12 1 [facility] CYAN[place] S PS [place] [address] [place] [address] PRIMARY PAM RETROPERI 1 [facility] [employer] TONEAL ASSOCIATE REAL TIME S PS W/IMAGE LIMITED INJECTION J3420 PRIMARY PAM VIT B-12 1 [facility] CYANOCOBA S PS KACEY TO 1000 MCG THERAPEUT 43559 PRIMARY PAM IC 1 [facility] [employer] TIC/DX S PS INJECTION SUBQ/IM DXA BONE 26836 [facility] [place] MILDR[place] MAT DENSITY 1 RADIOLOGY STUDY 1/> SITES AXIAL SKEL INJECTION J3420 PRIMARY PAM VIT B-12 1 [employer] ASS[employer] CYANOCOBA S PS KACEY TO 1000 MCG THERAPEUT 65649 PRIMARY PAM IC 1 [facility] [employer] TIC/DX S PS INJECTION SUBQ/IM ECG 90791 TEJ COSBY COSBY TEJ ROUTINE 1 ECG CONSULTIN W/LEAST G SRV 12 LDS I&R ONLY ECG 45922 MARION SCHULTZ ROUTINE 1 [facility] W/LEAST 12 LDS TRCG ONLY W/O I&R COLONOSCO 38998 MARION SCHULTZ PY FLX DX 1 [facility] SPEC WHEN PFRMD ANES 98163 [place] ZIEMBROSK LOWER 1 ANESTHESI I JR EDW INTESTINE A GROUP PSC ENDOSCOPY DISTAL DUODENUM RADEX 93593 [facility] [place] MILDR[place] MAT SACRUM & 1 RADIOLOGY COCCYX MINIMUM 2 VIEWS THERAPEUT 02700 PRIMARY PAM IC 1 [facility] [employer] TIC/DX S PS INJECTION SUBQ/IM INJECTION J3420 PRIMARY PAM VIT B-12 1 HEALTH GINA ASSOCIATE CYANOCOBA S PS KACEY TO 1000 MCG INJECTION J3420 PRIMARY PAM VIT B-12 1 HEALTH GINA ASSOCIATE CYANOCOBA S PS KACEY TO 1000 MCG THERAPEUT 70462 PRIMARY PAM IC 1 HEALTH GINA PROPHYLAC ASSOCIATE TIC/DX S PS INJECTION SUBQ/IM ECG 50375 MARION SCHULTZ ROUTINE 1 [facility] W/LEAST 12 LDS TRCG ONLY W/O I&R ECG 25434 STARR LAYTON, ROUTINE 1 EMERGENCY JR., DO ECG SERVICES OSC W/LEAST 12 LDS I&R ONLY CREATINE 65211 MARION MCALLISTERDAYLYUNIOR KINASE 1 [facility] BLOOD 49094 MICHEALYUNIOR MICHEALYUNIOR COUNT 1 [facility] AUTO&[place] [address] ESVINLIVAN SCHULTZ TROPONIN 1 [facility] CHRISTI MYOGLOBIN 70229 [facility]ALLISTERHARR[facility] H[facility]ITALON 1 [facility] RADIOLOGI 06222 [place] MAR[place] C 1 RADIOLOGY HERMES EXAMINATI ON CHEST SINGLE VIEW FRONTAL BASIC 97774 ESVINLIVAN MARION METABOLIC 1 [facility] CALCIUM TOTAL CREATINE 26299 MICHEALYUNIOR MCALLISTERDALYYUNIOR KINASE MB 1 [facility] ONLY COLLECTIO 40444 [facility] N VENOUS 1 [facility] VENIPUNCT URE INJECTION J3420 PRIMARY PAM VIT B-12 1 HEALTH GINA ASSOCIATE CYANOCOBA S PS KACEY TO 1000 MCG THERAPEUT 01499 PRIMARY PAM IC 1 HEALTH GINA PROPHYLAC ASSOCIATE TIC/DX S PS INJECTION SUBQ/IM THERAPEUT 94678 PRIMARY PAM IC 0 HEALTH GINA PROPHYLAC ASSOCIATE TIC/DX S PS INJECTION SUBQ/IM INJECTION J3420 PRIMARY PAM VIT B-12 0 HEALTH GINA ASSOCIATE CYANOCOBA S PS KACEY TO 1000 MCG POTASSIUM 19400 [facility] SERUM 0 [facility] OLE BLOOD FIBRIN 71472 [facility] DGRADJ [address] [facility] D-DIMER QUAL/SEMI CHERELLE COLLECTIO 77434 [facility] N VENOUS 0 [facility] VENIPUNCT URE THERAPEUT 44316 PRIMARY PRIMARY IC 0 HEALTH HEALTH PROPHYLAC ASSOCIATE ASSOCIATE TIC/DX S PS S PS INJECTION SUBQ/IM THERAPEUT 46504 PRIMARY PAM IC 0 HEALTH GINA PROPHYLAC ASSOCIATE TIC/DX S PS INJECTION SUBQ/IM INJECTION J3420 PRIMARY PAM VIT B-12 0 HEALTH GINA ASSOCIATE CYANOCOBA S PS KACEY TO 1000 MCG COMPUTER- 52883 [place] AIDED 0 RADIOLOGY RHO DETECTION SCREENING MAMMOGRAP HY SCREENING G0202 [facility] [place] 0 RADIOLOGY RHO MAMMOGRAP HY RAPHAEL INCL CAD WHEN PERFORMD THERAPEUT 41573 PRIMARY PAM IC 0 HEALTH GINA PROPHYLAC ASSOCIATE TIC/DX S PS INJECTION SUBQ/IM INJECTION J3420 PRIMARY PRIMARY VIT B-12 0 HEALTH HEALTH ASSOCIATE ASSOCIATE CYANOCOBA S PS S PS KACEY TO 1000 MCG IADNA 67508 [facility] NEISSERIA [address] [facility] GONORRHOE AE AMPLIFIED PROBE TQ IADNA 75768 [facility] CHLAMYDIA 0 [facility] TRACHOMAT IS AMPLIFIED PROBE TQ URNLS DIP [address] [facility]ICK[facility] HOSPITAL LET REAGENT AUTO MICROSCOP Y CULTURE 96990 [facility] BACTERIAL 0 [facility] QUANTTATI VE COLONY COUNT URINE URNLS DIP 67004 PRIMARY PAM 0 [facility]INA STICK/TAB ASSOCIATE LET RGNT S PS NON-AUTO W/O MICRSCP INJECTION J3420 PRIMARY PAM VIT B-12 0 HEALTH GINA ASSOCIATE CYANOCOBA S PS KACEY TO 1000 MCG THERAPEUT 90454 PRIMARY PAM IC 0 HEALTH GINA PROPHYLAC ASSOCIATE TIC/DX S PS INJECTION SUBQ/IM THERAPEUT 60922 PRIMARY PAM IC 0 HEALTH GINA PROPHYLAC ASSOCIATE TIC/DX S PS INJECTION SUBQ/IM INJECTION J3420 PRIMARY PAM VIT B-12 0 HEALTH GINA ASSOCIATE CYANOCOBA S PS KACEY TO 1000 MCG COLLECTIO 37902 [facility] N VENOUS 0 [facility] VENIPUNCT URE IADNA 22466 [facility] CHLAMYDIA 0 [facility] TRACHOMAT IS AMPLIFIED PROBE TQ IADNA 55610 [facility] NEISSERIA 0 [facility] GONORRHOE AE AMPLIFIED PROBE TQ INJECTION J3420 PRIMARY PAM, VIT B-12 0 HEALTH JACKIE Montero ASSOCIATE CYANOCOBA S PSC KACEY TO 1000 MCG THERAPEUT 11096 PRIMARY PAM, IC 0 GEOVANI Montero PROPHYLAC ASSOCIATE TIC/DX S PSC INJECTION SUBQ/IM THERAPEUT 03468 PRIMARY PAM, IC 0 HEALTH JACKIE Montero PROPHYLAC ASSOCIATE TIC/DX S PSC INJECTION SUBQ/IM INJECTION J3420 PRIMARY PAM, VIT B-12 0 HEALTH JACKIE Montero ASSOCIATE CYANOCOBA S PSC KACEY TO 1000 MCG URNLS DIP 64772 PRIMARY PAM, 0 [facility] JACKIE Montero STICK/TAB ASSOCIATE LET RGNT S PSC NON-AUTO W/O MICRSCP ARTHROCEN 42531 PRIMARY PAM TESIS 0 [facility]ALTH GINA ASPIR&/IN ASSOCIATE J MAJOR S PS JT/BURSA W/O US INJECTION J3420 PRIMARY PRIMARY VIT B-12 0 HEALTH HEALTH ASSOCIATE ASSOCIATE CYANOCOBA S PS S PS KACEY TO 1000 MCG THERAPEUT 33426 PRIMARY PRIMARY IC 0 HEALTH HEALTH PROPHYLAC ASSOCIATE ASSOCIATE TIC/DX S PS S PS INJECTION SUBQ/IM BASIC 95117 RAE MCBRIDE METABOLIC 0 [facility] CAL[facility] TOTAL LIPID 94927 [facility] PANEL 0 [facility] COLLECTIO 61018 RAE [facility] N VENOUS 0 CO [place] BLOOD [facility] VENIPUNCT URE HEPATIC 76240 RAE MCBRIDE FUNCTION 0 [facility] THERAPEUT 62629 PRIMARY PAM, IC 0 HEALTH JACKIE Montero PROPHYLAC ASSOCIATE TIC/DX S PSC INJECTION SUBQ/IM INJECTION J3420 PRIMARY PAM, VIT B-12 0 [facility] JACKIE Montero ASSOCIATE CYANOCOBA S PSC KACEY TO 1000 MCG INJECTION J3420 PRIMARY PAM, VIT B-12 0 [facility] JACKIE Montero ASSOCIATE CYANOCOBA S PSC KACEY TO 1000 MCG RADEX HIP 12839 [place], 0 RADIOLOGY SUDHAKAR RODRIGUES L COMPLETE MINIMUM 2 VIEWS THERAPEUT 44368 PRIMARY PAM, IC 0 HEALTH JACKIE Montero PROPHYLAC ASSOCIATE TIC/DX S PSC INJECTION SUBQ/IM URNLS DIP 76418 PRIMARY PAM, 0 [facility] JACKIE Montero STICK/TAB ASSOCIATE LET RGNT S PSC NON-AUTO W/O MICRSCP THERAPEUT 81243 PRIMARY PAM, IC 9 HEALTH JACKIE Montero PROPHYLAC ASSOCIATE TIC/DX S PSC INJECTION SUBQ/IM INJECTION [id number] PRIMARY PAM, VIT B-12 9 HEALTH JACKIE Montero ASSOCIATE CYANOCOBA S PSC KACEY TO 1000 MCG INJECTION J3420 PRIMARY PAM, VIT B-12 9 HEALTH JACKIE Montero ASSOCIATE CYANOCOBA S PSC KACEY TO 1000 MCG THERAPEUT 19221 PRIMARY PAM, IC 9 HEALTH JACKIE M PROPHYLAC ASSOCIATE TIC/DX S PSC INJECTION SUBQ/IM THERAPEUT 42628 PRIMARY GENO OROZCO 9 [facility] JACKIE Montero PROPHYLAC ASSOCIATE TIC/DX S PSC INJECTION SUBQ/IM INJECTION J3420 PRIMARY PAM VIT B-12 9 [facility] JACKIE M ASSOCIATE CYANOCOBA S PSC KACEY TO 1000 MCG CYTP C/V 62587 PATHOLOGY PATHOLOGY AUTO THIN 9 & & LYR CYTOLOGY CYTOLOGY PREPJ SCR LAB LAB MNL RESCR PHYS CYANOCOBA 12267 MARION MARION KACEY [address] [facility] B-12 [place] [address] MAR[place] FERRITIN [address] [facility] COLLECTIO 07784 [facility]ITAL[facility]UNIOR SCHULTZ N VENOUS 9 [facility] [place] [address] [place] [facility] FOLIC [address] [place] [address] [place] [address] [facility] THYROID [address] [place] [address] NG HORMONE TSH BLOOD 87015 [facility] [place] COUNT [address] [place] [address] AUTO&AUTO DIFRNTL WBC RADIOLOGI 86201 [facility] C [address] [place] [address] ON KNEE 3 VIEWS URNLS DIP 62969 PRIMARY PAM 9 [facility] JACKIE STICK/TAB ASSOCIATE LET RGNT S PSC NON-AUTO W/O MICRSCP RADIOLOGI 18547 [facility] Danielle WETZEL EXAM 9 RADIOLOGY BRODERICK Calvin KNEE COMPLETE 4/MORE VIEWS BASIC 10513 [facility] METABOLIC [address] [place] [address] CALCIUM TOTAL COLLECTIO 58304 [facility]ITALYUNIOR [place] N VENOUS 9 [facility] VENIPUNCT URE LIPID 50850 [facility] PANEL [address] [place] [address] HEPATIC 08318 [facility] [place] FUNCTION [address] [place] [address] COLLECTIO 46198 [facility]ITAL[facility]UNIOR [place] N VENOUS 9 [facility] VENIPUNCT URE BASIC 12895 [facility] METABOLIC [address] [place] [address] CALCIUM TOTAL SCREENING 52826 [facility] [place] 9 [facility] MAMMOGRAP [facility] HY BILATERAL COMPUTER- 81785 [place] MIR[place], AIDED 9 RADIOLOGY NEEL G DETECTION SCREENING MAMMOGRAP HY BASIC 67614 [facility] METABOLIC 9 [facility] CALCIUM TOTAL COLLECTIO 17239 [facility] N VENOUS 9 [facility] VENIPUNCT URE LIPID 53954 [facility] PANEL [address] [facility] HEPATIC 94471 [facility] FUNCTION 9 [facility] [place] ABD [address] JEYSON GALLARDO, COMPL 8 [facility] S AQT ABD RADIOLOGY W/S/E/D VIEWS 1 ASSOCIATE VIEW CH S PSC REMOVAL 66613 PRIMARY PAM, HELLEN 8 HEALTH JACKIE Montero SHAYE ASSOCIATE INSTRUMEN S PSC TATION UNILAT BLOOD 99198 [facility] COUNT 8 [facility] AUTO&AUTO DIFRNTL WBC HEPATIC 53300 [facility] FUNCTION 8 [place] [address] [facility] THYROID 8 [facility] NG HORMONE TSH LIPID 63463 [facility] COLLECTIO 81074 [facility] N VENOUS 8 [facility] VENIPUNCT URE BASIC 20562 [facility] METABOLIC 8 [facility] CALCIUM TOTAL RADEX 12490 [facility] ABDOMEN [address] [facility] ANTEROPOS TERIOR VIEW RADEX 49524 [place] SRIKANTH, ABDOMEN 8 RADIOLOGY J COMPL W/DCBTS&/ ERC VIEWS ECG 71231 CARDIOLOG COSBY, ROUTINE 8 Y ALON A ECG ASSOCIATE W/LEAST S OF 12 LDS [place] I&R ONLY ECG 01768 [facility] ROUTINE 8 [facility] W/LEAST 12 LDS TRCG ONLY W/O I&R ANES 08007 KAYLYNN [place] LOWER 8 ANESTHESI I JR, INTESTINE A GROUP EDWARD J [facility] ENDOSCOPY DISTAL DUODENUM COLONOSCO 41985 MARION SCHULTZ PY FLX DX 8 [facility] SPEC WHEN PFRMD PHYSICAL 08617 MARION SCHULTZ THERAPY 8 [facility] N THERAPEUT 39525 MARION SCHULTZ IC PX 1/> 8 [facility] EACH [address] LUMBAR 41497 [place] SRIKAN[place], SPINE 8 RADIOLOGY J W/O CONTRAST MATERIAL COMPUTER- 87089 MARION SCHULTZ AIDED 8 [facility] SCREENING MAMMOGRAP HY SCREENING 45374 [place] M[place], 8 RADIOLOGY NEEL G MAMMOGRAP HY BILATERAL BILIRUBIN 22018 [facility] DIRECT 8 [facility] HEMOGLOBI [address] [facility] N [address] [place] [address] [facility] LIPID 52570 [facility] PANEL 8 [facility] INC GENERAL 28508 [facility] HEALTH 8 [facility] PANEL ECG 29195 GOINS, GOINS, ROUTINE 8 DON R DON R ECG W/LEAST 12 LDS W/I&R ECG 16570 CARDIOLOG COSBY, ROUTINE 8 Y ALON A ECG ASSOCIATE W/LEAST S OF 12 LDS [place] I&R ONLY RADIOLOGI 18661 [facility] Bradley MARCOS 8 RADIOLOGY T EXAMINATI ON CHEST SINGLE VIEW FRONTAL Encounters Encounter Start End Date Code Location Performer Type Date OFFICE 64720 RICH RODRIGEZ OUTPATIEN 7 7 Servando VAUGHAN MD,[facility] MINUTES OFFICE 47309 [facility] OUTPATIEN 6 6 PHYSICIAN T VISIT S GROUP 15 MINUTES [facility] - 6 6 [facility] T OFFICE 91262 [facility] RACHEL OUTPATIEN 6 6 PHYSICIAN MAT T VISIT S GROUP 25 MINUTES [facility] - 6 6 [facility] T OFFICE 72588 [facility] OUT[facility]IEN 6 6 [facility] T VISIT INC 10 MINUTES [facility] - 6 6 [facility] T OFFICE 11630 JACKLYN MCLEOD CRI OUTPATIEN 6 6 MD GNIA, T VISIT PSC [address]ES [address] [facility] CARLOS OUTPATIEN 6 6 PHYSICIAN MENG T VISIT 5 S GROUP MINUTES OFFICE 24250 [facility] RACHEL OUTPATIEN 6 6 PHYSICIAN MAT T VISIT S GROUP 25 MINUTES [facility] - 6 6 [facility] OUTPATIEN INC T [facility] [place] - 6 6 [facility] T OFFICE 76959 PROGRESSI PROGRESSI OUTPATIEN 6 6 VE VE T VISIT PODIATRY PODIATRY 15 MINUTES [facility] - 6 6 [facility]PATIEN INC T [facility] - 6 6 [facility]PATI[facility] INC T OFFICE 24867 [facility] RACHEL OUTPATIEN 6 6 PHYSICIAN MAT T VISIT S GROUP 25 MINUTES [facility] - 6 6 [facility] OUTPATIEN INC T OFFICE 73079 [facility] OUTPATIEN 6 6 [facility] T VISIT INC 10 MINUTES OFFICE 58727 JACKLYN MCLEOD CRI OUTPATIEN 6 6 MD GINA, T VISIT PSC [address] [facility] CARLOS OUTPATIEN 6 6 PHYSICIAN MENG T VISIT S GROUP 10 MINUTES [facility] - 6 6 [facility] OUTPATIEN INC T [facility] - 6 6 [facility] OUTPAT[facility]EN INC T [facility] - 6 6 [facility]PAT[facility] INC T [facility] - 6 6 [facility] INC T OFFICE 24308 [facility] 6 6 PHYSICIAN MENG T VISIT S GROUP 10 MINUTES [facility] - 6 6 [facility] OUTPATIEN INC T OFFICE 53478 [facility] OUTPATIEN 6 6 PHYSICIAN MENG T VISIT S GROUP 15 MINUTES [facility]OSP[facility] - 6 6 [facility] OUTPATIEN INC T OFFICE 90502 [facility] OUTPATIEN 6 6 [facility] VISIT [facility] 10 MINUTES [facility] - 6 6 [facility] OUTPATIEN INC T OFFICE 37387 JACKLYN SHANI LAN OUTPATIEN 6 6 MD GINA, T VISIT [facility] 25 MINUTES [facility] - 6 6 [facility] OUTPATIEN INC T [facility] - 6 6 [facility]PAT[facility] INC T [facility] - 6 6 [facility] OUTPATIEN INC T OFFICE 47607 JACKLYN GINA MORALES OUTPATIEN 6 6 MD GINA, T VISIT [facility] 10 MINUTES [facility] - 6 6 [facility] OUTPATIEN INC T OFFICE 54607 [facility] CANI OUTPATIEN 6 6 [facility] T VISIT [facility] 15 MINUTES [facility] - 6 6 [facility]PAT[facility] INC T [facility] 6 6 [facility] OUTPATIEN INC T EMERGENCY 03396 [facility] 6 6 [facility] V[facility]/M [facility]OR [facility] - 6 6 [facility] OUTPATIEN INC T EMERGENCY 64027 MIKE VIMAL [facility] 6 6 PHYSICIAN DEPARTMEN S, PLLC T VISIT MODERATE SEVERITY [facility] - 6 6 [facility] OUTPATIEN INC T OFFICE 46288 YUSEF YUSEF OUTPATIEN 6 6 [facility] T VISIT 15 MINUTES [facility] - 6 6 [facility] INC T OFFICE 21363 [facility] CARLOS OUTPATIEN 6 6 PHYSICIAN MENG T VISIT S GROUP 15 MINUTES OFFICE 61536 YUSEF YUSEF OUTPATIEN 6 6 [facility]IL[facility]ILO T VISIT 15 MINUTES [facility] - 6 6 [facility] OUTPATIEN INC T OFFICE 68669 JACKLYN WILSON OUTPATIEN 5 5 MD GINA, T VISIT PSC 15 MINUTES OFFICE 88977 [facility] OUTPATIEN 5 5 [facility] T VISIT INC 10 MINUTES [facility] - 5 5 [facility] OUTPATIEN INC T OFFICE 68707 YUSEF YUSEF OUTPATIEN 5 5 [facility] T VISIT [address]ES [address] [facility] FLORIAN TOD OUTPATIEN 5 5 PHYSICIAN T VISIT S GROUP 10 [facility]OSPITAL [facility] - 5 5 [facility] OUTPATIEN INC [facility] 5 5 [facility] INC T OFFICE 57965 [facility] FL[facility] TOD OUTPATIEN 5 5 PHYSICIAN T NEW 45 S GROUP MINUTES [facility] - 5 5 [facility] OUTPATIEN INC T OFFICE 64418 JACKLYN LAN OUTPATIEN 5 5 MD GINA, T NEW 45 PSC MINUTES [facility] - 5 5 [facility] OUTPATIEN INC [facility] - 5 5 [facility] OUTPATIEN INC T OFFICE 95934 YUSEF YUSEF OUTPATIEN 5 5 [facility] T VISIT 15 MINUTES [facility]OS[facility] - 5 5 [facility] OUTPATIEN INC [facility] - 5 5 [facility] INC T OFFICE 33053 [facility] OUTPATIEN 5 5 [facility] 15 MINUTES [facility] 5 5 [facility] OUTPATIEN INC T OFFICE 56331 YUSEF YUSEF OUTPATIEN 5 5 [facility] T VISIT 15 MINUTES [facility]OS[facility] - 5 5 [facility] OUTPATIEN [facility] - 5 5 [facility] OUTPATI[facility] INC T OFFICE 17184 YUSEF [place] OUTPATIEN 5 5 [facility] T NEW 30 MINUTES OFFICE 50479 [facility] OUTPATIEN 5 5 PHYSICIAN MENG T VISIT S GROUP 15 MINUTES OFFICE 94423 [place] [facility] OUTPATIEN 5 5 [facility] T VISIT 25 MINUTES [facility] [place] - 5 5 [facility] T OFFICE 11639 [place] [facility] OUTPATIEN 5 5 [facility] T VISIT 25 MINUTES EMERGENCY 48460 [place] 5 5 [facility] T VISIT MODERATE SEVERITY [facility]OSP[facility] [place] - 5 5 [facility] T EMERGENCY 33688 ALFARIS ALFARIS 5 5 [facility] T VISIT HIGH/URGE NT SEVERITY OFFICE 77380 PAM OROZCO OUTPATIEN 5 5 GINA GINA T VISIT 15 MINUTES OFFICE 70419 [place] [facility] OUTPATIEN 5 5 [facility] T VISIT 15 MINUTES [facility] [place] - 5 5 [facility] T OFFICE 52484 PAM PAM OUTPATIEN 5 5 GINA GINA T VISIT 25 MINUTES [facility]OSP[facility] [place] - 5 5 [facility]OSPITAL [place] - 5 5 [facility] T OFFICE 95919 PAM PAM OUTPATIEN 5 5 GINA GINA T VISIT 15 MINUTES EMERGENCY 06204 SOKAN BAB SOKAN BAB 5 5 DEPARTMEN T VISIT MODERATE SEVERITY [facility] [place] - 5 5 [facility] T OFFICE 28078 PAM PAM OUTPATIEN 5 5 GINA GINA T VISIT 15 MINUTES [facility] [place] - 5 5 [facility] T OFFICE 11329 PAM PAM OUTPATIEN 5 5 GINA GINA T VISIT 15 MINUTES OFFICE 07826 [facility] PAM OUTPATIEN 4 4 HEALTH GINA T VISIT ASSOCIATE 15 S PS MINUTES [facility] [place] - 4 4 [facility] T OFFICE 94275 PRIMARY PAM OUTPATIEN 4 4 HEALTH GINA T VISIT ASSOCIATE 25 S PS MINUTES [facility]OSP[facility] [place] - 4 4 [facility] HOSPITAL [place] - 4 4 [facility] HOSPITAL [place] - 4 4 [facility] HOME [facility], 4 4 HOME INPATIENT HEALTH EMERGENCY 99228 [place] 4 4 [facility] HOSPITAL T VISIT MODERATE SEVERITY EMERGENCY 14526 HERACLIO ARRIETA 4 4 DEPARTMEN T VISIT HIGH/URGE NT SEVERITY [facility]OSPITAL [place] - 4 4 [facility] [place] - 4 4 [facility] HOME [facility], 4 4 HOME INPATIENT HEALTH HOME 83787 [facility] VISIT EST 4 4 HOME PT HEALTH MOD-HI SEVERITY 40 MINUTES HOME 28557 [facility] VISIT EST 4 4 HOME PT HEALTH MOD-HI SEVERITY 40 MINUTES HOME 49985 [facility] VISIT EST 4 4 HOME PT HEALTH MOD-HI SEVERITY 40 MINUTES HOME 85986 [facility] VISIT EST 4 4 HOME PT HEALTH MOD-HI SEVERITY 40 MINUTES [facility]OSPITAL [place] - 4 4 [facility] [place] - 4 4 [facility] HOME [facility], 4 4 HOME INPATIENT HEALTH HOME 23743 [facility] VISIT EST 4 4 HOME PT HEALTH MOD-HI SEVERITY 40 MINUTES OFFICE 98298 [facility] 4 DANUTA IK LID T NEW [address] [facility] - 4 4 [facility] [place] - 4 4 [facility] [place] - 4 4 [facility] [place] - 4 4 [facility] [place] - 4 4 [facility] T OFFICE 37702 ARMS DON [facility] 4 T VISIT 25 MINUTES OFFICE [address] [facility] 4 4 PRIMARY JAM T VISIT CARE 15 CENTER MINUTES [facility] [place] - 4 4 [facility] T OFFICE 08856 CARLITOS DON ARMS DON OUTPATIEN 4 4 T VISIT 25 MINUTES OFFICE 15811 CHINO URBINA DON CONSULTAT 4 4 [employer], INCOM Storage ION NEW/ESTAB PATIENT 60 MIN [facility] [place] - 4 4 [facility] T EMERGENCY 44630 [facility] 4 4 [facility] T VISIT HIGH/URGE NT SEVERITY [facility]OSPITAL [facility] - 4 4 [facility] H[facility]PITAL [place] - 4 4 [facility] T EMERGENCY 41250 [place] 4 4 [facility] T VISIT HIGH/URGE NT SEVERITY EMERGENCY 18482 [facility]ORK[facility] V[facility] 4 4 [facility] T VISIT HIGH/URGE NT SEVERITY [facility] [place] - 4 4 [facility] T EMERGENCY 30492 H[place]STY JOLLY [place] KER 4 4 DEPARTMEN T VISIT HIGH/URGE NT SEVERITY [facility] [place] - 4 4 [facility] [place] - 4 4 [facility] T EMERGENCY 20094 [facility] II DEPT 3 3 EMERGENCY THO VISIT SERVICES HIGH SEVERITY& THREAT FUNCJ OFFICE 02560 RAYO RUEDA OUTPATIASHER 3 3 PRIMARY JAM T VISIT CARE 25 CENTER MINUTES OFFICE 84425 RAYO RUEDA OUTPATIASHER 3 3 PRIMARY JAM T NEW 30 CARE MINUTES CENTER EMERGENCY 06475 STARR WEAVER 3 3 EMERGENCY PAT DEPARTMEN SERVICES T VISIT HIGH/URGE NT SEVERITY [facility]OSPITAL [facility], - 2 2 INSECTICIDE EXPERT OUTPATIEN RAE T CO HOS OFFICE 86060 PRIMARY PAM OUTPATIEN 2 2 [facility] [place] T VISIT ASSOCIATE 15 S PS MINUTES [facility] 2 [facility] T OFFICE 11776 PRIMARY PAM [facility]PATIEN 2 2 [facility] [place] T VISIT ASSOCIATE 25 S PS MINUTES [facility] 2 2 [facility] OFFICE 37375 PRIMARY PAM OUTPATIEN 2 2 [facility] [place] T VISIT ASSOCIATE 15 S PS MINUTES EMERGENCY 46889 [facility] 2 N DEPARTMEN COMMUNTIY T VISIT HOSPITA MODERATE SEVERITY [facility]PITAL [facility] - 2 2 N OUTPATIEN COMMUNTIY T HOSPITA OFFICE 04394 PAM PAM OUTPATIEN 2 2 [facility] G[facility] T VISIT 25 MINUTES OFFICE 46180 PRIMARY PAM OUTPATIEN 2 2 [facility] [place] T VISIT ASSOCIATE 25 S PS MINUTES OFFICE 40711 PRIMARY PAM OUTPATIEN 2 2 [facility] T VISIT ASSOCIATE 15 S PS MINUTES OFFICE 19195 PRIMARY PAM OUTPATIEN 2 2 [facility] [place] T VISIT ASSOCIATE 15 S PS MINUTES OFFICE 67120 [place] [facility]- OUTPATIEN 2 2 MEDICAL PETEY T NEW 30 SERV RACIEL MINUTES [facility], - 2 2 INSECTICIDE EXPERT OUTPATIEN RAE T CO HOS OFFICE 60864 PRIMARY PAM OUTPATIEN 2 2 [facility] T VISIT ASSOCIATE 15 S PS MINUTES OFFICE 66841 PRIMARY PAM OUTPATIEN 2 2 [facility] T VISIT ASSOCIATE 15 S PS MINUTES [facility]OS[facility] 68[facility] RAE 1 1 [facility] T VISIT LOW/MODER SEVERITY OFFICE 95875 PRIMARY PAM OUTPATIEN 1 1 [facility] T VISIT ASSOCIATE 15 S PS MINUTES HOSPITAL [place] - 1 1 [facility] T OFFICE 63881 PRIMARY PAM OUTPATIEN 1 1 [facility] [place] T VISIT ASSOCIATE 15 S PS MINUTES [facility] 1 1 [facility] T OFFICE 35556 TEJ COSBY COSBY ETJ OUTPATIEN 1 1 MD T VISIT CONSULTIN 15 G SRV MINUTES OFFICE 21273 PRIMARY PAM OUTPATIEN 1 1 [facility] T VISIT ASSOCIATE 15 S PS MINUTES OFFICE 78848 TEJ COSBY COSBY TEJ OUTPATIEN 1 1 MD T VISIT CONSULTIN 15 G SRV MINUTES [facility] 1 [facility] [place] - 1 1 [facility] T EMERGENCY 34919 STARR BARNETT DEPT 1 1 EMERGENCY VISIT SERVICES HIGH SEVERITY& THREAT FUNCJ OFFICE 22085 PRIMARY PAM OUTPATIEN 1 1 [facility] T VISIT ASSOCIATE 25 S PS MINUTES OFFICE 03137 TEJ COSBY COSBY TEJ OUTPATIEN 1 1 MD Al NEW 45 CONSULTIN MINUTES G SRV OFFICE 14359 PRIMARY PAM OUTPATIEN 1 1 [facility] T VISIT ASSOCIATE 15 S PS MINUTES OFFICE 58505 PRIMARY PAM OUTPATIEN 1 1 [facility] T VISIT ASSOCIATE 15 S PS MINUTES OFFICE 22391 PRIMARY PAM OUTPATIEN 1 1 [facility] T VISIT 5 ASSOCIATE MINUTES S PS OFFICE 19702 PRIMARY PAM OUTPATIEN 1 1 [facility] [place] T VISIT ASSOCIATE 15 S PS MINUTES EMERGENCY 54436 [place] 1 1 [facility] H[facility]PITAL T VISIT LOW/MODER SEVERITY EMERGENCY 12383 STARR LAYTON, 1 1 EMERGENCY JR., DO [facility] SERVICES OSC T VISIT MODERATE SEVERITY [facility]OSPITAL [place] - 1 1 [facility] T OFFICE [id number] PR[facility] PAM OUTPATIEN 1 1 [facility]OCI[facility] 15 S PS MINUTES [facility] [place] [facility] 1 1 [facility] OFFICE 84815 PRIMARY PAM [facility]PATI[facility] 1 1 [facility] VISIT ASSOCIATE 25 S PS MINUTES [facility] [place] - 1 1 [facility] T OFFICE 70213 PRIMARY PAM OUTPATIEN 1 1 [facility] VISIT ASSOC[facility]ATE 15 S PS MINUTES [facility] [place] - 1 1 [facility] T OFFICE 12445 PRIMARY PAM OUTPATIEN 1 1 [facility] V[facility]IT ASSOCIATE 15 S PS MINUTES OFFICE 31332 PRIMARY PAM OUTPATIEN 1 1 [facility] VISIT ASSOCIATE 15 S PS MINUTES EMERGENCY 66624 [place] 1 1 [facility] HOSPITAL T VISIT HIGH/URGE NT SEVERITY [facility] [place] [facility] 1 1 [facility] EMERGENCY 90707 STARR LAYTON, DEPT 1 1 EMERGENCY JR., DO VISIT SERVICES OSC HIGH SEVERITY& THREAT [facility] [place] - 1 1 [facility] T EMERGENCY 73200 [place] 1 1 [facility] HOSPITAL T VISIT MODERATE SEVERITY OFFICE 29695 PRIMARY PAM OUTPATIEN 1 1 [facility] VISIT ASSOCIATE 15 S PS MINUTES OFFICE 06319 PRIMARY PAM OUTPATIEN 0 0 [facility] V[facility]IT ASSOCIATE 15 S PS MINUTES [facility] [place] - 0 0 [facility] T OFFICE 17116 PRIMARY PAM OUTPATIEN 0 0 [facility] VISIT ASSOCIATE 15 S PS MINUTES OFFICE 50545 PRIMARY PAM OUTPATIEN 0 0 [facility] VISIT ASSOCIATE 15 S PS MINUTES [facility] [place] - 0 0 [facility] T OFFICE 24626 PRIMARY PAM OUTPATI[facility] 0 0 [facility]ISIT ASSOCIATE 15 S PS MINUTES [facility] [place] - 0 0 [facility] T OFFICE 13758 PRIMARY PAM OUTPATIEN 0 0 [facility]ISIT ASSOCIATE 15 S PS MINUTES [facility] [place] - 0 0 [facility] T OFFICE 70801 PRIMARY PAM OUTPATI[facility] 0 0 [facility] VISIT ASSOCIATE 15 S PS MINUTES OFFICE 31664 PRIMARY PAM OUTPATIEN 0 0 [facility] VISIT ASSOCIATE 15 S PS MINUTES [facility] [place] - 0 0 [facility] T OFFICE 19102 PRIMARY PAM, OUTPATIEN 0 0 [facility] M T VISIT ASSOCIATE 25 S PSC MINUTES OFFICE 32761 PRIMARY PAM, OUTPATIEN 0 0 [facility] JCAKIE M T VISIT ASSOCIATE 25 S PSC MINUTES OFFICE 48248 PRIMARY PAM, OUTPATIEN 0 0 [facility] M T VISIT ASSOCIATE 25 S PSC MINUTES OFFICE 82297 PRIMARY PAM OUTPATIEN 0 0 [facility] VISIT ASSOCIATE 25 S PS MINUTES [facility]OSPITAL [facility] - 0 0 [facility] T OFFICE 31550 PRIMARY PAM, OUTPATIEN 0 0 [facility] JACKIE M T VISIT ASSOCIATE 15 S PSC MINUTES OFFICE 82100 PRIMARY PAM, OUTPATIEN 0 0 [facility] S PSC [facility] [place] [facility] 0 0 [facility] T OFFICE 31890 PRIMARY PAM, OUTPATIEN 9 9 [facility] JACKIE M T VISIT ASSOCIATE 15 S PSC MINUTES OFFICE 22163 PRIMARY PAM, OUTPATIEN 9 9 [facility] VISIT ASSOCIATE 25 S PSC MINUTES OFFICE 87812 PRIMARY PAM, OUTPATIEN 9 9 [facility] VISIT ASSOCIATE 25 S P[facility]ES [facility] OFFICE 35682 PRIMARY PAM, OUTPATIEN 9 9 [facility] 15 S PSC [facility]ES [facility] 9 [facility] OFFICE 23696 PRIMARY PAM, OUTPATIEN 9 9 [facility] 15 S PSC [facility]ES [facility] 9 [facility] OFFICE 59434 PRIMARY PAM, OUTPATIEN 9 9 [facility] JACKIE M T VISIT ASSOCIATE 25 S PSC MINUTES [facility] [place] - 9 9 [facility] [place] - 9 9 [facility] T OFFICE 15326 PRIMARY PAM, OUTPATIEN 9 9 [facility] VISIT ASSOCIATE 15 S PSC MINUTES [facility] 9 [facility] OFFICE 15999 PRIMARY PAM, OUTPATIEN 9 9 [facility] 15 S PSC MINUTES OFFICE 59814 PRIMARY ABBEY OROZCOEN 8 8 [facility] JACKIE [facility] VISIT ASSOCIATE 25 S PSC MINUT[facility] OFFICE 88480 [facility] JACKIE [facility] VISIT ASSOCIATE 15 S PSC MINUTES [facility] [place] [facility] 8 8 [facility] OFFICE [address] 8 8 [facility]ACKIE [facility] VISIT ASSOCIATE 25 S PSC MINUTES [facility] [place] - 8 8 [facility] OFFICE [address] [facility] 8 8 [facility] JACKIE M T VISIT ASSOCIATE 15 S PSC MINUTES [facility] [place] [facility] 8 8 [facility] 8 8 [facility] T OFFICE 09718 PAM[facility] PAM OUTPATIEN 8 8 JACKIE JACKIE [facility] VISIT 15 MINUTES [facility] 8 8 [facility] OFF[facility] 27087 [facility] 8 8 [facility] VISIT CEN[facility] 15 BANK ACCT DEPARTMEN MINUTES T OFFICE [address] [facility] 8 8 DON R DON R T VISIT 15 MINUTES
--- OUTSIDE RECORDS SUMMARY | 2017-04-19 16:40 | External Medical Summary Rpt ---
Author Author , Organization [employer] Address Unknown Phone Unavailable Care Team Providers Care Thermometer Maker Name Role Phone [facility], [facility] Unavailable Unavailable [...] BRO DELATORRE ALL, DELATORRE ALL Unavailable Unavailable [facility] Unavailable Unavailable DEPARTMENT, [facility] Un[facility] Unavailable [facility], [facility] FONSECA DARRYN, FONSECA DARRYN Unavailable Unavailable [facility], Unavailable Unavailable [facility] PAM HAILE Unavailable Unavailable PAM KUMAR Unavailable Unavailable JACKIE STAPLES, Unavailable Unavailable JACKIE OROZCO YUSEF CHILO, YUSEF Unavailable Unavailable CHILO YUSEF CHILO, YUSEF Unavailable Unavailable CHILO NELSON JAM, NELSON JAM Unavailable Unavailable BUX ANJ, BUX ANJ Unavailable Unavailable [facility] Unavailable Unavailable [facility], [facility] Unavailable Unavailable [facility], [facility] Unavailable Unavailable CONSULTANTS [...] EUG CARLOS MENG, CARLOS Unavailable Unavailable [facility] MIRA RHO, MIRA Unavailable Unavailable RHO MIRA, NEEL G, Unavailable Unavailable MIRA, NEEL G [facility] Unavailable Unavailable INC, [facility] Unavailable Unavailable HOSPITAL, [facility] GALLARDO KIRILL, GALLARDO Unavailable Unavailable KIRILL GALLARDO, CONRAD S, Unavailable Unavailable GALLARDO, CONRAD S [facility], Unavailable Unavailable [facility] PULLIAM BERNY, PULLIAM BERNY Unavailable Unavailable PULLIAM BERNY, PULLIAM BERNY Unavailable Unavailable RAIN, RAIN Unavailable Unavailable KENNEDY-PETEY RACIEL, Unavailable Unavailable [facility] RACIEL KENNEDY-PETEY RACIEL, Unavailable Unavailable KENNEDY-PETEY RACIEL [facility] Unavailable GROUP PS, [facility] Unavailable Unavailable [facility], [facility], Unavailable Unavailable [facility] Unavailable Unavailable MED[facility] [...] [facility], Unavailable [facility]available [facility] SHANI CRI, SHANI CRI Unavailable Unavailable [facility] Unavailable Unavailable [facility] CAR[facility], RAYO JOSE CARLOS Unavailable [facility]available [facility] Un[facility] Unavailable [facility], [facility], Unavailable Unavailable [facility] SALDIVAR KIRILL, SALDIVAR Unavailable Unavailable KIRILL [facility], Unavailable Unavailable [facility], Unavailable Unavailable [facility] Unavailable Unavailable SERVICES, [facility] Unavailable Unavailable ASSOCI, [facility], Unavailable Unavailable [facility] Unavailable Unavailable CO [facility], [facility]OSPECT[facility] MARYBETH MILLIGAN, MARYBETH Unavailable Unavailable JAM NADBINA VID, NADIG VID Unavailable Unavailable [facility], Unavailable Unavailable [facility] Unavailable Unavailable [...] [facility], Unavailable Unavailable [facility], Unavailable Unavailable [facility], Unavailable Unavailable [facility] Unavailable Unavailable [facility]ORPORAT, [facility] FLORIAN TOD, FLORIAN TOD Unavailable Unavailable [facility], Unavailable Unavailable [id number], Unavailable Unavailable [id number], [facility]available Unavailable [id number] Unavailable Unavailable [facility], [facility] SADEK MOH, SADEK MOH Unavailable Unavailable SCALF KIRILL, SCALF KIRILL Unavailable Unavailable LUNSFORD GAR, LUNSFORD Unavailable Unavailable GAR RACHEL MAT, Unavailable Unavailable RACHEL MAT KRZYSZTOF AURORA, KRZYSZTOF [facility] Unavailable Unavailable SOKAN BAB, SOKAN BAB Unavailable Unavailable [facility], Unavailable Unavailable [facility] Unavailable Unavailable GEOPHYSICAL PROSPECTING SURVEYOR ST, [facility] GEOPHYSICAL PROSPECTING SURVEYOR [facility] Unavailable Unavailable [facility]IC[facility], [facility] GOINS, DON R, Unavailable Unavailable GOINS, DON R HAMPTON KER, HAMPTON KER Unavailable Unavailable HAMPTON KER, HAMPTON KER Unavailable Unavailable ARVIZU HERMES, Unavailable Unavailable ARVIZU HERMES SWINEY PAT, SWINEY Unavailable Unavailable PAT ASHLEY III J, ASHLEY Unavailable Unavailable III J UNICK CHR, UNICK CHR Unavailable Unavailable VORKPOR DAMI, VORKPOR Unavailable Unavailable DAIM VORKPOR DAMI, VORKPOR Unavailable Unavailable DAMI [facility] # Unavailable Unavailable [id number], [facility] # [id number] [facility] # Unavailable Unavailable [id number], [facility] # [id number] TAMELA ARTHUR EDW, Unavailable Unavailable TAMELA ARTHUR EDW TAMELA ARTHUR, EDWARD Unavailable Unavailable J, TAMELA ARTHUR, DAPHNE J MILDRED GUEVARA, MILDRED MAT Unavailable Unavailable BRODERICK LEVY, Unavailable Unavailable BRODERICK LEVY Purpose Continuity of Care Document - 10-20-2007 through 2016 Problems Code Diagnosis DOS Provider Status [id number] SPONDYLOSIS 11-17-2016 [facility] W/O RADIOLOGY MYELOPATH/R ADICULOPATH Y CERV RGN [id number] SPONDYLOSIS 11-17-2016 [facility] W/O RADIOLOGY MYELOPATH/R ADICULOPATH Y LUMB RGN [id number] SPONDYLOSIS 11-17-2016 [facility] W/O RADIOLOGY MYELOPATH/R ADICULPATHY LS RGN [id number] OTHER 11-17-2016 [facility] CERVICAL RADIOLOGY DISC DEGENERATIO N AT C5-C6 LEVEL M791 MYALGIA 11-17-2016 RICH VAUGHAN MD,PSC M549 DORSALGIA 08-29-2016 [facility] UNSPECIFIED PHYSICIANS GROUP R635 ABNORMAL 08-29-2016 [facility] WEIGHT GAIN PHYSICIANS GROUP Z23 ENCOUNTER 08-29-2016 [facility] FOR PHYSICIANS IMMUNIZATIO GROUP N E785 HYPERLIPIDE 07-05-2016 [facility] LUIS PHYSICIANS UNSPECIFIED GROUP I10 ESSENTIAL 07-05-2016 [facility] PRIMARY PHYSICIANS HYPERTENSIO GROUP N I2510 [place] 07-05-2016 [facility] CORONARY PHYSICIANS ARTERY W/O GROUP ANGINA PECTORIS M5030 OTH 07-04-2016 [facility] CERVICAL [facility] DISC INC DEGENERATIO N UNS CERV REGION M5116 INTERVERTEB 07-04-2016 [facility] RAL DISC [facility] D/O INC W/RADICULOP ATHY LUMB RGN M5032 OT CERV 06-28-2016 [facility] DISC MEDICAL DEGENERATIO IMAGING ASS N MID-CERVICA L REGION M542 CERVICALGIA 06-28-2016 [facility] R079 CHEST PAIN 06-28-2016 [facility] U[facility]PECIFIED [facility] ASS R1084 GENERALIZED 06-28-2016 [facility] ABDOMINAL MEDICAL PAIN IMAGING ASS [id number] UNSPECIFIED 06-28-2016 [facility] INJURY OF MEDICAL NECK IMAGING ASS INITIAL ENCOUNTER Z0100 ENCOUNTER 2016 ST[facility] EXAM EYES & GRE VISION W/O ABNORMAL FIND M4802 SPINAL 05-02-2016 JACKLYN FUENTES, STENOSIS , PSC CERVICAL REGION E663 OVERWEIGHT 04-20-2016 [facility] PHYSICIANS GROUP [id number] COMPLEX 04-07-2016 [facility] REGIONAL PHYSICIANS PAIN GROUP SYNDROME I UNS LOWER LIMB R9431 ABNORMAL 04-07-2016 [facility] ELECTROCARD PHYSICIANS IOGRAM GROUP X29676 ENCOUNTER 04-05-2016 TEJ COSBY FOR PREPROCEDUR CONSULTING AL SRV CARIOVASCUL AR EXAM G8918 OTHER ACUTE 03-29-2016 PROGRESSIVE PODIATRY POSTPROCEDU RAL PAIN M2022 HALLUX 03-29-2016 PROGRESSIVE RIGIDUS PODIATRY LEFT FOOT M2032 HALLUX 03-29-2016 PROGRESS[facility] VARUS PODIATRY ACQUIRED LEFT FOOT Z471 AFTERCARE 03-29-2016 [facility] FOLLOWING MEDICAL JOINT IMAGING ASS REPLACEMENT SURGERY Z8739 PERSONAL HX 03-29-2016 [facility] OT DZ [facility]OS[facility] MUSCULOSKEL INC SYS&CONNECT V TISS D77353 PRESENCE OF 03-29-2016 [facility] OTHER MEDICAL ORTHOPEDIC IMAGING ASS JOINT IMPLANTS Z9889 OTHER 03-29-2016 [facility] SPECIFIED [facility] POSTPROCEDU INC [facility] STATES T79449 OTHER LONG 02-29-2016 [facility] TERM [facility] CURRENT INC DRUG THERAPY Z1231 ENCOUNTER 02-22-2016 [facility] SCREENING MEDICAL MAMMO MALIG IMAGING ASS NEOPLASM BREAST Z4789 ENCOUNTER 02-15-2016 [facility] FOR OTHER MEDICAL ORTHOPEDIC IMAGING ASS AFTERCARE M545 LOW BACK 02-14-2016 [facility] PAIN [facility] INC Z0000 ENCOUNTER 02-03-2016 [facility] GEN ADULT [facility] MED EXAM INC W/O ABNORMAL FIND [id number] ALLERGY 01-19-2016 [facility] UNSPECIFIED PHYSICIANS INITIAL GROUP ENCOUNTER M4696 UNS 01-15-2016 [facility] INFLAMMATOR MEDICAL Y IMAGING ASS SPONDYLOPAT HY LUMBAR REGION M5136 OTH 01-15-2016 [facility] INTERVERTEB MEDICAL RAL DISC IMAGING ASS DEGEN LUMBAR REGION M479 SPONDYLOSIS 01-04-2016 [facility] UNSPECIFIED INC M5090 CERVICAL 01-04-2016 [facility] DISC [facility] DISORDER INC UNS UNS CERVICAL REGION M5010 CERVICAL 12-11-2015 JACKLYN FUENTES, DISC D/O , PSC W/RADICULOP ATHY UNS CERV RGN M2012 HALLUX 12-07-2015 [facility] VALGUS [facility] ACQUIRED INC LEFT FOOT Z15072 ANKYLOSIS 12-07-2015 [facility] LEFT FOOT [facility] INC I209 ANGINA 11-27-2015 [facility] PECTORIS LAR UNSPECIFIED CONSULTANTS O R9439 ABNORMAL 11-27-2015 [facility] RESULT OTH LAR CARDIOVASCU CONSULTANTS LR FUNCTION O STUDY B000 ECZEMA 11-22-2015 MIKE HERPETICUM PHYSICIANS, [facility] E119 TYPE 2 11-22-2015 [facility] DIABETES [facility] MELLITUS INC WITHOUT COMPLICATIO NS L259 UNSPECIFIED 11-22-2015 [facility] CONTACT [facility] DERMATITIS INC UNSPECIFIED CAUSE I208 OTHER FORMS 11-11-2015 [facility] OF ANGINA LAR PECTORIS CONSULTANTS O I340 NONRHEUMATI 11-11-2015 [facility] MITRAL [facility] INSUFFICIEN CY I517 CARDIOMEGAL 11-11-2015 [facility] Y SERV [facility] I739 PERIPHERAL 11-11-2015 [facility] VASCULAR MEDICAL DISEASE IMAGING ASS UNSPECIFIED S98613 ENCOUNTER 11-06-2015 [facility] FOR OTHER MEM HOS[facility] PREPROCEDUR INC AL EXAMINATION A36096 PAIN IN 11-03-2015 YUSEF CHILO LEFT FOOT Z66731 PAIN IN 11-03-2015 YUSEF CHILO LEFT TOES R011 CARDIAC 11-02-2015 [facility] MUR[facility]UR PHYSICIANS UNSPECIFIED GROUP M7732 CALCANEAL 10-20-2015 [facility] SPUR LEFT MEDICAL FOOT IMAGING ASS R102 PELVIC AND 09-07-2015 [facility] PERINEAL PHYSICIANS PAIN GROUP R1030 LOWER 09-07-2015 [facility] ABDOMINAL PHYSICIANS PAIN GROUP UNSPECIFIED R1031 RIGHT LOWER 09-07-2015 [facility] QUADRANT PHYSICIANS PAIN GROUP R591 GENERALIZED 09-07-2015 [facility] ENLARGED PHYSICIANS LYMPH NODES GROUP K5730 DIVERTICULO 08-12-2015 [facility] SIS LG MEDICAL INTEST W/O IMAGING ASS PERF/ABSC W/O BLEED K5900 CONSTIPATIO 08-12-2015 [facility] N MEDICAL UNSPECIFIED IMAGING ASS R197 DIARRHEA 08-12-2015 [facility] UNSPECIFIED MEDICAL IMAGING ASS 76179 URINARY 07-09-2015 [facility] FREQUENCY [facility] INC 5990 URINARY 06-30-2015 [facility] TRACT [facility] INFECTION INC SITE NOT SPECIFIED 6259 UNSPEC 06-30-2015 [facility] SYMPTOM MEDICAL ASSOC IMAGING ASS W/FEMALE GENITAL ORGANS 7831 ABNORMAL 06-30-2015 [facility]IGHT [facility]IN [facility] INC 19356 UNSPECIFIED 06-30-2015 [facility] URINARY MEDICAL INCONTINENC IMAGING ASS E 37852 UNSPECIFIED 06-25-2015 YUSEFKATHI WOO REFLEX SYMPATHETIC DYSTROPHY 49201 UNSPECIFIED 06-25-2015 YUSEF CHILO ENTHESOPATH Y OF ANKLE AND TARSUS 73704 EXOSTOSIS 06-25-2015 YUSEF CHILO OF UNSPECIFIED SITE 7351 HALLUX 06-25-2015 YUSEF CHLIO VARUS V571 OTHER 06-16-2015 [facility] THERAPY INC 4739 UNSPECIFIED 06-03-2015 [facility] 4019 UNSPECIFIED 05-20-2015 [facility] ESSENTIAL LAR HYPERTENSIO CONSULTANTS N O 4139 OTHER AND 05-20-2015 [facility] UNSPECIFIED PHYSICIANS ANGINA GROUP PECTORIS 63365 SHORTNESS 05-20-2015 [facility] [place] [address] CHEST PAIN 05-20-2015 [facility] UNSPECIFIED LAR CONSULTANTS O 7220 DISPLCMT 05-12-2015 [facility] CERV MEDICAL INTERVERT IMAGING ASS DISC WITHOUT MYELOPATHY 7224 DEGENERATIO 05-12-2015 [facility] N OF MEDICAL CERVICAL IMAGING ASS INTERVERTEB RAL DISC 7231 CERVICALGIA 05-12-2015 [facility] 7820 DISTURBANCE 05-12-2015 [facility] OF SKIN MEDICAL SENSATION IMAGING ASS 3559 MONONEURITI 05-01-2015 [facility] S OF PHYSICIANS UNSPECIFIED GROUP SITE 7852 UNDIAGNOSED 05-01-2015 [facility] CARDIAC PHYSICIANS MURMURS GROUP 47447 OBESITY, 04-15-2015 [facility]PECIFIED [facility] 4292 UNSPECIFIED 04-15-2015 [facility] CARDIOVASCU LAR DISEASE 7295 PAIN IN 04-15-2015 [facility] SOFT [facility] TISSUES OF LIMB 23275 DISORDER OF 04-15-2015 [facility] BONE AND [facility] CARTILAGE UNSPECIFIED 13274 CLOSED 04-15-2015 [facility] FRACTURE OF [facility] METATARSAL BONE 90524 CONTUSION 04-15-2015 [facility] OF FOOT [facility] 2720 PURE 03-08-2015 [facility] 9597 INJURY 03-08-2015 [facility] [place] OTHER&UNSPE RADIOLOGY CIFIED KNEE LEG ANKLE&FOOT E8888 OTHER FALL 03-08-2015 [facility] V5869 LONG-TERM 03-08-2015 [facility] (CURRENT[facility] USE OF HOSPITAL OTHER MEDICATIONS 2724 OTHER AND 02-16-2015 [facility] UNSPECIFIED [facility] HYPERLIPIDE LUIS 77756 OTHER 02-16-2015 [facility] AND [facility] 7821 RASH AND 02-16-2015 [facility] [place] OTHER [facility] NONSPECIFIC HOS[facility]ITAL SKIN ERUPTION V4589 OTHER 02-16-2015 [facility] [place] POSTSURGICA [facility] L [facility]US [facility] OTHER 2810 PERNICIOUS 02-13-2015 PAM FUENTES ANEMIA 6929 CONTACT 02-13-2015 PAM FUENTES DERMATITIS& OTHER ECZEMA DUE UNSPEC CAUSE 64189 OSTEOARTHRO 01-21-2015 [facility] [place] SIS UNSPEC RADIOLOGY WHETHER GEN/LOC ANK&FOOT 94470 PAIN IN 01-21-2015 IDA JOINT, [facility] ANKLE AND HOSPITAL FOOT 4549 ASYMPTOMATI 12-22-2014 PAM FUENTES C VARICOSE VEINS [address] [facility] 11-28-2014 [place] [facility] INT [facility]ESTH[facility]IA [facility] PS DEVC IMPLANT&[place] [address] OTH COMPS 11-28-2014 [place] DUE OT [facility] INTRL ORTHOPED DEVICE IMPL&GFT V1582 PERS HX 11-28-[address] [facility] [place] [address] USE [facility] V454 ARTHRODESIS 11-28-2014 [facility] V5399 FITTING AND 11-28-2014 [facility] OTHER DEVICE V5401 ENCOUNTER 11-28-2014 [facility] REMOVAL OF [facility] FIXATION DEVICE V5866 LONG-TERM 11-28-2014 [facility] [place] USE OF [facility] V7283 OTHER 11-25-2014 [facility] [place] SPECIFIED RADIOLOGY PRE-OPERATI VE EXAMINATION 4599 UNSPECIFIED 11-24-2014 PAM FUENTES CIRCULATORY SYSTEM DISORDER V692 PROBLEMS 10-17-2014 [facility] RELATED TO [facility] SEXUAL [facility] 06085 ACUTE 10-14-2014 [facility] DUE OT ASSOCIATES INFECTIOUS PS ORGANISMS 7905 OTHER 10-06-2014 [place] NONSPECIFIC [facility] ABNORMAL [facility]OS[facility]ITAL SERUM ENZYME LEVELS 7812 ABNORMALITY 08-12-2014 [facility] GAIT 6827 CELLULITIS 07-18-2014 [place] AND ABSCESS [facility] EXCEPT TOES 84065 NON-HEALING 07-16-2014 [facility] W[facility] NEC 8260 CLOSED 07-15-2014 [facility] FRACTURE OF ONE OR MORE PHALANGES OF FOOT 49506 DISRUPTION 07-15-2014 HERACL[facility] ARRIETA OF EXTERNAL OPERATION SURGICAL WOUND 7352 HALLUX 07-09-2014 [facility] V5409 OTH 07-09-2014 [facility] [place] [facility] RADIOLOGY INVOLVING INTERNAL FIXATION DEVICE V5419 AFTERCARE 06-16-2014 [facility] TRAUMATIC FRACTURE OTHER BONE V6700 FOLLOW-UP 05-28-2014 [facility] [place] EXAMINATION RADIOLOGY FOLLOWING UNSPEC SURGERY 8920 OPEN WOUND 05-26-2014 [facility] NO TOE HEALTHCARE ALONE CENTERS WITHOUT MENTION COMP 79126 NAUSEA 05-02-2014 ST [facility] PH[facility] 4011 ESSENTIAL 05-01-2014 TEJ SESAY MD N, BENIGN CONSULTING SRV 97734 CORONARY 05-01-2014 TEJ CURRIE MD [facility] [place] CONSULTING CORONARY SRV ARTERY 2725 LIPOPROTEIN 04-30-2014 [facility] S V7284 UNSPECIFIED 04-30-2014 [facility] [place] RADIOLOGY PRE-OPERATI VE EXAMINATION 55691 SWELLING OF 04-23-2014 [facility] [place] LIMB RADIOLOGY 4439 UNSPECIFIED 04-04-2014 TEJ COSBY PERIPHERAL VASCULAR CONSULTING DISEASE SRV 4479 UNSPECIFIED 04-02-2014 [facility] DISORDERS [facility]IMARY OF ARTERIES CARE CENTER AND ARTERIOLES 41918 STIFFNESS 04-02-2014 [facility] OF JOINT PRIMARY NEC ANKLE CARE CENTER AND FOOT 34062 UNSPECIFIED 03-07-2014 [facility] CELLULITIS AND ABSCESS OF TOE 8261 OPEN 03-07-2014 [facility] FRACTURE OF COMMUNITY ONE OR HOSPITAL MORE PHALANGES OF FOOT 6821 CELLULITIS 02-21-2014 [place] AND ABSCESS [facility] 86405 DIAB W/O 02-17-2014 [facility] COMP TYPE [facility] II/UNS NOT INC STATED UNCNTRL 7962 ELEVATED BP 02-17-2014 [facility] READING [facility] WITHOUT DX INC HYPERTENSIO N 87049 ESOPHAGEAL 02-16-2014 IDA REFLUX [facility] E8859 FALL FROM 02-05-2014 VORESTEVAN DAMI OTHER SLIPPING TRIPPING OR STUMBLING 83473 OSTEOARTHRO 01-03-2014 [place] SIS UNSPEC COMMUNITY WHETHER HOSPITAL GEN/LOC LOWER LEG 18543 PAIN IN 01-03-2014 [facility] [place] JOINT, RADIOLOGY LOWER LEG 7919 OTHER 01-03-2014 [facility] NONSPECIFIC [facility] FINDING [facility]OSPITAL EXAMINATION OF URINE 8930 OPEN WOUND 12-27-2013 [facility] K[facility] TOE WITHOUT MENTION COMPLICATIO N 17990 UNSPECIFIED 12-23-2013 [facility] S 62722 OSTEOARTHRO 11-28-2013 [facility] [place] S UNSPEC RADIOLOGY WHETHER GEN/LOC SHLDR REGION 33270 PAIN IN 11-28-2013 [facility] REGION V7612 OTHER 11-28-2013 [facility] [place] SCREENING RADIOLOGY MAMMOGRAM V8534 BODY MASS 08-06-2013 [facility] 34.0-34.9 ADULT V016 CONTACT 07-23-2013 [facility] WITH OR DIAGNOSTICS EXPOSURE TO VENEREAL DISEASES 62460 PAINFUL 06-30-2013 [facility]ATION [facility] 61989 OTHER 06-30-2013 [facility] INJURY OF EMERGENCY CHEST WALL SERVICES 4610 ACUTE 05-21-2013 [facility] MAXILLARY PRIMARY SINUSITIS CARE CENTER 4619 ACUTE 05-21-2013 [facility] S[facility]USITIS, DAUGHTERS UNSPECIFIED MEDICAL SPEC 7840 HEADACHE 05-21-2013 [facility] PRIMARY CARE CENTER 9220 CONTUSION 01-18-2013 [facility] BREAST EMERGENCY SERVICES 95394 CONTUSION 01-18-2013 [facility] UPPER EMERGENCY ARM SERVICES E8881 FALL 01-18-2013 [facility] RESULTING [facility]ERGENCY IN STRIKING SERVICES AGAINST OTHER OBJECT 4240 MITRAL 09-19-2012 [facility] VALVE GEOPHYSICAL PROSPECTING SURVEYOR DISORDERS [facility] HOS 23899 PRECORDIAL 09-19-2012 [facility], PAIN GEOPHYSICAL PROSPECTING SURVEYOR [facility] HOS 7242 LUMBAGO 06-21-2012 [facility] 8404 ROTATOR 06-07-2012 [facility] [place] [address] PAIN IN 04-07-2012 [place] JOINT COMM[facility]TIY PELVIC HOSPITA REGION AND THIGH 6160 CERVICITIS 04-06-2012 PAM GINA AND ENDOCERVICI TIS 6250 DYSPAREUNIA 03-01-2012 [place] [address] REFLUX 01-10-2012 PATHOLOGY & ESOPHAGITIS CYTOLOGY LAB 51952 ACUTE 01-10-2012 [place] [facility] GASTRITIS SERV WITHOUT FOUNDATIO MENTION OF HEMORRHAGE 72255 OTHER SPEC 01-10-2012 PATHOLOGY & GASTRITIS CYTOLOGY WITHOUT LAB MENTION HEMORRHAGE 5533 DIAPHRAGMAT 01-10-2012 [place] MEDICAL SRIKANTH W/O SERV MENTION FOUNDATIO OBSTRUCTION /GANGREN 7871 HEARTBURN 01-10-2012 [facility] SERV FOUNDATIO 61976 DYSPHAGIA 01-10-2012 [place] MEDICAL UNSPECIFIED SERV FOUNDATIO 0340 STREPTOCOCC 12-30-2011 [facility]ORE [facility] THROAT [facility] PS 2777 DYSMETABOLI 11-29-2011 [facility], C SYNDROME GEOPHYSICAL PROSPECTING SURVEYOR X [facility] HOS 35971 UNSPECIFIED 11-29-2011 [facility], GEOPHYSICAL PROSPECTING SURVEYOR ARTHROPATHY [facility] SITE HOS UNSPECIFIED 4730 CHRONIC 11-04-2011 [facility] MAXILLARY HEALTH SINUSITIS ASSOCIATES PS 9063 LATE EFFECT 09-23-2011 [facility] OF HOSPITAL CONTUSION 9599 INJURY 09-23-2011 [facility] OTHER AND RADIOLOGY UNSPECIFIED ASSOCIAT UNSPECIFIED SITE 4779 ALLERGIC 07-21-2011 [facility] RHINITIS HEALTH CAUSE ASSOCIATES UNSPECIFIED PS 2722 MIXED 07-14-2011 [facility] HYPERLIPIDE [facility] 3278 OTHER 07-14-2011 I[facility] ORGANIC [facility] SLEEP HOSPITAL DISORDERS 39346 COR 07-14-2011 IDA ATHEROSLERO [facility] UNSPEC HOSPITAL TYPE [place]/ALYSA T 7851 PALPITATION 06-02-2011 TEJ Ghosh [place] 01298 OTHER CHEST 05-27-2011 [facility] PAIN [facility] 79542 05-04-2011 [facility] PS 2662 OTHER 04-22-2011 [facility] B-COMPLEX HEALTH DEFICIENCIE ASSOCIATES S PS 6822 CELLULITIS 03-24-2011 [facility] AND ABSCESS EMERGENCY OF TRUNK SERVICES 6829 CELLULITIS 03-16-2011 [facility] AND ABSCESS HEALTH OF ASSOCIATES UNSPECIFIED PS SITE 81367 OTHER 02-08-2011 IDA CHRONIC [facility] PAIN HOSPITAL 4279 UNSPECIFIED 02-08-2011 [facility] CARDIAC [facility] DYSR[facility]TH[facility]IA [facility]PITAL 4556 UNSPEC 02-08-2011 IDA HEMORRHOIDS [facility] WITHOUT HOSPITAL MENTION COMPLICATIO N 75916 UNSPECIFIED 02-08-2011 [facility] NKLIN RACIEL CONSTIPATIO N 5693 HEMORRHAGE 02-08-2011 [place] OF RECTUM ANESTHESIA AND ANUS GROUP PSC V1272 PERSONAL 02-08-2011 [place] HISTORY OF ANESTHESIA COLONIC GROUP PSC POLYPS 7247 DISORDERS 01-21-2011 [place] [address] OTHER 01-21-2011 [facility] [place] DISORDER OF RADIOLOGY COCCYX 7336 TIETZES 11-20-2010 [facility] DISEASE [facility] SERVICES 1119 UNSPECIFIED 11-07-2010 [facility] SIS 61282 RESTLESS 11-07-2010 IDA LEGS [facility] 1105 DERMATOPHYT 10-22-2010 [facility] PS 7265 ENTHESOPATH 09-15-2010 [facility] Y [facility] PS V745 SCREENING 06-29-2010 IDA EXAMINATION [facility] VENEREAL DISEASE 7881 DYSURIA 05-03-2010 [facility] V0179 CONTACT OR 05-03-2010 IDA EXPOSURE TO [facility]UN[facility] OTHER HOSPITAL VIRAL DISEASES 8461 SPRAIN AND 01-29-2010 [facility] STRAIN [facility] PS 3829 UNSPECIFIED 09-01-2009 [facility] PSC 7908 UNSPECIFIED 09-01-2009 [facility] PSC 86276 INSOMNIA 07-30-2009 [facility] UNSPECIFIED HEALTH [facility] PSC V7231 ROUTINE 07-28-2009 PATHOLOGY & GYNECOLOGIC CYTOLOGY AL LAB EXAMINATION 2721 PURE 06-12-2009 [facility] HYPERGLYCER [facility]MIA [facility] PSC 5939 UNSPECIFIED 11-24-2008 [place] [facility] 8471 THORACIC 11-24-2008 [facility] SPRAIN AND HEALTH STRAIN [facility] PSC 486 PNEUMONIA, 10-13-2008 PR[facility] ORGANISM HEALTH UNSPECIFIED ASSOCIATES PSC V4579 OTHER 10-12-2008 [place] ACQUIRED RADIOLOGY ABSENCE OF ASSOCIATES ORGAN PSC 3804 IMPACTED 08-19-2008 [facility] PSC 37306 DIARRHEA 07-17-2008 [facility]SC 4550 INTERNAL 07-08-2008 IDA HEMORRHOIDS [facility] WITHOUT HOSPITAL MENTION COMP V160 FM HX 07-08-2008 IDA MALIGNANT [facility] GASTROINTES TINAL TRACT V7651 SPECIAL 07-08-2008 [place] SCREENING ANESTHESIA FOR GROUP PSC MALIGNANT NEOPLASMS COLON 60001 DISPLCMT 03-17-2008 IDA LUMBAR [facility] DISC W/O MYELOPATHY 24221 OTHER&UNSPE 02-18-2008 [facility] [place] CIFIED DISC RADIOLOGY DISORDER OF LUM[place] REGION 01794 LUMP OR 12-27-2007 IDA MASS IN [facility] V703 OTH GENERAL 11-06-2007 [facility] ACCT PURPOSES 43624 HYPERVENTIL 10-23-2007 MARIA EUGENIA GOINS DON R [...] NO 00 9- 9- 00 00 ve NE 51 20 20 71 AI [place] 90 [...] 1 13 PH CE AR TA M [place] #3 NO 91 PH 4 7. 5- [...] 03 -2 -0 .0 00 TE ti NE 70 2- 9- 00 00 ve OL [...] -1 -2 .0 L- 90 MB ti NE 70 8- 6- 00 MA 14 S [...] -1 -1 .0 L- 90 MB ti NE 70 8- 8- 00 MA 14 S [...] SAMUEL 53 06 06 0 20 10 NM 70 BR Ac LF 74 -0 -0 [...] 0 10 5 WA 70 BR Ac NE 37 -1 -1 .0 L- 47 OD [...] 5 30 30 WA 70 BR Ac NE 00 -1 -1 .0 L- 43 OD [...] 5 30 30 WA 70 BR Ac NE 76 -1 -1 .0 L- 33 OD [...] 0 10 5 WA 70 BR Ac NE 37 -1 -1 .0 L- 33 OD [...] 80 10 10 [address] N 5 NH NN [address] LY ET H MG DR M UG TA BL ET TR 00 03 03 2 30 30 SO 33 BR Ac IL 07 -0 -0 .0 PE 71 OD ti IP 49 6- 6- 00 RS 28 SK ve IX 18 20 20 Y [address] 0 NH NN LY ET [address] [...] 37 09 09 FA KE SAMUEL 0 NH NN LF LY ET H ER DR M UG 30 MG TA BL ET SI 55 07 12 03 30 30 SO 31 BR Ac MV 11 -1 -0 .0 PE 79 OD ti 10 5- 3- 00 RS 31 SK ve TA 20 20 20 Y TI 00 09 09 FA KE N 5 NH NN 40 LY ET H MG DR M UG TA BL ET AM 00 11 12 00 30 10 SO 32 BR Ac OX 78 -1 -0 .0 PE 84 OD ti IC 12 7- 3- 00 RS 15 SK ve IL 61 20 20 Y LI 30 09 09 FA KE N 5 NH NN 50 LY ET [address] M UG CA PS UL E MO 60 11 12 00 30 30 SO 32 BR Ac RP 95 -1 -0 .0 PE 84 OD ti HI 10 7- 3- 00 RS 14 SK ve NE 65 20 20 Y 37 09 09 FA KE SAMUEL 0 NH NN LF LY ET H ER DR M UG 30 MG TA BL ET TR 00 11 12 00 30 30 SO 32 BR Ac IL 07 -1 -0 .0 PE 83 OD ti IP 49 6- 3- 00 RS 12 SK ve IX 18 20 20 Y 99 [address] 0 NH NN LY ET [address] M MG UG CA PS UL E TR 50 10 11 00 30 30 SO 32 BR Ac AZ 11 -1 -0 .0 PE 55 OD ti OD 10 9- 5- 00 RS 56 SK ve ON 43 20 20 Y E 30 09 09 FA KE 50 3 NH NN LY ET MG H DR M [...] 37 09 09 FA KE SAMUEL 0 NH NN LF LY ET H ER DR M UG 30 MG TA BL ET SI 55 07 10 02 30 30 SO 31 BR Ac MV 11 -1 -0 .0 PE 79 OD ti 10 5- 8- 00 RS 31 SK ve TA 20 20 20 Y TI 00 09 09 FA KE N 5 NH NN 40 LY ET H MG [address] M UG TA BL ET CI 60 09 09 00 15 30 RI 37 BR Ac TA 50 -1 -2 .0 TE 57 OD ti LO 52 8- 4- 00 24 SK ve NE 52 20 20 AI Y AM 00 [...] 00 09 09 FA KE N 5 NH NN 40 LY ET H MG DR M UG TA BL ET HY 59 12 09 02 30 30 SO [address] 74 -1 -1 .0 PE 09 OD ti OC 60 2- 0- 00 RS 98 SK ve HL 38 20 20 Y OR 20 08 09 FA KE OT 6 NH NN HI LY ET AZ H ID [...] 00 09 09 FA KE N 5 NH NN [address] LY [address] H [address] M UG TA BL ET HY 59 12 07 01 30 30 SO [address] 74 -1 -3 .0 PE 09 OD ti OC 60 2- 0- 00 RS 98 SK ve HL 38 20 20 Y OR 20 08 09 FA KE OT 6 NH NN HI LY ET AZ H ID [...] 00 08 09 FA KE N 5 NH NN [address] [...] 00 08 09 FA KE N 5 NH NN [address] L[address] H MG [address] [...] 52 3- 6- 00 23 SK ve NE 52 20 20 AI Y AM 00 [...] NE 10 08 09 FA KE 3 NH NN BE LY ET SY H LA DR M TE UG 5 MG TA B CY 00 02 02 00 20 20 RI 35 BR Ac CL 37 -0 -2 .0 TE 28 OD ti OB 80 9- 6- 00 91 SK ve EN 75 20 20 AI Y ZA 11 09 09 D KE NE 0 PH NN IN AR ET E M H 10 #3 M 91 MG 4 TA BL ET SI 55 11 02 02 30 30 SO 30 BR Ac MV 11 -0 -2 .0 PE 00 OD ti 10 4- 6- 00 RS 88 SK ve TA 20 20 20 Y TI 00 08 09 FA KE N 5 NH NN [address] L[address] [...] 00 08 09 FA KE N 5 NH NN [address] L[address] H MG [address] [...] NE 10 08 08 FA KE 3 NH NN BE LY ET SY H LA DR M TE UG 5 MG TA B HY 59 12 12 00 30 30 SO [address] 74 -1 -1 .0 PE 09 OD ti OC 60 2- 8- 00 RS 98 SK ve HL 38 20 20 Y OR 20 08 08 FA KE OT 6 NH NN HI LY ET AZ H ID [...] 00 08 08 FA KE N 5 NH NN [address] L[address] H MG [address] [...] 52 2- 9- 00 28 SK ve NE 52 20 20 AI Y AM 00 [...] ai 10 08 08 FA la 1 NH bl LY e DR UG 58 09 [...] 20 5- 3- 00 24 SK ve NE 00 20 20 AI Y AM 70 [...] TE 91 5 4 MG TA B NE 00 06 07 00 21 6 RI [...] 80 6- 8- 00 70 Av ve NH 21 20 20 AI ai DE 61 [...] Procedure DOS Code Location Performer Comment RADEX 32063 [facility] SPINE 7 RADIOLOGY LUMBOSACR AL MINIMUM 4 VIEWS RADEX 01712 [facility] 7 RADIOLOGY CERVICAL 4 OR 5 VIEWS ECG 95986 [facility] ROUTINE 6 PHYSICIAN MAT ECG S GROUP W/LEAST 12 LDS I&R ONLY ECG 24809 [facility] ROUTINE 6 [facility] ECG INC INC W/LEAST 12 LDS TRCG ONLY W/O I&R HOSPITAL G0463 [facility] OUTPATIEN 6 [facility] T CLIN INC INC VISIT ASSESS & [place] [address] [facility] ALL CERVICAL 6 MEDICAL SPINE W/O IMAGING CONTRAST ASS MATERIAL RADIOLOGI 59381 [facility] C EXAM 6 MEDICAL NIKKI CHEST 2 IMAGING VIEWS ASS FRONTAL&L ATERAL RADEX 32619 [facility] SPINE 6 MEDICAL NIKKI CERVICAL IMAGING [address] [place] [address] [place] [address] [facility] [facility] ALL ABDOMEN & 6 MEDICAL PELVIS IMAGING W/CONTRAS ASS T MATERIAL OPHTH 51157 [facility] 6 GRE GRE XM&EVAL COMPRE NEW PT 1/> VST DRUG TST G0477 [facility] PRESUMP;C 6 [facility] PBL BEING INC INC READ DC OPT OBV ONLY DRUG TEST G0481 [facility] DEFINITV 6 [facility] MEM [facility] DR ID INC INC METH P DAY 8-14 DRUG CL ECG 44741 [facility] ROUTINE 6 PHYSICIAN MAT ECG S GROUP W/LEAST 12 LDS I&R ONLY ECG 49854 [facility] ROUTINE 6 [facility] ECG INC INC W/LEAST 12 LDS TRCG ONLY W/O I&R ECG 73677 [facility] ROUTINE 6 [facility] W/LEAST 12 LDS TRCG ONLY W/O I&R ECG 71318 [facility] ROUTINE 6 MD ECG CONSULTIN W/LEAST G SRV 12 LDS I&R ONLY HEPATIC 42308 [facility] FUNCTION 6 [facility] COLLECTIO 60196 [facility] N VENOUS 6 [facility] VENIPUNCT URE BASIC 38613 [facility] METABOLIC [address] [place] [address] CALCIUM TOTAL LIPID 49132 [facility] PANEL [address] [place] [address] RADIOLOGI 51651 [facility] C 6 MEDICAL EXAMINATI IMAGING ON FOOT 2 ASS VIEWS RADEX 23120 [facility] FOOT 6 [facility] COMPLETE INC INC MINIMUM 3 VIEWS ECG 27776 [facility] ROUTINE 6 PHYSICIAN MAT ECG S GROUP W/LEAST 12 LDS I&R ONLY ECG 14774 [facility] ROUTINE 6 [facility] ECG INC INC W/LEAST 12 LDS TRCG ONLY W/O I&R DRUG TST G0477 [facility] PRESUMP;C 6 [facility] PBL BEING INC INC READ DC OPT OBV ONLY DRUG TEST G0481 [facility] DEFINITV [address] [facility] [address] [facility] [address] ID INC INC METH P DAY 8-14 DRUG CL SCREENING G0202 [facility] 6 MEDICAL NIKKI MAMMOGRAP IMAGING HY RAPHAEL ASS INCL CAD WHEN PERFORMD DRUG TST G0477 [facility] PRESUMP;C 6 [facility] PBL BEING INC INC READ DC OPT OBV ONLY COMPUTER- 57941 [facility] AIDED 6 MEDICAL NIKKI DETECTION IMAGING ASS SCREENING MAMMOGRAP HY THERAPEUT 36474 [facility] IC PX 1/> 6 [facility] AREAS INC INC EACH 15 MIN EXERCISES E-STIM G0283 [facility] 1/> AREAS 6 [facility] OTH THAN INC INC WND CARE PART TX PLAN APPLICATI 06546 [facility] ON 6 [facility] MODALITY INC INC 1/> AREAS HOT/COLD PACKS RADEX 40774 [facility] FOOT 6 [facility] COMPLETE INC INC MINIMUM 3 VIEWS RADIOLOGI 17358 [facility] ALL C 6 MEDICAL EXAMINATI IMAGING ON FOOT 2 ASS VIEWS THERAPEUT 52684 [facility] IC PX 1/> 6 [facility] AREAS INC INC EACH 15 MIN EXERCISES APPLICATI 01109 [facility] ON 6 [facility] MODALITY INC INC 1/> AREAS HOT/COLD PACKS E-STIM G0283 [facility] LU 1/> AREAS 6 [facility] OTH THAN INC INC WND CARE PART TX PLAN E-STIM G0283 [facility] LU 1/> AREAS 6 [facility] OTH THAN INC INC WND CARE PART TX PLAN APPLICATI 34678 [facility] ON 6 [facility] MODALITY INC INC 1/> AREAS H[place] [address] [facility] THYROID 6 [facility] STIMULATI INC INC NG HORMONE TSH HEMOGLOBI 62261 [facility] N 6 [facility] GLYCOSYLA INC INC JEREMY A1C BLOOD 93060 [facility] COUNT 6 [facility] COMPLETE INC INC AUTO&AUTO DIFRNTL WBC COMPREHEN 19451 [facility] SIVE 6 [facility] METABOLIC INC INC PANEL COLLECTIO 22752 [facility] N VENOUS 6 [facility] [place] [address] [facility] THYROXINE 6 [facility] TOTAL INC INC THERAPEUT 73286 [facility] IC PX 1/> 6 [facility] AREAS INC INC EACH 15 MIN EXERCISES THERAPEUT 88565 [facility] LU IC PX 1/> 6 [facility] AREAS INC INC EACH 15 MIN EXERCISES E-STIM G0283 [facility] LU 1/> AREAS 6 [facility]OS[facility] OTH THAN INC INC WND CARE PART TX PLAN APPLICATI 14083 [facility] ON 6 [facility] MODALITY INC INC 1/> AREAS HOT/COLD PACKS APPL 39504 [facility] MODALITY 6 [facility] 1/> AREAS INC INC VASOPNEUM ATIC DEVICES MANUAL 42020 [facility] THERAPY 6 [facility] TQS 1/> INC INC REGIONS EACH 15 MINUTES MANUAL 51857 [facility] THERAPY 6 [facility] TQS 1/> INC INC REGIONS EACH 15 MINUTES APPL 64748 [facility] MODALITY 6 [facility] 1/> AREAS INC INC VASOPNEUM ATIC DEVICES THERAPEUT 67997 [facility] TAB[facility]A IC PX 1/> 6 [facility] AREAS INC INC EACH 15 MIN EXERCISES THERAPEUT 46821 [facility] CAR[facility] IC 6 PHYSICIAN MENG PROPHYLAC S GROUP TIC/DX INJECTION SUBQ/IM PHYSICAL 63464 [facility] THERAPY 6 [facility] EVALUATIO INC INC N 3D 23994 [facility] RENDERING 6 MEDICAL NIKKI W/INTERP IMAGING & ASS POSTPROCE SS SUPERVISI ON MRI 71929 [facility] SPINAL 6 [facility] CANAL INC INC LUMBAR W/O CONTRAST MATERIAL MANUAL 92294 [facility] THERAPY 6 [facility] TQS 1/> INC INC REGIONS EACH 15 MINUTES THERAPEUT 63063 [facility] IC PX 1/> 6 [facility] AREAS INC INC EACH 15 MIN EXERCISES THERAPEUT 41345 [facility] IC PX 1/> 6 [facility] AREAS INC INC EACH 15 MIN EXERCISES MANUAL 51942 [facility] THERAPY 6 [facility] TQS 1/> INC INC REGIONS EACH 15 MINUTES MANUAL 61810 [facility] THERAPY 6 [facility] TQS 1/> INC INC REGIONS EACH 15 MINUTES THERAPEUT 62686 [facility] IC PX 1/> 6 [facility] AREAS INC INC EACH 15 MIN EXERCISES PHYSICAL 89378 [facility] THERAPY 6 [facility] EVALUATIO INC INC N RADIOLOGI 47883 [facility] ALL C 6 MEDICAL EXAMINATI IMAGING ON FOOT 2 ASS VIEWS RADEX 55144 [facility] FOOT 6 [facility] COMPLETE INC INC MINIMUM 3 VIEWS RADIOLOGI 41831 [facility] C 6 [facility] EXAMINATI INC INC ON FOOT 2 VIEWS CONNECTIV C1762 [facility] E TISSUE 6 [facility] HUMAN INC INC FLUOROSCO 68709 [facility] PY SPX UP 6 [facility] TO 1 INC INC HOUR PHYS/QHP TIME ANES OPEN 01344 [facility] DARRYN PROC 6 ANESTH BONES OF THE LOWER BLUE LEG/ANKLE /FOOT NOS CORRJ 25652 [facility] HALLUX 6 [facility] VALGUS INC INC W/WO SESMDC RESCJ JT W/IMPLT INJECTION J2405 [facility] LU 6 [facility] ONDANSETR INC INC ON HCL PER 1 MG DRUG TST G0477 [facility] PRESUMP;C 6 [facility] PBL BEING INC INC READ DC OPT OBV ONLY IV DOP 81393 CARDIOVAS RACHEL SELVIN&/OR 6 CULAR MAT PRESS CONSULTAN C/AYLA TS O RSRV MENDEL 1ST VSL CATH PLMT 75236 CARDI[facility] RACHEL L HRT & 6 CULAR MAT ARTS CONSULTAN W/NJX & TS O ANGIO IMG S&I ECG 27614 [facility] ROUTINE 6 [facility] ECG INC INC W/LEAST 12 LDS TRCG ONLY W/O I&R ECHO 57652 KAYLYNN AFSHAN [facility] R-T 6 MEDICAL 2D SERV W/WOM-MOD FOUNDATIO E COMPL N SPEC&COLR D NON-INVAS 89279 [facility] ALL CHRISTI 6 MEDICAL PHYSIOLOG IMAGING IC STUDY ASS EXTREMITY 3 LEVLS MYOCARDIA 89060 CARDIOVAS RACHEL L SPECT 6 CULAR MAT MULTIPLE CONSULTAN STUDIES TS O COLLECTIO 65302 [facility] N VENOUS 6 [facility] BLOOD INC INC VENIPUNCT URE COMPREHEN 64645 [facility]IOR PACHECOON SIVE 6 [facility] METABOLIC INC INC PANEL BLOOD 93590 [facility] COUNT 6 [facility] COMPLETE INC INC AUTO&AUTO DIFRNTL WBC HEMOGLOBI 77123 [facility] N 6 [facility] GLYCOSYLA INC INC JEREMY A1C ECG 52566 [facility] ROUTINE 6 [facility] ECG INC INC W/LEAST 12 LDS TRCG ONLY W/O I&R RADIOLOGI 41203 [facility] ALL C 6 MEDICAL EXAMINATI IMAGING ON FOOT 2 ASS VIEWS RADEX 79316 [facility] FOOT 6 [facility] COMPLETE INC INC MIN[address] [place] [address] [facility] ALL ABDOMEN & 5 MEDICAL PELVIS IMAGING W/CONTRAS ASS T MATERIAL LOCM Q9967 [facility] 300-399 5 [facility] MG/ML INC INC IODINE CONCENTRA TION PER ML E-STIM G0283 [facility] LU 1/> AREAS 5 [facility] OTH THAN INC INC WND CARE PART TX PLAN APPLICATI 62313 [facility] ON 5 [facility] MODALITY INC INC 1/> AREAS HOT/COLD PACKS APPL 97588 [facility] MODALITY 5 [facility] 1/> AREAS INC INC ULTRASOUN D EA 15 MIN BLOOD 77780 [facility] COUNT 5 [facility] COMPLETE INC INC AUTO&AUTO DIFRNTL WBC COMPREHEN 00781 [facility] SIVE 5 [facility] METABOLIC INC INC PANEL COLLECTIO 44215 [facility] N VENOUS 5 [facility] [place] [address] [facility] AMYLASE 5 [place] [address] [facility] LIPASE 5 [facility] INC INC THERAPEUT 01323 [facility] LU IC PX 1/> 5 [facility] AREAS INC INC EACH 15 MIN EXERCISES E-STIM G0283 [facility] LU 1/> AREAS 5 [facility] OTH THAN INC INC WND CARE PART TX PLAN APPL 56818 [facility] MODALITY 5 [facility] 1/> AREAS INC INC ULTRASOUN D EA 15 MIN APPLICATI 09939 [facility] ON 5 [facility] MODALITY INC INC 1/> AREAS HOT/COLD PACKS PHYSICAL 39816 [facility] THERAPY 5 [facility] EVALUATIO INC INC N CULTURE 24831 [facility] BCT 5 [facility] ISOL&PRSM INC INC PTV ID ISOLATE EA URINE SUSCEPTIB 49941 [facility] LTY STDY 5 [facility] ANTIMICRB INC INC IAL MICRO/AGA R DILUTJ CULTURE 99246 [facility] BACTERIAL 5 [facility] INC INC [place] [address] [facility] THYROID 5 [facility] STIMULATI [place] [address] [facility] FREE 5 [facility] THYROXINE INC INC COLLECTIO 22780 [facility] N VENOUS 5 [facility] [place] [address] [facility] LU TRANSVAGI 5 [facility] NAL INC INC CULTURE 19250 [facility] BACTERIAL 5 [facility] INC INC QUANTTATI VE COLONY COUNT URINE E-STIM G0283 [facility] LU 1/> AREAS 5 [facility] OTH THAN INC INC WND CARE PART TX PLAN MANUAL 24986 [facility] THERAPY 5 [facility] TQS 1/> INC INC REGIONS EACH 15 MINUTES CULTURE 77926 [facility] BACTERIAL 5 [facility] INC INC QUANTTATI VE COLONY COUNT URINE SUSCEPTIB 53013 [facility] LTY STDY 5 [facility] ANTIMICRB INC INC IAL MICRO/AGA R DILUTJ CULTURE 14613 [facility] BCT 5 [facility] ISOL&PRSM INC INC PTV ID ISOLATE EA URINE MANUAL 15603 [facility] THERAPY 5 [facility] TQS 1/> INC INC REGIONS EACH 15 MINUTES MANUAL 30731 [facility] THERAPY 5 [facility] TQS 1/> INC INC REGIONS EACH 15 MINUTES MANUAL 73181 [facility] THERAPY 5 [facility] TQS 1/> INC INC REGIONS EACH 15 MINUTES MYOCARDIA 76627 [facility] TABITHA Horton SPECT 5 [facility] MULTIPLE INC INC STUDIES TECHNETIU A9500 [facility] Montero TC-99M 5 [facility] SESTAMIBI INC INC DX PER STUDY DOSE INJECTION J2785 [facility] LU 5 [facility] REGADENOS INC INC ON 0.1 MG CV STRS 41217 [facility] FALLUJI TST 5 PHYSICIAN KALYN XERS&/OR S GROUP RX CONT ECG W/O I&R CV STRS 74772 [facility] TST 5 [facility] XERS&/OR INC INC RX CONT ECG TRCG ONLY PHYSICAL 01543 [facility] THERAPY 5 [facility] EVALUATIO INC INC N 3D 05716 [facility] ALL RENDERING 5 MEDICAL W/INTERP IMAGING & ASS POSTPROCE SS SUPERVISI ON MRI 76683 [facility] ALL SPINAL 5 MEDICAL CANAL IMAGING CERVICAL ASS W/O CONTRAST MATRL RADEX 16926 [facility] ALL FOOT 5 MEDICAL COMPLETE IMAGING MINIMUM 3 ASS VIEWS RADEX 26379 [facility] FOOT [address] [place] [address] MINIMUM 3 VIEWS RADEX 05687 [facility] [place] MILDRED MAT FOOT 5 RADIOLOGY COMPLETE MINIMUM 3 VIEWS RADEX 81283 [facility] [place] MIR[place] FOOT 5 RADIOLOGY RHO COMPLETE MINIMUM 3 VIEWS BASIC 26789 [facility] METABOLIC [address] [place] [address] CALCIUM TOTAL HEPATIC 40097 [facility] FUNCTION [address] [place] [address] ANTINUCLE 84775 [facility] AR 5 [facility] S RACHEL COLLECTIO 52223 [facility] N VENOUS 5 [facility] VENIPUNCT URE LIPID 56928 [facility] PANEL [address] [place] [address] [place] [address] [facility] THYROID 5 [facility] NG HORMONE TSH BLOOD 10857 [facility] SCHULTZ COUNT 5 [facility] AUTO&AUTO DIFRNTL WBC INJECTION J3420 PAM OROZCO VIT B-12 5 GINA GINA CYANOCOBA KACEY TO 1000 MCG THERAPEUT 11752 P[facility] OROZCO IC 5 GINA GINA PROPHYLAC TIC/DX INJECTION SUBQ/IM RADEX 78510 [facility] [place]IR[place] FOOT 5 RADIOLOGY RHO COMPLETE MINIMUM 3 VIEWS RADEX 40670 [facility] [place] SCALF KIRILL FOOT 5 RADIOLOGY COMPLETE MINIMUM 3 VIEWS INJECTION J3420 PAM OROZCO VIT B-12 5 GINA GINA CYANOCOBA KACEY TO 1000 MCG THERAPEUT 56496 PAM SCHRADER IC 5 GINA E MAR PROPHYLAC TIC/DX INJECTION SUBQ/IM REMOVAL/B 09193 [place] [facility] IVALVING 5 [facility] FULL ARM/[place] [address] [facility] SURG 5 [facility] PATHOLOGY GROSS EXAMINATI ON ONLY REMOVAL 50661 [facility] IMPLANT 5 [facility] DEEP INJECTION J2250 [facility] RIBENBOIM [address] [place] [address] HCL PER 1 MG PARTICAL 46400 [facility] EXCISION 5 [facility] BONE PHALANX TOE ANES OPEN 15646 [facility] DAUKAS PROC 5 ANESTHESI GARCIA BONES A GROUP LOWER PS LEG/ANKLE /FOOT NOS ARTHRT 98045 [facility]ION W/EXPL 5 [facility] DRG/RMVL HOSPITAL HOSPITAL LOOSE/FB IPHAL JT INJECTION J2704 [facility] MICHEALYUNIOR PROPOFOL 5 [facility] 10 [facility] H[facility]PITAL INJECTION J3010 [facility] ANETA FENTANYL 5 [facility] 0.1 MG INJECTION J2405 [facility] MONETTYUNIOR MARION 5 [facility] H[facility] PER 1 MG RADIOLOGI 79362 [facility] QUEST C [address] [place] [address] DIAGNOSTI EXAMINATI HOSPITAL CS ON FOOT 2 VIEWS INJECTION J2001 [facility] RIBENBOIM 5 [facility] HCL INTRAVENO US INFUS 10 MG RINGERS J7120 [facility] LACTATE 5 [facility] UP TO 1000 CC INJECTION J1100 [facility] 5 [facility] SONE SODIUM PHOSPHATE 1 MG RADIOLOGI 50173 [facility] [place] [facility] C EXAM 5 RADIOLOGY RHO CHEST 2 VIEWS FRONTAL&L ATERAL INJECTION J3420 PAM SALTERKY VIT B-12 5 GINA GINA CYANOCOBA KACEY TO 1000 MCG THERAPEUT 01311 PAM OROZCO IC 5 GINA GINA PROPHYLAC TIC/DX INJECTION SUBQ/IM RADEX 65398 [facility] [place] FOOT 5 RADIOLOGY RHO COMPLETE MINIMUM 3 VIEWS INJECTION J3420 PAM SALTERKY VIT B-12 5 GINA GINA CYANOCOBA KACEY TO 1000 MCG THERAPEUT 48888 PAM OROZCO IC 5 GINA GINA PROPHYLAC TIC/DX INJECTION SUBQ/IM IADNA 64416 [facility] CHLAMYDIA 5 [facility] TRACHOMAT IS AMPLIFIED PROBE TQ IADNA 53577 [facility] NEISSERIA 5 [facility] [facility] GONORRHOE AE AMPLIFIED PROBE TQ HEPATITIS 11840 [facility] A [address] [place] [address] HAAB ACUTE 90437 [facility] HEPATITIS 4 [facility] LIPID 76311 [facility] PANEL [address] [place] [address] COLLECTIO 60211 [facility] N VENOUS 4 [facility] VENIPUNCT URE HEPATIC 10399 [facility] FUNCTION 4 [facility] THERAPEUT 30999 PRIMARY PAM IC 4 HEALTH GINA PROPHYLAC ASSOCIATE TIC/DX S PS INJECTION SUBQ/IM INJECTION J3420 PRIMARY PRIMARY VIT B-12 4 HEALTH HEALTH ASSOCIATE ASSOCIATE CYANOCOBA S PS S PS KACEY TO 1000 MCG HEPATITIS 38386 [facility] B CORE 4 [facility] HBCAB TOTAL HEPATITIS 87898 [facility] B SURF 4 [facility] [place] [address] [facility] MAGNESIUM 4 [facility] CYANOCOBA 81397 [facility] KACEY 4 [facility] B-12 COLLECTIO 20874 [facility] N VENOUS 4 [facility] VENIPUNCT URE COMPREHEN 51335 [facility] SIVE 4 [facility] PANEL CANE INCL E0100 [facility] CANES 4 ALL MATERIAL ADJUSTBLE /FIX W/TIP RADEX 94975 [facility] FOOT 4 [facility] MINIMUM 3 VIEWS SEDIMENTA 95765 [facility] TION RATE 4 [facility] NON-AUTOM ATED COLLECTIO 16301 [facility] N VENOUS 4 [facility] VENIPUNCT URE C-REACTIV 93651 [facility] MONETTYUNIOR SCHULTZ E PROTEIN 4 [facility] PHYS G0179 ARMS DON ARMS DON RE-CERT 4 MCR-COVR [facility] SRVC RE-CERT PRD BLOOD 99024 [facility] COUNT 4 [facility] AUTO&AUTO DIFRNTL WBC THERAPEUT 19109 [facility] PX 1/> 4 [facility] EACH 15 MIN EXERCISES THERAPEUT 47159 [facility] IC 4 [facility] TIC/DX INJECTION SUBQ/IM ELEVATING K0195 [facility] LEGREST 4 PAIR RADEX 15707 [facility] [place] [facility] FOOT 4 RADIOLOGY RHO COMPLETE MINIMUM 3 VIEWS SUSCEPTIB 58364 [facility] LTY STDY 4 [facility] IAL MICRO/AGA R DILUTJ CUL BACT 53906 [facility] XCPT 4 [facility] BLOOD/STO OL AEROBIC ISOL CUL BACT 26037 [facility] AEROBIC 4 [facility] METHS DEFINITIV E EA ISOL STANDARD K0001 [facility] WHEELCHAI 4 R INJECTION [id number] [facility] 4 [facility] KETOROLAC [facility] INE PER 15 MG RADEX 60882 [facility] [place] FOOT 4 RADIOLOGY RHO COMPLETE MINIMUM 3 VIEWS THERAPEUT 71489 [facility] IC PX 1/> [facility] 15 MIN EXERCISES THERAPEUT 55354 [facility] IC PX 1/> [facility] 15 MIN EXERCISES THERAPEUT 51754 [facility] IC PX 1/> [facility] 15 MIN EXERCISES THERAPEUT 44490 [facility] IC PX 1/> [facility] 15 MIN EXERCISES THERAPEUT 27262 [facility] IC PX 1/> [facility] 15 MIN EXERCISES THERAPEUT 18947 [facility] IC PX 1/> 4 [facility] 15 MIN EXERCISES THERAPEUT 52113 [facility] AM[facility] IC PX 1/> [facility] 15 MIN EXERCISES THERAPEUT 89458 [facility] AM[facility] IC PX 1/> [facility] 15 MIN EXERCISES ELEVATING [id number] [facility] LE[facility] 4 PAIR STANDARD K0001 [facility] WHEELCHAI 4 R THERAPEUT 70180 [facility] UNICK CHR IC PX 1/> 4 [facility] 15 MIN EXERCISES THERAPEUT 67457 [facility] AMEDISYS IC PX 1/> 4 [facility] 15 MIN EXERCISES THERAPEUT 61925 [facility] AM[facility]ISYS IC PX 1/> 4 [facility] 15 MIN EXERCISES RADEX 79815 [facility] FOOT 4 [facility] MINIMUM 3 VIEWS SEDIMENTA 47729 [facility] TION RATE 4 [facility] NON-AUTOM ATED COLLECTIO 13306 [facility] N VENOUS 4 [facility] VENIPUNCT URE C-REACTIV 41869 [facility] CSHULT[facility] E PROTEIN 4 [facility] BLOOD 76415 IDA MARION COUNT 4 [facility] AUTO&AUTO DIFRNTL WBC THERAPEUT 31399 [facility] AM[facility] IC PX 1/> 4 [facility] 15 MIN EXERCISES THERAPEUT 53446 [facility] IC PX 1/> 4 [facility] 15 MIN EXERCISES THERAPEUT 17384 [facility] IC PX 1/> 4 [facility] 15 MIN EXERCISES RADEX 50490 [facility] [place] FOOT 4 RADIOLOGY [...] CENTERS E CENTERS KNITTED/W OVEN STERL REMOVAL/B 83860 ARMS DON ARMS DON IVALVING 4 FULL ARM/FULL LEG CAST ARTHRODES 46455 ARMS DON ARMS DON IS GREAT 4 TOE METATARSO PHALANGEA L JOINT ANES OPEN 72863 [facility] PROC 4 ANESTHESI BONES A GROUP LOWER PS LEG/ANKLE /FOOT NOS C-REACTIV [address] E PROTEIN [facility] MED [facility] MED CTR GEOPHYSICAL PROSPECTING SURVEYOR ST GEOPHYSICAL PROSPECTING SURVEYOR ST BLOOD [address] [facility] COMPLETE MED CTR MED CTR AUTOMATED GEOPHYSICAL PROSPECTING SURVEYOR ST GEOPHYSICAL PROSPECTING SURVEYOR ST URNLS DIP [address] [facility] STICK/TAB MED CTR MED CTR LET RGNT GEOPHYSICAL PROSPECTING SURVEYOR ST GEOPHYSICAL PROSPECTING SURVEYOR ST AUTO W/O MICROSCOP Y COMPREHEN [address] SIVE [facility] METABOLIC MED CTR MED CTR PANEL GEOPHYSICAL PROSPECTING SURVEYOR ST GEOPHYSICAL [place] [address] BLOOD/URI [facility] C ACID MED CTR MED CTR GEOPHYSICAL PROSPECTING SURVEYOR ST GEOPHYSICAL PROSPECTING SURVEYOR ST COLLECTIO [address] N VENOUS [facility] BLOOD MED CTR [facility] VENIPUNCT GEOPHYSICAL PROSPECTING SURVEYOR ST GEOPHYSICAL PROSPECTING SURVEYOR ST URE RADEX 50814 RADIOLOGY LUNSFORD FOOT 4 GAR COMPLETE ASSOCIATE MINIMUM 3 S OF NOTH VIEWS ECG 11036 TEJ COSBY COSBY TEJ ROUTINE 4 MD ECG CONSULTIN W/LEAST G SRV 12 LDS I&R ONLY PROTHROMB 95886 ESVINDALYYUNIOR MARION IN TIME [address] [place] [address] ECG 86966 MARION SCHULTZ ROUTINE 4 [facility] W/LEAST 12 LDS TRCG ONLY W/O I&R COLLECTIO 22447 MARION MCALLISTERDALYYUNIOR N VENOUS 4 [facility] VENIPUNCT URE THROMBOPL 30020 MARION MCALLISTERDALYYUNIOR ASTIN 4 [facility] PARTIAL PLASMA/WH OLE BLOOD COMPREHEN 45502 MARION SCHULTZ SIVE [address] [facility] PANEL WALKER E0135 [facility] FOLDING 4 ADJUSTABL E OR FIXED HEIGHT RADIOLOGI 15491 [facility] [place] SCALF KIRILL C EXAM 4 RADIOLOGY CHEST 2 VIEWS FRONTAL&L ATERAL MRI ANY 73914 MARION MARION JT LOWER 4 [facility] W/O CONTRAST MATRL MRI LOWER 55424 [facility] [place] JACINTOTELIC EXTREM 4 RADIOLOGY MAXIMO OTH/THN JT W/O CONTR MATRL SEDIMENTA 69075 MARION [place] TION RATE 4 [facility]OSPITAL NON-AUTOM ATED BLOOD 96497 MARION SCHULTZ COUNT [address] [place] [address] AUTOMATED C-REACTIV 47650 MARION SCHULTZ E PROTEIN 4 [facility] BLOOD 99572 [facility] MONETTYUNIOR SCHULTZ COUNT [address] [place] [address] MCRSCP W/MNL DIFRNTL WBC COUNT COLLECTIO 07126 MARION SCHULTZ N VENOUS 4 [facility] VENIPUNCT URE DUP-SCAN 96574 MARION MCALLISTERCOX MONETTYUNIOR LXTR [address] [place] [address]/ARTL [facility] BPGS COMPL BI STUDY NON-INVAS 97384 [facility] MONETTYUNIOR SCHULTZ [address] [place] [address] IC STD EXTREMITY ART 2 LEVEL RADEX 27446 [facility] MONETTYUNIOR SCHULTZ FOOT [address] [place] [address] MINIMUM 3 VIEWS HGB 25838 RAYO RUEDA GLYCOSYLA 4 [facility]IMARY [facility] CLEARED FDA HOME USE COLLECTIO 06550 MARION SCHULTZ N VENOUS [address] [place] [address] VENIPUNCT URE C-REACTIV 38970 MARION SCHULTZ E PROTEIN [address] [place] [address] BLOOD 38040 [facility] MONETTYUNIOR SCHULTZ COUNT [address] [place] [address] AUTO&AUTO DIFRNTL WBC RADEX TOE 42296 [facility] [place]EL[place] JAM MINIMUM 4 RADIOLOGY 2 VIEWS SURGICAL L3260 [facility] BOOT/SHOE 4 EACH SEDIMENTA 22896 MARION [place] TION RATE 4 [facility] NON-AUTOM ATED SEDIMENTA 97976 MARION [place] TION RATE 4 [facility] HOSPITAL NON-AUTOM ATED WALKING L4360 ADVANCED ADVANCED BOOT 4 TECHNOLOG TECHNOLOG PNEUMATC IES INC IES INC &/ VACUUM PREFAB CUSTM FIT ORTHOTIC 31434 CHINO URBINA DON MGMT&EZE 4 [employer] [place] UXTR LXTR&/TRN K EA 15 BLOOD 38013 MARION HENRY COUNT 4 [facility] AUTO&AUTO DIFRNTL WBC C-REACTIV 14081 MARION SCHULTZ E PROTEIN 4 [facility] COLLECTIO 02349 MARION SCHULTZ N VENOUS 4 [facility] VENIPUNCT URE THER 53015 TABITHA LU PROPH/DX 4 [facility] NJX IV INC INC PUSH SINGLE/1S T SBST/DRUG RADEX 10074 ORQUIDEA II ORQUIDEA II FOOT 4 THO THO COMPLETE MINIMUM [place] [address] MARION SCHULTZ BLOOD/URI 4 [facility]OSPITAL COMPREHEN 59282 MARION SCHULTZ SIVE 4 [facility] PANEL BLOOD 47310 MARION SCHULTZ COUNT 4 [facility] AUTO&AUTO DIFRNTL WBC RADEX 18940 VORKPOR VORKPOR FOOT 4 DAMI DAMI COMPLETE MINIMUM 3 VIEWS ECG 12268 YOHANA RAMIREZ ROUTINE 4 [facility] III J ECG MEDICAL W/LEAST G 12 LDS I&R ONLY PROTHROMB 23903 MARION SCHULTZ IN TIME [address] [place] [address] ECG 24438 MARION SCHULTZ ROUTINE 4 [facility] W/LEAST 12 LDS TRCG ONLY W/O I&R BLOOD 94599 MARION SCHULTZ COUNT 4 [facility] AUTOMATED RADIOLOGI 49618 [facility] [place] MILDRED MAT C 4 RADIOLOGY EXAMINATI ON KNEE 3 VIEWS CULTURE 02156 MARION SCHULTZ BACTERIAL 4 [facility] QUANTTATI VE COLONY COUNT URINE COMPREHEN 76763 MARION SCHULTZ SIVE 4 [facility] PANEL THROMBOPL 34893 MARION MCALLISTERDALYYUNIOR ASTIN 4 [facility] PARTIAL PLASMA/WH OLE BLOOD COLLECTIO 41759 MARION SCHULTZ N VENOUS 4 [facility] BLOOD [facility] VENIPUNCT URE URNLS DIP 46801 MARION [place] 4 [facility] STICK/TAB HOSPITAL HOSPITAL LET REAGENT AUTO MICROSCOP Y SIMPLE 38861 [facility] KER HAMPTON KER REPAIR 4 SCALP/NEC K/AX/TAVARES T/TRUNK 2.5CM/< RADEX 81443 [facility] 4 [facility] COMPLETE RADIOLOGY MINIMUM 3 ASSOCIAT VIEWS DXA BONE 69182 MARION [place] DENSITY 4 [facility] STUDY 1/> HOSPITAL HOSPITAL SITES AXIAL SKEL RADEX 34993 MARION [place] SHOULDER 4 [facility] MINIMUM 2 VIEWS COMPUTER- 96824 MARION [place] AIDED 4 [facility] SCREENING MAMMOGRAP HY RADIOLOGI 32096 [facility] MONETTYUNIOR SCHULTZ C 4 [facility] 3 VIEWS SCREENING G0202 [facility] MONETTYUNIOR MCALLISTERCOX [place] [address] [place] [address] MAMMOGRAP [facility] HY RAPHAEL INCL CAD WHEN PERFORMD BLOOD 46170 LAB [facility] LAB TERESA COUNT 4 L[facility]SA LISSA COMPLETE [place] [address] [facility] THYROID 4 [facility]SA [facility] STIMULATI [facility] NG HORMONE TSH HEMOGLOBI 27290 LAB TER[facility] LAB TERESA N 4 [facility]SA LISSA GLYCOSYLA [facility] HOLDINGS JEREMY A1C THYROID 90972 [facility] LAB TERESA HORM 4 LISSA LISSA UPTK/THYR [facility] OID HORMONE BINDING RATIO COMPREHEN 86684 [facility] TERESA SIVE 4 [facility]SA L[facility]SA METABOLIC [place] [address] LAB TER[facility] LAB TERESA INSULIN 4 LISSA [place] [address] LAB TERESA LAB TERESA INSULIN 4 LISSA LISSA FREE [facility] HOLDINGS LIPID 14569 LAB TERESA LAB TERESA PANEL 4 [place] [address] LAB TERESA LAB TERESA THYROXINE 4 LISSA LISSA TOTAL HOLDINGS HOLDINGS CULTURE 15717 LAB TERESA LAB TERESA BACTERIAL 4 LISSA LISSA [facility] QUANTTATI VE COLONY COUNT URINE BASIC 57766 [facility] METABOLIC 3 DIAGNOSTI DIAGNOSTI [place] [address] [facility] THYROID 3 DIAGNOSTI DIAGNOSTI STIMULATI CS CS NG HORMONE TSH BLOOD 81053 [facility] COUNT 3 DIAGNOSTI DIAGNOSTI COMPLETE CS CS AUTO&AUTO DIFRNTL WBC BLOOD 11272 [facility] [place]OWAN COUNT 3 DIAG[place]STI [place] COMPLETE CS MIDDLE AUTO&AUTO SCHOOL DIFRNTL WBC SYPHILIS 97069 [facility] TEST 3 DIAGNOSTI DIAGNOSTI NON-TREPO CS CS NEMAL ANTIBODY QUAL CULTURE 96462 [facility] BCT 3 DIAGNOSTI DIAGNOSTI ISOL&PRSM CS CS PTV ID ISOLATE EA URINE ANTIBODY 51355 [facility] HERPES 3 DIAGNOSTI DIAGNOSTI SMPLX CS CS TYPE 1 INCORPORA T SUSCEPTIB 06337 [facility] LTY STDY 3 DIAGNOSTI DIAGNOSTI ANTIMICRB CS CS IAL MICRO/AGA R DILUTJ CULTURE 91666 [facility] BACTERIAL 3 DIAGNOSTI DIAGNOSTI CS CS QUANTTATI VE COLONY COUNT URINE CUL BACT 15363 [facility] AEROBIC 3 DIAGNOSTI DIAGNOSTI ADDL CS CS METHS DEFINITIV E EA ISOL ANTIBODY 94894 [facility] CHLAMYDIA 3 DIAGNOSTI DIAGNOSTI IGM CS CS ANTIBODY 31298 [facility] HERPES 3 DIAGNOSTI DIAGNOSTI SMPLX CS CS TYPE 2 INCORPORA T ANTIBODY 81054 [facility] QUEST CHLAMYDIA 3 DIAGNOSTI DIAGNOSTI CS CS RADEX 59091 [facility] [place] MIR[place] RIBS 3 RADIOLOGY RHO BILATERAL 3 VIEWS RADIOLOGI 73569 [facility] [place] MIRA C EXAM 3 RADIOLOGY RHO CHEST 2 VIEWS FRONTAL&L ATERAL RADEX 33900 RASHARD CADE JOSE CARLOS SINUSES 3 [facility] SPEC MINIMUM 3 VIEWS BLOOD 71096 [facility] QUEST COUNT 3 DIAGNOSTI DIAGNOSTI COMPLETE CS CS AUTO&[place] [address] [facility] THYROID 3 DIAGNOSTI DIAGNOSTI STIMULATI CS CS NG HORMONE TSH LIPID 80952 [facility] QUEST PANEL 3 DIAGNOSTI DIAGNOSTI CS CS COMPREHEN 07521 [facility] QUEST SIVE 3 DIAGNOSTI DIAGNOSTI METABOLIC CS CS PANEL COMPREHEN 00870 [employer], MHC INC, SIVE 2 GEOPHYSICAL PROSPECTING SURVEYOR GEOPHYSICAL PROSPECTING SURVEYOR METABOLIC RAE RAE PANEL CO HOS CO HOS LIPID 64056 [facility], [facility], PANEL 2 GEOPHYSICAL PROSPECTING SURVEYOR GEOPHYSICAL PROSPECTING SURVEYOR RAE RAE CO HOS CO HOS BLOOD 46263 [facility], [facility], COUNT 2 GEOPHYSICAL PROSPECTING SURVEYOR GEOPHYSICAL PROSPECTING SURVEYOR COMPLETE RAE RAE AUTO&AUTO CO HOS CO HOS DIFRNTL WBC RADEX 56741 [facility] [place] SCALF KIRILL SHOULDER 2 RADIOLOGY COMPLETE MINIMUM 2 VIEWS COMPUTER- 99554 [facility] [place] ARVIZU AIDED 2 RADIOLOGY HERMES DETECTION SCREENING MAMMOGRAP HY SCREENING G0202 [facility] [place] ARVIZU 2 RADIOLOGY HERMES MAMMOGRAP HY RAPHAEL INCL CAD WHEN PERFORMD RADEX TOE 64922 [facility] MINIMUM 2 N N 2 VIEWS [facility] [address] PATHOLOGY SALDIVAR SURG 2 & KIRILL PATHOLOGY CYTOLOGY LAB GROSS&MENG ROSCOPIC EXAM EGD 45249 [place] KENNEDY- TRANSORAL 2 MEDICAL PETEY BIOPSY SERV RACIEL SINGLE/MU FOUNDATIO LTIPLE ECG 36093 TEJ COSBY TEJ COSBY ROUTINE 2 MD CA ECG CONSULTIN CONSULTIN W/LEAST G SERV G SERV 12 LDS I&R ONLY SPECIAL 34767 PATHOLOGY SALDIVAR STAIN 2 & KIRILL GROUP 1 CYTOLOGY MICROORGA LAB NISMS I&R SPCL STN 14740 PATHOLOGY SALDIVAR 2 I&R 2 & KIRILL EXCPT CYTOLOGY MICROORG/ LAB ENZYME/IM CYT CYANOCOBA 64280 [employer], [employer], KACEY 2 GEOPHYSICAL PROSPECTING SURVEYOR GEOPHYSICAL PROSPECTING SURVEYOR VITAMIN RAE RAE B-12 CO HOS CO HOS SEDIMENTA 55569 [employer], [employer], TION RATE 2 GEOPHYSICAL PROSPECTING SURVEYOR GEOPHYSICAL PROSPECTING SURVEYOR RBC RAE RAE NON-AUTOM CO HOS CO HOS ATED LIPID 56902 [employer], [employer], PANEL 2 GEOPHYSICAL PROSPECTING SURVEYOR GEOPHYSICAL PROSPECTING SURVEYOR RAE RAE CO HOS CO HOS BASIC 59030 [employer], [employer], METABOLIC 2 GEOPHYSICAL PROSPECTING SURVEYOR GEOPHYSICAL PROSPECTING SURVEYOR PANEL RAE MCBRIDE CALCIUM CO HOS CO HOS TOTAL ANTINUCLE 15828 [facility], [employer], AR 2 GEOPHYSICAL PROSPECTING SURVEYOR GEOPHYSICAL PROSPECTING SURVEYOR ANTIBODIE RAE MCBRIDE S RACHEL CO HOS CO HOS HEPATIC 99096 [employer], [employer], FUNCTION 2 GEOPHYSICAL PROSPECTING SURVEYOR GEOPHYSICAL PROSPECTING SURVEYOR PANEL RAE AUGUSTINEOLAS CO HOS CO HOS RADEX 20505 [facility] FOOT 1 [facility] RADIOLOGY MINIMUM 3 ASSOCIAT VIEWS INJECTION J3420 PRIMARY PAM VIT B-12 1 HEALTH [facility] ASSOCIATE CYANOCOBA S PS KACEY TO 1000 MCG THERAPEUT 15328 PRIMARY PAM IC 1 [facility] PROPHYLAC ASSOCIATE TIC/DX S PS INJECTION SUBQ/[place] [address] [facility] THYROID 1 [facility] NG HORMONE TSH COLLECTIO 38941 [facility] N VENOUS 1 [facility] VENIPUNCT URE BLOOD 14175 [facility] COUNT 1 [facility] AUTO&AUTO DIFRNTL WBC COLLECTIO 96094 [facility] N VENOUS 1 [facility] VENIPUNCT URE COMPREHEN 13046 [facility] SIVE [address] [facility] PANEL LIPID 24262 [facility] PANEL 1 [facility] ECG 57436 TEJ COSBY COSBY TEJ ROUTINE 1 MD ECG CONSULTIN W/LEAST G SRV 12 LDS W/I&R THERAPEUT 09368 PRIMARY PAM IC 1 HEALTH GNIA PROPHYLAC ASSOCIATE TIC/DX S PS INJECTION SUBQ/IM INJECTION J3420 PRIMARY PAM VIT B-12 1 HE[facility]INA ASSOCIATE CYANOCOBA S PS KACEY TO 1000 MCG CATH PLMT 05493 [facility] & 1 [facility] C[facility] W/NJX & Y CLINIC ANGIO IMG S&I ECG 05931 TEJ COSBY COSBY TEJ ROUTINE 1 MD ECG CONSULTIN W/LEAST G SRV 12 LDS W/I&R CV STRS 64491 MARION SCHULTZ TST 1 [facility] XERS&/OR HOSPITAL HOSPITAL RX CONT ECG TRCG ONLY CV STRS 55559 TEJ COSBY COSBY TEJ TST 1 XERS&/OR CONSULTIN RX CONT G SRV ECG W/O I&R TECHNETIU A9500 [facility] MONETTYUNIOR SCHULTZ M TC-99M 1 [facility] DX PER STUDY DOSE CV STRS 32919 TEJ COSBY COSBY TEJ TST 1 XERS&/OR CONSULTIN RX CONT G SRV ECG I&R ONLY MYOCARDIA 48064 TEJ COSBY COSBY TEJ L SPECT 1 MULTIPLE CONSULTIN STUDIES G SRV COMPREHEN 32089 [facility] SIVE [address] [facility] PANEL COLLECTIO 93948 [facility] N VENOUS 1 [facility] HOSP[facility] VENIPUNCT URE CREATINE 98731 [facility] MONETTYUNIOR SCHULTZ KINASE MB 1 [facility] HOSPITAL ONLY URNLS DIP 16898 [facility] 1 [facility] STICK/TAB HOSPITAL HOSPITAL LET REAGENT AUTO MICROSCOP Y CULTURE 60561 [facility] BACTERIAL 1 [facility] QUANTTATI VE COLONY COUNT URINE RADIOLOGI 25140 [facility] [place] C 1 RADIOLOGY HERMES EXAMINATI ON CHEST SINGLE VIEW FRONTAL BLOOD 37599 [facility] 1 [facility] AUTO&[place] [address] [facility] TROPONIN 1 [facility] CHRISTI CREATINE 11669 [facility] KINASE 1 [facility] HOSPITAL ECG 22458 STARR BARNETT ROUTINE 1 EMERGENCY ECG SERVICES W/LEAST 12 LDS I&R ONLY ECG 45442 [facility] MONETTYUNIOR SCHULTZ ROUTINE 1 [facility] HOSPITAL W/LEAST 12 LDS TRCG ONLY W/O I&R XTRNL ECG 23766 TEJ COSBY COSBY TEJ 1 CONTINUOU CONSULTIN S RHYTHM G SRV W/I&R UP TO 48 HRS XTRNL ECG 25790 TEJ COSBY COSBY TEJ & 48 HR 1 MD RECORDING CONSULTIN G SRV INJECTION J3420 PRIMARY PAM VIT B-12 1 HEALTH [facility]INA ASSOCIATE CYANOCOBA S PS KACEY TO 1000 MCG THERAPEUT 37996 PRIMARY PAM IC 1 [facility] PROPHYLAC ASSOCIATE TIC/DX S PS INJECTION SUBQ/IM ECG 32061 TEJ COSBY COSBY TEJ ROUTINE 1 MD ECG CONSULTIN W/LEAST G SRV 12 LDS W/I&R ECHO 43968 TEJ COSBY COSBY TEJ TTHRC R-T 1 2D CONSULTIN W/WOM-MOD G SRV E COMPL SPEC&COLR D INJECTION J3420 PRIMARY PAM VIT B-12 1 HEALTH GINA ASSOCIATE CYANOCOBA S PS KACEY TO 1000 MCG THERAPEUT 52492 PRIMARY PAM IC 1 [facility] PROPHYLAC ASSOCIATE TIC/DX S PS INJECTION SUBQ/IM THERAPEUT 18783 PRIMARY PAM IC 1 [facility] PROPHYLAC ASSOCIATE TIC/DX S PS INJECTION SUBQ/IM INJECTION J3420 PRIMARY PAM VIT B-12 1 [facility] ASSOCIATE CYANOCOBA S PS [place]ACEY TO [address] [place] [address] PRIMARY PAM RETROPERI 1 [facility] TONEAL ASSOCIATE REAL TIME S PS W/IMAGE LIMITED INJECTION J3420 PRIMARY PAM VIT B-12 1 [facility]INA ASSOCIATE CYANOCOBA S PS KACEY TO 1000 MCG THERAPEUT 38832 PRIMARY PAM IC 1 [facility] PROPHYLAC ASSOCIATE TIC/DX S PS INJECTION SUBQ/IM DXA BONE 66377 [facility] [place] MILDRED MAT DENSITY 1 RADIOLOGY STUDY 1/> SITES AXIAL SKEL INJECTION J3420 PRIMARY PAM VIT B-12 1 HEALTH GINA ASSOCIATE CYANOCOBA S PS KACEY TO 1000 MCG THERAPEUT 58979 PRIMARY PAM IC 1 [facility] PROPHYLAC ASSOCIATE TIC/DX S PS INJECTION SUBQ/IM ECG 39586 TEJ COSBY COSBY TEJ ROUTINE 1 ECG CONSULTIN W/LEAST G SRV 12 LDS I&R ONLY ECG 91994 MARION SCHULTZ ROUTINE 1 [facility] W/LEAST 12 LDS TRCG ONLY W/O I&R COLONOSCO 08539 MARION SCHULTZ PY FLX DX 1 [facility] SPEC WHEN PFRMD ANES 94562 [place] ZIEMBROSK LOWER 1 ANESTHESI I JR EDW INTESTINE A GROUP PSC ENDOSCOPY DISTAL DUODENUM RADEX 09451 [facility] [place] MAT SACRUM & 1 RADIOLOGY COCCYX MINIMUM 2 VIEWS THERAPEUT 78061 PRIMARY PAM IC 1 [facility] PROPHYLAC ASSOCIATE TIC/DX S PS INJECTION SUBQ/IM INJECTION J3420 PRIMARY PAM VIT B-12 1 HEALTH GINA ASSOCIATE CYANOCOBA S PS KACEY TO 1000 MCG INJECTION J3420 PRIMARY PAM VIT B-12 1 HEALTH GINA ASSOCIATE CYANOCOBA S PS KACEY TO 1000 MCG THERAPEUT 13388 PRIMARY PAM IC 1 [facility] PROPHYLAC ASSOCIATE TIC/DX S PS INJECTION SUBQ/IM ECG 35606 MARINO SCHULTZ ROUTINE 1 [facility]OSPITAL W/LEAST 12 LDS TRCG ONLY W/O I&R ECG 94878 STARR LAYTON, ROUTINE 1 EMERGENCY JR., DO ECG SERVICES OSC W/LEAST 12 LDS I&R ONLY CREATINE 07296 MARION MCALLISTERDALYYUNIOR KINASE 1 [facility] BLOOD 05096 MICHEALYUNIOR MICHEALYUNIOR COUNT 1 [facility] AUTO&[place] [address] ESVINLIVAN SCHULTZ TROPONIN 1 [facility]STI MYOGLOBIN 48699 [facility] MONETTYUNIOR MCALLISTERCOX MONETTON 1 [facility] HOSPITAL RADIOLOGI 99297 [facility] [place] MARIAMA C 1 RADIOLOGY HERMES EXAMINATI ON CHEST SINGLE VIEW FRONTAL BASIC 88166 ESVINLIVAN MARION METABOLIC 1 [facility] CALCIUM TOTAL CREATINE 95304 MICHEALYUNIOR MCALLISTERDALYYUNIOR KINASE MB 1 [facility] HOSPITAL ONLY COLLECTIO 80161 [facility] N VENOUS 1 [facility] VENIPUNCT URE INJECTION J3420 PRIMARY PAM VIT B-12 1 HEALTH GINA ASSOCIATE CYANOCOBA S PS KACEY TO 1000 MCG THERAPEUT 73830 PRIMARY PAM IC 1 [facility] PROPHYLAC ASSOCIATE TIC/DX S PS INJECTION SUBQ/IM THERAPEUT 99234 PRIMARY PAM IC 0 [facility] PROPHYLAC ASSOCIATE TIC/DX S PS INJECTION SUBQ/IM INJECTION J3420 PRIMARY PAM VIT B-12 0 HEALTH GINA ASSOCIATE CYANOCOBA S PS KACEY TO 1000 MCG POTASSIUM 48296 [facility] SERUM 0 [facility] OLE BLOOD FIBRIN 44908 [facility] DGRADJ 0 [facility] D-DIMER QUAL/SEMI CHERELLE COLLECTIO 95107 [facility] N VENOUS 0 [facility] VENIPUNCT URE THERAPEUT 42061 PRIMARY PRIMARY IC 0 HEALTH HEALTH PROPHYLAC ASSOCIATE ASSOCIATE TIC/DX S PS S PS INJECTION SUBQ/IM THERAPEUT 13968 PRIMARY PAM IC 0 [facility] PROPHYLAC ASSOCIATE TIC/DX S PS INJECTION SUBQ/IM INJECTION J3420 PRIMARY PAM VIT B-12 0 HEALTH GINA ASSOCIATE CYANOCOBA S PS KACEY TO 1000 MCG COMPUTER- 27956 [facility] [place] AIDED 0 RADIOLOGY RHO DETECTION SCREENING MAMMOGRAP HY SCREENING G0202 [facility] [place] MIR[place] 0 RADIOLOGY RHO MAMMOGRAP HY RAPHAEL INCL CAD WHEN PERFORMD THERAPEUT 30123 PRIMARY PAM IC 0 [facility] PROPHYLAC ASSOCIATE TIC/DX S PS INJECTION SUBQ/IM INJECTION J3420 PRIMARY PRIMARY VIT B-12 0 HEALTH HEALTH ASSOCIATE ASSOCIATE CYANOCOBA S PS S PS KACEY TO 1000 MCG IADNA 18534 [facility] NEISSERIA 0 [facility] GONORRHOE AE AMPLIFIED PROBE TQ IADNA 20149 [facility] CHLAMYDIA 0 [facility] TRACHOMAT IS AMPLIFIED PROBE TQ URNLS DIP [address] STICK/TAB HOSPITAL HOSPITAL LET REAGENT AUTO MICROSCOP Y CULTURE 94379 [facility] BACTERIAL 0 [facility] QUANTTATI VE COLONY COUNT URINE URNLS DIP 02971 PRIMARY PAM 0 [facility] GINA STICK/TAB ASSOCIATE LET RGNT S PS NON-AUTO W/O MICRSCP INJECTION J3420 PRIMARY PAM VIT B-12 0 HEALTH GINA ASSOCIATE CYANOCOBA S PS KACEY TO 1000 MCG THERAPEUT 37164 PRIMARY PAM IC 0 [facility] GINA PROPHYLAC ASSOCIATE TIC/DX S PS INJECTION SUBQ/IM THERAPEUT 09012 PRIMARY PAM IC 0 [facility] GINA PROPHYLAC ASSOCIATE TIC/DX S PS INJECTION SUBQ/IM INJECTION J3420 PRIMARY PAM VIT B-12 0 HEALTH GINA ASSOCIATE CYANOCOBA S PS KACEY TO 1000 MCG COLLECTIO 35675 [facility] N VENOUS 0 [facility] VENIPUNCT URE IADNA 89944 [facility] CHLAMYDIA 0 [facility] TRACHOMAT IS AMPLIFIED PROBE TQ IADNA 95159 [facility] NEISSERIA 0 [facility] GONORRHOE AE AMPLIFIED PROBE TQ INJECTION J3420 PRIMARY PAM, VIT B-12 0 HEALTH JACKIE Montero ASSOCIATE CYANOCOBA S PSC KACEY TO 1000 MCG THERAPEUT 40863 PRIMARY PAM, IC 0 GEOVANI Montero PROPHYLAC ASSOCIATE TIC/DX S PSC INJECTION SUBQ/IM THERAPEUT 40850 PRIMARY PAM, IC 0 HEALTH JACKIE Montero PROPHYLAC ASSOCIATE TIC/DX S PSC INJECTION SUBQ/IM INJECTION J3420 PRIMARY PAM, VIT B-12 0 HEALTH JACKIE Montero ASSOCIATE CYANOCOBA S PSC KACEY TO 1000 MCG URNLS DIP 87431 PRIMARY PAM, 0 [facility] JACKIE Montero STICK/TAB ASSOCIATE LET RGNT S PSC NON-AUTO W/O MICRSCP ARTHROCEN 61692 PRIMARY PAM TESIS 0 [facility] GINA ASPIR&/IN ASSOCIATE J MAJOR S PS JT/BURSA W/O US INJECTION J3420 PRIMARY PRIMARY VIT B-12 0 HEALTH HEALTH ASSOCIATE ASSOCIATE CYANOCOBA S PS S PS KACEY TO 1000 MCG THERAPEUT 15281 PRIMARY PRIMARY IC 0 HEALTH HEALTH PROPHYLAC ASSOCIATE ASSOCIATE TIC/DX S PS S PS INJECTION SUBQ/IM BASIC 41976 RAE MCBRIDE METABOLIC 0 [facility] CAL[facility] TOTAL LIPID 24434 RAE [facility]BRIDE PANEL 0 [facility] COLLECTIO 08323 RAE [facility] N VENOUS 0 CO SC BLOOD [facility] VENIPUNCT URE HEPATIC 62456 RAE [facility] FUNCTION 0 CO [facility] THERAPEUT 10135 PRIMARY PAM, IC 0 [facility] JACKIE Montero PROPHYLAC ASSOCIATE TIC/DX S PSC INJECTION SUBQ/IM INJECTION [id number] PRIMARY PAM, VIT B-12 0 [facility] JACKIE Montero ASSOCIATE CYANOCOBA S PSC KACEY TO 1000 MCG INJECTION [id number] PRIMARY PAM, VIT B-12 0 [facility] JACKIE Montero ASSOCIATE CYANOCOBA S PSC KACEY TO 1000 MCG RADEX HIP 10835 [facility] [place] MARI[place], 0 RADIOLOGY SUDHAKAR RODRIGUES L COMPLETE MINIMUM 2 VIEWS THERAPEUT 70886 PRIMARY PAM, IC 0 [facility] JACK[facility] Montero PROPHYLAC ASSOCIATE TIC/DX S PSC INJECTION SUBQ/IM URNLS DIP 14466 PRIMARY PAM, 0 [facility] JACKIE Montero STICK/TAB ASSOCIATE LET RGNT S PSC NON-AUTO W/O MICRSCP THERAPEUT 34167 PRIMARY PAM, IC 9 [facility] JACKIE Montero PROPHYLAC ASSOCIATE TIC/DX S PSC INJECTION SUBQ/IM INJECTION [id number] PRIMARY PAM, VIT B-12 9 [facility] JACKIE Montero ASSOCIATE CYANOCOBA S PSC KACEY TO 1000 MCG INJECTION [id number] PRIMARY PAM, VIT B-12 9 [facility] JACKIE Montero ASSOCIATE CYANOCOBA S PSC KACEY TO 1000 MCG THERAPEUT 93606 PRIMARY PAM, IC 9 [facility]ALTH JACKIE M PROPHYLAC ASSOCIATE TIC/DX S PSC INJECTION SUBQ/IM THERAPEUT 60697 PRIMARY GENO OROZCO 9 [facility] JACKIE Montero PROPHYLAC ASSOCIATE TIC/DX S PSC INJECTION SUBQ/IM INJECTION [id number] PRIMARY PAM VIT B-12 9 [facility] JACKIE M ASSOCIATE CYANOCOBA S PSC KACEY TO 1000 MCG CYTP C/V 37934 PATHOLOGY PATHOLOGY AUTO THIN 9 & & LYR CYTOLOGY CYTOLOGY PREPJ SCR LAB LAB MNL RESCR PHYS CYANOCOBA 46052 MARION MARION KACEY 9 [facility] B-12 [place] [address] MARION [place] FERRITIN 9 [facility] COLLECTIO 77851 [facility] MONETTYUNIOR SCHULTZ N VENOUS 9 [facility] [place] [address] IDA [facility] FOLIC [address] [place] [address] [place] [address] [facility] THYROID [address] [place] [address] NG HORMONE TSH BLOOD 49871 [facility] COUNT [address] [place] [address] AUTO&AUTO DIFRNTL WBC RADIOLOGI 40847 [facility] C [address] [place] [address] ON KNEE 3 VIEWS URNLS DIP 66010 PRIMARY PAM 9 [facility] JACKIE STICK/TAB ASSOCIATE LET RGNT S PSC NON-AUTO W/O MICRSCP RADIOLOGI 18490 [facility] Danielle WETZEL EXAM 9 RADIOLOGY BRODERICK Calvin KNEE COMPLETE 4/MORE VIEWS BASIC 84949 [facility] METABOLIC [address] [place] [address] CALCIUM TOTAL COLLECTIO 16587 [facility] MONETTYUNIOR BUR[place] N VENOUS 9 [facility] VENIPUNCT URE LIPID 87923 [facility] PANEL [address] [place] [place] [address] HEPATIC 69411 [facility] FUNCTION [address] [place] [address] COLLECTIO 42268 [facility] MONETTYUNIOR BURTON N VENOUS 9 [facility] VENIPUNCT URE BASIC 43832 [facility] METABOLIC [address] [place] [address] CALCIUM TOTAL SCREENING 29135 [facility]OX [place] BOURBON 9 [facility] MAMMOGRAP [facility] HOSPITAL HY BILATERAL COMPUTER- 35870 [facility] [place] MIRA, AIDED 9 RADIOLOGY NEEL G DETECTION SCREENING MAMMOGRAP HY BASIC 38001 [facility] METABOLIC 9 [facility] CALCIUM TOTAL COLLECTIO 98931 [facility] N VENOUS 9 [facility] VENIPUNCT URE LIPID 02556 [facility] PANEL 9 [facility] HEPATIC 03084 [facility] FUNCTION 9 [facility] [place] [address] JEYSON GALLARDO, COMPL 8 [facility]RAD S AQT ABD RADIOLOGY W/S/E/D VIEWS 1 ASSOCIATE VIEW CH S PSC REMOVAL 74638 PRIMARY PAM, HELLEN 8 [facility]ALTH JACKIE Montero SHAYE ASSOCIATE INSTRUMEN S PSC TATION UNILAT BLOOD 73992 [facility] COUNT 8 [facility] AUTO&AUTO DIFRNTL WBC HEPATIC 23591 [facility] FUNCTION 8 [place] [address] [facility] THYROID 8 [facility] [facility] NG [facility]ORMONE TSH LIPID 23276 [facility] 8 [facility] COLLECTIO 32373 [facility] N VENOUS 8 [facility] VENIPUNCT URE BASIC 06251 [facility] METABOLIC 8 [facility] CALCIUM TOTAL RADEX 81644 [facility] ABDOMEN 1 8 [facility] ANTEROPOS TERIOR VIEW RADEX 63315 [facility] [place] SRIKANTH, ABDOMEN 8 RADIOLOGY J COMPL W/DCBTS&/ ERC VIEWS ECG 53103 CARDIOLOG COSBY, ROUTINE 8 Y ALON A ECG ASSOCIATE W/LEAST S OF 12 LDS [place] I&R ONLY ECG 08474 [facility] ROUTINE 8 [facility] W/LEAST 12 LDS TRCG ONLY W/O I&R ANES 90309 KAYLYNN [place] LOWER 8 ANESTHESI I JR, INTESTINE A GROUP EDWARD J [facility] ENDOSCOPY DISTAL DUODENUM COLONOSCO 84135 MARION SCHULTZ PY FLX DX 8 [facility] SPEC WHEN PFRMD PHYSICAL 57165 MARION SCHULTZ THERAPY 8 [facility] N THERAPEUT 39075 MARION SCHULTZ IC PX 1/> 8 [facility] EACH [address] LUMBAR 86332 [facility] [place], SPINE 8 RADIOLOGY J W/O CONTRAST MATERIAL COMPUTER- 77388 MARION SCHULTZ AIDED 8 [facility] SCREENING MAMMOGRAP HY SCREENING 63468 [facility] [place] MIRA, 8 RADIOLOGY NEEL G MAMMOGRAP HY BILATERAL BILIRUBIN 93825 [facility] DIRECT 8 [facility] HEMOGLOBI [address] [facility] N [address] [place] [address] [facility] LIPID 92206 [facility] PANEL 8 [facility] GENERAL 22836 [facility] HEALTH 8 [facility] PANEL ECG 19462 GOINS, GOINS, ROUTINE 8 DON R DON R ECG W/LEAST 12 LDS W/I&R ECG 62418 CARDIOLOG COSBY, ROUTINE 8 Y ALON A ECG ASSOCIATE W/LEAST S OF 12 LDS [place] [facility] ONLY RADIOLOGI 30452 [facility] Bradley MARCOS 8 RADIOLOGY T EXAMINATI ON CHEST SINGLE VIEW FRONTAL Encounters Encounter Start End Date Code Location Performer Type Date OFFICE 32788 RICH RODRIGEZ OUTPATIEN 7 7 Servando VAUGHAN MD,[facility] MINUTES OFFICE 58697 [facility] OUTPATIEN 6 6 PHYSICIAN T VISIT S GROUP 15 MINUTES [facility] T OFFICE 79205 [facility] RACHEL OUTPATIEN 6 6 PHYSICIAN MAT T VISIT S GROUP 25 MINUTES [facility] T OFFICE 37315 [facility] 6 6 [facility] T [facility] 10 [facility]UTES [facility] T OFFICE 87393 JACKLYN MCLEOD CRI OUTPATIEN 6 6 MD GINA, T VISIT PSC 25 MINUTES OFFICE 85510 [facility] CARLOS OUTPATIEN 6 6 PHYSICIAN MENG T VISIT 5 S GROUP MINUTES OFFICE 21218 [facility] RACHEL OUTPATIEN 6 6 PHYSICIAN MAT T VISIT S GROUP 25 MINUTES [facility]OS[facility] 6 6 [facility] T [facility] [place] [facility] 6 6 [facility] T OFFICE 58674 PROGRESSI PROGRESSI OUTPATIEN 6 6 VE VE T VISIT PODIATRY PODIATRY 15 MINUTES [facility]OS[facility] 6 6 [facility] OUTPATIEN INC T [facility] 6 6 [facility] T OFFICE 24942 [facility] RACHEL OUTPATIEN 6 6 PHYSICIAN MAT T VISIT S GROUP 25 MINUTES [facility] 6 6 [facility] INC T OFFICE 86932 [facility] 6 6 [facility] T VISIT INC 10 MINUTES OFFICE 36440 JACKLYN MCLEOD CRI OUTPATIEN 6 6 MD GINA, T VISIT PSC 15 MINUTES OFFICE 20132 [facility] CARLOS OUTPATIEN 6 6 PHYSICIAN MENG T VISIT S GROUP 10 MINUTES [facility] T [facility] 6 [facility] 6 [facility] T [facility] 6 6 [facility] 28262 [facility] MENG T VISIT S GROUP 10 MINUTES [facility] 6 6 [facility] INC T OFFICE 67953 [facility] OUTPATIEN 6 6 PHYSICIAN MENG T VISIT S GROUP 15 MINUTES [facility] 6 6 [facility] T OFFICE 67799 [facility] OUTPATIEN 6 6 [facility] T VISIT [facility] 10 [facility]ES [facility] - 6 6 [facility] INC T OFFICE 26917 JACKLYN SHANI LAN OUTPATIEN 6 6 MD GINA, T VISIT [facility] 25 MINUTES [facility] 6 6 [facility] T [facility] 6 6 [facility] 6 6 [facility] T OFFICE 67404 JACKLYN GINA MORALES OUTPATIEN 6 6 MD GINA, T VISIT [facility] 10 MINUTES [facility] - 6 6 [facility]PATI[facility] INC T OFFICE 42244 [facility] CAIN OUTPATIEN 6 6 [facility] T VISIT [facility] 15 MINUTES [facility] - 6 6 [facility] T [facility] 6 6 [facility] T EMERGENCY 20171 [facility] 6 6 [facility] V[facility]/M [facility] - 6 6 [facility]PATIEN INC T EMERGENCY 51999 [facility] 6 6 PHYSICIAN DEPARTMEN S, PLLC T VISIT MODERATE SEVERITY [facility] 6 6 [facility] T OFFICE 10083 YUSEF YUSEF OUTPATIEN 6 6 [facility] T VISIT 15 MINUTES [facility] - 6 6 [facility] T OFFICE 99052 [facility] CARLOS OUTPATIEN 6 6 PHYSICIAN MENG T VISIT S GROUP 15 MINUTES OFFICE 98322 YUSEF YUSEF OUTPATIEN 6 6 [facility] T VISIT 15 MINUTES [facility] 6 6 [facility]IEN INC T OFFICE 83290 JACKLYN WILSON OUTPATIEN 5 5 MD GINA, T VISIT PSC 15 MINUTES OFFICE 67658 [facility] 5 5 [facility] T VISIT INC 10 MINUTES [facility] 5 5 [facility]EN INC T OFFICE 72181 YUSEF YUSEF OUTPATIEN 5 5 [facility] T VISIT 15 MINUTES OFFICE 44262 [facility] FLORIAN TOD OUTPATIEN 5 5 PHYSICIAN T VISIT S GROUP 10 [facility] - 5 5 [facility] INC [facility] - 5 5 [facility] T OFFICE 52424 [facility] FLORIAN TOD OUTPATIEN 5 5 PHYSICIAN T NEW 45 S GROUP MINUTES [facility] 5 5 [facility]PAT[facility] INC T OFFICE 42834 JACKLYN LAN OUTPATIEN 5 5 MD GINA, T NEW 45 PSC MINUTES [facility] 5 5 [facility] 5 5 [facility]PATIEN INC T OFFICE 68389 YUSEF YUSEF OUTPATIEN 5 5 [facility] T VISIT 15 MINUTES [facility] - 5 5 [facility] INC [facility] - 5 5 [facility] OUTPATIEN INC T OFFICE 23477 [facility] 5 5 [facility] 15 MINUTES [facility] 5 5 [facility] INC T OFFICE 74199 YUSEF YUSEF OUTPATIEN 5 5 [facility] T VISIT 15 MINUTES [facility] - 5 5 [facility] OUTPATIEN [facility] 5 5 [facility] OUTPATIEN INC T OFFICE 50550 YUSEF [facility] OUTPATIEN 5 5 [facility] T NEW 30 MINUTES OFFICE 79527 [facility] OUTPATIEN 5 5 PHYSICIAN MENG T VISIT S GROUP 15 MINUTES OFFICE 55997 [facility] 5 5 [facility] T VISIT 25 MINUTES [facility] [place] [facility] 5 5 [facility] T OFFICE 27466 [facility] 5 5 [facility] T VISIT 25 MINUTES EMERGENCY 77982 [place] 5 5 [facility] T VISIT MODERATE SEVERITY [facility] [place] - 5 5 [facility] T EMERGENCY 07548 ALFARIS ALFARIS 5 5 [facility] T VISIT HIGH/URGE NT SEVERITY OFFICE 25600 PAM OROZCO OUTPATIEN 5 5 GINA GINA T VISIT 15 MINUTES OFFICE 68843 [facility] 5 5 [facility] T VISIT 15 MINUTES [facility] [place] - 5 5 [facility] T OFFICE 89972 PAM PAM OUTPATIEN 5 5 GINA GINA T VISIT 25 MINUTES [facility] [place] - 5 5 [facility] [place] - 5 5 [facility] T OFFICE 67971 PAM PAM OUTPATIEN 5 5 IGNA GINA T VISIT 15 MINUTES EMERGENCY 04882 SOKAN BAB SOKAN BAB 5 5 DEPARTMEN T VISIT MODERATE SEVERITY [facility] [place] - 5 5 [facility] T OFFICE 44329 PAM PAM OUTPATIEN 5 5 GINA GINA T VISIT 15 MINUTES [facility] [place] - 5 5 [facility] T OFFICE 86415 PAM PAM OUTPATIEN 5 5 GINA GINA T VISIT 15 MINUTES OFFICE 54899 PR[facility] PAM OUTPATIEN 4 4 [facility] T VISIT ASSOCIATE 15 S PS MINUTES [facility] [place] - 4 4 [facility] T OFFICE 18169 PRIMARY PAM OUTPATIEN 4 4 [facility] T VISIT ASSOCIATE 25 S PS MINUTES [facility] [place] - 4 4 [facility] [place] - 4 4 [facility] [place] - 4 4 [facility], 4 4 HOME INPATIENT HEALTH EMERGENCY 95603 [place] 4 4 [facility] T VISIT MODERATE SEVERITY EMERGENCY 94175 HERACLIO ARRIETA 4 4 DEPARTMEN T VISIT HIGH/URGE NT SEVERITY [facility] [place] - [address] [facility] [place] - 4 4 [facility], 4 4 HOME INPATIENT HEALTH HOME 74379 [facility] VISIT EST 4 4 HOME PT HEALTH MOD-HI SEVERITY 40 MINUTES HOME 87704 [facility] VISIT EST 4 4 HOME PT HEALTH MOD-HI SEVERITY 40 MINUTES HOME 76156 [facility] VISIT EST 4 4 HOME PT HEALTH MOD-HI SEVERITY 40 MINUTES HOME 91026 [facility] VISIT EST 4 4 HOME PT HEALTH MOD-HI SEVERITY 40 MINUTES [facility] [place] - [address] [facility] [place] - 4 4 [facility], 4 4 HOME INPATIENT HEALTH HOME 96073 [facility] VISIT EST 4 4 HOME PT HEALTH MOD-HI SEVERITY 40 MINUTES OFFICE 38988 [facility] 4 DANUTA IK LID T NEW 30 MINUTES [facility] ST - 4 4 [facility] [place] [facility] [address] [facility] [place] [facility] [address] [facility] [place] [facility] [address] [facility] [place] - 4 4 [facility] T OFFICE 98799 ARMS DON [facility]MS [facility] 4 4 T VISIT 25 MINUTES OFFICE 31506 RAYO RUEDA [facility] 4 4 PRIMARY JAM T VISIT CARE 15 CENTER MINUTES [facility] [place] - 4 4 [facility] T OFFICE 12976 CARLITOS DON ARMS DON OUTPATIEN 4 4 T VISIT 25 MINUTES OFFICE 73662 CHINO URBINA DON CONSULTAT 4 4 [employer], streamit ION NEW/ESTAB PATIENT 60 MIN [facility] [place] - 4 4 [facility] T EMERGENCY 20980 [facility] 4 4 [facility] T VISIT HIGH/URGE NT SEVERITY [facility] [place] - [address] [facility] [place] - 4 4 [facility] T EMERGENCY 74795 IDA 4 4 [facility] T VISIT HIGH/URGE NT SEVERITY EMERGENCY 78376 VORKPOR VORKPOR 4 4 [facility] T VISIT HIGH/URGE NT SEVERITY [facility] [place] - 4 4 [facility] T EMERGENCY 09191 HAMPTONKRISTY JOLLY [facility] KER 4 4 DEPARTMEN T VISIT HIGH/URGE NT SEVERITY [facility] [place] - 4 4 [facility] [place] - 4 4 [facility] T EMERGENCY 38072 ST[facility] HEARD II DEPT 3 3 EMERGENCY THO VISIT SERVICES HIGH SEVERITY& THREAT FUNCJ OFFICE 54119 RAYO RUEDA OUTPATIASHER 3 3 PRIMARY JAM T VISIT CARE 25 CENTER MINUTES OFFICE 73220 RAYO RUEDA OUTPATIASHER 3 3 PRIMARY JAM T NEW 30 CARE MINUTES CENTER EMERGENCY 68033 STARR WEAVER 3 3 EMERGENCY PAT DEPARTMEN SERVICES T VISIT HIGH/URGE NT SEVERITY [facility] - 2 2 GEOPH[facility]ICAL PROSPECTING SURVEYOR OUTPATIEN [facility]AE T CO HOS OFFICE 58055 [facility] PAM OUTPATIEN 2 2 HEALTH [facility] T VISIT ASSOCIATE 15 S PS MINUTES [facility] [place] - 2 2 [facility] T OFFICE 84220 PR[facility] PAM OUTPATIEN 2 2 [facility] T VISIT ASSOCIATE 25 S PS MINUTES [facility] [place] - 2 2 [facility] T OFFICE 73378 PRIMARY PAM OUTPATIEN 2 2 [facility] T VISIT ASSOCIATE 15 S PS MINUTES EMERGENCY 45324 [facility] 2 N DEPARTMEN COMMUNTIY T VISIT HOSPITA MODERATE SEVERITY [facility] - 2 2 N OUTPATIEN COMMUNTIY T HOSPITA OFFICE 26199 PAM PAM OUTPATIEN 2 2 GINA GINA T VISIT 25 MINUTES OFFICE 75606 [facility]AM OUTPATIEN 2 2 [facility] T VISIT ASSOCIATE 25 S PS MINUTES OFFICE 33342 [facility]AM OUTPATIEN 2 2 [facility] T VISIT ASSOCIATE 15 S PS MINUTES OFFICE 20871 [facility] OUTPATIEN 2 2 [facility] T VISIT ASSOCIATE 15 S PS MINUTES OFFICE 01833 [place] [facility]- OUTPATIEN 2 2 MEDICAL PETEY T NEW 30 SERV RACIEL MINUTES [facility] INC, - 2 2 GEOPHYSICAL PROSPECTING SURVEYOR OUTPATIEN RAE T CO HOS OFFICE 15804 PR[facility] PAM OUTPATIEN 2 2 [facility] T VISIT ASSOCIATE 15 S PS MINUTES OFFICE 71932 PR[facility] PAM OUTPATIEN 2 2 [facility] T VISIT ASSOCIATE 15 S PS MINUTES HOSPITAL [facility]AE - 1 1 [facility] T EMERGENCY 32095 RAE 1 1 [facility] T VISIT LOW/MODER SEVERITY OFFICE 85101 [facility]AM OUTPATIEN 1 1 [facility] T VISIT ASSOCIATE 15 S PS MINUTES HOSPITAL IDA - 1 1 [facility] T OFFICE 88049 PR[facility] PAM OUTPATIEN 1 1 [facility] T VISIT ASSOCIATE 15 S PS MINUTES [facility] [place] - 1 1 [facility] T OFFICE 71752 TEJ COSBY COSBY TEJ OUTPATIEN 1 1 MD T VISIT CONSULTIN 15 G SRV MINUTES OFFICE 22250 [facility] OUTPATIEN 1 1 [facility] T VISIT ASSOCIATE 15 S PS MINUTES OFFICE 17703 TEJ COSBY COSBY TEJ OUTPATIEN 1 1 MD T VISIT CONSULTIN 15 G SRV MINUTES [facility] [place] - 1 1 [facility] HOSPITAL IDA - 1 1 [facility] T EMERGENCY 48287 STARR BARNETT DEPT 1 1 EMERGENCY VISIT SERVICES HIGH SEVERITY& THREAT FUNCJ OFFICE 51309 [facility] OUTPATIEN 1 1 [facility] T VISIT ASSOCIATE 25 S PS MINUTES OFFICE 02357 TEJ COSBY COSBY TEJ OUTPATIEN 1 1 MD Al NEW 45 CONSULTIN MINUTES G SRV OFFICE 88733 [facility] OUTPATIEN 1 1 [facility] T VISIT ASSOCIATE 15 S PS MINUTES OFFICE 59937 [facility] OUTPATIEN 1 1 [facility] T VISIT ASSOCIATE 15 S PS MINUTES OFFICE 70749 [facility] OUTPATIEN 1 1 [facility] T VISIT 5 ASSOCIATE MINUTES S PS OFFICE 12917 [facility] OUTPATIEN 1 1 [facility] T VISIT ASSOCIATE 15 S PS MINUTES EMERGENCY 69620 [place] 1 1 [facility] T VISIT LOW/MODER SEVERITY EMERGENCY 32119 [facility] [place], 1 1 EMERGENCY JR., DO [facility] T VISIT MODERATE SEVERITY [facility] [place] - 1 1 [facility] T OFFICE 04290 PRIMARY PAM OUTPATIEN 1 1 [facility] T VISIT ASSOCIATE 15 S PS MINUTES [facility] [place] - 1 1 [facility] T OFFICE 15259 PRIMARY PAM OUTPATIEN 1 1 [facility] T VISIT ASSOCIATE 25 S PS MINUTES [facility] [place] - 1 1 [facility] T OFFICE 34301 PRIMARY PAM OUTPATIEN 1 1 [facility] T VISIT ASSOCIATE 15 S PS MINUTES [facility] [place] - 1 1 [facility] T OFFICE 56002 PRIMARY PAM OUTPATIEN 1 1 [facility] T VISIT ASSOCIATE 15 S PS MINUTES OFFICE 75244 [facility] OUTPATIEN 1 1 [facility] T VISIT ASSOCIATE 15 S PS MINUTES EMERGENCY 41827 [place] 1 1 [facility] T VISIT HIGH/URGE NT SEVERITY [facility] [place] - 1 1 [facility] T EMERGENCY 33738 STARR [place], DEPT 1 1 EMERGENCY JR., DO VISIT SERVICES OSC HIGH SEVERITY& THREAT FUNCJ [facility]OSP[facility] [place] - 1 1 [facility] T EMERGENCY 08538 [place] 1 1 [facility] T VISIT MODERATE SEVERITY OFFICE 68974 [facility] OUTPATIEN 1 1 [facility] T VISIT ASSOCIATE 15 S PS MINUTES OFFICE 43868 [facility]AM OUTPATIEN 0 0 [facility] T VISIT ASSOCIATE 15 S PS MINUTES [facility] [place] - 0 0 [facility] T OFFICE 59882 PRIMARY PAM OUTPATIEN 0 0 [facility] T VISIT ASSOCIATE 15 S PS MINUTES OFFICE 16708 PR[facility] PAM OUTPATIEN 0 0 [facility] T VISIT ASSOCIATE 15 S PS MINUTES [facility] [place] - 0 0 [facility] T OFFICE 47836 PRIMARY PAM OUTPATIEN 0 0 [facility] T VISIT ASSOCIATE 15 S PS MINUTES [facility] [place] - 0 0 [facility] T OFFICE 60374 PRIMARY PAM OUTPATIEN 0 0 [facility] T VISIT ASSOCIATE 15 S PS MINUTES [facility] [place] - 0 0 [facility] T OFFICE 79312 PRIMARY PAM OUTPATIEN 0 0 [facility] T VISIT ASSOCIATE 15 S PS MINUTES OFFICE 10534 PR[facility] PAM OUTPATIEN 0 0 [facility] T VISIT ASSOCIATE 15 S PS MINUTES [facility] [place] - 0 0 [facility] T OFFICE 57674 PRIMARY PAM, OUTPATIEN 0 0 HEALTH JACKIE M T VISIT ASSOCIATE 25 S PSC MINUTES OFFICE 36017 PRIMARY PAM, OUTPATIEN 0 0 HEALTH JACKIE M T VISIT ASSOCIATE 25 S PSC MINUTES OFFICE 67458 PR[facility] PAM, OUTPATIEN 0 0 HEALTH JACKIE M T VISIT ASSOCIATE 25 S PSC MINUTES OFFICE 15205 PRIMARY PAM OUTPATIEN 0 0 [facility] T VISIT ASSOCIATE 25 S PS MINUTES HOSPITAL R[facility] - 0 0 [facility] T OFFICE 36158 PRIMARY PAM, OUTPATIEN 0 0 [facility] JACKIE M T VISIT ASSOCIATE 15 S PSC MINUTES OFFICE 32136 PRIMARY PAM, OUTPATIEN 0 0 [facility] S PSC MINUTES [facility] [place] [facility] 0 0 [facility] T OFFICE 51842 PRIMARY PAM, OUTPATIEN 9 9 [facility] JACKIE M T VISIT ASSOCIATE 15 S PSC MINUTES OFFICE 97721 PRIMARY PAM, OUTPATIEN 9 9 [facility] VISIT ASSOCIATE 25 S PSC MINUTES OFFICE 72853 PRIMARY PAM, OUTPATIEN 9 9 [facility] VISIT ASSOCIATE 25 S PSC MINUTES [facility] [place] - 9 9 [facility] T OFFICE 62241 PRIMARY PAM, OUTPATIEN 9 9 [facility] 15 S PSC MINUTES [facility] [place] - 9 9 [facility] T OFFICE 61516 PRIMARY PAM, OUTPATIEN 9 9 [facility] V[facility] ASSOC[facility]ATE 15 S PSC MINUTES [facility] [place] - 9 9 [facility] T OFFICE 52823 PRIMARY PAM, OUTPATIEN 9 9 [facility] JACKIE M T VISIT ASSOCIATE 25 S PSC MINUTES [facility] [place] - 9 9 [facility] [place] - 9 9 [facility] T OFFICE 86887 PRIMARY PAM, OUTPATIEN 9 9 [facility] VISIT ASSOCIATE 15 S PSC MINUTES [facility] [place] - 9 9 [facility] T OFFICE 54151 PRIMARY PAM, OUTPATIEN 9 9 [facility] V[facility] ASSOC[facility] 15 S PSC MINUTES OFFICE 04192 PRIMARY ABBEY OROZCOEN 8 8 [facility] JACKIE [facility] VISIT ASSOCIATE 25 S PSC MINUTES OFFICE 45528 [facility] 8 [facility] J[facility]IE [facility] VISIT ASSOCIATE 15 S PSC MINUTES [facility]DA - 8 8 [facility] T OFFICE 73473 PRIMARY PAM [facility] 8 8 [facility] VISIT ASSOCIATE 25 S PSC MINUTES HOSPITAL IDA - 8 8 [facility] T OFFICE 24539 PRIMARY PAM [facility] 8 8 [facility] JACKIE M T VISIT ASSOCIATE 15 S PSC MINUTES HOSPITAL IDA - 8 8 [facility] 8 8 [facility] T OFFICE 46244 PAM, PAM OUTPATIEN 8 8 JACKIE JACKIE [facility] VISIT 15 MINUTES [facility] 8 8 [facility] T OFF[facility] 06296 DHS[facility] 8 8 [facility] T VISIT CENTRAL 15 BANK ACCT DEPARTMEN MINUTES T OFFICE 10060 BRISEIDA GOINS [facility] 8 8 DON R DON R T VISIT 15 MINUTES
--- OUTSIDE RECORDS SUMMARY | 2017-04-19 16:44 | External Medical Summary Rpt ---
Demographics Preferred Language Latvian Marital Status Unknown Anglican Affiliation Unknown Race Unknown Ethnic Group Unknown Author Author , Organization [employer] Address Unknown Phone Unavailable Purpose Continuity of Care Document - 05-24-2007 through 2016 Immunization Name Date Route CVX Reacti Commen Provid Is Given on t er Refuse d Tdap, Histor H109 No Adsorb 2006 ical ed Inform ation - Source Unspec ified
--- OUTSIDE RECORDS SUMMARY | 2017-04-19 16:44 | External Medical Summary Rpt ---
Demographics Preferred Language Zambian Marital Status Unknown Yazidism Affiliation Unknown Race Unknown Ethnic Group Unknown Author Author , Organization [employer] Address Unknown Phone Unavailable Purpose Continuity of Care Document - 05-24-2007 through 2016 Immunization Name Date Route CVX Reacti Commen Provid Is Given on t er Refuse d Tdap, Histor H109 No Adsorb 2006 ical ed Inform ation - Source Unspec ified
--- OUTSIDE RECORDS SUMMARY | 2017-04-19 16:44 | External Medical Summary Rpt ---
Author Author [employer], [employer] [employer] Organization [facility] Address Unknown Phone Unavailable Results UA Observa Value Referen Units Interpr Notes Date tion ce etation Range UA Light No No No No May 02 Color Yellow informa informa informa informa 2014 tion in tion in tion in tion in 3:05 PM source source source source data data data data UA Clear Clear No No No May 02 Appear informa informa informa 2014 tion in tion in tion in 3:05 PM source source source data data data UA Negativ Negativ No No No May 02 Glucose e e informa informa informa 2014 tion in tion in tion in 3:05 PM source source source data data data UA Negativ Negativ No No No May 02 Ketones e e informa informa informa 2014 tion in tion in tion in 3:05 PM source source source data data data UA Negativ Negativ No No No May 02 Blood e e informa informa informa 2014 tion in tion in tion in 3:05 PM source source source data data data UA pH 7.0 4.8 - No No No May 02 8.0 informa informa informa 2014 tion in tion in tion in 3:05 PM source source source data data data UA Negativ Negativ No No No May 02 Protein e e informa informa informa 2014 tion in tion in tion in 3:05 PM source source source data data data UA Normal <=1 No No No May 02 Urobili mg/dl informa informa informa 2014 nogen tion in tion in tion in 3:05 PM source source source data data data UA Negativ Negativ No No No May 02 Nitrite e e informa informa informa 2014 tion in tion in tion in 3:05 PM source source source data data data UA Leuk Negativ Negativ No No No May 02 Est e e informa informa informa 2014 tion in tion in tion in 3:05 PM source source source data data data UA Spec 1.013 1.001 - No No No May 02 Grav 1.035 informa informa informa 2014 tion in tion in tion in 3:05 PM source source source data data data CMP Observa Value Referen Units Interpr Notes Date tion ce etation Range Sodium 138 136 - mmol/L No No May 02 145 informa informa 2013 tion in tion in 3:49 PM source source data data Potassi 3.8 3.5 - mmol/L No No May 02 um 5.0 informa informa 2013 [Moles/ tion in tion in 3:49 PM volume] source source in data data Serum or Plasma Chlorid 98 98 - mmol/L No No May 02 e 107 informa informa 2013 tion in tion in 3:49 PM source source data data Carbon 31 22 - 29 mmol/L High No May 02 dioxide informa 2013 , total tion in 3:49 PM source [Moles/ data volume] in Serum or Plasma Anion 9 7 - 16 mmol/L No No May 02 Gap informa informa 2013 tion in tion in 3:49 PM source source data data CALCIUM 10.1 8.8 - mg/dL No No May 02 .TOTAL 10.2 informa informa 2013 tion in tion in 3:49 PM source source data data Glucose 130 82 - mg/dL High No May 02 Lvl 100 informa 2013 tion in 3:49 PM source data BUN 15 8 - 23 mg/dL No No May 02 informa informa 2014 tion in tion in 3:49 PM source source data data Creatin 1.02 0.51 - mg/dL High No May 02 ine 1.00 informa 2013 tion in 3:49 PM source data Albumin 4.5 3.2 - gm/dL No No May 02 4.6 informa informa 2013 [Mass/v tion in tion in 3:49 PM olume] source source in data data Serum or Plasma Protein 7.7 6.4 - gm/dL No No May 02 8.3 informa informa 2013 [Mass/v tion in tion in 3:49 PM olume] source source in data data Serum or Plasma Bilirub 0.4 0.1 - mg/dL No No May 02 in.tota 1.3 informa informa 2014 l tion in tion in 3:49 PM [Mass/v source source olume] data data in Serum or Plasma ASPARTA 23 <=40 IU/L No No May 02 TE informa informa 2014 AMINOTR tion in tion in 3:49 PM ANSFERA source source SE data data Alanine 24 <=41 IU/L No No May 02 informa informa 2014 aminotr tion in tion in 3:49 PM ansfera source source se data data [Enzyma tic activit y/volum e] in Serum or Plasma Alkalin 51 35 - IU/L No No May 02 e 104 informa informa 2013 phospha tion in tion in 3:49 PM tase source source [Enzyma data data tic activit y/volum e] in Serum or Plasma GFR Non 55 No No No No May 02 Afr Am informa informa informa informa 2014 tion in tion in tion in tion in 3:49 PM source source source source data data data data Uric Acid Observa Value Referen Units Interpr Notes Date tion ce etation Range Urate 4.6 2.4 - mg/dL No No May 02 [Mass/v 5.7 informa informa 2014 olume] tion in tion in 3:49 PM in source source Serum data data or Plasma CRP Observa Value Referen Units Interpr Notes Date tion ce etation Range CRP 1.79 <=5.00 mg/L No No May 02 informa informa 2013 tion in tion in 3:46 PM source source data data Hemogram Observa Value Referen Units Interpr Notes Date tion ce etation Range LEUKOCY 7.4 4.0 - x10(3)/ No No May 02 JACKY 11.0 mcL informa informa 2013 tion in tion in 3:04 PM source source data data Erythro 4.52 3.80 - x10(6)/ No No May 02 cytes 5.10 mcL informa informa 2013 [#/volu tion in tion in 3:04 PM me] in source source Blood data data by Automat ed count Hemoglo 13.8 12.0 - gm/dL No No May 02 bin 15.6 informa informa 2013 [Mass/v tion in tion in 3:04 PM olume] source source in data data Blood Hematoc 41.5 35.7 - % No No May 02 rit 45.9 informa informa 2014 [Volume tion in tion in 3:04 PM source source Fractio data data n] of Blood by Automat ed count Erythro 91.7 82.5 - fL No No May 02 cyte 99.8 informa informa 2014 mean tion in tion in 3:04 PM corpusc source source ular data data volume [Entiti c volume] by Automat ed count Erythro 30.5 27.0 - pg No No May 02 cyte 34.3 informa informa 2014 mean tion in tion in 3:04 PM corpusc source source ular data data hemoglo bin [Entiti c mass] by Automat ed count Erythro 33.3 32.1 - gm/dL No No May 02 cyte 35.3 informa informa 2014 mean tion in tion in 3:04 PM corpusc source source ular data data hemoglo bin concent ration [Mass/v olume] by Automat ed count Erythro 13.0 11.5 - % No No May 02 cyte 15.0 informa informa 2014 distrib tion in tion in 3:04 PM ution source source width data data [Ratio] by Automat ed count Platele 307 144 - x10(3)/ No No May 02 ts 423 mcL informa informa 2014 [#/volu tion in tion in 3:04 PM me] in source source Blood data data by Automat ed count MPV 9.4 6.8 - fL No No May 02 10.8 informa informa 2014 tion in tion in 3:04 PM source source data data
[2017-04-19] MEDS ORDERED: ZITHROMAX Z PA250 MG PO (17:07)
[2017-04-19] MEDS ORDERED: BENZONATATE200 MG PO (17:07)
[2017-04-19] MEDS ORDERED: PROVENTIL0.09 MG/A1 IH (17:07)
[2017-04-19] MEDS ORDERED: MEDROL 4MG. DOSE4 MG PO (17:07)
[2017-04-19 17:13] VITALS: BP 117/81
--- NOTE | 2017-04-19 19:57 | RADIOLOGY REPORT PS360 ---
CHEST(2 VIEWS-NOT PORTABLE) HISTORY: WHEEZY CONGESTION ORDERING PHYSICIAN: CHRIS CEDILLO APRN PATIENT AGE: 66 years COMPARISON: 06/28/2016 FINDINGS: The cardiomediastinal silhouette and pulmonary vascularity are within normal limits. The lungs are clear without infiltrates, suspicious nodules, or pleural effusions. No acute bony abnormalities. IMPRESSION: Negative chest, no acute finding
== END 2017-04-19 17:13 | disposition home or self-care (01) ==
LOC: UTC 15:56
DX: J20.9 Acute bronchitis, unspecified (principal); I10 Essential (primary) hypertension; E11.9 Type 2 diabetes mellitus without complications; F41.9 Anxiety disorder, unspecified

== ENCOUNTER → 2017-07-11 | Outpatient (CLI) | payer MEDICARE, MEDICAID ==
[~2017-07-11] MED LIST changes: +BENZONATATE200 MG PO; +MEDROL 4MG. DOSE4 MG PO; +PROVENTIL0.09 MG/A1 IH; +ZITHROMAX Z PA250 MG PO
--- NOTE | 2017-07-20 15:11 | RADIOLOGY REPORT PS360 ---
CT EXT LOWER-LT W/WO CONTRAST 3-D volume rendering reconstruction also performed HISTORY: LEFT FOOT 1ST MPJ IMPLANT,PAIN,R/O INFECTION Patient Age: 67 years: Female Ordering Physician: WINDY WELLINGTON DPM TECHNIQUE: Pre and postcontrast imaging. 75 cc [id number] used for the postcontrast study.. Helical CT scanning performed through the left foot with multiplanar reconstructions on CT workstation 3-D volume rendering with shading reconstruction also performed and reviewed on radiologist workstation. 77 CPT COMPARISON :Plain films right foot 07/03/2017 FINDINGS ... I understand from history from Dr. Wellington this patient has had multiple surgeries first MTP & region . These images show patient has undergone first MTP joint implant prosthesis placement Overall The Silastic Prosthetic component at the head of first metatarsal appears to be in overall good position. With prosthetic joint in place. There is note of small focus of cortical loss, & lucency is seen at the medial neck of first metatarsal, however margins at small this cortical fairly corticated with only mild diffuse inflammation overlying this region throughout soft tissues medial to head first metatarsal.. I favor this is likely an old stable healed feature/ doubt, & does not appear to reflect active osteomyelitis. (This feature seen on coronal image 21. Sagittal image 12) The Silastic component at proximal phalanx has an oblique position but fairly good position at the joint Viewing the sagittal reconstruction view we see it that the this prosthetic component then extends the downward oblique fashion,, as it extends distally the towards plantar aspect of neck proximal phalanx.. There Appears to be corticated margin with some anterior bulge in the plantar cortex beneath this area, where the the tip of the prosthesispeg seems to yield slight bulging along the plantar cortex towards neck distal metaphysis region of proximal phalanx.,. However I see no destructive process nor juanito fracture nor disruption nor good evidence of infection... This will require correlation and follow-up clinically.. No definitive loosening they can be appreciated on these studies. Suggestive some mild degenerative changes about the articulation between the first metatarsal head and sesamoid plantar sesamoid bones along the inferior aspect proximal head.. The other metatarsals and toes appear intact. Mild soft tissue swelling about the foot and first MTP joint towards first toe. Mild soft tissue swelling slightly more evident evident overlying the dorsal aspect of this joint. In continuing overlying proximal phalanx great toe IMPRESSION: First MTP joint implant in place.. .No significantly suspect areas for active osteomyelitis.. Note curious area of cortical lucency overlying medial neck of first metatarsal, overlying the prosthesis; but it seems to be a corticated old feature. Not felt to reflect active process. Mild soft tissue swelling seen about the foot and first MTP joint. Features described above reviewed with Dr. Wellingtonat the CT workstation
== END ==
LOC: RAD 13:32
DX: T84.84XA Pain due to internal orthopedic prosthetic devices, implants and grafts, initial encounter (principal)
CPT/HCPCS: Q9967